=== PATIENT | male | born 1945 | race Caucasian/White ===

== ENCOUNTER 2016-07-06 10:28 | Inpatient (IN) | payer OTHER ==
[~2016-07-06 10:28] MED LIST: BISACODYL 10 MG SUPP PR PRN; DIPHENOXYLATE/ATROPINE LOMOTIL 1 TAB PO PRN; LACTULOSE 20 GM/30 ML UDCUP PO PRN; LR 1,000 ML IV SCH; MAGNESIUM HYDROXIDE 30 ML UDCUP PO PRN; METOCLOPRAMIDE 10 MG/2 ML VIAL IVP PRN; ONDANSETRON 4 MG/2 ML VIAL IVP PRN; ONDANSETRON DISINTEGRATING 4 MG TAB PO PRN; PHARMACY PAIN CONSULT 1 EA MISC PRN; PROMETHAZINE HCL 25 MG SUPPR PR PRN; PROMETHAZINE HCL 25 MG/ML VIAL IVP PRN; TEMAZEPAM 15 MG CAP PO PRN; diphenhydrAMINE 25 MG CAP PO PRN; oxyCODONE IR 5 MG TAB PO PRN
[2016-07-06] MEDS ORDERED: CEFAZOLIN 2 GM/DEXTROSE/100 ML BAG IV ONE (11:17)
[2016-07-06] MEDS ORDERED: LIDOCAINE 1% 5 ML SDV ONE (11:17)
[2016-07-06] MEDS ORDERED: ACETAMINOPHEN 325 MG TAB ONE (11:17)
[2016-07-06] MEDS ORDERED: FAMOTIDINE 20 MG TAB ONE (11:17)
[2016-07-06] MEDS ORDERED: LR 1,000 ML IV ONE (11:50)
[2016-07-06] MEDS ORDERED: LIDOCAINE 1% 5 ML SDV ID PRN (11:50)
[2016-07-06] MEDS ORDERED: BACITRACIN 50,000 UNITS/10 ML SYR IRR ONE (12:20)
[2016-07-06] MEDS ORDERED: POLYMYXIN B SULFATE 500,000 UNIT/10 ML SYR IRR ONE (12:20)
[2016-07-06] MEDS ORDERED: CITRATE DEXTROSE SOLN 500 ML BAG ONE (12:24)
[2016-07-06] MEDS ORDERED: MIDAZOLAM 2 MG/2 ML VIAL ONE ×2 (12:59→13:29)
[2016-07-06] MEDS ORDERED: PROPOFOL/EMULSION 500 MG/50 ML BOTTLE IV ONE ×3 (13:07→14:58)
[2016-07-06] MEDS ORDERED: CHLORHEXIDINE GLUC HIBICLENS 118 ML BTL TP ONE (15:00)
[2016-07-06] MEDS ORDERED: CEFAZOLIN 2 GM/DEXTR 100 ML IV ONE (15:00)
[2016-07-06] MEDS ORDERED: ACETAMINOPHEN 325 MG TAB PO ONE (15:00)
[2016-07-06] MEDS ORDERED: FAMOTIDINE 20 MG TAB PO ONE (15:00)
[2016-07-06] MEDS ORDERED: ROPI/epiNEPH/KETOROLAC/morphINE JOINT COCKTAIL IU ONE (15:00)
--- NOTE | 2016-07-06 15:36 | DX ---
Intraoperative Fluoroscopy of the Right Hip Clinical History: 70-year-old male undergoing a right hip arthroplasty. Findings: Dr. Yovani Willis used 1.4 seconds of fluoroscopy time (exposure dose of 0.29 mGy), and a single spot matrix intraoperative image was acquired at 2:53 p.m. identifying an acetabular prosthet ic cup and a temporary femoral intramedullary jig, which are anatomically-aligned. Impression: Intraoperative fluoroscopy during an ongoing right hip arthroplasty.
[2016-07-06] MEDS: SENNOSIDES/DOCUSATE SODIUM TAB PO SCH ×2 (16:27→20:30)
--- NOTE | 2016-07-06 16:34 | DX ---
Portable AP Supine Pelvis (2 Views, at 3:49 p.m.) Clinical History: 70-year-old male who underwent a right hip arthroplasty. Comparison Studies: Intraoperative fluoroscopic image earlier this afternoon and CT imaging of the r ight lower extremity dated May 29, 2016 and bilateral hips dated March 23, 2016. Findings: There is anatomic positioning of the complete right hip arthroplasty, and the femoral intr amedullary component is well-centered. A surgical drain is in place. Skin edvin are seen peripheral laterally. There is normally expected postoperative air within the soft tissues. There is also sever e degenerative osteoarthrosis of the left knee with some rounding of the lateral femoral head-neck ju nction, suggestive of femoral-acetabular impingement. There is a "[id number]" appearance of the lef t hip, with some mild subchondral sclerosis. Impression: 1. Status post right knee arthroplasty, with anatomic alignment. 2. Severe osteoarthritis of the left hip.
[2016-07-06] MEDS: ASPIRIN 325 MG TAB PO SCH (20:30)
[2016-07-06] MEDS: oxyCODONE IR 5 MG TAB PO PRN (20:30)
[2016-07-06] MEDS: CYCLOBENZAPRINE 10 MG TAB PO PRN (22:04)
[2016-07-06] MEDS: ceFAZolin 2 GM/DEXTROSE 100 ML IV SCH (22:33)
[2016-07-07] MEDS: oxyCODONE IR 5 MG TAB PO PRN ×6 (00:05→21:43)
[2016-07-07] MEDS: ceFAZolin 2 GM/DEXTROSE 100 ML IV SCH (05:31)
[2016-07-07 05:40] LABS: HEMATOCRIT 32.8 % (40.0-51.0); HEMOGLOBIN 10.9 g/dL (13.7-17.5)
[2016-07-07] MEDS: ASPIRIN 325 MG TAB PO SCH (08:20)
[2016-07-07] MEDS: SENNOSIDES/DOCUSATE SODIUM TAB PO SCH ×2 (08:20→20:19)
--- NOTE | 2016-07-07 12:01 | SOAPPROG ---
SOAP Progress Note Assessment/Plan: Assessment: s/p keiko Plan: seen at 0715 and 1130 will need additional 24 hours for pain and Pt management dvt precautions 07/07/16 12:00 Subjective: pain when moving across hip and lower ext denies numb or ting no cp or sob Objective: Vital Signs Temp Pulse Resp BP Pulse Ox 37.8 C 76 18 123/64 H 95 07/07/16 07:29 07/07/16 07:29 07/07/16 07:29 07/07/16 07:29 07/07/16 07:29 Laboratory Results 07/07/16 04:59 07/06/16 07/07/16 07/08/16 05:59 05:59 05:59 Intake Total 2770 Output Total 1059 Balance 1711 dressing intact intact pf,df,ehl toes warm and pink neg homans james xrays stable anatomic alignement no fx or lucency ICD10 Worksheet Patient Problems: Problems Problem Status Diagnosed Hip arthritis Acute - ICD10 Problem Qualifiers (1) Hip arthritis
--- NOTE | 2016-07-07 12:03 | PDIAF ---
- Diagnosis Diagnosis: hip arthritis Code Status: Full Code - Medication Management Discharge Medications: Medications to Continue on Transfer Acetaminophen [Tylenol ES 500 mg (*)] 1,000 mg PO DAILY PRN 07/06/16 [Last Taken 07/05/16] Atorvastatin Calcium [Lipitor 20 mg (*)] 20 mg PO DAILY 07/06/16 [Last Taken ] Cyclobenzaprine [Flexeril 10 MG (*)] 5 mg PO HS 07/06/16 [Last Taken 07/05/16] Herbals/Supplements -Info Only 1 ea PO DAILY 07/06/16 [Last Taken Unknown] Nasonex 2 sprays EACHNARE DAILY 07/06/16 [Last Taken 07/05/16] Sertraline HCl [Zoloft 100mg (*)] 100 mg PO DAILY 07/06/16 [Last Taken 07/05/16] Tadalafil [Cialis] 5 mg PO DAILY PRN 07/06/16 [Last Taken Unknown] Zaleplon [Sonata] 10 mg PO HS 07/06/16 [Last Taken 07/05/16] Discharge Medications: Refer to the Discharge Home Medication list for PRN reason. - Orders Services needed: Physical Therapy Diet Recommendation: no restrictions on diet Diet Texture: Regular Texture Diet Wound Care Instructions: wbat. anterior hip precautions. daily dressing changes. benson hose x 2 weeks. shower without bandage. no soaking. f/u at two weeks. seek attn for increasing pain, drainage, leg pain or other focal complaint - Follow Up Care Current Providers and Referrals: An Prado MD [Primary Care Provider] -
[2016-07-07] MEDS: CYCLOBENZAPRINE 10 MG TAB PO PRN (20:19)
[2016-07-08] MEDS: oxyCODONE IR 5 MG TAB PO PRN ×5 (03:19→23:23)
[2016-07-08 05:10] LABS: HEMATOCRIT 29.1 % (40.0-51.0); HEMOGLOBIN 9.6 g/dL (13.7-17.5)
[2016-07-08] MEDS ORDERED: DIAZEPAM 10 MG TAB PO ONE (07:25)
--- NOTE | 2016-07-08 07:29 | SOAPPROG ---
SOAP Progress Note Assessment/Plan: Assessment: s/p keiko Plan: seen at 0715 and 1130 will need additional 24 hours for pain and Pt management dvt precautions poor pain control will add valium unable to clear therapy currently will obtain repeat xray to eval hip replacement likely muscle spasm secondary to bleeding within the hip 07/07/16 12:00 07/08/16 07:27 Subjective: complains of pain no cp or sob spasms with movement Objective: Vital Signs Temp Pulse Resp BP Pulse Ox 36.8 C 89 17 150/65 H 93 07/08/16 04:03 07/08/16 04:03 07/08/16 04:03 07/08/16 04:03 07/08/16 04:03 Laboratory Results 07/08/16 04:23 07/07/16 07/08/16 07/09/16 05:59 05:59 05:59 Intake Total 2770 600 Output Total 1059 500 Balance 1711 100 dressing with serrous drainage mod swelling to thigh intact pf,df,ehl toes warm and pink neg homans bilaterally ICD10 Worksheet Patient Problems: Problems Problem Status Diagnosed Hip arthritis Acute - ICD10 Problem Qualifiers (1) Hip arthritis
[2016-07-08] MEDS: ASPIRIN 325 MG TAB PO SCH (08:09)
[2016-07-08] MEDS: DIAZEPAM 5 MG TAB PO PRN ×3 (08:09→20:38)
[2016-07-08] MEDS: SENNOSIDES/DOCUSATE SODIUM TAB PO SCH ×2 (08:09→20:35)
--- NOTE | 2016-07-08 09:35 | DX ---
AP pelvis, centered low. HISTORY: Status post right hip arthroplasty, with pain. FINDINGS: Surgical procedures of a right total hip arthroplasty are identified without complication. A soft tissue drain has been removed from July 06, 2016. Left hip osteoarthritis is advanced, with underlying cam RASHAAD. IMPRESSION: 1. Right hip arthroplasty without complication.
[2016-07-08 09:40] LABS: ANION GAP 6 mEq/L (8-16); CALCIUM 8.4 mg/dL (8.5-10.4); CARBON DIOXIDE 30 mEq/l (22-31); CHLORIDE 98 mEq/L (97-110); CREATININE 0.8 mg/dL (0.7-1.3); GLOMERULAR FILTRATION RATE > 60; GLUCOSE 133 mg/dL (70-100); POTASSIUM 4.5 mEq/L (3.5-5.2); SODIUM 134 mEq/L (134-144)
[2016-07-08] MEDS ORDERED: IOPAMIDOL (ISOVUE-300) 50 ML VIAL IV ONE (16:13)
--- NOTE | 2016-07-08 18:46 | SOAPPROG ---
SOAP Progress Note Assessment/Plan: Assessment: Postop gross hematuria and dysuria: improving, nearly resolved. CT urogram negative (although noncontrast portion not done). Plan: 1. Send UA and culture. Will treat if UA is suggestive for UTI. 2. FU in my office in 2-3 weeks for repeat UA, symptom recheck, and consideration of cystoscopy. Full consult note dictated. Objective: Vital Signs Temp Pulse Resp BP Pulse Ox 36.9 C 77 18 125/62 H 98 07/08/16 16:00 07/08/16 16:00 07/08/16 16:00 07/08/16 16:00 07/08/16 16:00 Laboratory Results 07/08/16 04:23 07/08/16 09:10 07/07/16 07/08/16 07/09/16 05:59 05:59 05:59 Intake Total 2770 600 500 Output Total 1059 500 650 Balance 1711 100 -150 ICD10 Worksheet Patient Problems: Problems Problem Status Diagnosed Hip arthritis Acute
--- NOTE | 2016-07-08 19:37 | CT ---
CT Abdomen and Pelvis, Without and With Contrast Indication: Gross hematuria. TECHNIQUE: 1.25-mm contiguous helical axial scanning through the abdomen and pelvis, without contras t. 1.25-mm contiguous helical axial scanning through the abdomen in the nephrographic phase postcont rast after the uneventful administration of 120 mL of Isovue-300. 1.25-mm contiguous helical axial s luisito through the abdomen and pelvis postcontrast in the excretory phase at 12 minutes. Dose reduc tion technique was performed. Comparison: Plain radiographs July 08, 2016. FINDINGS: There is some patchy atelectatic change at the left lung base. The liver and gallbladder are unremarkable. The spleen, adrenals, and pancreas are unremarkable. The kidneys are symmetric an d unremarkable. The excrete normally. A low-density cyst is present in the mid lower right kidney. A second area, qth-yqrbd-zt-characterize, is likely a cyst in the lower right kidney. The ureters a re unremarkable. The bladder is unremarkable. A total hip arthroplasty is present, with surgical st aples along the right skin. IMPRESSIONS 1. New right total hip arthroplasty in good position. 2. No evidence to explain the patient's gross hematuria 3. Benign incidental cysts need no further follow up.
[2016-07-08] MEDS: POLYETHYLENE GLYCOL 3350 17 GM PKT PO PRN (20:39)
[2016-07-08 23:48] LABS: COLOR YELLOW; LEUKOCYTE ESTERASE,URINE NEGATIVE (NEGATIVE); NITRITE,URINE NEGATIVE (NEGATIVE)
[2016-07-09] MEDS: oxyCODONE IR 5 MG TAB PO PRN ×6 (02:08→23:30)
[2016-07-09] MEDS: DIAZEPAM 5 MG TAB PO PRN ×6 (02:08→23:30)
--- NOTE | 2016-07-09 06:35 | SOAPPROG ---
SOAP Progress Note Assessment/Plan: Assessment: s/p keiko Plan: seen at 0715 and 1130 will need additional 24 hours for pain and Pt management dvt precautions poor pain control will add valium unable to clear therapy currently will obtain repeat xray to eval hip replacement likely muscle spasm secondary to bleeding within the hip ok to d/c home if cleared by pt if unable to go home then snf vs additional day 07/07/16 12:00 07/08/16 07:27 07/09/16 06:33 Subjective: still with pain with movement valium has helped no cp or sob Objective: Vital Signs Temp Pulse Resp BP Pulse Ox 36.9 C 90 16 151/69 H 94 07/08/16 23:28 07/08/16 23:28 07/08/16 23:28 07/08/16 23:28 07/08/16 23:28 Laboratory Results 07/08/16 04:23 07/08/16 09:10 07/08/16 07/09/16 07/10/16 05:59 05:59 05:59 Intake Total 600 500 Output Total 500 800 Balance 100 -300 ecchymosis to anterior hip mod swelling to thigh intact sensation to light touch across lower ext neg homans james lower ext ICD10 Worksheet Patient Problems: Problems Problem Status Diagnosed Hip arthritis Acute - ICD10 Problem Qualifiers (1) Hip arthritis
--- NOTE | 2016-07-09 06:39 | PDIAF ---
- Diagnosis Diagnosis: hip arthritis Code Status: Full Code - Medication Management Discharge Medications: Medications to Continue on Transfer Acetaminophen [Tylenol ES 500 mg (*)] 1,000 mg PO DAILY PRN 07/06/16 [Last Taken 07/05/16] Atorvastatin Calcium [Lipitor 20 mg (*)] 20 mg PO DAILY 07/06/16 [Last Taken ] Cyclobenzaprine [Flexeril 10 MG (*)] 5 mg PO HS 07/06/16 [Last Taken 07/05/16] Herbals/Supplements -Info Only 1 ea PO DAILY 07/06/16 [Last Taken Unknown] Nasonex 2 sprays EACHNARE DAILY 07/06/16 [Last Taken 07/05/16] Sertraline HCl [Zoloft 100mg (*)] 100 mg PO DAILY 07/06/16 [Last Taken 07/05/16] Tadalafil [Cialis] 5 mg PO DAILY PRN 07/06/16 [Last Taken Unknown] Zaleplon [Sonata] 10 mg PO HS 07/06/16 [Last Taken 07/05/16] Aspirin [Aspirin 325 mg (*)] 325 mg PO DAILY #0 tab 07/09/16 [Last Taken Unknown ] Diazepam [Valium 5 MG (*)] 5 - 10 mg PO Q6HRS PRN #40 tab 07/09/16 [Last Taken Unknown] oxyCODONE IR [Oxycodone Ir (*)] 5 - 15 mg PO Q3H PRN #90 tab 07/09/16 [Last Taken Unknown] Discharge Medications: Refer to the Discharge Home Medication list for PRN reason. - Orders Services needed: Physical Therapy Diet Recommendation: no restrictions on diet Diet Texture: Regular Texture Diet Wound Care Instructions: wbat. anterior hip precautions. daily dressing changes. benson hose x 2 weeks. shower without bandage. no soaking. f/u at two weeks. seek attn for increasing pain, drainage, leg pain or other focal complaint - Follow Up Care Current Providers and Referrals: An Prado MD [Primary Care Provider] -
[2016-07-09] MEDS: ASPIRIN 325 MG TAB PO SCH (08:29)
[2016-07-09] MEDS: SENNOSIDES/DOCUSATE SODIUM TAB PO SCH ×2 (08:29→20:34)
[2016-07-09] MEDS: POLYETHYLENE GLYCOL 3350 17 GM PKT PO PRN (08:29)
[2016-07-09 23:00] VITALS: TEMP 99.6
[2016-07-10] MEDS: DIAZEPAM 5 MG TAB PO PRN ×2 (02:39→09:16)
[2016-07-10] MEDS: oxyCODONE IR 5 MG TAB PO PRN ×2 (02:39→09:16)
[2016-07-10 08:57] VITALS: BP 119/61; PULSE 94; RESP 17; O2SAT 84
[2016-07-10] MEDS: SENNOSIDES/DOCUSATE SODIUM TAB PO SCH (09:17)
[2016-07-10] MEDS: ASPIRIN 325 MG TAB PO SCH (09:17)
== END 2016-07-10 12:12 | disposition home health service (06) | DRG 470 ==
LOC: F3N 10:28
PROVIDERS: ADMIT Orthopaedic Surgery; ATTEND Orthopaedic Surgery
PROC: 0SR904Z Replacement of Right Hip Joint with Ceramic on Polyethylene Synthetic Substitute, Open Approach (ICD-10-PCS; principal; 2016-07-06 12:15)
DX: M16.11 Unilateral primary osteoarthritis, right hip (principal); R30.0 Dysuria; R31.0 Gross hematuria; F90.9 Attention-deficit hyperactivity disorder, unspecified type
CPT/HCPCS: 97116-GP; 97161-GP; 97165-GO; 97530-GO; 97530-GP; 97535-GO; J0171; J0690; J1885; J2250; J2704; J2795; J7060; Q9967

== ENCOUNTER → 2016-11-11 | Outpatient (CLI) | payer OTHER | LOC: BMCIMAGING 09:20 | PROVIDERS: ATTEND Orthopaedic Surgery | DX: M16.12 Unilateral primary osteoarthritis, left hip (principal) ==

== ENCOUNTER → 2016-11-19 | Outpatient (CLI) | payer OTHER | LOC: FIMAGING 09:32 | PROVIDERS: ATTEND Orthopaedic Surgery | DX: Z01.818 Encounter for other preprocedural examination (principal); M16.12 Unilateral primary osteoarthritis, left hip; Z96.641 Presence of right artificial hip joint ==

== ENCOUNTER 2016-11-23 06:15 | Inpatient (IN) | payer OTHER ==
[2016-11-23] MEDS ORDERED: LIDOCAINE 1% 2 ML INJ ONE (07:07)
[2016-11-23] MEDS ORDERED: THROMBIN (BOVINE) 5,000 UNIT VIAL TP ONE (07:27)
[2016-11-23] MEDS ORDERED: CALCIUM CHLORIDE 1 GM/10 ML INJ ONE (07:27)
[2016-11-23] MEDS ORDERED: ceFAZolin 1 GM/5 ML SYR ONE (07:28)
[2016-11-23] MEDS ORDERED: CITRATE DEXTROSE SOLN 500 ML BAG ONE (07:28)
[2016-11-23] MEDS ORDERED: CEFAZOLIN 2 GM/DEXTROSE/100 ML BAG IV ONE (07:51)
[2016-11-23] MEDS ORDERED: ACETAMINOPHEN 325 MG TAB ONE (07:51)
[2016-11-23] MEDS ORDERED: FAMOTIDINE 20 MG TAB ONE (07:51)
[2016-11-23] MEDS ORDERED: MIDAZOLAM 2 MG/2 ML VIAL ONE (07:56)
[2016-11-23] MEDS ORDERED: PROPOFOL/EMULSION 500 MG/50 ML BOTTLE IV ONE (08:00)
[2016-11-23] MEDS ORDERED: DEXAMETHASONE 4 MG/ML VIAL ONE (08:00)
[2016-11-23] MEDS ORDERED: fentaNYL 100 MCG/2 ML INJ ONE ×3 (08:00→13:01)
[2016-11-23] MEDS ORDERED: ONDANSETRON 4 MG/2 ML VIAL ONE (08:00)
[2016-11-23] MEDS ORDERED: FAMOTIDINE 20 MG TAB PO ONE (08:30)
[2016-11-23] MEDS ORDERED: TRANEXAMIC ACID IV ONE (08:30)
[2016-11-23] MEDS ORDERED: CEFAZOLIN 2 GM/DEXTR 100 ML IV ONE (08:30)
[2016-11-23] MEDS ORDERED: CHLORHEXIDINE GLUC HIBICLENS 118 ML BTL TP ONE ×2 (08:30)
[2016-11-23] MEDS ORDERED: ACETAMINOPHEN 325 MG TAB PO ONE (08:30)
[2016-11-23] MEDS ORDERED: NS IV ONE (08:30)
[2016-11-23] MEDS ORDERED: ROPI/epiNEPH/KETOROLAC/morphINE JOINT COCKTAIL IU ONE (08:30)
[2016-11-23] MEDS ORDERED: PROPOFOL 200 MG/20 ML VIAL ONE ×3 (10:33→11:51)
[2016-11-23] MEDS ORDERED: LR 1,000 ML IV ONE (11:10)
[2016-11-23] MEDS ORDERED: LIDOCAINE 1% 5 ML SDV ID PRN (11:10)
[2016-11-23] MEDS ORDERED: HYDROmorphONE/DILAUDID 1 MG/ML SYR ONE (13:53)
[2016-11-23] MEDS ORDERED: ACETAMINOPHEN 325 MG TAB PO PRN (14:16)
[2016-11-23] MEDS: D5W 1/2 NS W/ 20 KCl/L 1,000 ML IV SCH (15:11)
[2016-11-23] MEDS: oxyCODONE IR 5 MG TAB PO PRN ×3 (15:11→21:12)
[2016-11-23] MEDS ORDERED: NON-FORMULARY NEW DRUG (Tadalafil [Cialis] 5 MG) PO PRN (16:00)
--- NOTE | 2016-11-23 16:39 | SOAPPROG ---
FABIENNE Progress Note Assessment/Plan: Assessment: s/p left keiko spent 20 min in review of surgical procedure with patient i have reviewed intraoperative fracture and instability of the femoral stem requiring revision to a larger stem and cerclage wiring he has voiced his understanding he will be 50% wb likely for 6 weeks Plan: 11/23/16 16:36 Subjective: weak lifting left leg still with bilateral lower leg numbness min pain Objective: Vital Signs Temp Pulse Resp BP Pulse Ox 36.0 C 71 14 112/69 97 11/23/16 15:45 11/23/16 15:45 11/23/16 15:45 11/23/16 15:45 11/23/16 15:45 11/22/16 11/23/16 11/24/16 05:59 05:59 05:59 Intake Total 1700 Balance 1700 dressing intact flicker of hip flexion to left leg intact pdf,ehl toes warm and pink neg homans xrays anatomic alignment, cerclage wire no fx or lucency ICD10 Worksheet Patient Problems: Problems Problem Status Onset Hip arthritis Acute
[2016-11-23] MEDS ORDERED: ceFAZolin 2 GM in D5W 100 ML IV SCH (17:00)
[2016-11-23] MEDS: ceFAZolin 2 GM/DEXTROSE 100 ML IV SCH (17:08)
[2016-11-23] MEDS: DIAZEPAM 5 MG TAB PO PRN ×2 (17:12→22:05)
[2016-11-23] MEDS ORDERED: ZALEPLON 10 MG PO SCH ×2 (21:00)
[2016-11-23] MEDS: ASPIRIN 325 MG TAB PO SCH (21:12)
[2016-11-24] MEDS: ceFAZolin 2 GM/DEXTROSE 100 ML IV SCH ×2 (00:47→08:12)
[2016-11-24] MEDS: D5W 1/2 NS W/ 20 KCl/L 1,000 ML IV SCH (00:49)
[2016-11-24 05:00] LABS: HEMATOCRIT 31.2 % (40.0-51.0); HEMOGLOBIN 10.5 g/dL (13.7-17.5)
[2016-11-24] MEDS: DIAZEPAM 5 MG TAB PO PRN ×4 (06:01→23:45)
[2016-11-24] MEDS: oxyCODONE IR 5 MG TAB PO PRN ×5 (06:02→23:44)
--- NOTE | 2016-11-24 07:10 | PDIAF ---
- Diagnosis Diagnosis: left hip djd Code Status: Full Code - Medication Management Discharge Medications: Medications to Continue on Transfer Atorvastatin Calcium [Lipitor 20 mg (*)] 20 mg PO DAILY 07/06/16 [Last Taken 10/05] Herbals/Supplements -Info Only 1 ea PO DAILY 07/06/16 [Last Taken 11/17/16] Mometasone Furoate Nasal [Nasonex] 2 sprays NASAL DAILY #0 07/06/16 [Last Taken 11/22/16] Tadalafil [Cialis] 5 mg PO DAILY PRN 07/06/16 [Last Taken 11/17/16] Zaleplon [Sonata] 10 mg PO HS 07/06/16 [Last Taken 11/22/16] Diazepam [Valium 5 MG (*)] 5 - 10 mg PO HS PRN 10/28/16 [Last Taken 2 Weeks Ago] Ibuprofen [Motrin (*)] 200 mg PO Q8 PRN 10/28/16 [Last Taken 11/22/16] Discharge Medications: Refer to the Discharge Home Medication list for PRN reason. - Orders Services needed: Physical Therapy Diet Recommendation: no restrictions on diet Diet Texture: Regular Texture Diet, None Activity/Weight Bearing Restrictions: wbat. rom as ziyad, anterior hip precautions. daily dressing changes. may shower without bandage. no soaking or immersion. seek attn for drainage, redness, swelling. f/u at two weeks. aspirin 325 mg po daily - Follow Up Care Current Providers and Referrals: An Prado MD [Primary Care Provider] -
--- NOTE | 2016-11-24 07:12 | SOAPPROG ---
SOAP Progress Note Assessment/Plan: Assessment: s/p left keiko continue pt/ot 50% wb dvt precautions will d/c home tomorrow Plan: 11/23/16 16:36 11/24/16 07:10 Subjective: mild pain no cp or sob able to sleep Objective: Vital Signs Temp Pulse Resp BP Pulse Ox 36.9 C 67 16 133/66 H 97 11/24/16 04:00 11/24/16 04:00 11/24/16 04:00 11/24/16 04:00 11/24/16 04:00 Laboratory Results 11/24/16 04:08 11/23/16 11/24/16 11/25/16 05:59 05:59 05:59 Intake Total 4600 Output Total 400 Balance 4200 dressing intact intact pfdf,ehl toes warm and pink sensation intact to light touch james lower ext neg homans xrays stable alignement ICD10 Worksheet Patient Problems: Problems Problem Status Onset Hip arthritis Acute
[2016-11-24] MEDS: ATORVASTATIN CALCIUM 20 MG TAB PO SCH (08:12)
[2016-11-24] MEDS: ASPIRIN 325 MG TAB PO SCH (08:12)
[2016-11-24] MEDS: Mometasone Furoate Nasal [Nasonex] 2 SPRAYS NASAL SCH (08:17)
[2016-11-24] MEDS ORDERED: ASPIRIN 325 MG TAB PO SCH (09:00)
[2016-11-24] MEDS ORDERED: Herbals/Supplements -Info Only PO SCH (09:00)
[2016-11-24] MEDS: ZALEPLON 10 MG PO SCH (20:39)
[2016-11-25] MEDS: DIAZEPAM 5 MG TAB PO PRN ×3 (05:50→23:41)
[2016-11-25] MEDS: oxyCODONE IR 5 MG TAB PO PRN ×4 (05:50→23:42)
--- NOTE | 2016-11-25 06:59 | SOAPPROG ---
SOAP Progress Note Assessment/Plan: Assessment: s/p left keiko continue pt/ot 50% wb dvt precautions wants to be d/c wednesday am will have senior program planner speak with him regarding discharge Plan: 11/23/16 16:36 11/24/16 07:10 11/25/16 06:55 Subjective: has leukemia wants to stay until wednesday has increasing pain no cp or sob Objective: Vital Signs Temp Pulse Resp BP Pulse Ox 36.6 C 84 16 147/67 H 92 11/24/16 23:32 11/24/16 23:32 11/24/16 23:32 11/24/16 23:32 11/24/16 23:32 Laboratory Results 11/24/16 04:08 11/24/16 11/25/16 11/26/16 05:59 05:59 05:59 Intake Total 4600 300 Output Total 400 550 Balance 4200 -250 dressing intact intact pfdf,ehl toes warm and pink intact pfdf,ehl toes warm and pink neg homans james pos swelling at left thigh xrays repeat pelvis xray stable no subsidence ICD10 Worksheet Patient Problems: Problems Problem Status Onset Hip arthritis Acute
[2016-11-25] MEDS: Mometasone Furoate Nasal [Nasonex] 2 SPRAYS NASAL SCH (09:51)
[2016-11-25] MEDS: ATORVASTATIN CALCIUM 20 MG TAB PO SCH (09:51)
[2016-11-25] MEDS: ASPIRIN 325 MG TAB PO SCH (09:51)
[2016-11-25] MEDS ORDERED: chlorproMAZINE HCL 25 MG in NS 25 ML IV PRN (14:45)
[2016-11-25] MEDS: ZALEPLON 10 MG PO SCH (21:03)
[2016-11-26 05:28] LABS: HEMATOCRIT 22.4 % (40.0-51.0); HEMOGLOBIN 7.6 g/dL (13.7-17.5)
[2016-11-26] MEDS: DIAZEPAM 5 MG TAB PO PRN ×3 (05:30→20:04)
[2016-11-26] MEDS: oxyCODONE IR 5 MG TAB PO PRN ×6 (05:30→22:44)
--- NOTE | 2016-11-26 06:29 | SOAPPROG ---
SOAP Progress Note Assessment/Plan: Assessment: s/p left keiko continue pt/ot 50% wb dvt precautions wants to be d/c wednesday am plan for d/c tomorrow am low hct will follow as asymptomatic repeat xrays this pm to eval femoral stem Plan: 11/23/16 16:36 11/24/16 07:10 11/25/16 06:55 11/26/16 06:27 Subjective: sore across leg felt confused with thorazine no hiccups no cp or sob Objective: Vital Signs Temp Pulse Resp BP Pulse Ox 37.7 C 93 16 133/66 H 91 L 11/25/16 23:26 11/25/16 23:26 11/25/16 23:26 11/25/16 23:26 11/25/16 23:26 Laboratory Results 11/26/16 04:13 11/25/16 11/26/16 11/27/16 05:59 05:59 05:59 Intake Total 300 1300 Output Total 550 675 Balance -250 625 leg swollen pos ecchymosis soft muscular compartments intact pf,df,ehl warm brisk cap refil ICD10 Worksheet Patient Problems: Problems Problem Status Onset Hip arthritis Acute
[2016-11-26] MEDS: ASPIRIN 325 MG TAB PO SCH (08:31)
[2016-11-26] MEDS: ATORVASTATIN CALCIUM 20 MG TAB PO SCH (08:31)
[2016-11-26] MEDS: Mometasone Furoate Nasal [Nasonex] 2 SPRAYS NASAL SCH (08:57)
[2016-11-26] MEDS ORDERED: MAGNESIUM HYDROXIDE 30 ML UDCUP PO PRN (19:08)
[2016-11-26] MEDS ORDERED: POLYETHYLENE GLYCOL 3350 17 GM PKT PO PRN (19:08)
[2016-11-26 19:36] LABS: HEMATOCRIT 22.2 % (40.0-51.0); HEMOGLOBIN 7.4 g/dL (13.7-17.5)
[2016-11-26] MEDS: SENNOSIDES 1 TAB PO SCH (20:03)
[2016-11-26] MEDS: ZALEPLON 10 MG PO SCH (20:05)
[2016-11-27 06:06] VITALS: O2SAT 92
[2016-11-27] MEDS: oxyCODONE IR 5 MG TAB PO PRN ×2 (06:08→09:19)
[2016-11-27] MEDS: DIAZEPAM 5 MG TAB PO PRN (06:08)
--- NOTE | 2016-11-27 06:56 | SOAPPROG ---
SOAP Progress Note Assessment/Plan: Assessment: 4 days s/p L CELESTINE. doing well and pain controlled. Plan: d/c home today remain 50% weightbearing wear benson hose for 2 weeks cont asa dressing change daily begin PT in 1 to 2 weeks follow up in ortho office in 10 to 14 days with Teresa Barrios PA-C 11/27/16 06:52 Subjective: 4 days s/p L CELESTINE. States the oxy and valium are controlling pain and spasm. concerned about o2 sats. denies fever, chills, nausea, SOB, CP or calf pain. Denies numbness or tingling. Objective: Vital Signs Temp Pulse Resp BP Pulse Ox 37.3 C 91 15 118/58 L 92 11/27/16 04:00 11/27/16 04:00 11/27/16 04:00 11/27/16 04:00 11/27/16 04:00 Laboratory Results 11/26/16 19:13 11/26/16 11/27/16 11/28/16 05:59 05:59 05:59 Intake Total 1300 2500 Output Total 675 700 Balance 625 1800 - Time Spent With Patient Time Spent With Patient: 20 min in exam and answering questions - Pending Discharge Pending Discharge Within 24 Hours: Yes Pending Discharge Date: 11/28/16 Pending Discharge Time: 11:00 Physical Exam - Physical Exam General Appearance: WD/WN, alert, no apparent distress Peripheral Pulses: 2+: dorsalis-pedis (R), dorsalis-pedis (L) Skin: normal color (eccymotic on buttock and in groin), warm/dry, No rash Extremities: normal inspection, normal capillary refill, swelling, No normal range of motion, No non-tender, No pedal edema, No calf tenderness, No Dwayne's sign Neuro/Psych: no motor/sensory deficits, normal mood/affect, oriented x 3 ICD10 Worksheet Patient Problems: Problems Problem Status Onset Hip arthritis Acute
[2016-11-27 08:01] VITALS: BP 125/61; PULSE 84; RESP 16; TEMP 99.5
[2016-11-27] MEDS: SENNOSIDES 1 TAB PO SCH (09:19)
[2016-11-27] MEDS: ASPIRIN 325 MG TAB PO SCH (09:19)
[2016-11-27] MEDS: ATORVASTATIN CALCIUM 20 MG TAB PO SCH (09:19)
[2016-11-27] MEDS: Mometasone Furoate Nasal [Nasonex] 2 SPRAYS NASAL SCH (09:32)
== END 2016-11-27 12:10 | disposition home or self-care (01) | DRG 470 ==
LOC: F3N 06:15
PROVIDERS: ADMIT Orthopaedic Surgery; ATTEND Orthopaedic Surgery
PROC: 0SRB04Z Replacement of Left Hip Joint with Ceramic on Polyethylene Synthetic Substitute, Open Approach (ICD-10-PCS; principal; 2016-11-23 08:30)
PROC: 8E0Y0CZ Robotic Assisted Procedure of Lower Extremity, Open Approach (ICD-10-PCS; principal; 2016-11-23 08:30)
PROC: 0QH704Z Insertion of Internal Fixation Device into Left Upper Femur, Open Approach (ICD-10-PCS; principal; 2016-11-23 08:30)
DX: M16.12 Unilateral primary osteoarthritis, left hip (principal); T84.89XA Other specified complication of internal orthopedic prosthetic devices, implants and grafts, initial encounter; S72.002A Fracture of unspecified part of neck of left femur, initial encounter for closed fracture; Y92.234 Operating room of hospital as the place of occurrence of the external cause
CPT/HCPCS: 97116-GP; 97161-GP; 97165-GO; 97530-GO; 97530-GP; 97535-GO; C1713; G8979-GP-CI; G8980-GP-CI; G8981-GP-CK; G8982-GP-CI; G8987-GO-CI; G8988-GO-CI; G8989-GO-CI; J0171; J0690; J1100; J1170; J1885; J2250; J2405; J2704; J2795; J3010; J3230; J7060

== ENCOUNTER 2016-11-27 23:38 | Inpatient (IN) | payer OTHER ==
[2016-11-28] MEDS ORDERED: HYDROmorphONE/DILAUDID 2 MG TAB PO ONE (00:01)
[2016-11-28] MEDS ORDERED: HYDROmorphONE/DILAUDID 1 MG/ML SYR ONE (00:05)
--- NOTE | 2016-11-28 00:05 | EDPHY ---
H & P Smoking Status: Never smoked Time Seen by Provider: 11/27/16 23:53 HPI/ROS: CHIEF COMPLAINT: Left hip pain HISTORY OF PRESENT ILLNESS: This is a 71-year-old male presenting to the emergency department via EMS complaining of left hip pain. Patient states on 10/2016 total hip replacement, just discharged today. Patient states he was sitting on his chair dozed off as soon as he woke up he felt a pop in his left hip, unable to bear weight 10/10 pain. Patient's stated she is spoke with Dr. Willis he is aware of the new injury to the hip, x-rays then evaluation. REVIEW OF SYSTEMS: Constitutional: No fever, no chills. Eyes: No discharge. No blurred vision ENT: No sore throat. Cardiovascular: No chest pain, no palpitations. Respiratory: No cough, no shortness of breath. Gastrointestinal: No abdominal pain, no nausea no vomiting. Genitourinary: No difficulty hearing Musculoskeletal: No back pain. Left hip pain Skin: No rashes. Neurological: No headache. (Tara Boone) Physical Exam: General Appearance: Alert, no distress. Eyes: Pupils equal and round no pallor or injection. ENT, Mouth: Mucous membranes moist. Respiratory: There are no retractions, lungs are clear to auscultation. Cardiovascular: Regular rate and rhythm. Gastrointestinal: Abdomen is soft and nontender, no masses, bowel sounds normal. Neurological: No focal deficits Skin: Warm and dry, no rashes. Musculoskeletal: Neck is supple nontender. Extremities: Left hip pain decreased range of motion rotation noted. positive CMS intact. Ecchymosis noted to left side of abdomen/hip Psychiatric: Patient is oriented X 3, acting appropriate (Tara Boone) Constitutional: Initial Vital Signs Temperature (C) 37.9 C 11/27/16 23:50 Heart Rate 102 H 11/27/16 23:50 Respiratory Rate 20 11/27/16 23:50 Blood Pressure 182/73 H 11/27/16 23:50 O2 Sat (%) 87 L 11/27/16 23:50 O2 Delivery Mode [Post Non-Rebreather Mask Procedure 2nd] O2 Delivery Mode [Post Non-Rebreather Mask Procedure 1st] O2 Delivery Mode [Procedural Non-Rebreather Mask 2nd] O2 Delivery Mode [Procedural Non-Rebreather Mask 1st] O2 Delivery Mode [.Immediate Non-Rebreather Mask Pre-Procedure] O2 Delivery Mode Nasal Cannula O2 (L/minute) [Post Procedure 15 2nd] O2 (L/minute) [Post Procedure 15 1st] O2 (L/minute) [Procedural 2nd] 15 O2 (L/minute) [Procedural 1st] 15 O2 (L/minute) [.Immediate Pre- 15 Procedure] O2 (L/minute) 2 Allergies/Adverse Reactions: No Known Allergies Allergy (Verified 06/10/16 15:39) Home Medications: Medication Instructions Recorded Atorvastatin Calcium [Lipitor 20 20 mg PO DAILY 07/06/16 mg (*)] Herbals/Supplements -Info Only 1 ea PO DAILY 07/06/16 Mometasone Furoate Nasal [Nasonex] 2 sprays NASAL DAILY #0 07/06/16 Tadalafil [Cialis] 5 mg PO DAILY PRN 07/06/16 Aspirin [Aspirin 325 mg (*)] 325 mg PO DAILY #0 tab 11/27/16 Diazepam [Valium 5 MG (*)] 5 - 10 mg PO HS PRN #60 tab 11/27/16 Diazepam [Valium 5 MG (*)] 5 mg PO Q6 PRN #60 tab 11/27/16 oxyCODONE IR [Oxycodone Ir (*)] 5 mg PO Q3 PRN #90 tab 11/27/16 Medical Decision Making Procedures: Procedure: Left hip reduction Patient consented for left hip reduction. 100 mcg fentanyl, 100 mg purple fall for sedation. Successful hip reduction patient tolerated procedure. Post reduction films ordered positive CMS intact (Tara Boone) REDUCTION Procedure: Dislocation reduction. Indication: Dislocation The hip was reduced in the usual fashion without complications. Post reduction the patient's neurovascular exam is normal. Post reduction x-ray demonstrates reduction of the joint to the anatomic position. The procedure was performed by by physician legal document assistant. PROCEDURAL SEDATION Procedure: Procedural sedation. Indication: Dislocation reduction I was asked by my physician legal document assistant performed procedural sedation. The patient is an appropriate candidate to tolerate procedural sedation. The patient's vital signs and mental status are appropriate. The risks, benefits and alternatives of the sedation were discussed with the patient. The patient is ASA classification 2. The patient's Mallampati airway score was 1 and the patient did meet the 3-3-2 airway measurements. A time out was completed. The patient was sedated with propofol 100 mg. The patient was monitored with continuous pulse oximetry, telemetry monitor and end tidal CO2. There were no complications and no significant hypoxemia. I performed the sedation. The total time I spent at the bedside during the procedural sedation was 10 minutes. The patient was examined after the procedural sedation and has returned to their pre-sedation baseline with normal vital signs and a normal examination. (Maria Ines Woody) ED Course/Re-evaluation: Discussed ED plan of care: X-ray of left hip, IV pain management with Dilaudid 0100: Spoke with Dr. Willis, reduce hip here in the ER, admitted to hospitalist and p.o. for possible OR tomorrow 0150: Successful hip reduction, patient tolerated procedure well IV 100mcg fentanyl, 100 mg propofol 0205: Discussed with Dr. Rodgers patient admitted to floor, CBC, BMP, coags. Dr. Willis will see patient in the morning. (Tara Boone) Differential Diagnosis: Other differential diagnosis considered but not limited to hip fracture, hip dislocation, femur fracture (Tara Boone) Other Provider: PHYSICIAN DOCUMENTATION: The patient was evaluated and managed by the Physician Site Safety Coordinator. My co- signature indicates that I have reviewed this chart and I agree with the findings and plan of care as documented. I am the secondary supervising physician. (Maria Ines Woody) - Data Points Laboratory Results: Laboratory Results 11/28/16 00:00 11/28/16 00:00 11/28/16 11/28/16 11/28/16 00:00 00:00 00:00 WBC 8.34 10^3/uL 10^3/uL (3.80-9.50) RBC 2.79 10^6/uL L 10^6/uL (4.40-6.38) Hgb 8.7 g/dL L g/dL (13.7-17.5) Hct 26.7 % L % (40.0-51.0) MCV 95.7 fL fL (81.5-99.8) MCH 31.2 pg pg (27.9-34.1) MCHC 32.6 g/dL g/dL (32.4-36.7) RDW 14.4 % % (11.5-15.2) Plt Count 240 10^3/uL 10^3/uL (150-400) MPV 9.5 fL fL (8.7-11.7) Neut % (Auto) 72.9 % % (39.3-74.2) Lymph % (Auto) 13.8 % L % (15.0-45.0) [place] % (Auto) 10.8 % % (4.5-13.0) Eos % (Auto) 1.2 % % (0.6-7.6) Baso % (Auto) 0.5 % % (0.3-1.7) Nucleat RBC Rel Count 0.0 % % (0.0-0.2) Absolute Neuts (auto) 6.08 10^3/uL 10^3/uL (1.70-6.50) Absolute Lymphs (auto) 1.15 10^3/uL 10^3/uL (1.00-3.00) Absolute Monos (auto) 0.90 10^3/uL H 10^3/uL (0.30-0.80) Absolute Eos (auto) 0.10 10^3/uL 10^3/uL (0.03-0.40) Absolute Basos (auto) 0.04 10^3/uL 10^3/uL (0.02-0.10) Absolute Nucleated RBC 0.00 10^3/uL 10^3/uL (0-0.01) Immature Gran % 0.8 % % (0.0-1.1) Immature Gran # 0.07 10^3/uL 10^3/uL (0.00-0.10) PT 13.1 SEC SEC (12.0-15.0) INR 1.00 (0.83-1.16) APTT 28.4 SEC SEC (23.0-38.0) Sodium 134 mEq/L mEq/L (134-144) Potassium 4.6 mEq/L mEq/L (3.5-5.2) Chloride 96 mEq/L L mEq/L (97-110) Carbon Dioxide 28 mEq/l mEq/l (22-31) Anion Gap 10 mEq/L mEq/L (8-16) BUN 18 mg/dL mg/dL (7-23) Creatinine 0.9 mg/dL mg/dL (0.7-1.3) Estimated GFR > 60 Glucose 109 mg/dL H mg/dL (70-100) Calcium 9.8 mg/dL mg/dL (8.5-10.4) Medications Given: Discontinued Medications Fentanyl (Sublimaze) 100 mcg IVP EDNOW ONE Stop: 11/28/16 02:05 Last Admin: 11/28/16 01:30 Dose: 100 mcg Hydromorphone HCl (Dilaudid) 1 mg PO EDNOW ONE Stop: 11/28/16 00:02 Last Admin: 11/28/16 00:08 Dose: Not Given Hydromorphone HCl (Dilaudid) 1 mg IVP EDNOW ONE Stop: 11/28/16 00:08 Last Admin: 11/28/16 00:08 Dose: 1 mg Hydromorphone HCl (Dilaudid) 1 mg IVP EDNOW ONE Stop: 11/28/16 00:41 Last Admin: 11/28/16 01:04 Dose: 0.5 mg Hydromorphone HCl (Dilaudid) 1 mg IVP EDNOW ONE Stop: 11/28/16 02:29 Last Admin: 11/28/16 02:40 Dose: 1 mg Propofol (Diprivan) 100 mg IVP EDNOW ONE Stop: 11/28/16 02:06 Last Admin: 11/28/16 01:50 Dose: 100 mg Departure - Departure Disposition: [facility] Inpatient Acute Clinical Impression: Hip dislocation, left Qualifiers: Encounter type: initial encounter Qualified Code(s): S73.005A - Unspecified dislocation of left hip, initial encounter Condition: Good
[2016-11-28] MEDS ORDERED: HYDROmorphONE/DILAUDID 1 MG/ML SYR IVP ONE ×2 (00:07→00:40)
[2016-11-28] MEDS ORDERED: fentaNYL 100 MCG/2 ML INJ IVP ONE (02:04)
[2016-11-28] MEDS ORDERED: PROPOFOL 200 MG/20 ML VIAL IVP ONE (02:05)
[2016-11-28 02:26] LABS: % IMMATURE GRANULYOCYTES 0.8 % (0.0-1.1); ABSOLUTE IMMATURE GRANULOCYTES 0.07 10^3/uL (0.00-0.10); ADD DIFF? NO; ADD MORPH? NO; ADD SCAN? NO; ATYPICAL LYMPHOCYTE FLAG 20 (0-99); FRAGMENT RBC FLAG 0 (0-99); HEMATOCRIT 26.7 % (40.0-51.0); HEMOGLOBIN 8.7 g/dL (13.7-17.5); LEFT SHIFT FLG 10 (0-99); LIPEMIA HEMOLYSIS FLAG 80 (0-99); MEAN CELL HEMOGLOBIN 31.2 pg (27.9-34.1); MEAN CELL HEMOGLOBIN CONCENTR. 32.6 g/dL (32.4-36.7); MEAN CELL VOLUME 95.7 fL (81.5-99.8); MEAN PLATELET VOLUME 9.5 fL (8.7-11.7); PLATELET CLUMPS FLAG 10 (0-99); PLATELET COUNT 240 10^3/uL (150-400); RED BLOOD CELL COUNT 2.79 10^6/uL (4.40-6.38); RED CELL DISTRIBUTION WIDTH 14.4 % (11.5-15.2)
[2016-11-28] MEDS ORDERED: HYDROmorphONE/DILAUDID 2 MG/ML INJ IVP ONE (02:28)
[2016-11-28 02:36] LABS: APTT 28.4 SEC (23.0-38.0); PROTIME(PATIENT) 13.1 SEC (12.0-15.0)
[2016-11-28 02:42] LABS: ANION GAP 10 mEq/L (8-16); CALCIUM 9.8 mg/dL (8.5-10.4); CARBON DIOXIDE 28 mEq/l (22-31); CHLORIDE 96 mEq/L (97-110); CREATININE 0.9 mg/dL (0.7-1.3); GLOMERULAR FILTRATION RATE > 60; GLUCOSE 109 mg/dL (70-100); POTASSIUM 4.6 mEq/L (3.5-5.2); SODIUM 134 mEq/L (134-144)
[2016-11-28] MEDS ORDERED: HYDROmorphONE/DILAUDID 1 MG/ML SYR IVP PRN (03:03)
[2016-11-28] MEDS ORDERED: ACETAMINOPHEN 325 MG TAB PO PRN (03:03)
[2016-11-28] MEDS ORDERED: ONDANSETRON DISINTEGRATING 4 MG TAB PO PRN (03:03)
[2016-11-28] MEDS ORDERED: ONDANSETRON 4 MG/2 ML VIAL IVP PRN (03:03)
[2016-11-28] MEDS ORDERED: NS 1,000 ML IV SCH (03:15)
--- NOTE | 2016-11-28 04:50 | PDGENHP ---
History and Physical - Chief Complaint L hip pain - History of Present Illness Patient is a 71-year-old male with a history of hyperlipidemia, recent left hip fracture on 11/23 performed at [facility], discharged on who presents to the ED several hours after discharge complaining of acute left hip pain. Patient states on arrival home yesterday afternoon he took a nap in his upright recliner chair. He then awoke suddenly with a start, had jerked upright in his chair and then immediately felt a popping sensation in his left hip. After this he noted his leg to be abnormally rotated and he could not bear weight without significant amount of pain. Given this he decided to come to the ED for further evaluation. He did not fall out of his chair, had no abnormal movements other than sitting upright. On arrival to the ED patient was afebrile hemodynamically stable. X-ray of his left hip revealed recent arthroplasty hardware in place, but femoral head dislocated out of the socket. Hip was successfully reduced in the ER by ER physicians. Patient's orthopedist was contacted and recommended admission with possible surgical evaluation in the a.m. History Information - Allergies/Home Medication List Allergies/Adverse Reactions: No Known Allergies Allergy (Verified 06/10/16 15:39) Home Medications: Atorvastatin Calcium [Lipitor 20 mg (*)] 20 mg PO DAILY 07/06/16 [Last Taken 10/05] Herbals/Supplements -Info Only 1 ea PO DAILY 07/06/16 [Last Taken 11/17/16] Mometasone Furoate Nasal [Nasonex] 2 sprays NASAL DAILY #0 07/06/16 [Last Taken 11/22/16] Tadalafil [Cialis] 5 mg PO DAILY PRN 07/06/16 [Last Taken 11/17/16] I have personally reviewed and updated: family history, medical history, social history, surgical history - Past Medical History Additional medical history: hyperlipidemia - Surgical History Additional surgical history: L hip replacement on 11/23/2016. cataract repair. 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 Review of Systems Review of Systems: Constipation x5 days, passing gas ROS: 10pt was reviewed & negative except for what was stated in HPI & below Physical Exam Temp Pulse Resp BP Pulse Ox 36.6 C 81 16 154/77 H 92 11/28/16 02:40 11/28/16 02:40 11/28/16 02:40 11/28/16 02:40 11/28/16 02:40 O2 (L/minute) 2 Constitutional: no apparent distress, appears nourished, not in pain Eyes: PERRL, anicteric sclera, EOMI Ears, Nose, Mouth, Throat: moist mucous membranes, hearing normal, ears appear normal, no oral mucosal ulcers Cardiovascular: regular rate and rhythym, no murmur, rub, or gallop, pulses symmetric bilaterally, No JVD, No edema Peripheral Pulses: 2+: dorsalis-pedis (R), dorsalis-pedis (L) Respiratory: no respiratory distress, no rales or rhonchi, clear to auscultation Gastrointestinal: normoactive bowel sounds, soft, non-tender abdomen, no palpable masses, distension ( mildly distended), No guarding, No rebound Genitourinary: no bladder fullness, no bladder tenderness Skin: warm, normal color, no fluctuance, other (L hip incision, dressing with minimal serousangeous fluid drainage. ), No mottled Musculoskeletal: other (distant L extremity neurovascularly intact) Neurologic: AAOx3, sensation intact bilaterally, CN II-XII Intact, No weakness, No numbness, No facial droop Psychiatric: interacting appropriately, not anxious, not encephalopathic, thought process linear Lab Data & Imaging Review 11/28/16 04:42 11/28/16 04:42 WBC 8.34 10^3/uL (3.80-9.50) 11/28/16 00:00 RBC 2.79 10^6/uL (4.40-6.38) L 11/28/16 00:00 Hgb 8.7 g/dL (13.7-17.5) L 11/28/16 00:00 Hct 26.7 % (40.0-51.0) L 11/28/16 00:00 MCV 95.7 fL (81.5-99.8) 11/28/16 00:00 MCH 31.2 pg (27.9-34.1) 11/28/16 00:00 MCHC 32.6 g/dL (32.4-36.7) 11/28/16 00:00 RDW 14.4 % (11.5-15.2) 11/28/16 00:00 Plt Count 240 10^3/uL (150-400) 11/28/16 00:00 MPV 9.5 fL (8.7-11.7) 11/28/16 00:00 Neut % (Auto) 72.9 % (39.3-74.2) 11/28/16 00:00 Lymph % (Auto) 13.8 % (15.0-45.0) L 11/28/16 00:00 [place] % (Auto) 10.8 % (4.5-13.0) 11/28/16 00:00 Eos % (Auto) 1.2 % (0.6-7.6) 11/28/16 00:00 Baso % (Auto) 0.5 % (0.3-1.7) 11/28/16 00:00 Nucleat RBC Rel Count 0.0 % (0.0-0.2) 11/28/16 00:00 Absolute Neuts (auto) 6.08 10^3/uL (1.70-6.50) 11/28/16 00:00 Absolute Lymphs (auto) 1.15 10^3/uL (1.00-3.00) 11/28/16 00:00 Absolute Monos (auto) 0.90 10^3/uL (0.30-0.80) H 11/28/16 00:00 Absolute Eos (auto) 0.10 10^3/uL (0.03-0.40) 11/28/16 00:00 Absolute Basos (auto) 0.04 10^3/uL (0.02-0.10) 11/28/16 00:00 Absolute Nucleated RBC 0.00 10^3/uL (0-0.01) 11/28/16 00:00 Immature Gran % 0.8 % (0.0-1.1) 11/28/16 00:00 Immature Gran # 0.07 10^3/uL (0.00-0.10) 11/28/16 00:00 PT 13.1 SEC (12.0-15.0) 11/28/16 00:00 INR 1.00 (0.83-1.16) 11/28/16 00:00 APTT 28.4 SEC (23.0-38.0) 11/28/16 00:00 Sodium 134 mEq/L (134-144) 11/28/16 00:00 Potassium 4.6 mEq/L (3.5-5.2) 11/28/16 00:00 Chloride 96 mEq/L (97-110) L 11/28/16 00:00 Carbon Dioxide 28 mEq/l (22-31) 11/28/16 00:00 Anion Gap 10 mEq/L (8-16) 11/28/16 00:00 BUN 18 mg/dL (7-23) 11/28/16 00:00 Creatinine 0.9 mg/dL (0.7-1.3) 11/28/16 00:00 Estimated GFR > 60 11/28/16 00:00 Glucose 109 mg/dL (70-100) H 11/28/16 00:00 Calcium 9.8 mg/dL (8.5-10.4) 11/28/16 00:00 Visualized and Interpreted imaging results: Yes Interpretation: x-ray: dislocated L femoral head Assessment & Plan Assessment: patient is a 71-year-old male with history of hyperlipidemia and recent left hip replacement on 11/23 who presents to the ED after having a popping sensation in his left hip. ED evaluation reveals acute left hip dislocation, now status post reduction by ED physician and admitted for further management. Plan: # acute hip dislocation Given recent hip replacement, patient will require Ortho evaluation to determine if surgical exploration of the dislocation is required. Ortho has been contacted, will evaluate the patient in the AM. Will need to f/u official hip x-ray radiology read to determine if dislocation has been associated with a new acute fracture. Will control pain as needed, maintain patient in hip precautions, provide gentle IV fluid hydration and f/u ortho recommendations. # dispo: admit to observation status # gen: NPO DVTppx: lovenox Full code
[2016-11-28 05:03] LABS: % IMMATURE GRANULYOCYTES 0.9 % (0.0-1.1); ABSOLUTE IMMATURE GRANULOCYTES 0.06 10^3/uL (0.00-0.10); ADD DIFF? NO; ADD MORPH? NO; ADD SCAN? NO; ATYPICAL LYMPHOCYTE FLAG 0 (0-99); FRAGMENT RBC FLAG 0 (0-99); HEMATOCRIT 22.3 % (40.0-51.0); HEMOGLOBIN 7.5 g/dL (13.7-17.5); LEFT SHIFT FLG 10 (0-99); LIPEMIA HEMOLYSIS FLAG 80 (0-99); MEAN CELL HEMOGLOBIN 31.8 pg (27.9-34.1); MEAN CELL HEMOGLOBIN CONCENTR. 33.6 g/dL (32.4-36.7); MEAN CELL VOLUME 94.5 fL (81.5-99.8); MEAN PLATELET VOLUME 9.1 fL (8.7-11.7); PLATELET CLUMPS FLAG 0 (0-99); PLATELET COUNT 168 10^3/uL (150-400); RED BLOOD CELL COUNT 2.36 10^6/uL (4.40-6.38); RED CELL DISTRIBUTION WIDTH 14.3 % (11.5-15.2)
[2016-11-28 05:18] LABS: ANION GAP 6 mEq/L (8-16); CALCIUM 8.5 mg/dL (8.5-10.4); CARBON DIOXIDE 28 mEq/l (22-31); CHLORIDE 99 mEq/L (97-110); CREATININE 0.9 mg/dL (0.7-1.3); GLOMERULAR FILTRATION RATE > 60; GLUCOSE 108 mg/dL (70-100); MAGNESIUM 2.1 mg/dL (1.6-2.3); POTASSIUM 4.6 mEq/L (3.5-5.2); SODIUM 133 mEq/L (134-144)
[2016-11-28] MEDS: ENOXAPARIN 40 MG/0.4 ML SYR SC SCH (09:24)
[2016-11-28] MEDS: oxyCODONE IR 5 MG TAB PO PRN ×4 (09:24→20:37)
[2016-11-28] MEDS: DIAZEPAM 5 MG TAB PO PRN ×2 (09:24→22:39)
--- NOTE | 2016-11-28 09:34 | SOAPPROG ---
SOAP Progress Note Assessment/Plan: Assessment: S/P left keiko dislocation Plan:50% wb xrays demonstrate no fx or lucency, no change in position i have recommended trial of PT,OT with strict anterior hip precautions if any instability will require revision of femoral component 11/28/16 09:32 Subjective: mild pain no cp or sob ziyad po Objective: Vital Signs Temp Pulse Resp BP Pulse Ox 36.7 C 71 14 133/69 H 99 11/28/16 08:00 11/28/16 08:00 11/28/16 08:00 11/28/16 08:00 11/28/16 08:00 Laboratory Results 11/28/16 04:42 11/28/16 04:42 11/27/16 11/28/16 11/29/16 05:59 05:59 05:59 Output Total 200 Balance -200 PT 13.1 SEC (12.0-15.0) 11/28/16 00:00 INR 1.00 (0.83-1.16) 11/28/16 00:00 dressing intact intact pfd,ehl toes warm and pink neg homans no calf ttp james lower ext ICD10 Worksheet Patient Problems: Problems Problem Status Onset Hip dislocation, left Acute Hip arthritis Acute
--- NOTE | 2016-11-28 11:43 | HOSPPROG ---
Hospitalist Progress Note Assessment/Plan: Patient is a 71 y/o male who had a recent hip replacement of 11/23. He presented to the ER after having a popping sensation to his left hip. He was admitted earlier by Dr Degroot. I cam by to f/u. # acute hip dislocation seen by ortho/ to be 50% wb anterior hip precautions if becomes unstable, will need revision of femoral component *persistent hiccups trial of baclofen hold Valium because of increase risk of sedation/ can be resumed as soon as hiccups resolve had been given a dose of Thorazine/ caused confusion and no resolution *constipation no bowel movement x 6 days bowel protocol abd is very distended/ will give a dose of mag citrate/ has good bowel sounds *urinary retention ceballos placed in earlier this should resolve once he has a bowel movement *hyperlipidemia resumed statin *anemia close to his baseline on recent dc *dvt prophylaxis: LMWH Subjective: Dc has no specific complaints x for hiccups and being constipated. Objective: Vital Signs Temp Pulse Resp BP Pulse Ox 36.7 C 71 14 133/69 H 99 11/28/16 08:00 11/28/16 08:00 11/28/16 08:00 11/28/16 08:00 11/28/16 08:00 Laboratory Results 11/28/16 04:42 11/28/16 04:42 11/27/16 11/28/16 11/29/16 05:59 05:59 05:59 Output Total 200 Balance -200 PT 13.1 SEC (12.0-15.0) 11/28/16 00:00 INR 1.00 (0.83-1.16) 11/28/16 00:00 - Physical Exam Constitutional: uncomfortable Eyes: PERRL Ears, Nose, Mouth, Throat: hearing normal Cardiovascular: regular rate and rhythym Respiratory: no respiratory distress Gastrointestinal: normoactive bowel sounds, distension Genitourinary: ceballos in urethra Skin: warm Neurologic: AAOx3 Psychiatric: interacting appropriately ICD10 Worksheet Patient Problems: Problems Problem Status Onset Hip dislocation, left Acute Hip arthritis Acute
[2016-11-28] MEDS ORDERED: BACLOFEN 10 MG TAB PO PRN (12:53)
[2016-11-28] MEDS ORDERED: BACLOFEN 10 MG TAB PO ONE (12:54)
[2016-11-28] MEDS ORDERED: MAGNESIUM HYDROXIDE 30 ML UDCUP PO PRN (12:55)
[2016-11-28] MEDS ORDERED: MAGNESIUM CITRATE 300 ML BOTTLE PO ONE (12:55)
[2016-11-28] MEDS ORDERED: POLYETHYLENE GLYCOL 3350 17 GM PKT PO PRN (12:55)
[2016-11-28] MEDS ORDERED: LACTULOSE 20 GM/30 ML UDCUP PO PRN (12:55)
[2016-11-28] MEDS: BISACODYL 10 MG SUPP PR PRN (14:04)
[2016-11-28] MEDS: SENNOSIDES/DOCUSATE SODIUM TAB PO SCH (23:07)
[2016-11-29] MEDS: DIAZEPAM 5 MG TAB PO PRN ×3 (05:36→21:32)
[2016-11-29] MEDS: oxyCODONE IR 5 MG TAB PO PRN ×6 (05:36→21:32)
[2016-11-29 08:31] LABS: % IMMATURE GRANULYOCYTES 0.9 % (0.0-1.1); ABSOLUTE IMMATURE GRANULOCYTES 0.06 10^3/uL (0.00-0.10); ABSOLUTE NRBC COUNT 0.02 10^3/uL (0-0.01); ADD DIFF? NO; ADD MORPH? NO; ADD SCAN? NO; ATYPICAL LYMPHOCYTE FLAG 20 (0-99); FRAGMENT RBC FLAG 0 (0-99); HEMATOCRIT 23.4 % (40.0-51.0); HEMOGLOBIN 7.6 g/dL (13.7-17.5); LEFT SHIFT FLG 10 (0-99); LIPEMIA HEMOLYSIS FLAG 80 (0-99); MEAN CELL HEMOGLOBIN 31.5 pg (27.9-34.1); MEAN CELL HEMOGLOBIN CONCENTR. 32.5 g/dL (32.4-36.7); MEAN CELL VOLUME 97.1 fL (81.5-99.8); NRBC-AUTO% 0.3 % (0.0-0.2); PLATELET CLUMPS FLAG 0 (0-99); PLATELET COUNT 202 10^3/uL (150-400); RED BLOOD CELL COUNT 2.41 10^6/uL (4.40-6.38); RED CELL DISTRIBUTION WIDTH 14.5 % (11.5-15.2)
[2016-11-29 08:41] LABS: CALCIUM 8.4 mg/dL (8.5-10.4); CARBON DIOXIDE 27 mEq/l (22-31); CHLORIDE 101 mEq/L (97-110); CREATININE 0.9 mg/dL (0.7-1.3); GLOMERULAR FILTRATION RATE > 60; GLUCOSE 98 mg/dL (70-100); SODIUM 133 mEq/L (134-144)
[2016-11-29] MEDS ORDERED: Herbals/Supplements -Info Only PO SCH (09:00)
[2016-11-29 09:03] LABS: ANION GAP 5 mEq/L (8-16); POTASSIUM 4.8 mEq/L (3.5-5.2)
--- NOTE | 2016-11-29 09:03 | SOAPPROG ---
SOAP Progress Note Assessment/Plan: Assessment: S/P left keiko dislocation Plan: snf vs home based upon mobility with pt 50% wb xrays demonstrate no fx or lucency, no change in position i have recommended trial of PT,OT with strict anterior hip precautions if any instability will require revision of femoral component 50% wb STRICT ANTERIOR HIP PRECAUTIONS NO EXTERNAL ROTATION daily dressing changess may shower without bandage no soaking or immersion fall precautions Aspirin 325 mg daily f/u at two weeks post op abduction pillow while in bed 11/28/16 09:32 11/29/16 09:02 Subjective: hiccups pain ziyad no cp or sob confusion last pm Objective: Vital Signs Temp Pulse Resp BP Pulse Ox 36.9 C 81 16 150/70 H 98 11/29/16 08:26 11/29/16 08:26 11/29/16 08:26 11/29/16 08:26 11/29/16 08:26 Laboratory Results 11/29/16 08:05 11/28/16 11/29/16 11/30/16 05:59 05:59 05:59 Intake Total 900 Output Total 200 1700 Balance -200 -800 PT 13.1 SEC (12.0-15.0) 11/28/16 00:00 INR 1.00 (0.83-1.16) 11/28/16 00:00 dressing changed incision clean, dry and intact intact pf,df,ehl toes warm and pink neg homans bilaterally ICD10 Worksheet Patient Problems: Problems Problem Status Onset Hip dislocation, left Acute Hip arthritis Acute
--- NOTE | 2016-11-29 09:04 | PDIAF ---
- Diagnosis Diagnosis: left keiko Code Status: Full Code - Medication Management Discharge Medications: Medications to Continue on Transfer Atorvastatin Calcium [Lipitor 20 mg (*)] 20 mg PO DAILY 07/06/16 [Last Taken 03/07] Herbals/Supplements -Info Only 1 ea PO DAILY 07/06/16 [Last Taken 11/17/16] Mometasone Furoate Nasal [Nasonex] 2 sprays NASAL DAILY #0 07/06/16 [Last Taken 11/22/16] Tadalafil [Cialis] 5 mg PO DAILY PRN 07/06/16 [Last Taken 11/17/16] Aspirin [Aspirin 325 mg (*)] 325 mg PO DAILY #0 tab 11/27/16 [Last Taken ] Diazepam [Valium 5 MG (*)] 5 - 10 mg PO HS PRN #60 tab 11/27/16 [Last Taken 03/07] Diazepam [Valium 5 MG (*)] 5 mg PO Q6 PRN #60 tab 11/27/16 [Last Taken 11/27/16] oxyCODONE IR [Oxycodone Ir (*)] 5 mg PO Q3 PRN #90 tab 11/27/16 [Last Taken 03/07] Discharge Medications: Refer to the Discharge Home Medication list for PRN reason. - Orders Services needed: Home Care, Physical Therapy Home Care Face to Face: I certify that this patient was under my care and that I had the required [id number] encounter meeting the encounter requirements on the discharge day. My findings support the fact that the patient is homebound as defined in CMS Chapter 7 Medicare Benefits Manual 30.1.1, The condition of the patient is such that there exists a normal inability to leave home and consequently, leaving home would require a considerable and taxing effort. Diet Recommendation: no restrictions on diet Diet Texture: Regular Texture Diet Activity/Weight Bearing Restrictions: 50% wb. STRICT ANTERIOR HIP PRECAUTIONS. NO EXTERNAL ROTATION. daily dressing changess. may shower without bandage. no soaking or immersion. fall precautions. Aspirin 325 mg daily. f/u at two weeks post op. abduction pillow while in bed - Follow Up Care Current Providers and Referrals: An Prado MD [Primary Care Provider] - As per Instructions
[2016-11-29] MEDS: SENNOSIDES/DOCUSATE SODIUM TAB PO SCH ×2 (09:38→22:47)
[2016-11-29] MEDS: ENOXAPARIN 40 MG/0.4 ML SYR SC SCH (09:38)
[2016-11-29] MEDS: ATORVASTATIN CALCIUM 20 MG TAB PO SCH (09:38)
[2016-11-29] MEDS: Mometasone Furoate Nasal [Nasonex] 2 SPRAYS NASAL SCH (09:41)
--- NOTE | 2016-11-29 10:09 | HOSPPROG ---
Hospitalist Progress Note Assessment/Plan: Patient is a 71 y/o male who had a recent hip replacement of 11/23. He presented to the ER after having a popping sensation to his left hip. # acute hip dislocation seen by ortho/ to be 50% wb anterior hip precautions if becomes unstable, will need revision of femoral component *persistent hiccups trial of baclofen/ongoing/ will increase this dose had been given a dose of Thorazine/ caused confusion and no resolution *constipation resolved *Hypoxemia get a chest xray he is requiring 4 liters of oxygen *urinary retention ceballos placed in earlier resolved/ceballos out *hyperlipidemia resumed statin *anemia close to his baseline on recent dc *dvt prophylaxis: LMWH *Plan: patient will require another midnight stay/ he is requiring 4 liters of oxygen, needs aggressive pulmonary toileting, needs further evaluation by PT/ has multiple steps in his home and needs more teaching about anterior hip precautions. Subjective: Dc is having frequent hiccups. Objective: Vital Signs Temp Pulse Resp BP Pulse Ox 36.9 C 81 16 150/70 H 98 11/29/16 08:26 11/29/16 08:26 11/29/16 08:26 11/29/16 08:26 11/29/16 08:26 Laboratory Results 11/29/16 08:05 11/29/16 08:05 11/28/16 11/29/16 11/30/16 05:59 05:59 05:59 Intake Total 900 Output Total 200 1700 Balance -200 -800 PT 13.1 SEC (12.0-15.0) 11/28/16 00:00 INR 1.00 (0.83-1.16) 11/28/16 00:00 - Physical Exam Constitutional: not in pain, uncomfortable Eyes: PERRL Ears, Nose, Mouth, Throat: hearing normal Cardiovascular: regular rate and rhythym Respiratory: no respiratory distress, no rales or rhonchi Gastrointestinal: normoactive bowel sounds Skin: warm Musculoskeletal: generalized weakness Neurologic: AAOx3 Psychiatric: interacting appropriately, not anxious ICD10 Worksheet Patient Problems: Problems Problem Status Onset Hip dislocation, left Acute Hip arthritis Acute
[2016-11-29] MEDS ORDERED: BACLOFEN 10 MG TAB PO PRN (10:47)
[2016-11-29] MEDS ORDERED: HYDROmorphONE/DILAUDID 1 MG/ML SYR IVP PRN (12:06)
[2016-11-29] MEDS ORDERED: HYDROmorphONE/DILAUDID 1 MG/ML SYR ONE (12:15)
[2016-11-29] MEDS ORDERED: HYDROmorphONE/DILAUDID 1 MG/ML SYR IVP ONE (12:28)
[2016-11-29] MEDS ORDERED: PROPOFOL 200 MG/20 ML VIAL ONE ×2 (13:36→14:41)
[2016-11-29] MEDS ORDERED: PROPOFOL 200 MG/20 ML VIAL IVP ONE ×3 (13:45→14:44)
[2016-11-29] MEDS ORDERED: KETAMINE 100 MG/10 ML SYR ONE (14:07)
[2016-11-29] MEDS ORDERED: KETAMINE 100 MG/10 ML SYR IVP ONE ×2 (14:22→15:30)
[2016-11-29] MEDS ORDERED: FUROSEMIDE 40 MG/4 ML VIAL IVP ONE ×2 (14:46→21:15)
[2016-11-29] MEDS ORDERED: ACETAMINOPHEN 325 MG TAB PO ONE (14:46)
--- NOTE | 2016-11-29 15:11 | EDPHY ---
H & P Stated Complaint: left hip pain post surgery on wednesday Time Seen by Provider: 11/27/16 23:53 - Personal History Current Tetanus/Diphtheria Vaccine: Yes Current Tetanus Diphtheria and Acellular Pertussis (TDAP): Yes - Medical/Surgical History Hx Asthma: No Hx Chronic Respiratory Disease: No Hx Diabetes: No Hx Cardiac Disease: No Hx Renal Disease: No Hx Cirrhosis: No Hx Alcoholism: No Hx HIV/AIDS: No Hx Splenectomy or Spleen Trauma: No Other PMH: high cholesterol, adhd, insomnia, R CELESTINE, L total hip replacement - Social History Smoking Status: Never smoked Constitutional: Initial Vital Signs Temperature (C) 37.9 C 11/27/16 23:50 Heart Rate 102 H 11/27/16 23:50 Respiratory Rate 20 11/27/16 23:50 Blood Pressure 182/73 H 11/27/16 23:50 O2 Sat (%) 87 L 11/27/16 23:50 O2 Delivery Mode [Post Non-Rebreather Mask Procedure 2nd] O2 Delivery Mode [Post Non-Rebreather Mask Procedure 1st] O2 Delivery Mode [Procedural Non-Rebreather Mask 2nd] O2 Delivery Mode [Procedural Non-Rebreather Mask 1st] O2 Delivery Mode [.Immediate Non-Rebreather Mask Pre-Procedure] O2 Delivery Mode Nasal Cannula O2 (L/minute) [Post Procedure 15 2nd] O2 (L/minute) [Post Procedure 15 1st] O2 (L/minute) [Procedural 2nd] 15 O2 (L/minute) [Procedural 1st] 15 O2 (L/minute) [.Immediate Pre- 15 Procedure] O2 (L/minute) 3 Allergies/Adverse Reactions: No Known Allergies Allergy (Verified 06/10/16 15:39) Home Medications: Medication Instructions Recorded Atorvastatin Calcium [Lipitor 20 20 mg PO DAILY 07/06/16 mg (*)] Herbals/Supplements -Info Only 1 ea PO DAILY 07/06/16 Mometasone Furoate Nasal [Nasonex] 2 sprays NASAL DAILY #0 07/06/16 Tadalafil [Cialis] 5 mg PO DAILY PRN 07/06/16 Aspirin [Aspirin 325 mg (*)] 325 mg PO DAILY #0 tab 11/27/16 Diazepam [Valium 5 MG (*)] 5 - 10 mg PO HS PRN #60 tab 11/27/16 Diazepam [Valium 5 MG (*)] 5 mg PO Q6 PRN #60 tab 11/27/16 oxyCODONE IR [Oxycodone Ir (*)] 5 mg PO Q3 PRN #90 tab 11/27/16 Medical Decision Making - Diagnostics Imaging Results: Imaging Impressions Chest X-Ray 11/29/16 10:47 Impression: 1. Alveolar opacity in the left midlung, pneumonia versus atelectasis. 2. Possible low-grade congestive failure versus fluid overload. ED Course/Re-evaluation: 13:40 Procedure: Conscious sedation. Indication: Hip reduction I was asked by Dr. Yovani Willis to perform procedural sedation prior to hip reduction. The patient is an appropriate candidate to tolerate procedural sedation. The patient's vitals signs and mental status are appropriate. The risks, benefits and alternatives of the sedation were discussed with the patient. The patient is ASA classification 1. The patient's Mallampati airway score was 1and the patient did meet the 3-3-2 airway measurements. A time out was completed. The patient was sedated with 100mg IV Propofol. The patient was monitored with continuous pulse oximetry, patient monitor and end tidal CO2. There were no complications and no significant hypoxemia. I performed both the sedation and the procedure. The total time I spent at the bedside during the procedural sedation was 20 minutes. The patient was examined after the procedural sedation and has returned to their pre-sedation baseline with normal vital signs and a normal examination. Procedure: Reduction of Dislocated Hip Time-out completed immediately before the procedure. IV established. O2 administered. Placed on pulse oximeter and ETCO2 monitor. Neurovascular exam intact pre-procedure. Given 100mg IV Propofol for pain and sedation. The left hip was reduced using traction-countertraction. Reassessed post-procedure. Neurovascular status intact with intact sciatic nerve function and lower extremity pulses. X-ray reveals hip was not successfully reduced. The procedure was performed by myself, Dr. Gaitan. 14:10 Procedure: Conscious sedation. Indication: Hip reduction second attempt I was asked by Dr. Yovani Willis to perform procedural sedation prior to hip reduction. The patient is an appropriate candidate to tolerate procedural sedation. The patient's vitals signs and mental status are appropriate. The risks, benefits and alternatives of the sedation were discussed with the patient. The patient is ASA classification 1. The patient's Mallampati airway score was 1 and the patient did meet the 3-3-2 airway measurements. A time out was completed. The patient was sedated with 55mg IV Propofol and 80mg IV Ketamine. The patient was monitored with continuous pulse oximetry, patient monitor and end tidal CO2. There were no complications and no significant hypoxemia. I performed both the sedation and the procedure. The total time I spent at the bedside during the procedural sedation was 40 minutes. The patient was examined after the procedural sedation and has returned to their pre-sedation baseline with normal vital signs and a normal examination. Procedure: Reduction of Dislocated Hip Second Attempt Time-out completed immediately before the procedure. IV established. O2 administered. Placed on pulse oximeter and ETCO2 monitor. Neurovascular exam intact pre-procedure. Given 55mg IV Propofol and 80mg IV Ketamine for pain and sedation. The left hip was reduced using traction-countertraction. Reassessed post-procedure. Neurovascular status intact with intact sciatic nerve function and lower extremity pulses. Exam indicated reduction. Confirmed reduction on X- ray. The procedure was performed by myself, Dr. Gaitan. Hip dislocated again. Plan to admit back to floor. Spoke with Dr. Willis. He recommends one more attempt at reduction under sedation. 14:40 Procedure: Conscious sedation. Indication: Hip reduction, third attempt. I was asked by Dr. Willis to perform procedural sedation for hip reduction. The patient is an appropriate candidate to tolerate procedural sedation. The patient's vitals signs and mental status are appropriate. The risks, benefits and alternatives of the sedation were discussed with the patient. The patient is ASA classification 1. The patient's Mallampati airway score was 1 and the patient did meet the 3-3-2 airway measurements. A time out was completed. The patient was sedated with 60mg IV Ketamine and 60mg IV Propofol. The patient was monitored with continuous pulse oximetry, patient monitor and end tidal CO2. There were no complications and no significant hypoxemia. I performed both the sedation and the procedure. The total time I spent at the bedside during the procedural sedation was 60 minutes. The patient was examined after the procedural sedation and has returned to their pre-sedation baseline with normal vital signs and a normal examination. Procedure: Reduction of Dislocated Hip Time-out completed immediately before the procedure. IV established. O2 administered. Placed on pulse oximeter and ETCO2 monitor. Neurovascular exam intact pre-procedure. Given 60mg IV Ketamine and 60mg IV Propofol for pain and sedation. The left hip was reduced using traction-countertraction. Reassessed post-procedure. Neurovascular status intact with intact sciatic nerve function and lower extremity pulses. Exam indicated reduction. Positioned the patient with abduction pillow as directed by Dr. Willis. Confirmed reduction on X-ray. The procedure was performed by myself, Dr. Gaitan. 14:57 Reduction confirmed with two views via x-ray. - Data Points Laboratory Results: Laboratory Results 11/29/16 08:05 11/29/16 08:05 11/29/16 11/29/16 08:05 08:05 WBC 6.49 10^3/uL 10^3/uL (3.80-9.50) RBC 2.41 10^6/uL L 10^6/uL (4.40-6.38) Hgb 7.6 g/dL L g/dL (13.7-17.5) Hct 23.4 % L % (40.0-51.0) MCV 97.1 fL fL (81.5-99.8) MCH 31.5 pg pg (27.9-34.1) MCHC 32.5 g/dL g/dL (32.4-36.7) RDW 14.5 % % (11.5-15.2) Plt Count 202 10^3/uL 10^3/uL (150-400) MPV 9.0 fL fL (8.7-11.7) Neut % (Auto) 74.4 % H % (39.3-74.2) Lymph % (Auto) 10.9 % L % (15.0-45.0) Kendall % (Auto) 10.6 % % (4.5-13.0) Eos % (Auto) 2.6 % % (0.6-7.6) Baso % (Auto) 0.6 % % (0.3-1.7) Nucleat RBC Rel Count 0.3 % H % (0.0-0.2) Absolute Neuts (auto) 4.82 10^3/uL 10^3/uL (1.70-6.50) Absolute Lymphs (auto) 0.71 10^3/uL L 10^3/uL (1.00-3.00) Absolute Monos (auto) 0.69 10^3/uL 10^3/uL (0.30-0.80) Absolute Eos (auto) 0.17 10^3/uL 10^3/uL (0.03-0.40) Absolute Basos (auto) 0.04 10^3/uL 10^3/uL (0.02-0.10) Absolute Nucleated RBC 0.02 10^3/uL H 10^3/uL (0-0.01) Immature Gran % 0.9 % % (0.0-1.1) Immature Gran # 0.06 10^3/uL 10^3/uL (0.00-0.10) Sodium 133 mEq/L L mEq/L (134-144) Potassium 4.8 mEq/L mEq/L (3.5-5.2) Chloride 101 mEq/L mEq/L (97-110) Carbon Dioxide 27 mEq/l mEq/l (22-31) Anion Gap 5 mEq/L L mEq/L (8-16) BUN 17 mg/dL mg/dL (7-23) Creatinine 0.9 mg/dL mg/dL (0.7-1.3) Estimated GFR > 60 Glucose 98 mg/dL mg/dL (70-100) Calcium 8.4 mg/dL L mg/dL (8.5-10.4) Medications Given: Discontinued Medications Acetaminophen (Tylenol) 650 mg PO Q4HRS PRN PRN Reason: Pain, Mild/Fever, Can Take PO Stop: 05/27/17 03:02 Last Admin: 11/28/16 15:51 Dose: 650 mg Baclofen (Baclofen) 10 mg PO TID PRN PRN Reason: hiccups Stop: 05/27/17 15:59 Last Admin: 11/28/16 15:52 Dose: 10 mg Baclofen (Baclofen) 10 mg PO ONCE ONE Stop: 11/28/16 12:55 Last Admin: 11/28/16 14:04 Dose: 10 mg Fentanyl (Sublimaze) 100 mcg IVP EDNOW ONE Stop: 11/28/16 02:05 Last Admin: 11/28/16 01:30 Dose: 100 mcg Hydromorphone HCl (Dilaudid) 1 mg PO EDNOW ONE Stop: 11/28/16 00:02 Last Admin: 11/28/16 00:08 Dose: Not Given Hydromorphone HCl (Dilaudid) 1 mg IVP EDNOW ONE Stop: 11/28/16 00:08 Last Admin: 11/28/16 00:08 Dose: 1 mg Hydromorphone HCl (Dilaudid) 1 mg IVP EDNOW ONE Stop: 11/28/16 00:41 Last Admin: 11/28/16 01:04 Dose: 0.5 mg Hydromorphone HCl (Dilaudid) 1 mg IVP EDNOW ONE Stop: 11/28/16 02:29 Last Admin: 11/28/16 02:40 Dose: 1 mg Hydromorphone HCl (Dilaudid) 1 mg IVP ONCE ONE Stop: 11/29/16 12:29 Last Admin: 11/29/16 13:44 Dose: 1 mg Sodium Chloride (Ns) 1,000 mls @ 75 mls/hr IV CONT MELISSA Stop: 05/27/17 03:14 Last Admin: 11/28/16 03:28 Dose: 1,000 mls Magnesium Citrate (Magnesium Citrate) 300 ml PO ONCE ONE Stop: 11/28/16 12:56 Last Admin: 11/28/16 14:03 Dose: 300 ml Propofol (Diprivan) 100 mg IVP EDNOW ONE Stop: 11/28/16 02:06 Last Admin: 11/28/16 01:50 Dose: 100 mg Departure - Dep[facility]ure [facility]: [facility] Acute Clinical Impression: Hip dislocation, left Qualifiers: Encounter type: initial encounter Qualified Code(s): S73.005A - Unspecified dislocation of left hip, initial encounter
[2016-11-29] MEDS ORDERED: KETAMINE 500 MG/10 ML VIAL IVP ONE (15:13)
[2016-11-29] MEDS: ACETAMINOPHEN 500 MG TAB PO SCH ×2 (16:44→23:33)
[2016-11-30] MEDS: oxyCODONE IR 5 MG TAB PO PRN ×3 (01:47→21:34)
[2016-11-30] MEDS: HALOPERIDOL LACT 5 MG/ML INJ IVP PRN ×4 (02:28→21:43)
[2016-11-30] MEDS ORDERED: FUROSEMIDE 20 MG/2 ML VIAL IVP ONE (03:00)
[2016-11-30 05:43] LABS: % IMMATURE GRANULYOCYTES 1.1 % (0.0-1.1); ABSOLUTE NRBC COUNT 0.03 10^3/uL (0-0.01); ADD DIFF? NO; ADD MORPH? NO; ADD SCAN? NO; ATYPICAL LYMPHOCYTE FLAG 0 (0-99); FRAGMENT RBC FLAG 0 (0-99); HEMATOCRIT 31.8 % (40.0-51.0); HEMOGLOBIN 10.4 g/dL (13.7-17.5); LEFT SHIFT FLG 10 (0-99); LIPEMIA HEMOLYSIS FLAG 80 (0-99); MEAN CELL HEMOGLOBIN 29.8 pg (27.9-34.1); MEAN CELL HEMOGLOBIN CONCENTR. 32.7 g/dL (32.4-36.7); MEAN CELL VOLUME 91.1 fL (81.5-99.8); MEAN PLATELET VOLUME 9.1 fL (8.7-11.7); NRBC-AUTO% 0.3 % (0.0-0.2); PLATELET CLUMPS FLAG 10 (0-99); PLATELET COUNT 242 10^3/uL (150-400); RED BLOOD CELL COUNT 3.49 10^6/uL (4.40-6.38); RED CELL DISTRIBUTION WIDTH 17.1 % (11.5-15.2)
[2016-11-30 06:00] LABS: ALANINE AMINOTRANSFERASE 33 IU/L (21-72); ALKALINE PHOSPHATASE 52 IU/L (38-126); ANION GAP 8 mEq/L (8-16); ASPARTATE AMINOTRANSFERASE 40 IU/L (17-59); BILIRUBIN,TOTAL 1.2 mg/dL (0.1-1.4); CALCIUM 8.7 mg/dL (8.5-10.4); CARBON DIOXIDE 30 mEq/l (22-31); CHLORIDE 96 mEq/L (97-110); GLOMERULAR FILTRATION RATE > 60; GLUCOSE 94 mg/dL (70-100); POTASSIUM 4.4 mEq/L (3.5-5.2); SODIUM 134 mEq/L (134-144); TOTAL PROTEIN 5.5 g/dL (6.3-8.2)
[2016-11-30] MEDS ORDERED: ceFAZolin 2 GM/DEXTROSE 100 ML IV ONE (06:00)
--- NOTE | 2016-11-30 06:23 | PDANEPAE ---
ANE History of Present Illness acute dislocation s/p CELESTINE 11/23/16 ANE Past Medical History - Cardiovascular History Hx Hypertension: No Hx Arrhythmias: No Hx Chest Pain: No Hx Coronary Artery / Peripheral Vascular Disease: No Hx CHF / Valvular Disease: No Hx Palpitations: No - Pulmonary History Hx COPD: No Hx Asthma/Reactive Airway Disease: No Hx Recent Upper Respiratory Infection: No Hx Oxygen in Use at Home: No - Neurologic History Hx Cerebrovascular Accident: No Hx Seizures: No Hx Dementia: No - Endocrine History Hx Diabetes: No - Renal History Hx Renal Disorders: No - Liver History Hx Hepatic Disorders: No - Neurological & Psychiatric Hx Hx Neurological and Psychiatric Disorders: No - Cancer History Hx Cancer: No - Congenital Disorder History Hx Congenital Disorders: No - GI History Hx Gastrointestinal Disorders: No - Chronic Pain History Chronic Pain: Yes (LT HIP) ANE Review of Systems - Exercise capacity Exercise capacity: <4 METS, >=4 METS - Systems Muscolosketal: Reports: joint pain ANE Patient History - Allergies Allergies/Adverse Reactions: No Known Allergies Allergy (Verified 06/10/16 15:39) - Home Medications Home Medications: Atorvastatin Calcium [Lipitor 20 mg (*)] 20 mg PO DAILY 07/06/16 [Last Taken 03/07] Herbals/Supplements -Info Only 1 ea PO DAILY 07/06/16 [Last Taken 11/17/16] Mometasone Furoate Nasal [Nasonex] 2 sprays NASAL DAILY #0 07/06/16 [Last Taken 11/22/16] Tadalafil [Cialis] 5 mg PO DAILY PRN 07/06/16 [Last Taken 11/17/16] - NPO status NPO Since - Solids (Date): 11/29/16 - Anes Hx Anes Hx: no prior problems - Smoking Hx Smoking Status: Unknown if ever smoked - Alcohol Use Alcohol Use: Occasionally (2 glasses wine nightly) - Family Anes Hx Family Hx Anesthesia Complications: NONE ANE Labs/Vital Signs - Labs Result Diagrams: 11/30/16 05:07 11/30/16 05:30 - Vital Signs Blood Pressure: 132/64 Heart Rate: 80 Respiratory Rate: 15 O2 Sat (%): 90 Height: 180.34 cm Weight: 97.069 kg ANE Anesthesia Plan Anesthesia Plan: general endotracheal anesthesia
[2016-11-30] MEDS ORDERED: THROMBIN (BOVINE) 5,000 UNIT VIAL TP ONE (06:46)
[2016-11-30] MEDS ORDERED: CALCIUM CHLORIDE 1 GM/10 ML INJ ONE (06:46)
[2016-11-30] MEDS ORDERED: BACITRACIN 50,000 UNITS/10 ML SYR IRR ONE ×2 (06:47→07:36)
[2016-11-30] MEDS ORDERED: POLYMYXIN B SULFATE 500,000 UNIT/10 ML SYR IRR ONE ×4 (06:47→09:59)
[2016-11-30] MEDS ORDERED: TRANEXAMIC ACID IV ONE (06:54)
[2016-11-30] MEDS ORDERED: NS IV ONE (06:54)
[2016-11-30] MEDS ORDERED: LR 1,000 ML IV ONE (06:59)
[2016-11-30] MEDS ORDERED: MIDAZOLAM 2 MG/2 ML VIAL ONE (06:59)
[2016-11-30] MEDS ORDERED: MIDAZOLAM 2 MG/2 ML VIAL IVP ONE (07:03)
[2016-11-30] MEDS ORDERED: PROPOFOL 200 MG/20 ML VIAL ONE (07:11)
[2016-11-30] MEDS ORDERED: fentaNYL 100 MCG/2 ML INJ ONE ×3 (07:11→11:15)
[2016-11-30] MEDS ORDERED: LIDOCAINE 2% 5 ML SDV ONE (07:11)
[2016-11-30] MEDS ORDERED: ROCURONIUM 100 MG/10 ML VIAL ONE (07:11)
[2016-11-30] MEDS ORDERED: ROPI/epiNEPH/KETOROLAC/morphINE JOINT COCKTAIL IU ONE (08:00)
[2016-11-30] MEDS ORDERED: HYDROmorphONE/DILAUDID 2 MG/ML INJ ONE ×3 (08:04→12:28)
[2016-11-30] MEDS ORDERED: NALOXONE HCL 0.4 MG/ML INJ IVP PRN ×2 (08:08→08:10)
[2016-11-30] MEDS ORDERED: PROMETHAZINE HCL 25 MG/ML INJ IVP PRN (08:10)
[2016-11-30] MEDS ORDERED: fentaNYL 100 MCG/2 ML INJ IVP PRN (08:10)
[2016-11-30] MEDS ORDERED: ALBUTEROL 3 ML DEYVIAL IH PRN (08:10)
[2016-11-30] MEDS ORDERED: LABETALOL HCL 5 MG/ML 20 ML MDV IVP PRN (08:10)
[2016-11-30] MEDS ORDERED: MEPERIDINE 25 MG/ML SYR IVP PRN (08:10)
[2016-11-30] MEDS ORDERED: ROCURONIUM 50 MG/5 ML VIAL ONE (09:43)
[2016-11-30] MEDS ORDERED: ceFAZolin 1 GM VIAL ONE ×2 (10:10)
[2016-11-30] MEDS ORDERED: SUGAMMADEX SODIUM 200 MG/2 ML VIAL IVP ONE (10:23)
[2016-11-30] MEDS ORDERED: ONDANSETRON 4 MG/2 ML VIAL ONE ×2 (10:23→11:22)
--- NOTE | 2016-11-30 11:19 | POSTANESTH ---
Post Anesthetic Evaluation Cardiovascular Status: Normal, Stable Respiratory Status: Normal, Stable Level of Consciousness/Mental Status: Can Participate in Eval Pain Control: Adequate, Prn Tx Ordered Nausea/Vomiting Control: Adequate, Prn Tx Ordered Complications Possibly Related to Anesthesia: None Noted
[2016-11-30] MEDS ORDERED: HYDROmorphONE/DILAUDID 1 MG/ML SYR ONE (11:26)
[2016-11-30] MEDS: HYDROmorphONE/DILAUDID 1 MG/ML SYR IVP PRN ×6 (11:30→12:32)
[2016-11-30] MEDS: ATORVASTATIN CALCIUM 20 MG TAB PO SCH (12:53)
[2016-11-30] MEDS: ACETAMINOPHEN 500 MG TAB PO SCH ×3 (12:53→21:35)
[2016-11-30] MEDS: Mometasone Furoate Nasal [Nasonex] 2 SPRAYS NASAL SCH (12:54)
[2016-11-30] MEDS: SENNOSIDES/DOCUSATE SODIUM TAB PO SCH ×2 (12:54→21:34)
[2016-11-30] MEDS ORDERED: ceFAZolin 2 GM/DEXTROSE 100 ML IV SCH (14:00)
[2016-11-30 14:11] LABS: HEMOGLOBIN 10.3 g/dL (13.7-17.5)
--- NOTE | 2016-11-30 15:12 | HOSPPROG ---
Hospitalist Progress Note Assessment/Plan: Patient is a 71 y/o male who had a recent hip replacement of 11/23. He presented to the ER after having a popping sensation to his left hip. # acute hip dislocation s/p revision this morning by Dr Willis had hip reduction yesterday in the ER *persistent hiccups resolved, given baclofen and Haldol *constipation resolved *Hypoxemia multifactorial/ atelectasis, bed rest yesterday due to the hip dislocating/ poss pna he is requiring 4 liters of oxygen encourage IS *Possible pna/chest xray shows a possible infiltrate in left lobe blood cx sent Levaquin *urinary retention Lowery placed back in due to surgery once a bit more mobile, can remove *hyperlipidemia resumed statin *anemia received 2 units PRBC's last evening in the setting of going to OR will do serial H/H today to be sure he is stable *dvt prophylaxis: LMWH *Plan: continue IP/ will check hgb/hct a few times today and in a.m./ reviewed care with the patient. Reviewed his care with Dr Willis. Subjective: Dc wants to move/ tired of being in bed. Objective: Vital Signs Temp Pulse Resp BP Pulse Ox 36.6 C 77 14 98/58 L 97 11/30/16 15:05 11/30/16 15:05 11/30/16 15:05 11/30/16 15:05 11/30/16 15:05 Laboratory Results 11/30/16 14:00 11/30/16 05:30 11/29/16 11/30/16 12/01/16 05:59 05:59 05:59 Intake Total 1005 Output Total 4650 900 Balance -4650 105 PT 13.1 SEC (12.0-15.0) 11/28/16 00:00 INR 1.00 (0.83-1.16) 11/28/16 00:00 - Physical Exam Constitutional: no apparent distress, uncomfortable Eyes: PERRL Ears, Nose, Mouth, Throat: hearing normal Cardiovascular: regular rate and rhythym Respiratory: no respiratory distress Gastrointestinal: normoactive bowel sounds Skin: warm Musculoskeletal: muscular tenderness Neurologic: AAOx3 Psychiatric: interacting appropriately ICD10 Worksheet Patient Problems: Problems Problem Status Onset Hip dislocation, left Acute Hip arthritis Acute
[2016-11-30 20:22] LABS: HEMATOCRIT 29.4 % (40.0-51.0); HEMOGLOBIN 9.8 g/dL (13.7-17.5)
[2016-12-01] MEDS: ceFAZolin 2 GM/DEXTROSE 100 ML IV SCH ×2 (00:06→08:25)
[2016-12-01] MEDS: DIAZEPAM 5 MG TAB PO PRN ×2 (00:06→21:32)
[2016-12-01] MEDS: oxyCODONE IR 5 MG TAB PO PRN ×4 (00:27→21:32)
[2016-12-01] MEDS: HALOPERIDOL LACT 5 MG/ML INJ IVP PRN (05:39)
[2016-12-01 06:17] LABS: % IMMATURE GRANULYOCYTES 0.9 % (0.0-1.1); ABSOLUTE IMMATURE GRANULOCYTES 0.08 10^3/uL (0.00-0.10); ADD DIFF? NO; ADD MORPH? NO; ADD SCAN? NO; ATYPICAL LYMPHOCYTE FLAG 0 (0-99); FRAGMENT RBC FLAG 0 (0-99); HEMATOCRIT 26.3 % (40.0-51.0); HEMOGLOBIN 8.8 g/dL (13.7-17.5); LEFT SHIFT FLG 30 (0-99); LIPEMIA HEMOLYSIS FLAG 80 (0-99); MEAN CELL HEMOGLOBIN 30.2 pg (27.9-34.1); MEAN CELL HEMOGLOBIN CONCENTR. 33.5 g/dL (32.4-36.7); MEAN CELL VOLUME 90.4 fL (81.5-99.8); MEAN PLATELET VOLUME 8.9 fL (8.7-11.7); PLATELET CLUMPS FLAG 0 (0-99); PLATELET COUNT 241 10^3/uL (150-400); RED BLOOD CELL COUNT 2.91 10^6/uL (4.40-6.38); RED CELL DISTRIBUTION WIDTH 16.5 % (11.5-15.2)
--- NOTE | 2016-12-01 06:40 | SOAPPROG ---
SOAP Progress Note Assessment/Plan: Assessment: S/P left keiko dislocation s/p revision 11/30/16 Plan: snf vs home based upon mobility with pt 50% wb xrays demonstrate no fx or lucency, s/p revision i have recommended trial of PT,OT with strict anterior hip precautions 50% wb STRICT ANTERIOR HIP PRECAUTIONS NO EXTERNAL ROTATION daily dressing changess may shower without bandage no soaking or immersion fall precautions Aspirin 325 mg daily f/u at two weeks post op abduction pillow while in bed mobilize with pt snf vs home when stable 11/28/16 09:32 11/29/16 09:02 12/01/16 06:38 Subjective: mod pain no cp or sob ziyad po no current complaints Objective: Vital Signs Temp Pulse Resp BP Pulse Ox 36.3 C 70 16 117/64 96 12/01/16 04:00 12/01/16 04:00 12/01/16 04:00 12/01/16 04:00 12/01/16 04:00 Laboratory Results 12/01/16 06:10 11/30/16 12/01/16 12/02/16 05:59 05:59 05:59 Intake Total 2100 Output Total 4650 1775 Balance -4650 325 PT 13.1 SEC (12.0-15.0) 11/28/16 00:00 INR 1.00 (0.83-1.16) 11/28/16 00:00 dressing intact intact pf,df,ehl toes warm and pink neg homans bilaterally xrays stable alignement of revision stem concentric reduction leg lengths grossly equal ICD10 Worksheet Patient Problems: Problems Problem Status Onset Hip dislocation, left Acute Hip arthritis Acute
[2016-12-01 06:59] LABS: ANION GAP 5 mEq/L (8-16); CALCIUM 8.7 mg/dL (8.5-10.4); CARBON DIOXIDE 31 mEq/l (22-31); CHLORIDE 95 mEq/L (97-110); CREATININE 0.9 mg/dL (0.7-1.3); GLOMERULAR FILTRATION RATE > 60; GLUCOSE 121 mg/dL (70-100); POTASSIUM 4.5 mEq/L (3.5-5.2); SODIUM 131 mEq/L (134-144)
[2016-12-01] MEDS: SENNOSIDES/DOCUSATE SODIUM TAB PO SCH ×2 (08:25→21:32)
[2016-12-01] MEDS: ATORVASTATIN CALCIUM 20 MG TAB PO SCH (08:25)
[2016-12-01] MEDS: ACETAMINOPHEN 500 MG TAB PO SCH ×3 (08:26→21:32)
[2016-12-01] MEDS: ENOXAPARIN 40 MG/0.4 ML SYR SC SCH (08:26)
--- NOTE | 2016-12-01 09:30 | HOSPPROG ---
Hospitalist Progress Note Assessment/Plan: Patient is a 71 y/o male who had a recent hip replacement of 11/23. He presented to the ER after having a popping sensation to his left hip. # acute hip dislocation s/p revision by Dr Willis had hip reduction in the ER strict anterior precautions *persistent hiccups has had intermittent resolution, given baclofen and Haldol *hyponatremia will follow *constipation resolved *Hypoxemia multifactorial/ atelectasis, bed rest yesterday due to the hip dislocating/ poss pna he is requiring 4 liters of oxygen encourage IS getting an echo for further evaluation *Possible pna/chest xray shows a possible infiltrate in left lobe blood cx show NGTD Levaquin *urinary retention Ceballos placed back in due to surgery dc *hyperlipidemia resumed statin *anemia received 2 units PRBC's prior to OR h/h overall stable will follow *dvt prophylaxis: LMWH *Plan: dc fluids, dc ceballos, needs to get oob, aggressive pulmonary toileting/ may need SNF because his home has many steps/repeat labs in a.m. Subjective: Dc is c/o hiccups/ says he is having some left hip pain Objective: Vital Signs Temp Pulse Resp BP Pulse Ox 36.6 C 67 14 125/80 H 94 12/01/16 07:24 12/01/16 07:17 12/01/16 07:24 12/01/16 07:24 12/01/16 07:24 Laboratory Results 12/01/16 06:10 12/01/16 06:10 11/30/16 12/01/16 12/02/16 05:59 05:59 05:59 Intake Total 2100 Output Total 4650 1775 200 Balance -4650 325 -200 PT 13.1 SEC (12.0-15.0) 11/28/16 00:00 INR 1.00 (0.83-1.16) 11/28/16 00:00 - Physical Exam Constitutional: uncomfortable, No not in pain Eyes: PERRL Ears, Nose, Mouth, Throat: hearing normal Cardiovascular: regular rate and rhythym Respiratory: no respiratory distress, reduced air movement (bibasilar) Gastrointestinal: normoactive bowel sounds Skin: warm Musculoskeletal: muscular tenderness, generalized weakness Neurologic: AAOx3 Psychiatric: interacting appropriately ICD10 Worksheet Patient Problems: Problems Problem Status Onset Hip dislocation, left Acute Hip arthritis Acute
[2016-12-01] MEDS: Mometasone Furoate Nasal [Nasonex] 2 SPRAYS NASAL SCH (10:53)
--- NOTE | 2016-12-01 14:51 | ECHO ---
[id number] + + [address] : : [place] [address] : : [phone] + + Adult Echocardiographic Report + -----+ :Name: ANGIE RENEE PStudy Date: 12/01/2016 09:26 AM : : Hospital Admission Number: [id number] Location : 362: :: 1945 Gender: Male Height: 71 in : :Age: 71 yrs Race: WH Weight: 214 lb : :Reason For Study: Increase oxygen needs : : BSA: 2.2 meters2 : + -----+ MMode/2D Measurements \T\ Calculations IVSd: 1.0 cm LVIDd: 5.2 cm FS: 43.4 % Ao root diam: LVPWd: 1.0 cm LVIDs: 3.0 cm EDV(Teich): 4.0 cm 130.3 ml LA dimension: ESV(Teich): 3.3 cm 33.6 ml EF(Teich): 74.2 % LVLd ap4: 8.7 cm SV(MOD-sp4): EDV(MOD-sp4): 87.0 ml 122.0 ml LVLs ap4: 6.9 cm ESV(MOD-sp4): 35.0 ml EF(MOD-sp4): 71.3 % Normal Measurement Values: + + :LVIDd (3.5-5.7cm) IVSd (0.6-1.1cm) LVPWd (0.6-1.1cm) Aortic Root (2.0-3.7cm)Left Atrium (1.5-4.0cm): :LV Vol(d) (76-115ml) LV Vol(s) (29-48ml) Ejec Fraction (50-65%)PV Link (0.6- 1.2m/s) TV Link (0.4-1.0m/s) : :MV E Link (0.8-1.0m/s)MV A Link (0.3-1.0m/s)LVOT Link (0.7-1.2m/s) Asc Ao Link ( 0.9-1.8m/s) : + + Doppler Measurements \T\ Calculations MV E max link: 62.2 cm/sec Ao mean P.9 mmHg MV A max link: 72.6 cm/sec Ao V2 mean: 102.7 cm/sec MV E/A: 0.86 Ao V2 VTI: 27.5 cm Left Ventricle The left ventricle is normal in size and function. There is normal left ventricular wall thickness. Left ventricular systolic function is normal. Ejection Fraction = 65-70%. Grade I diastolic dysfunction. No regional wall motion abnormalities noted. Right Ventricle The right ventricle is normal in size and function. Atria The left atrial size is normal. Right atrial size is normal. Mitral Valve The mitral valve is normal in structure and function. There is no evidence of mitral valve prolapse. There is no mitral valve stenosis. Tricuspid Valve Normal tricuspid valve. Aortic Valve The aortic valve is trileaflet. The aortic valve opens well. Mild aortic valve and aortic annular calcification. There is no aortic stenosis. There is no aortic insufficiency. Pulmonic Valve The pulmonic valve is not well visualized. There is no pulmonic valvular regurgitation. Great Vessels The aortic root is normal size. Pericardium/Pleural There is no pericardial effusion. Conclusion A complete two-dimensional transthoracic echocardiogram was performed (2D, M-mode, Doppler and color flow Doppler). The left ventricle is normal in size and function. Left ventricular systolic function is normal. Ejection Fraction = 65-70%. No significant valvular disease No prior echo Final Reading Physician: Dr Radha Vasques electronically signed on 12/01/2016 02:49 PM Ordering Physician: Earlene Osuna Performed By: Diamond Vidal, ASHELYCS
[2016-12-02] MEDS: oxyCODONE IR 5 MG TAB PO PRN ×5 (00:11→20:30)
[2016-12-02 05:37] LABS: % IMMATURE GRANULYOCYTES 1.3 % (0.0-1.1); ABSOLUTE IMMATURE GRANULOCYTES 0.11 10^3/uL (0.00-0.10); ADD DIFF? NO; ADD MORPH? NO; ADD SCAN? NO; ATYPICAL LYMPHOCYTE FLAG 10 (0-99); FRAGMENT RBC FLAG 0 (0-99); HEMOGLOBIN 9.1 g/dL (13.7-17.5); LEFT SHIFT FLG 10 (0-99); LIPEMIA HEMOLYSIS FLAG 80 (0-99); MEAN CELL HEMOGLOBIN 29.7 pg (27.9-34.1); MEAN CELL HEMOGLOBIN CONCENTR. 32.5 g/dL (32.4-36.7); MEAN CELL VOLUME 91.5 fL (81.5-99.8); PLATELET CLUMPS FLAG 10 (0-99); PLATELET COUNT 300 10^3/uL (150-400); RED BLOOD CELL COUNT 3.06 10^6/uL (4.40-6.38); RED CELL DISTRIBUTION WIDTH 16.3 % (11.5-15.2)
--- NOTE | 2016-12-02 06:31 | SOAPPROG ---
SOAP Progress Note Assessment/Plan: Assessment: S/P left keiko dislocation s/p revision 11/30/16 Plan: d/c home versus rehab once cleared by pt 50% wb daily dressing changes dvt precautions 11/28/16 09:32 11/29/16 09:02 12/01/16 06:38 12/02/16 06:30 Subjective: improving pain improved slightly no cp or sob ziyad po Objective: Vital Signs Temp Pulse Resp BP Pulse Ox 37.4 C 80 16 129/69 H 94 12/02/16 04:00 12/02/16 04:00 12/02/16 04:00 12/02/16 04:00 12/02/16 04:00 Laboratory Results 12/02/16 05:25 12/01/16 12/02/16 12/03/16 05:59 05:59 05:59 Intake Total 2100 1700 Output Total 1775 1350 Balance 325 350 PT 13.1 SEC (12.0-15.0) 11/28/16 00:00 INR 1.00 (0.83-1.16) 11/28/16 00:00 dressing intact intact pfdf,ehl toes warm and pink neg homans james ICD10 Worksheet Patient Problems: Problems Problem Status Onset Hip dislocation, left Acute Hip arthritis Acute
[2016-12-02 06:59] LABS: ANION GAP 6 mEq/L (8-16); CALCIUM 9.1 mg/dL (8.5-10.4); CARBON DIOXIDE 31 mEq/l (22-31); CHLORIDE 98 mEq/L (97-110); GLOMERULAR FILTRATION RATE > 60; GLUCOSE 105 mg/dL (70-100); POTASSIUM 4.3 mEq/L (3.5-5.2); SODIUM 135 mEq/L (134-144)
[2016-12-02] MEDS: ATORVASTATIN CALCIUM 20 MG TAB PO SCH (08:40)
[2016-12-02] MEDS: ACETAMINOPHEN 500 MG TAB PO SCH ×3 (08:40→20:29)
[2016-12-02] MEDS: SENNOSIDES/DOCUSATE SODIUM TAB PO SCH ×2 (08:40→22:02)
[2016-12-02] MEDS: ENOXAPARIN 40 MG/0.4 ML SYR SC SCH (08:41)
[2016-12-02] MEDS: BISACODYL 10 MG SUPP PR PRN ×2 (08:41→15:17)
[2016-12-02] MEDS: Mometasone Furoate Nasal [Nasonex] 2 SPRAYS NASAL SCH (08:42)
--- NOTE | 2016-12-02 13:08 | HOSPPROG ---
Hospitalist Progress Note Assessment/Plan: Patient is a 71 y/o male who had a recent hip replacement of 11/23. He presented to the ER after having a popping sensation to his left hip. This is my first encounter with this pt. Chart reviewed. D/W CM. # acute hip dislocation s/p revision by Dr Willis had hip reduction in the ER strict anterior precautions *persistent hiccups has had intermittent resolution, given baclofen and Haldol *hyponatremia resolved *constipation cont therapy *Hypoxemia multifactorial/ atelectasis, bed rest yesterday due to the hip dislocating he is requiring 1 liters of oxygen encourage IS *Possible pna/chest xray shows a possible infiltrate in left lobe blood cx show NGTD Levaquin *urinary retention Lowery placed back in due to surgery resolved *hyperlipidemia resumed statin *Pain will add oxy CR d/w pt *anemia received 2 units PRBC's prior to OR h/h overall stable *dvt prophylaxis: LMWH *Plan: order OT eval cont supportive care bowel therapy await inpt rehab eval or DC home with [facility] Subjective: Still having some pain. Feeling better. Objective: Vital Signs Temp Pulse Resp BP Pulse Ox 37.2 C 75 16 126/66 H 90 L 12/02/16 12:00 12/02/16 12:00 12/02/16 12:00 12/02/16 12:00 12/02/16 12:00 Laboratory Results 12/02/16 05:25 12/02/16 05:25 12/01/16 12/02/16 12/03/16 05:59 05:59 05:59 Intake Total 2100 2400 Output Total 1775 1350 Balance 325 1050 PT 13.1 SEC (12.0-15.0) 11/28/16 00:00 INR 1.00 (0.83-1.16) 11/28/16 00:00 - Physical Exam Constitutional: no apparent distress, appears nourished, uncomfortable Eyes: PERRL, anicteric sclera, EOMI Ears, Nose, Mouth, Throat: moist mucous membranes, hearing normal, ears appear normal Cardiovascular: No JVD, No tachycardia, No edema Respiratory: no respiratory distress, no rales or rhonchi, reduced air movement Gastrointestinal: No tenderness, No ascites, No guarding Skin: warm, normal color, No erythema Musculoskeletal: pain with ROM, muscular tenderness, generalized weakness Neurologic: AAOx3 Psychiatric: not anxious, not encephalopathic, thought process linear ICD10 Worksheet Patient Problems: Problems Problem Status Onset Hip arthritis Acute Hip dislocation, left Acute
[2016-12-02] MEDS: DIAZEPAM 5 MG TAB PO PRN (22:00)
[2016-12-03] MEDS: oxyCODONE IR 5 MG TAB PO PRN ×2 (06:04→14:58)
--- NOTE | 2016-12-03 06:59 | SOAPPROG ---
SOAP Progress Note Assessment/Plan: Assessment: S/P left keiko dislocation s/p revision 11/30/16 Plan: d/c home versus rehab once cleared by pt 50% wb daily dressing changes dvt precautions 11/28/16 09:32 11/29/16 09:02 12/01/16 06:38 12/02/16 06:30 Subjective: improving less pain no cp or sob want to go to rehab Objective: Vital Signs Temp Pulse Resp BP Pulse Ox 36.6 C 66 16 141/63 H 94 12/02/16 22:54 12/02/16 22:54 12/02/16 22:54 12/02/16 22:54 12/02/16 22:54 Laboratory Results 12/02/16 05:25 12/02/16 05:25 12/02/16 12/03/16 12/04/16 05:59 05:59 05:59 Intake Total 2400 200 Output Total 1350 400 200 Balance 1050 -200 -200 PT 13.1 SEC (12.0-15.0) 11/28/16 00:00 INR 1.00 (0.83-1.16) 11/28/16 00:00 dressing with minimal serosanguinous drainage no calf swelling or ttp neg homans bilaterally po swelling at left thigh 4/5 hip flexion strength ICD10 Worksheet Patient Problems: Problems Problem Status Onset Hip dislocation, left Acute Hip arthritis Acute
[2016-12-03] MEDS: ATORVASTATIN CALCIUM 20 MG TAB PO SCH (08:57)
[2016-12-03] MEDS: ACETAMINOPHEN 500 MG TAB PO SCH ×2 (08:57→16:16)
[2016-12-03] MEDS: SENNOSIDES/DOCUSATE SODIUM TAB PO SCH (08:58)
[2016-12-03] MEDS: ENOXAPARIN 40 MG/0.4 ML SYR SC SCH (09:03)
[2016-12-03] MEDS: Mometasone Furoate Nasal [Nasonex] 2 SPRAYS NASAL SCH (10:51)
--- NOTE | 2016-12-03 11:22 | PDIAF ---
- Diagnosis Diagnosis: left keiko Code Status: Full Code - Medication Management Discharge Medications: Medications to Continue on Transfer Atorvastatin Calcium [Lipitor 20 mg (*)] 20 mg PO DAILY 07/06/16 [Last Taken 03/07] Herbals/Supplements -Info Only 1 ea PO DAILY 07/06/16 [Last Taken 11/17/16] Mometasone Furoate Nasal [Nasonex] 2 sprays NASAL DAILY #0 07/06/16 [Last Taken 11/22/16] Acetaminophen [Tylenol ES 500 mg (*)] 1,000 mg PO TID tab 12/03/16 [Last Taken Unknown] Baclofen [Baclofen 10 mg (*)] 20 mg PO TID PRN #0 tab 12/03/16 [Last Taken Unknown] Diazepam [Valium 5 MG (*)] 5 mg PO Q6 PRN #0 tab 12/03/16 [Last Taken Unknown] Enoxaparin [Lovenox 40 MG (*)] 40 mg SC DAILY syr 12/03/16 [Last Taken Unknown] Ondansetron Odt [Zofran Odt 4 mg (*)] 4 mg PO Q4HRS PRN #0 tab 12/03/16 [Last Taken Unknown] Polyethylene Glycol 3350 [Miralax 17 gm (*)] 17 gm PO DAILY PRN #0 pkt 12/03/16 [Last Taken Unknown] Sennosides/Docusate Sodium [Senokot-S] 1 - 2 tab PO BID tab 12/03/16 [Last Taken Unknown] oxyCODONE CR [Oxycontin] 10 mg PO BID tab 12/03/16 [Last Taken Unknown] oxyCODONE IR [Oxycodone Ir (*)] 5 - 10 mg PO Q3HRS PRN #0 tab 12/03/16 [Last Taken Unknown] Discharge Medications: Refer to the Discharge Home Medication list for PRN reason. - Orders Services needed: Registered Nurse, Physical Therapy, Occupational Therapy Diet Recommendation: no restrictions on diet Diet Texture: Regular Texture Diet Activity/Weight Bearing Restrictions: 50% wb. STRICT ANTERIOR HIP PRECAUTIONS. NO EXTERNAL ROTATION. daily dressing changess. may shower without bandage. no soaking or immersion. fall precautions. Aspirin 325 mg daily. f/u at two weeks post op. abduction pillow while in bed - Follow Up Care Current Providers and Referrals: An Prado MD [Primary Care Provider] - As per Instructions
--- NOTE | 2016-12-03 14:07 | HOSPPROG ---
Hospitalist Progress Note Assessment/Plan: Patient is a 71 y/o male who had a recent hip replacement of 11/23. He presented to the ER after having a popping sensation to his left hip. # acute hip dislocation s/p revision by Dr Willis had hip reduction in the ER strict anterior precautions *persistent hiccups has had intermittent resolution, given baclofen and Haldol *hyponatremia resolved *constipation resolved *Hypoxemia resolved *Possible pna/chest xray shows a possible infiltrate in left lobe blood cx show NGTD Levaquin treated no further abx needed *urinary retention Lowery placed back in due to surgery resolved *hyperlipidemia resumed statin *Pain will add oxy CR d/w pt *anemia received 2 units PRBC's prior to OR h/h overall stable *dvt prophylaxis: LMWH *Plan: DC to inpt rehab when auth approved cont supportive care Subjective: Feels much better. Pain controlled better. Objective: Vital Signs Temp Pulse Resp BP Pulse Ox 36.3 C 87 16 127/67 H 94 12/03/16 08:00 12/03/16 08:00 12/03/16 08:00 12/03/16 08:00 12/03/16 08:00 Laboratory Results 12/02/16 05:25 12/02/16 05:25 12/02/16 12/03/16 12/04/16 05:59 05:59 05:59 Intake Total 2400 200 250 Output Total 1350 400 200 Balance 1050 -200 50 PT 13.1 SEC (12.0-15.0) 11/28/16 00:00 INR 1.00 (0.83-1.16) 11/28/16 00:00 - Physical Exam Constitutional: no apparent distress, appears nourished Eyes: PERRL, anicteric sclera Ears, Nose, Mouth, Throat: moist mucous membranes, hearing normal Cardiovascular: No JVD, No edema Respiratory: no respiratory distress, reduced air movement Gastrointestinal: No tenderness, No ascites Skin: warm, normal color Musculoskeletal: no joint effusions, pain with ROM, generalized weakness Neurologic: AAOx3 Psychiatric: interacting appropriately, not anxious ICD10 Worksheet Patient Problems: Problems Problem Status Onset Hip arthritis Acute Hip dislocation, left Acute
[2016-12-03 16:20] VITALS: BP 132/75; PULSE 77; RESP 17; TEMP 98.7; O2SAT 99
--- NOTE | 2016-12-04 08:35 | GDS ---
[f rep st] DISCHARGE SUMMARY DISCHARGE DIAGNOSES: 1. Acute hip dislocation. 2. Hyponatremia. 3. Hypoxemia. 4. Urinary retention. 5. Pain. 6. Anemia. CONSULTATIONS: Dr. Willis of orthopedics. HOSPITAL COURSE: The patient is a 71-year-old male who presented to the emergency room complaining of left-sided hip pain. He was evaluated and diagnosed with: 1. Acute hip dislocation. During this hospitalization, Dr. Willis of orthopedics evaluated and abner ated the patient. Surgical intervention was required. Please refer to the surgery note for details . His condition is improved. He has strict precautions with 50% weightbearing. 2. Hyponatremia. This is in the setting of volume depletion and has resolved. 3. Constipation. Again, treated and resolved. 4. Urinary retention. The patient is urinating appropriately at the time of disposition. 5. Pain. This is well managed with his prescribed pain medications. 6. Anemia. This is in the setting of postop and anticipated. We will watch this closely in the fu ture. DISPOSITION: The patient will be discharged to inpatient rehabilitation for further strengthening a nd conditioning. There are no pending studies. DISCHARGE MEDICATIONS: Please refer to EMR form. FOLLOWUP: Will be with his primary care physician, Dr. An Prado, as well as Dr. Yovani cruz of orthopedics. I spent greater than 35 minutes in the care, coordination and management of the patient's dispositio n. /[id number]/MODL
== END 2016-12-03 16:49 | DRG 467 ==
LOC: EDUNIT# → INTOOBSV 11-28 02:09 → F3N 11-28 02:51 → OBSVTOIN 11-29 10:56
PROVIDERS: ADMIT Internal Medicine; ATTEND Internal Medicine
PROC: 0SRB04Z Replacement of Left Hip Joint with Ceramic on Polyethylene Synthetic Substitute, Open Approach (ICD-10-PCS; principal; 2016-11-29)
PROC: 0SPB0JZ Removal of Synthetic Substitute from Left Hip Joint, Open Approach (ICD-10-PCS; principal; 2016-11-29)
PROC: 0SSBXZZ Reposition Left Hip Joint, External Approach (ICD-10-PCS; 2016-11-29)
DX: T84.021A Dislocation of internal left hip prosthesis, initial encounter (principal); R06.6 Hiccough; E87.1 Hypo-osmolality and hyponatremia; K59.00 Constipation, unspecified; R09.02 Hypoxemia; R33.9 Retention of urine, unspecified; E78.5 Hyperlipidemia, unspecified; D64.9 Anemia, unspecified
CPT/HCPCS: 96374; 97116-GP; 97161-GP; 97164-GP; 97166-GO; 97530-GP; 97535-GO; G0378; G8978-GP-CJ; G8978-GP-CK; G8979-GP-CI; G8987-GO-CI; G8988-GO-CI; J0171; J0690; J1170; J1650; J1885; J1940; J2250; J2405; J2704; J2795; J3010; P9016

== ENCOUNTER 2016-12-03 13:38 | Inpatient (IN) | payer OTHER ==
[2016-12-03] MEDS ORDERED: BISACODYL 10 MG SUPP PR PRN (17:16)
[2016-12-03] MEDS ORDERED: POLYETHYLENE GLYCOL 3350 17 GM PKT PO PRN (17:51)
[2016-12-03] MEDS ORDERED: DIAZEPAM 5 MG TAB PO PRN (17:51)
[2016-12-03] MEDS ORDERED: ONDANSETRON DISINTEGRATING 4 MG TAB PO PRN (17:51)
--- NOTE | 2016-12-03 17:59 | PDOREHIP ---
Admission [facility] - Admission - 3 Day Assessment Period Admission Date/Day 1: 12/03/16 Day 2: 12/04/16 Day 3: 12/05/16 - Active Diagnoses Comorbidities and Co-existing Conditions at Admission: 51982. None of the Above - Skin Conditions Unhealed Pressure Ulcer (1 or more/Stage 1 or >)-Admission: 0. No
--- NOTE | 2016-12-03 18:09 | PDGENHP ---
History and Physical History and Physical: Post admission physician evaluation and rehabilitation treatment plan Date Admit: 12/03/2016 Date and Time Eval: 12/03/2016, 5 PM Referring Facility: [facility] Referring MD: Dr. Osuna Consulting MDs: Dr. Willis Rehab Dx: 08.51 unilateral hip replacement Impairment Group/ Etiologic Dx: failed prosthesis and dislocation Date Onset: hip fracture 11/23/2016, dislocation 11/29/2016 Date Surgery: 11/30/2016 HPI: this is a 71-year-old male status post a L total hip arthroplasty on 2016 due to OA who was admitted to [facility] on 11/29/2016 with left-sided hip pain after he felt a pop while sitting in a chair. Left hip x- ray revealed femoral head dislocation, reduced in the emergency department. Patient was admitted and had a revision on 11/30/2016, now with strict anterior hip precautions and 50% weight-bearing precautions. He was diagnosed with a possible left lower lobe pneumonia and had a new oxygen requirement, also diagnosed with urinary retention and anemia requiring transfusion. As additional detail, on the acute care service, he had new hypoxemia that was thought to be multifactorial, possibly due to atelectasis, or possibly related to pneumonia. He had a chest x-ray that showed a possible infiltrate in the left lower lobe. Blood cultures have been negative, he was on Levaquin for a period of time. He was not transferred over on it. He also had hyponatremia that resolved, constipation that was treated with bowel program, urinary retention that is resolved, pain treated with opioids, anemia status post two units of packed red blood cells prior to operating room and has been stable. He is been on low molecular weight heparin for DVT prophylaxis. He was participating well in physical therapy and occupational therapy with appropriate functional goals. He is extremely motivated for inpatient rehabilitation. 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 Enjoys cycling. ROS: All other systems are negative except for as described above. No shortness of breath Precautions: 50% weight bearing on left lower limb for 6 weeks post op, strict anterior hip precautions. Active Comorbidities: hiccups, hypoxia PMH/PSH: Hyperlipidemia CELESTINE R hip CELESTINE L hip, now revised Family Hx: Mother of hydrocephalus Social Hx: lives with family (, Kimberli, also undergoing treatment for lymphoma) and a multilevel house with 23 steps to enter with railings, two steps to the second floor from the landing and 5 to 6 steps to the living room or kitchen from the landing. Bedrooms on the second floor. Two steps from the landing without a railing. He can live in a guest house with 2 ANNIA in the meantime. He was previously using a four wheeled walker. Drinks two alcoholic beverages per day, never smoked, no drug use. Allergies: no known drug allergies Pre-Hosp Meds: atorvastatin 20 mg PO daily herbals and supplements daily Nasonex two sprays daily Cialis 5 mg daily PRN Admit Meds: atorvastatin 20 mg daily herbals and supplements daily Nasonex two sprays nasal daily acetaminophen 1000 milligrams PO TID baclofen 20 mg PO TID PRN diazepam 5 mg PO Q6 hours PRN enoxaparin 40 mg subcutaneous daily ondansetron 4 mg PO Q4 hours PRN polyethylene glycol 17 g PO daily Senna/docusate 1 to 2 tabs PO BID oxycodone CR 10 mg PO BID oxycodone IR 5 to 10 mg PO Q3 hours PRN Physical Exam: VS: 126/67, P 87, R 16, T 36.8 GEN: Normally developed, resting in chair, NAD EYES: Anicteric, PERRL EARS, NOSE, MOUTH, THROAT: MMM, normal dentition CV: Heart RRR, no LE edema, extremities warm. RESP: Breathing comfortably, lungs CTAB no wrr, on O2 NC GI: Abd with +BS, non distended : No ceballos in place MSK: no contracture noted SKIN: no rashes or skin breakdown noted PSYCH: appropriate, pleasant, cooperative; normal mood, affect and thought content HEME/LYMPH: No supraclavicular lymphadenopathy EXTREM: pulses 2+ pedal on the left foot and right. NEURO: The patient is alert, Cranial Nerves II-XII were intact and symmetric bilaterally, including no diplopia. Strength was 5/5 and symmetric in bilateral biceps, triceps, wrist extensors, finger flexors, finger abductors, as well as R hip abductors, hip flexors, knee extensors, ankle dorsiflexors, plantarflexors , and EHL, pain inhibited on the left in HF and KE, but otherwise 5/5. Reflexes were trace and symmetric in bi, tri, BR, patella, and achilles with downgoing toes bilaterally and absent hoffmans. No spasticity. Sensation was intact to light touch in the hands and feet. Results Review: Labs are significant for hemoglobin of 9.1 on 12/02/2016, stable from 8.8 the prior day. Sodium is 135 and potassium 4.3 review the imaging showed an x-ray of the pelvis 11/30/2016 that showed status post left hip arthroplasty revision with anatomic alignment. Chest x-ray, PA and lateral from 11/29/2016 showed alveolar opacity in the left mid lung, pneumonia versus atelectasis and possible low-grade congestive failure versus fluid overload. Assessment and Plan: 71-year-old male status post total hip arthroplasty revision on 11/30/2016 with impaired mobility, self-care, and anterior hip precautions with 50% weight- bearing precautions for 6 weeks post op. His goal is to transfer home with family assistance and home therapies versus outpatient therapies. He has a good rehab prognosis and few medical comorbidities with the exception of the recent left lower lobe pneumonia and new oxygen requirements. He has a high premorbid functional status. Status post left total hip arthroplasty revision 11/30/2016: anterior hip precautions, DVT prophylaxis, daily dressing changes, 50% weight-bearing precaution x 6 weeks. PT and OT for functional impairments. Muscle spasms: Currently on valium, counseled him about risks associated with benzo + opioid, and he will avoid if possible. Has not had significant problems so far. Hiccups: currently on baclofen, but hiccups have resolved. Stop Baclofen, monitor and consider alternative. Opioid side effects: bowel meds for constipation. May be contributed to hypoxemia Hypoxemia: thought to be due to atelectasis, continue oxygen as needed and incentive spirometry. It was thought that he might've had pneumonia, was on Levaquin, but that was discontinued. Continue to monitor clinically for resolution. Premorbid hyperlipidemia: continue statin Diet: regular, thin liquids. No diet restrictions. Code Status: Full Proph: enoxaparin 40 mg daily, may continue after discharge, may switch to aspirin 325 mg daily per acute care DC orders. Skin: daily dressing changes, may shower without bandage. No soaking or immersion. Follow-up: will need follow-up proximally two weeks postoperative depending on whether or not he is in the hospital, we will follow up on this issue. ELOS/ Dispo: 5 to 7 days, home with family, likely outpatient versus home health PT and OT. I have independently evaluated and examined the patient. The patient is medically stable for participation in inpatient rehabilitation. I have reviewed the Preadmission Screen, and do not identify any relevant changes in the patients status since this was completed. The patient is at high risk for developing DVT, we will continue with DVT prophylaxis. He is also at high risk for falls and we will implement fall prevention strategies. He is medically stable and ready for inpatient rehabilitation. I anticipate that he will need physical therapy for 90 minutes a day, 5 to 7 days a week for 5 to 7 days. He will also need occupational therapy for 90 minutes a day 5 to 7 days a week for 5 to 7 days. The patient will benefit from comprehensive inpatient rehab therapies to address the functional goals above. I anticipate that this patient will make meaningful progress toward their rehab goals in a reasonable amount of time. Continued progress towards rehabilitation goals cannot be achieved at a lower level of care. A total of 70 minutes was spent on the floor in the care of the patient, the majority was spent in the counseling and coordination of care regarding anticipated rehab course and prognosis.
[2016-12-03] MEDS: SENNOSIDES/DOCUSATE SODIUM TAB PO SCH (20:45)
[2016-12-03] MEDS: ACETAMINOPHEN 500 MG TAB PO SCH (20:45)
[2016-12-04] MEDS: oxyCODONE IR 5 MG TAB PO PRN ×4 (01:47→17:02)
[2016-12-04] MEDS ORDERED: Herbals/Supplements -Info Only PO SCH (09:00)
[2016-12-04] MEDS: ACETAMINOPHEN 500 MG TAB PO SCH ×3 (09:24→21:00)
[2016-12-04] MEDS: ENOXAPARIN 40 MG/0.4 ML SYR SC SCH ×2 (09:25→09:28)
[2016-12-04] MEDS: ATORVASTATIN CALCIUM 20 MG TAB PO SCH (09:25)
[2016-12-04] MEDS: FLUTICASONE NASAL 120 SPRAYS/16 GM MDI EACHNARE SCH (09:26)
[2016-12-04] MEDS: SENNOSIDES/DOCUSATE SODIUM TAB PO SCH ×2 (09:27→22:37)
[2016-12-04] MEDS ORDERED: NYSTATIN POWDER 15 GM BTL TP ONE (10:16)
--- NOTE | 2016-12-04 12:46 | SOAPPROG ---
SOAP Progress Note Assessment/Plan: 71-year-old male status post total hip arthroplasty revision on 11/30/2016 with impaired mobility, self-care, and anterior hip precautions with 50% weight- bearing precautions for 6 weeks post op. 12/04/2016 patient doing well, making good progress in his initial evaluations today. Slept poorly, attributed to a new location. Adding trazodone for poor sleep, not helped with valium (which is prescribed for spasms, but also sedating). * Status post left total hip arthroplasty revision 11/30/2016: anterior hip precautions, DVT prophylaxis, daily dressing changes, 50% weight-bearing precaution x 6 weeks. PT and OT for functional impairments. Adduction pillow while in bed * Muscle spasms: Currently on valium, counseled him about risks associated with benzo + opioid, and he will avoid if possible. Has not had significant problems so far. Continue. * Insomnia: Adding low dose trazodone, 50 po qhs * Hiccups: currently on baclofen, but hiccups have resolved. Stop Baclofen, monitor and consider alternative. * Opioid side effects: bowel meds for constipation. May be contributed to hypoxemia * Hypoxemia: thought to be due to atelectasis, continue oxygen as needed and incentive spirometry. It was thought that he might've had pneumonia, was on Levaquin, but that was discontinued. Continue to monitor clinically for resolution. * Premorbid hyperlipidemia: continue statin * Diet: regular, thin liquids. No diet restrictions. * Code Status: Full * Proph: enoxaparin 40 mg daily, may continue after discharge, may switch to aspirin 325 mg daily per acute care DC orders. * Skin: daily dressing changes, may shower without bandage. No soaking or immersion. * Follow-up: will need follow-up proximally two weeks postoperative depending on whether or not he is in the hospital, we will follow up on this issue. * ELOS/ Dispo: 5 to 7 days, home with family, likely outpatient versus home health PT and OT. His goal is to transfer home with family assistance and home therapies versus outpatient therapies. 12/04/16 12:40 Subjective: CC: Insomnia No acute events overnight. Patient endorses poor sleep, he feels that is because it's a new location. He has had Flexeril in the past as well as Sonata which have been helpful. He is not taking them for a while. He is open to trying trazodone. Valium was not helpful, though he took it for spasm relief. His goal is to discharge home as soon as possible. He is sad that he is going to be in the hospital for Father's Day. Hoping for a home visit this weekend. Also, his is undergoing therapy for lymphoma today, he is hoping to take part in a phone conversation with the physician team. He wishes he could be by her side, but recognizes the need to be an inpatient. Denies any shortness of breath, chest pain, new numbness, tingling, weakness or new pain. Objective: Vital Signs Temp Pulse Resp BP Pulse Ox 37.0 C 77 18 134/67 H 96 12/04/16 06:29 12/04/16 06:29 12/04/16 06:29 12/04/16 06:29 12/04/16 06:29 12/03/16 12/04/16 12/05/16 05:59 05:59 05:59 Intake Total 640 Output Total 200 Balance 440 Physical Exam - Physical Exam General Appearance: WD/WN, alert, no apparent distress Respiratory: No respiratory distress, No accessory muscle use Cardiac/Chest: regular rate, rhythm, No edema Skin: normal color, warm/dry, No cyanosis Extremities: No pedal edema, No swelling Neuro/Psych: alert, normal mood/affect ICD10 Worksheet Patient Problems: Problems Problem Status Onset Hip arthritis Acute Hip dislocation, left Acute
[2016-12-04] MEDS: NYSTATIN POWDER 15 GM BTL TP SCH ×2 (17:01→22:37)
[2016-12-04] MEDS: traZODone 50 MG TAB PO SCH (21:01)
[2016-12-05] MEDS: ACETAMINOPHEN 500 MG TAB PO SCH ×3 (09:35→21:19)
[2016-12-05] MEDS: ATORVASTATIN CALCIUM 20 MG TAB PO SCH (09:36)
[2016-12-05] MEDS: SENNOSIDES/DOCUSATE SODIUM TAB PO SCH ×2 (09:37→21:20)
[2016-12-05] MEDS: NYSTATIN POWDER 15 GM BTL TP SCH ×3 (09:38→21:21)
[2016-12-05] MEDS: FLUTICASONE NASAL 120 SPRAYS/16 GM MDI EACHNARE SCH (09:38)
--- NOTE | 2016-12-05 11:52 | SOAPPROG ---
SOAP Progress Note Assessment/Plan: 71-year-old male status post total hip arthroplasty revision on 11/30/2016 with impaired mobility, self-care, and anterior hip precautions with 50% weight- bearing precautions for 6 weeks post op. 12/05/2016 participating well in therapies, no current barriers. continue rehab plan below. Patient will be going on a pass with family for short period of time this evening after being cleared by therapy and nursing for safety and mobility with his family members. Has not been using oxygen * Status post left total hip arthroplasty revision 11/30/2016: anterior hip precautions, DVT prophylaxis, daily dressing changes, 50% weight-bearing precaution x 6 weeks. PT and OT for functional impairments. Adduction pillow while in bed * Muscle spasms: Currently on valium, counseled him about risks associated with benzo + opioid, and he will avoid if possible. Has not had significant problems so far. Continue. * Insomnia: Added low dose trazodone, 50 po qhs * Hiccups: hiccups have resolved. Stopped Baclofen, monitor and consider alternative. * Opioid side effects: bowel meds for constipation. * Hypoxemia: thought to be due to atelectasis, continue oxygen as needed and incentive spirometry. It was thought that he might've had pneumonia, was on Levaquin, but that was discontinued. Improved since admission * Premorbid hyperlipidemia: continue statin * Diet: regular, thin liquids. No diet restrictions. * Code Status: Full * Proph: enoxaparin 40 mg daily, may continue after discharge, may switch to aspirin 325 mg daily per acute care DC orders. * Skin: daily dressing changes, may shower without bandage. No soaking or immersion. * Follow-up: will need follow-up proximally two weeks postoperative depending on whether or not he is in the hospital, we will follow up on this issue. * ELOS/ Dispo: 5 to 7 days, home with family, likely outpatient versus home health PT and OT. His goal is to transfer home with family assistance and home therapies versus outpatient therapies. 12/04/16 12:40 12/05/16 11:48 Subjective: CC: therapy progress patient participating well and therapies, denies any new fevers, chills, night sweats, new leg pain, chest pain, shortness of breath, numbness, tingling, or weakness. He plans to do a pass off of the unit with family this evening after training with physical therapy and being cleared for safety with his family members. Patient has no other new concerns today. Objective: Vital Signs Temp Pulse Resp BP Pulse Ox 37.3 C 73 16 109/58 L 90 L 12/05/16 06:06 12/05/16 06:06 12/05/16 06:06 12/05/16 06:06 12/05/16 06:06 12/04/16 12/05/16 12/06/16 05:59 05:59 05:59 Intake Total 640 650 720 Output Total 200 500 Balance 440 150 720 Physical Exam - Physical Exam General Appearance: WD/WN, alert, no apparent distress Respiratory: No respiratory distress, No accessory muscle use Cardiac/Chest: regular rate, rhythm, No edema Skin: normal color, warm/dry, No cyanosis Extremities: other (mild left foot dependent edema, left leg bruising and mild swelling. Pedal pulse 2+) Neuro/Psych: alert, normal mood/affect ICD10 Worksheet Patient Problems: Problems Problem Status Onset Hip arthritis Acute Hip dislocation, left Acute
[2016-12-05] MEDS: oxyCODONE IR 5 MG TAB PO PRN ×3 (13:25→23:29)
[2016-12-05] MEDS: traZODone 50 MG TAB PO SCH (21:20)
[2016-12-06] MEDS: oxyCODONE IR 5 MG TAB PO PRN ×4 (04:52→19:30)
[2016-12-06] MEDS: ACETAMINOPHEN 500 MG TAB PO SCH ×3 (08:20→21:31)
[2016-12-06] MEDS: ATORVASTATIN CALCIUM 20 MG TAB PO SCH (08:20)
[2016-12-06] MEDS: SENNOSIDES/DOCUSATE SODIUM TAB PO SCH ×2 (08:21→21:31)
[2016-12-06] MEDS: FLUTICASONE NASAL 120 SPRAYS/16 GM MDI EACHNARE SCH (10:10)
[2016-12-06] MEDS: NYSTATIN POWDER 15 GM BTL TP SCH ×3 (10:10→21:31)
[2016-12-06] MEDS: ENOXAPARIN 40 MG/0.4 ML SYR SC SCH (10:11)
--- NOTE | 2016-12-06 11:36 | SOAPPROG ---
SOAP Progress Note Assessment/Plan: 71-year-old male status post total hip arthroplasty revision on 11/30/2016 with impaired mobility, self-care, and anterior hip precautions with 50% weight- bearing precautions for 6 weeks post op. 12/06 ongoing swelling of the left limb, getting D dimer, may also get doppler or LLE. otherwise are dissipating well, working well with therapists. Interested in discharging as soon as possible. Worked with nursing to try to get him access to his medical record. Low-dose trazodone working extremely well , he would like to continue it as an outpatient * Status post left total hip arthroplasty revision 11/30/2016: anterior hip precautions, DVT prophylaxis, daily dressing changes, 50% weight-bearing precaution x 6 weeks. PT and OT for functional impairments. Adduction pillow while in bed * Muscle spasms: Currently on valium, counseled him about risks associated with benzo + opioid, and he will avoid if possible. Has not had significant problems so far. Continue PRN. * Insomnia: Added low dose trazodone, 50 po qhs. Continue as outpatient at his request. * Hiccups: hiccups have resolved. Stopped Baclofen, monitor and consider alternative. * Opioid side effects: bowel meds for constipation. * Hypoxemia: thought to be due to atelectasis, continue oxygen as needed and incentive spirometry. It was thought that he might've had pneumonia, was on Levaquin, but that was discontinued. Improved since admission * Premorbid hyperlipidemia: continue statin * Diet: regular, thin liquids. No diet restrictions. * Code Status: Full * Proph: enoxaparin 40 mg daily, may continue after discharge, may switch to aspirin 325 mg daily per acute care DC orders. * Skin: daily dressing changes, may shower without bandage. No soaking or immersion. * Follow-up: will need follow-up proximally two weeks postoperative depending on whether or not he is in the hospital, we will follow up on this issue. * ELOS/ Dispo: 5 to 7 days, home with family, likely outpatient versus home health PT and OT. His goal is to transfer home with family assistance and home therapies versus outpatient therapies. 12/04/16 12:40 12/05/16 11:48 12/06/16 11:32 Subjective: CC: sleep and leg swelling no acute events overnight. He notes that he is sleeping very well on the low- dose trazodone, would like to continue it on discharge. Additionally he notes that he has swelling in his left lower leg, continues, improved with elevation. Specifically, he notes that the swelling did start after his surgery, but not immediately afterwards. he's interested in discharging home as soon as possible. He also notes that he recognized his functional impairments yesterday when working with physical therapy, and they canceled plans to go to movie and instead had an evening at the hospital. Otherwise, denies any shortness of breath or chest pain, no fevers, chill, numbness, tingling, or weakness. Objective: Vital Signs Temp Pulse Resp BP Pulse Ox 37.2 C 76 18 142/78 H 93 12/06/16 07:43 12/06/16 07:43 12/06/16 07:43 12/06/16 07:43 12/06/16 07:43 12/05/16 12/06/16 12/07/16 05:59 05:59 05:59 Intake Total 650 1610 840 Output Total 500 775 Balance 150 835 840 Physical Exam - Physical Exam General Appearance: WD/WN, alert, no apparent distress Respiratory: accessory muscle use, No respiratory distress Skin: normal color, warm/dry, No cyanosis Extremities: swelling (LLE at the foot primarily, minimal pitting), No calf tenderness Neuro/Psych: alert, normal mood/affect ICD10 Worksheet Patient Problems: Problems Problem Status Onset Hip arthritis Acute Hip dislocation, left Acute
[2016-12-06] MEDS: traZODone 50 MG TAB PO SCH (21:30)
[2016-12-07] MEDS: oxyCODONE IR 5 MG TAB PO PRN ×3 (05:18→16:40)
[2016-12-07] MEDS: ACETAMINOPHEN 500 MG TAB PO SCH ×3 (08:40→21:14)
[2016-12-07] MEDS: FLUTICASONE NASAL 120 SPRAYS/16 GM MDI EACHNARE SCH (08:40)
[2016-12-07] MEDS: ENOXAPARIN 40 MG/0.4 ML SYR SC SCH (08:41)
[2016-12-07] MEDS: ATORVASTATIN CALCIUM 20 MG TAB PO SCH (08:41)
[2016-12-07] MEDS: NYSTATIN POWDER 15 GM BTL TP SCH ×3 (08:42→21:23)
[2016-12-07] MEDS: SENNOSIDES/DOCUSATE SODIUM TAB PO SCH ×2 (08:43→21:15)
--- NOTE | 2016-12-07 09:30 | SOAPPROG ---
SOAP Progress Note Assessment/Plan: Assessment: 71-year-old male status post total hip arthroplasty revision on 11/30/2016 with impaired mobility, self-care, and anterior hip precautions with 50% weight- bearing precautions for 6 weeks post op. * Status post left total hip arthroplasty revision 11/30/2016: Initial FIM 102. Walked 150' FWW SBA/CGA. Did 6 stairs; has to descend 23 to acces his home. Not completely compliant, needs more education re anterior hip precautions, 50% weight-bearing precaution x 6 weeks. DVT prophylaxis, daily dressing changes. PT and OT for functional impairments. Adduction pillow while in bed * Muscle spasms: Currently on diazepam, concerned about risks associated with benzo + opioid,; no diazepam use since 12/03/16. Has not had significant problems so far. Continue PRN. * Hypoxemia: thought to be due to atelectasis, continue oxygen as needed and incentive spirometry. It was thought that he might've had pneumonia, was on Levaquin, but that was discontinued. Also with grade 1 diastolic dysfunction on echo in the hospital. Improved since admission. * Anemia: post-surgical with 2 left hip surgeries this month. * Insomnia: Improved with low dose trazodone, 50 po qhs. Continue as outpatient at his request. * Hiccups: hiccups have resolved. Stopped Baclofen, monitor and consider alternative. * Opioid side effects: bowel meds for constipation. * Premorbid hyperlipidemia: continue statin * Proph: enoxaparin 40 mg daily, may continue after discharge, may switch to aspirin 325 mg daily per acute care DC orders. * Skin: daily dressing changes, may shower without bandage. No soaking or immersion. Follow-up: will need follow-up proximally two weeks postoperative depending on whether or not he is in the hospital, we will follow up on this issue. Attended staffing, 15 min. D/W case mgmt, nursing, PT, OT. Discharge date set for 12/09/16. His goal is to transfer home with family assistance and home therapies versus outpatient therapies. 12/07/16 12:48 Subjective: No complaints. Pain adequately controlled. Sleeping well with trazodone. No f /c, cough/dyspnea. Objective: Vital Signs Temp Pulse Resp BP Pulse Ox 36.9 C 68 16 130/87 H 96 12/06/16 18:46 12/06/16 18:46 12/06/16 18:46 12/06/16 18:46 12/06/16 18:46 12/06/16 12/07/16 12/08/16 05:59 05:59 05:59 Intake Total 1610 2560 230 Output Total 775 200 Balance 835 2360 230 - Time Spent With Patient Time Spent With Patient: Greater than 35 minutes floor time today, including more than 50% of time in coordination of care during staffing, and counseling patient. Physical Exam - Physical Exam General Appearance: WD/WN, alert, no apparent distress Respiratory: normal breath sounds, No crackles, No rhonchi, No wheezing Cardiac/Chest: regular rate, rhythm, No edema Skin: normal color, warm/dry Neuro/Psych: no motor/sensory deficits, alert, normal mood/affect, oriented x 3 ICD10 Worksheet Patient Problems: Problems Problem Status Onset Hip arthritis Acute Hip dislocation, left Acute
[2016-12-07 19:51] LABS: COLOR YELLOW; LEUKOCYTE ESTERASE,URINE NEGATIVE (NEGATIVE); NITRITE,URINE NEGATIVE (NEGATIVE)
[2016-12-07] MEDS: traZODone 50 MG TAB PO SCH (21:15)
[2016-12-08] MEDS: oxyCODONE IR 5 MG TAB PO PRN ×3 (05:31→18:22)
--- NOTE | 2016-12-08 08:10 | SOAPPROG ---
SOAP Progress Note Assessment/Plan: 71-year-old male status post total hip arthroplasty revision on 11/30/2016 with impaired mobility, self-care, and anterior hip precautions with 50% weight- bearing precautions for 6 weeks post op. 12/08/2016 patient doing very well, using crutches and therapy and adhering to weight-bearing precautions. He seems to have internalized the weight-bearing precautions and is problem-solving bike riding while keeping within precautions. Improved swelling the left leg, negative Doppler over the weekend. Some increased pain, due to increased activity level. A total of 25 minutes was spent on the floor in the care of the patient, the majority of which was spent in the counseling and coronation of care regarding discharge planning and bicycle riding/ precautions. * Status post left total hip arthroplasty revision 11/30/2016: Initial FIM 102. Walked 150' FWW SBA/CGA. Did 6 stairs; has to descend 23 to acces his home. Not completely compliant, needs more education re anterior hip precautions, 50% weight-bearing precaution x 6 weeks. DVT prophylaxis, daily dressing changes. PT and OT for functional impairments. Adduction pillow while in bed * Muscle spasms: Currently on diazepam, concerned about risks associated with benzo + opioid; no diazepam use since 12/03/16. Has not had significant problems so far. Continue PRN. * Hypoxemia: thought to be due to atelectasis, continue oxygen as needed and incentive spirometry. It was thought that he might've had pneumonia, was on Levaquin, but that was discontinued. Also with grade 1 diastolic dysfunction on echo in the hospital. Improved since admission. * Anemia: post-surgical with 2 left hip surgeries this month. * Insomnia: Improved with low dose trazodone, 50 po qhs. Continue as outpatient at his request. * Hiccups: hiccups have resolved. Stopped Baclofen, monitor and consider alternative. * Opioid side effects: bowel meds for constipation. * Premorbid hyperlipidemia: continue statin * Proph: enoxaparin 40 mg daily, may continue after discharge, may switch to aspirin 325 mg daily per acute care DC orders. * Skin: daily dressing changes, may shower without bandage. No soaking or immersion. Follow-up: will need follow-up proximally two weeks postoperative depending on whether or not he is in the hospital, we will follow up on this issue. Discharge date set for 12/09/16. His goal is to transfer home with family assistance and home therapies versus outpatient therapies. 12/04/16 12:40 12/05/16 11:48 12/06/16 11:32 12/08/16 08:06 12/08/16 08:09 Subjective: CC: hip pain No acute events overnight. Patient endorsed that he worked harder in therapies yesterday and had concurrent massage with therapies, and he has some soreness that he thinks is related to that. Continues to have some bruising. He is looking forward to going home tomorrow. He notices ongoing swelling in his left foot, but improved. Use oxycodone times one this morning. Otherwise, denies any new symptoms, no other pain. Objective: Vital Signs Temp Pulse Resp BP Pulse Ox 37.0 C 66 16 134/79 H 94 12/07/16 18:41 12/07/16 18:41 12/07/16 18:41 12/07/16 18:41 12/07/16 18:41 12/07/16 12/08/16 12/09/16 05:59 05:59 05:59 Intake Total 2560 1280 Output Total 200 Balance 2360 1280 Physical Exam - Physical Exam General Appearance: WD/WN, alert, no apparent distress Respiratory: No respiratory distress, No accessory muscle use Cardiac/Chest: regular rate, rhythm, edema ( left lower leg only) Skin: normal color, warm/dry, other ( ecchymosis on the left leg postsurgical), No cyanosis Extremities: swelling ( left leg only), No non-tender Neuro/Psych: alert, normal mood/affect, other ( he did repeat a story or two that he told me earlier in the week, and did not seem to remember that we discussed it) ICD10 Worksheet Patient Problems: Problems Problem Status Onset Hip arthritis Acute Hip dislocation, left Acute
[2016-12-08] MEDS: ACETAMINOPHEN 500 MG TAB PO SCH ×3 (08:30→21:35)
[2016-12-08] MEDS: ATORVASTATIN CALCIUM 20 MG TAB PO SCH (08:30)
[2016-12-08] MEDS: SENNOSIDES/DOCUSATE SODIUM TAB PO SCH ×2 (08:31→21:35)
[2016-12-08] MEDS: FLUTICASONE NASAL 120 SPRAYS/16 GM MDI EACHNARE SCH (08:37)
[2016-12-08] MEDS: ENOXAPARIN 40 MG/0.4 ML SYR SC SCH (08:37)
[2016-12-08] MEDS: NYSTATIN POWDER 15 GM BTL TP SCH ×3 (09:09→23:06)
[2016-12-08 18:45] VITALS: RESP 16
[2016-12-08] MEDS: traZODone 50 MG TAB PO SCH (21:34)
[2016-12-09] MEDS: oxyCODONE IR 5 MG TAB PO PRN ×3 (02:14→10:39)
[2016-12-09 07:02] VITALS: BP 137/81; PULSE 67; TEMP 98.4; O2SAT 94
[2016-12-09] MEDS: ACETAMINOPHEN 500 MG TAB PO SCH (08:16)
[2016-12-09] MEDS: ATORVASTATIN CALCIUM 20 MG TAB PO SCH (08:17)
[2016-12-09] MEDS: SENNOSIDES/DOCUSATE SODIUM TAB PO SCH (08:17)
[2016-12-09] MEDS: ENOXAPARIN 40 MG/0.4 ML SYR SC SCH (09:12)
[2016-12-09] MEDS: NYSTATIN POWDER 15 GM BTL TP SCH (09:13)
[2016-12-09] MEDS: FLUTICASONE NASAL 120 SPRAYS/16 GM MDI EACHNARE SCH (09:13)
--- NOTE | 2016-12-09 10:46 | PDOREHIP ---
Admission [facility] - Admission - 3 Day Assessment Period Admission Date/Day 1: 12/03/16 Day 2: 12/04/16 Day 3: 12/05/16 Discharge [facility] - Discharge - 3 Day Assessment Period 2 Days Prior to Anticipated Discharge Date: 12/07/16 1 Day Prior to Anticipated Discharge Date: 12/08/16 Anticipated Discharge Date: 12/09/16 - Discharge Skin Conditions Unhealed Pressure Ulcer (1 or more/Stage 1 or >)-Discharge: 0. No
--- NOTE | 2016-12-09 19:50 | GDS ---
[f rep st] DISCHARGE SUMMARY ADMITTING DIAGNOSIS: Debility, status post left total hip arthroplasty revision. DISCHARGE DIAGNOSIS: Debility, status post left total hip arthroplasty revision. CONSULTATIONS: None. PROCEDURE: None. COMPLICATIONS: None. HISTORY/HOSPITAL COURSE: Mr. Cox was admitted to [facility] inpatient rehabilitation from [facility]. He had undergone the revision of a left hip replacement. He had a previous hip replacement on 2016. He subsequently had dislocation of the total hip arthroplasty on 2016 and revision surgery on 11/30/2016. Hospital complications included anemia for which he received a transfusion, possible left lower lobe pneumonia for which he received several days of levofloxacin, hyponatremia which resolved ; constipation, urinary retention, and pain control. He had rapid improvement during his rehabilitation stay. His initial functional independence measure was 102 on 12/07/2016. He was able to walk 150 feet with a front-wheeled walker with standby assist to contact guard assist. He climbed 6 stairs. He subsequently reports that he climbed and descended 60 steps during a physical therapy session and became compliant with his anterior hip precautions and his 50-pound weight restriction on the left lower extremity. He had had muscle spasms during his acute hospitalization which were treated with diazepam. He did not continue to need diazepam during his rehabilitation stay. His hypoxemia resolved. He had insomnia during his stay. He was treated with trazodone 50 mg p.o. q.h.s., which was effective to improve his sleep. PHYSICAL EXAMINATION: (On the day of discharge) VITAL SIGNS: Blood pressure is 137/81, heart rate is 67, respiratory rate is 16 , oxygen saturation is 94% on room air, temperature is 36.9. GENERAL: This is a well-nourished, well-developed man, who appears his chronologic age, sitting in a chair, cooperative, and in no acute distress. HEART: There is regular rate and rhythm with no murmurs, rubs, or gallops. LUNGS: Clear to auscultation bilaterally. ABDOMEN: Soft, nontender, nondistended with normoactive bowel sounds. EXTREMITIES: No cyanosis, clubbing, or edema. LABORATORY AND STUDIES: (During his stay) Urinalysis was done on 12/07/2016 which was completely within normal limits. A D-dimer was drawn on 12/06/2016, which was elevated at 4.82. Subsequently, ultrasound study of the lower extremities was negative for DVT. CONDITION UPON DISCHARGE: Good. ACTIVITY: Ad sheeba but to continue 50-pound weightbearing on the left lower extremity. DIET: Regular. DATE OF NEXT APPOINTMENT: He has followup planned with orthopedic surgeon, Dr. Willis, on 12/14/2016, and with primary care provider, Dr. An Prado, on . MEDICATIONS AT DISCHARGE: 1. Aspirin 325 mg p.o. daily. 2. Trazodone 50 mg p.o. at bedtime. 3. Mometasone furoate nasal spray 2 sprays each day. 4. Acetaminophen 1000 mg p.o. t.i.d. 5. Atorvastatin 20 mg p.o. daily. 6. Oxycodone continuous release 10 mg b.i.d. 7. Oxycodone immediate release 5-10 mg p.o. q.3 hours p.r.n. ISSUES TO BE ADDRESSED AT FOLLOWUP: Functional status and weightbearing restrictions on the hip. He will follow up with Dr. Willis, and he will have outpatient physical and occupational therapy. He can also follow up with Dr. Prado, his primary care provider, regarding this. /[id number]/MODL MTDD
== END 2016-12-09 13:17 | disposition home health service (06) | DRG 561 ==
LOC: BREH 17:05
PROVIDERS: ADMIT Internal Medicine; ATTEND Internal Medicine
DX: Z47.1 Aftercare following joint replacement surgery (principal); T84.021D Dislocation of internal left hip prosthesis, subsequent encounter; Z96.643 Presence of artificial hip joint, bilateral; M62.838 Other muscle spasm; G47.00 Insomnia, unspecified; E78.5 Hyperlipidemia, unspecified; R09.02 Hypoxemia; D64.9 Anemia, unspecified; K59.03 Drug induced constipation
CPT/HCPCS: 97110-GO; 97110-GP; 97116-GP; 97140-GP; 97161-GP; 97165-GO; 97530-GO; 97530-GP; 97535-GO; J1650

== ENCOUNTER → 2016-12-14 | Outpatient (CLI) | payer OTHER | LOC: BMCIMAGING 10:03 | PROVIDERS: ATTEND Orthopaedic Surgery | DX: Z98.890 Other specified postprocedural states (principal); Z96.641 Presence of right artificial hip joint; Z96.642 Presence of left artificial hip joint ==

== ENCOUNTER → 2017-01-11 | Outpatient (CLI) | payer OTHER | LOC: BMCIMAGING 08:38 | PROVIDERS: ATTEND Orthopaedic Surgery | DX: Z47.1 Aftercare following joint replacement surgery (principal); Z96.642 Presence of left artificial hip joint ==

== ENCOUNTER → 2017-02-24 | Outpatient (CLI) | payer OTHER | LOC: BMCIMAGING 08:45 | PROVIDERS: ATTEND Orthopaedic Surgery | DX: Z47.1 Aftercare following joint replacement surgery (principal); Z96.642 Presence of left artificial hip joint ==

== ENCOUNTER → 2017-04-22 | Outpatient (CLI) | payer OTHER | LOC: BMCIMAGING 13:58 | PROVIDERS: ATTEND Internal Medicine | DX: R05 Cough (principal); R50.9 Fever, unspecified ==

== ENCOUNTER → 2017-06-29 | Outpatient (CLI) | payer OTHER | LOC: BMCIMAGING 09:44 | PROVIDERS: ATTEND Internal Medicine | DX: R07.89 Other chest pain (principal); W19.XXXA Unspecified fall, initial encounter ==

== ENCOUNTER → 2017-07-07 | Outpatient (CLI) | payer OTHER | LOC: BMCIMAGING 12:53 | PROVIDERS: ATTEND Internal Medicine | DX: K76.89 Other specified diseases of liver (principal) ==

== ENCOUNTER → 2017-07-08 | Outpatient (CLI) | payer OTHER ==
[~2017-07-08] MED LIST changes: -BISACODYL 10 MG SUPP PR PRN; -DIPHENOXYLATE/ATROPINE LOMOTIL 1 TAB PO PRN; +IOPAMIDOL (ISOVUE-300) 100 ML BTL ONE; -LACTULOSE 20 GM/30 ML UDCUP PO PRN; -LR 1,000 ML IV SCH; -MAGNESIUM HYDROXIDE 30 ML UDCUP PO PRN; -METOCLOPRAMIDE 10 MG/2 ML VIAL IVP PRN; -ONDANSETRON 4 MG/2 ML VIAL IVP PRN; -ONDANSETRON DISINTEGRATING 4 MG TAB PO PRN; -PHARMACY PAIN CONSULT 1 EA MISC PRN; -PROMETHAZINE HCL 25 MG SUPPR PR PRN; -PROMETHAZINE HCL 25 MG/ML VIAL IVP PRN; -TEMAZEPAM 15 MG CAP PO PRN; -diphenhydrAMINE 25 MG CAP PO PRN; -oxyCODONE IR 5 MG TAB PO PRN
== END ==
LOC: FIMAGING 10:26
PROVIDERS: ATTEND Internal Medicine
DX: C78.7 Secondary malignant neoplasm of liver and intrahepatic bile duct (principal); R93.3 Abnormal findings on diagnostic imaging of other parts of digestive tract; R10.9 Unspecified abdominal pain
CPT/HCPCS: Q9967

== ENCOUNTER 2017-07-09 08:38 | Outpatient (CLI) | payer OTHER ==
[2017-07-09] MEDS ORDERED: MIDAZOLAM 2 MG/2 ML VIAL IVP PRN (08:45)
[2017-07-09] MEDS ORDERED: NS 1,000 ML IV SCH (08:45)
[2017-07-09] MEDS ORDERED: GLUCAGON HCL 1 MG VIAL IVP PRN (08:45)
[2017-07-09] MEDS ORDERED: MEPERIDINE 25 MG/ML SYR IVP PRN (08:45)
[2017-07-09] MEDS ORDERED: FLUMAZENIL 0.5 MG/5 ML MDV IVP PRN (08:45)
[2017-07-09] MEDS ORDERED: fentaNYL 100 MCG/2 ML INJ IVP PRN (08:45)
[2017-07-09] MEDS ORDERED: PROTAMINE SULFATE 50 MG/5 ML VIAL IVP PRN (08:45)
[2017-07-09] MEDS ORDERED: NALOXONE HCL 0.4 MG/ML INJ IVP PRN (08:45)
[2017-07-09] MEDS ORDERED: HEPARIN 10,000 UNIT/10 ML MDV (1,000 UNIT/ML) IVP PRN (08:45)
[2017-07-09] MEDS ORDERED: ALTEPLASE 2 MG VIAL IVP PRN (08:45)
[2017-07-09] MEDS ORDERED: NALOXONE HCL 0.4 MG/ML INJ ONE (09:02)
[2017-07-09] MEDS ORDERED: FLUMAZENIL 0.5 MG/5 ML MDV IVP ONE (09:02)
[2017-07-09] MEDS ORDERED: MIDAZOLAM 2 MG/2 ML VIAL ONE (09:02)
[2017-07-09] MEDS ORDERED: fentaNYL 100 MCG/2 ML INJ ONE (09:03)
[2017-07-09 09:48] VITALS: RESP 16
[2017-07-09 09:48] LABS: INR 1.01 (0.83-1.16); PROTIME(PATIENT) 13.5 SEC (12.0-15.0)
--- NOTE | 2017-07-09 10:26 | PDGENHP ---
History & Physical Chief Complaint: LIVER METS AND RUQ PAIN History of Present Illness: LIVER METS UNKNOWN PRIMARY Pertinent Past, Social, Family History: BILATERAL HIP REPLACEMENT Relevant Physical Exam: SOFT ABDOMEN Cardiorespiratory Assessment: RRR, LUNGS CLEAR
--- NOTE | 2017-07-09 10:27 | PDPROPOC ---
Sedation Plan of Care Sedation Plan of Care: vital signs stable, mental status noted, patient educated of risks, benefits, alternatives, patient can tolerate sedation ASA Classification: ASA 1 Planned drugs: fentanyl, midazolam Mallampati Score: Class 2 Mallampati Reference Image: Patient passed 3-3-2 rule?: Yes
[2017-07-09] MEDS ORDERED: ACETAMINOPHEN 325 MG TAB PO PRN (11:42)
[2017-07-09] MEDS ORDERED: ONDANSETRON 4 MG/2 ML VIAL IVP PRN (11:42)
[2017-07-09] MEDS ORDERED: oxyCODONE IR 5 MG TAB PO PRN (11:43)
--- NOTE | 2017-07-09 11:46 | PDRADPN ---
Radiology Procedure Note Date of Procedure: 07/09/17 Radiologist: Christian Decker Anesthesia: IV Sedation, Local (Specify) Inf/Abcess present in the surg proc area at time of surgery?: No Depth: Superfical (Skin SQ) EBL: Minimal Complications: NONE Specimen(s): 5 SENT TO [facility]
[2017-07-09 11:54] VITALS: PULSE 66
[2017-07-09 15:27] VITALS: BP 134/76; TEMP 97.2; O2SAT 97
== END 2017-07-09 14:45 | disposition home or self-care (01) ==
LOC: FIMAGING 08:38
PROVIDERS: ATTEND Internal Medicine
PROC: 0FB03ZX Excision of Liver, Percutaneous Approach, Diagnostic (ICD-10-PCS; principal; 2017-07-09 11:39)
DX: C78.7 Secondary malignant neoplasm of liver and intrahepatic bile duct (principal)
CPT/HCPCS: J2250; J2310; J3010

== ENCOUNTER 2017-07-19 15:52 | Inpatient (IN) | payer OTHER ==
--- NOTE | 2017-07-19 16:08 | EDPHY ---
H & P Stated Complaint: Sent by onc for eval poss PE;L sided chest achiness x a several days Time Seen by Provider: 07/19/17 16:04 HPI/ROS: CHIEF COMPLAINT: Chest pain HISTORY OF PRESENT ILLNESS: The patient has a history of metastatic colon cancer and is sent to the emergency department for evaluation of 2-3 days of left-sided pleuritic chest pain. The patient recently was diagnosed with metastatic colon cancer. He is not received any treatment. The patient has no history of cardiac disease. He reports he has had some very vague intermittent left-sided chest pain. He is currently asymptomatic. He denies any calf pain or swelling. The patient denies fever, cough or congestion. The patient is currently going through the intake process with [facility]. REVIEW OF SYSTEMS: A comprehensive 10 point review of systems is otherwise negative aside from elements mentioned in the history of present illness. Source: Patient Exam Limitations: No limitations - Personal History Current Tetanus Diphtheria and Acellular Pertussis (TDAP): Yes - Medical/Surgical History Hx Asthma: No Hx Chronic Respiratory Disease: No Hx Diabetes: No Hx Cardiac Disease: No Hx Renal Disease: No Hx Cirrhosis: No Hx Alcoholism: No Hx HIV/AIDS: No Hx Splenectomy or Spleen Trauma: No Other PMH: high cholesterol, adhd, insomnia, R CELESTINE, L total hip replacement . colon ca w/mets to liver - Social History Smoking Status: Former smoker - Physical Exam Exam: General Appearance: Alert, no distress Eyes: Pupils equal and round no pallor or injection ENT, Mouth: Mucous membranes moist Respiratory: There are no retractions, lungs are clear to auscultation Cardiovascular: Regular rate and rhythm Gastrointestinal: Abdomen is soft and nontender, no masses, bowel sounds normal Neurological: A&O, normal motor function, normal sensory exam, normal cranial nerves Skin: Warm and dry, no rashes Musculoskeletal: Neck is supple nontender Extremities: symmetrical, full range of motion Constitutional: Initial Vital Signs Temperature (C) 37 C 07/19/17 15:55 Heart Rate 86 07/19/17 15:55 Respiratory Rate 18 07/19/17 15:55 Blood Pressure 142/76 H 07/19/17 15:55 O2 Sat (%) 95 07/19/17 15:55 O2 Delivery Mode Room Air Allergies/Adverse Reactions: No Known Allergies Allergy (Verified 07/19/17 16:01) Home Medications: Medication Instructions Recorded Budesonide/Formoterol 160/4.5 6 gm IH 07/19/17 [Symbicort 160-4.5 Mcg Inh (*)] Cyclobenzaprine [Flexeril 10 MG 10 mg PO 07/19/17 (*)] Tadalafil [Cialis] 10 mg PO 07/19/17 Medical Decision Making - Diagnostics EKG Interpretation: EKG: Complete interpretation has been separately recorded in the [employer] archive. Summary impression: Sinus rhythm, rate 93 Imaging Results: Imaging Impressions Chest/Thorax CTA 07/19/17 16:10 Impression: 1. Bilateral segmental and subsegmental pulmonary emboli. 2. 3-mm right lower lobe nodule, difficult to visualize on the previous study due to motion, which could be related to noncalcified granuloma or less likely metastasis. Attention is recommended on follow up. 3. Grossly stable extensive hepatic metastases. Findings discussed with Dr. Carlos Beltran on July 19, 2017 at 1659 hours. ED Course/Re-evaluation: The patient presents to the ED for evaluation of mild intermittent nonexertional left-sided chest pain for the past several days. He was recently diagnosed with metastatic colon cancer. He has no prior history of PE or DVT. The patient was noted to be hemodynamically stable. He has nonspecific changes on his EKG. The patient had an IV established. I verified a normal creatinine. A CT pulmonary angiogram has been ordered. The patient is noted to have bilateral subsegmental and segmental pulmonary emboli on his CT scan. The patient's oxygen saturation was 93% on room air. The patient tells me he is scheduled to undergo colonoscopy on for further evaluation of his underlying disease and has some trepidation about being anticoagulated. The patient will be started on heparin this evening. The patient will be admitted to the hospitalist service. I will let hospitalist sort out with the patient's primary oncologist Dr. Sravani Gutierrez the issues surrounding outpatient anticoagulation and the plan for further workup of his metastatic disease. Differential Diagnosis: Differential diagnosis considered includes pulmonary embolism, thoracic metastatic disease, acute coronary syndrome, pericarditis, myocardial infarction - Data Points Laboratory Results: Laboratory Results 07/19/17 16:13 07/19/17 16:13 07/19/17 07/19/17 07/19/17 16:13 16:13 16:13 WBC RBC Hgb POC Hgb Hct POC Hct MCV MCH MCHC RDW Plt Count MPV Neut % (Auto) Lymph % (Auto) [place] % (Auto) Eos % (Auto) Baso % (Auto) Nucleat RBC Rel Count Absolute Neuts (auto) Absolute Lymphs (auto) Absolute Monos (auto) Absolute Eos (auto) Absolute Basos (auto) Absolute Nucleated RBC Immature Gran % Seg Neutrophils % Band Neutrophils % Lymphocytes % Monocytes % Eosinophils % Metamyelocytes % Immature Gran # Absolute Seg Neuts Absolute Band Neuts Absolute Lymphocytes Absolute Monocytes Absolute Eosinophils Absolute Metamyelocyte Platelet Estimate Polychromasia Tear Drop Cells Keratocytes PT Pending INR Pending POC Sodium Sodium 134 mEq/L L mEq/L (135-145) POC Potassium Potassium 4.4 mEq/L mEq/L (3.5-5.2) POC Chloride Chloride 95 mEq/L L mEq/L (97-110) Carbon Dioxide 21 mEq/l L mEq/l (22-31) Anion Gap 18 mEq/L H mEq/L (8-16) POC BUN BUN 19 mg/dL mg/dL (7-23) Creatinine 1.0 mg/dL mg/dL (0.7-1.3) POC Creatinine Estimated GFR > 60 Glucose 83 mg/dL mg/dL (70-100) POC Glucose Calcium 9.7 mg/dL mg/dL (8.5-10.4) Troponin I < 0.012 ng/mL ng/mL (0.000-0.034) 07/19/17 07/19/17 16:13 16:11 WBC 3.68 10^3/uL L 10^3/uL (3.80-9.50) RBC 4.40 10^6/uL 10^6/uL (4.40-6.38) Hgb 14.2 g/dL g/dL (13.7-17.5) POC Hgb 15.6 gm/dL gm/dL (13.7-17.5) Hct 43.1 % % (40.0-51.0) POC Hct 46 % % (40-51) MCV 98.0 fL fL (81.5-99.8) MCH 32.3 pg pg (27.9-34.1) MCHC 32.9 g/dL g/dL (32.4-36.7) RDW 14.3 % % (11.5-15.2) Plt Count 163 10^3/uL 10^3/uL (150-400) MPV 10.2 fL fL (8.7-11.7) Neut % (Auto) Not Reported Lymph % (Auto) Not Reported [place] % (Auto) Not Reported Eos % (Auto) Not Reported Baso % (Auto) Not Reported Nucleat RBC Rel Count 0.0 % % (0.0-0.2) Absolute Neuts (auto) Not Reported Absolute Lymphs (auto) Not Reported Absolute Monos (auto) Not Reported Absolute Eos (auto) Not Reported Absolute Basos (auto) Not Reported Absolute Nucleated RBC 0.00 10^3/uL 10^3/uL (0-0.01) Immature Gran % Not Reported Seg Neutrophils % 49 % % Band Neutrophils % 11 % % Lymphocytes % 25 % % Monocytes % 12 % % Eosinophils % 2 % % Metamyelocytes % 1 % % Immature Gran # Not Reported Absolute Seg Neuts 1.80 10^/uL 10^/uL (1.70-6.50) Absolute Band Neuts 0.40 10^3/uL 10^3/uL (0.00-0.70) Absolute Lymphocytes 0.92 10^3/uL L 10^3/uL (1.00-3.00) Absolute Monocytes 0.44 10^3/uL 10^3/uL (0.30-0.80) Absolute Eosinophils 0.07 10^3/uL 10^3/uL (0.03-0.40) Absolute Metamyelocyte 0.04 10^3/mL H 10^3/mL (0.00-0.00) Platelet Estimate ADEQUATE (ADEQ) Polychromasia 1+ H Tear Drop Cells 1+ H Keratocytes 1+ H PT INR POC Sodium 134 mEq/L L mEq/L (135-145) Sodium POC Potassium 4.1 mEq/L mEq/L (3.3-5.0) Potassium POC Chloride 96 mEq/L L mEq/L (97-110) Chloride Carbon Dioxide Anion Gap POC BUN 20 mg/dL mg/dL (7-23) BUN Creatinine POC Creatinine 1.0 mg/dL mg/dL (0.7-1.3) Estimated GFR Glucose POC Glucose 86 mg/dL mg/dL (70-100) Calcium Troponin I Point of Care Test Results: 07/19/17 16:11 POC Sodium 134 L POC Potassium 4.1 POC Chloride 96 L POC BUN 20 POC Creatinine 1.0 POC Glucose 86 Departure - Departure Disposition: [facility] Inpatient Acute Clinical Impression: Metastatic colon cancer to liver Pulmonary embolism Qualifiers: Pulmonary embolism type: other Chronicity: acute Acute cor pulmonale presence: without acute cor pulmonale Qualified Code(s): I26.99 - Other pulmonary embolism without acute cor pulmonale Condition: Fair Referrals: An Prado MD [Primary Care Provider] - As per Instructions
--- NOTE | 2017-07-19 16:13 | CPEKG ---
Heart Rate: 93 RR Interval: 645 P-R Interval: 160 QRSD Interval: 92 QT Interval: 348 QTC Interval: 433 P Cutler: 25 QRS Cutler: 0 T Wave Cutler: -21 EKG Severity - BORDERLINE ECG - EKG Impression: SINUS RHYTHM EKG Impression: BORDERLINE T ABNORMALITIES, INFERIOR LEADS Electronically Signed By: Carlos Beltran 19-Jul-2017 20:03:53
[2017-07-19] MEDS ORDERED: IOPAMIDOL (ISOVUE 370) 100 ML BTL IV ONE (16:26)
[2017-07-19 16:49] LABS: PLATELET COUNT 163 10^3/uL (150-400)
[2017-07-19] MEDS ORDERED: HEPARIN/DEXTROSE 500 ML IV ONE (17:41)
[2017-07-19] MEDS ORDERED: HEPARIN 10,000 UNIT/10 ML MDV (1,000 UNIT/ML) IVP ONE ×2 (17:41→17:53)
[2017-07-19] MEDS ORDERED: ONDANSETRON DISINTEGRATING 4 MG TAB PO PRN (17:52)
[2017-07-19] MEDS ORDERED: ONDANSETRON 4 MG/2 ML VIAL IVP PRN (17:52)
[2017-07-19] MEDS ORDERED: HEPARIN 10,000 UNIT/10 ML MDV (1,000 UNIT/ML) IVP PRN (17:53)
[2017-07-19] MEDS ORDERED: HEPARIN/DEXTROSE 500 ML IV SCH (18:00)
[2017-07-19] MEDS ORDERED: NS 1,000 ML IV ONE (20:06)
--- NOTE | 2017-07-19 20:35 | GHP ---
[f rep st] HISTORY AND PHYSICAL DATE OF ADMISSION: 07/19/2017 CHIEF COMPLAINT: Right-sided chest pain. HISTORY OF PRESENT ILLNESS: A 71-year-old male, previously healthy, who was recently diagnosed in last several weeks with metastatic colon cancer. Patient has been evaluated by outpatient oncology , Dr. Gutierrez, and is in the process of initiating a chemotherapy regimen. Patient notes 3-4 days of l eft-sided pleuritic chest pain for which he ultimately came for evaluation. Patient originally thoug ht this may have been from falling while he was recently traveling and hitting his chest on the side. However, it did not improve over the course of time. With his new diagnosis of malignancy, it was recommended that he present for evaluation. In the emergency department, he denies any dyspnea on exertion, orthopnea, or shortness of breath at rest. He is describing pleuritic chest pain. Denies any subjective fevers or chills. Denies cough. Denies abdominal discomfort, changes in his bowel habits, dysuria, hematuria, rashes, arthralgias, or lower extremity edema. Patient has lost approximately 30 pounds in the last year. He thought it was secondary to a high-protein, low-carbohydrate diet that he was using. Patient also had multiple hip surgeries in the last year for which he had prolonged perioperative time periods of immobility. Patient does report that he did not have any asymmetric lower extremity after his recovery from these surgeries and had no pleuritic symptoms after these surgeries. Patient denies any active abdominal pain, nausea, or vomiting. PAST MEDICAL HISTORY: 1. Recent diagnosis metastatic colon cancer. 2. Bilateral hip arthroplasty. SOCIAL HISTORY: Patient drinks wine in the evening. Denies tobacco, illicit drugs, or marijuana. 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 FAMILY HISTORY: Negative for colon cancer. REVIEW OF SYSTEMS: A 10-point review of systems is negative with the exception of that reported in t he HPI. ADVANCE DIRECTIVES: Patient is full cor, full tube. His would be his medical decision maker. PHYSICAL EXAMINATION: VITAL SIGNS: Blood pressure 122/63, heart rate 78, respiratory rate 18, satti ng 95% on room air. GENERAL: This is a healthy-appearing, middle-aged male in no acute distress. H EENT: Notable for moist mucous membranes. Eye exam is negative for any icterus. CARDIAC: Patient is regular rate and rhythm. No murmurs, gallops, or rubs. PULMONARY: Patient is clear to auscultat ion bilaterally. GASTROINTESTINAL: Positive bowel sounds. Abdomen is soft and nontender. MUSCULOS KELETAL: Negative for any lower extremity edema. SKIN: Negative for any rashes. NEUROLOGIC: Emma ent is alert and oriented x4. PSYCHIATRIC: He is pleasant and cooperative on interview and examinat ion. DATA: White count is 3.68, hematocrit 46, platelet count of 163. Creatinine 1.0, sodium 134, anion gap of 18. Troponin less than 0.012. CTA of the chest, which I personally reviewed and interpreted, shows bilateral segmental, subsegmental pulmonary emboli. ASSESSMENT AND PLAN: This is a 71-year-old male with a new diagnosis of metastatic colon cancer, pre senting with pleuritic chest pain. 1. Acute bilateral pulmonary emboli. Patient is clinically stable at presentation without tachycard ia or hypoxia. We will initiate a heparin drip. Because discussions with outpatient oncology are ar ound the need for a potential colonoscopy, initiating a novel anticoagulant could delay this process if it needs to be expedited. The patient will be admitted, placed on a clear liquid diet and a hepar in drip to allow for coordination and planning with Oncology and Gastroenterology related to potentia l colonoscopy. Have ordered a transthoracic echocardiogram to evaluate the right ventricle. Patient would be a safe candidate for transition to novel anticoagulant once cancer planning is complete. 2. Hyponatremia, suspect likely related to hypovolemia. Will give a small fluid bolus and recheck i n the morning. 3. Anion gap metabolic acidosis, suspect likely starvation ketosis. Again, will give 1 fluid bolus and recheck in the morning. 4. Prophylaxis: Patient is on full-dose anticoagulation with a heparin drip. 5. Diet: Clear liquids until colonoscopy plan is clear. DISPOSITION: I expect less than 2 midnights if the patient is able to undergo colonoscopy without co mplication. I have discussed the case with the emergency room physician. Patient will be triaged to the med/surg floor for care. /[id number]/MODL
[2017-07-19 20:45] LABS: PROTIME(PATIENT) 13.2 SEC (12.0-15.0)
[2017-07-19 20:46] LABS: INR 1.01 (0.83-1.16)
[2017-07-19] MEDS: BUDESONIDE/FORMOTEROL 160/4.5 60 PUFFS/MDI IH SCH (21:24)
[2017-07-19] MEDS: CYCLOBENZAPRINE 10 MG TAB PO SCH (21:46)
[2017-07-19] MEDS: traMADol 50 MG TAB PO PRN (21:47)
[2017-07-20] MEDS: traMADol 50 MG TAB PO PRN ×3 (06:10→19:55)
[2017-07-20 06:25] LABS: PLATELET COUNT 137 10^3/uL (150-400)
--- NOTE | 2017-07-20 08:33 | PDMN ---
Medical Necessity Medical necessity: M290 Pulm. embolism A-4 days INPT for hx of CA. PT recently DG with met colon Ca., further eval, monitoring and tx needed.
[2017-07-20] MEDS: BUDESONIDE/FORMOTEROL 160/4.5 60 PUFFS/MDI IH SCH ×2 (09:06→21:09)
[2017-07-20] MEDS ORDERED: PEG 3350/NA SULF,BICARB,CL/KCL (GAVILYTE-G) 4000 ML BTL PO ONE (09:34)
--- NOTE | 2017-07-20 09:38 | HOSPPROG ---
Hospitalist Progress Note Assessment/Plan: 71 yo M w recently diagnosed adenoCA presumed colon a/w CP and found to have b/ l PE w mod clot burden PE: heparin gtt until colonoscopy NOAc thereafter adenoCA: colonoscopy in AM to see if cecal lesion seen on T is actually CA CP: attributable to PE neg trop and nonischemic EKG (interp by me) hyponatremia: mild and resolved dispo: inpt Subjective: case d/w Drs. Carrasco and Yanira. CT images reviewed/interpreted by me Objective: Vital Signs Temp Pulse Resp BP Pulse Ox 36.7 C 66 16 134/80 H 100 07/20/17 05:34 07/20/17 05:34 07/20/17 05:34 07/20/17 05:34 07/20/17 05:34 Laboratory Results 07/20/17 06:00 07/20/17 06:00 07/19/17 07/20/17 07/21/17 05:59 05:59 05:59 Intake Total 1100 329 Output Total 625 Balance 475 329 PT 13.2 SEC (12.0-15.0) 07/19/17 16:13 INR 1.01 (0.83-1.16) 07/19/17 16:13 - Physical Exam Constitutional: no apparent distress, appears nourished Eyes: PERRL, anicteric sclera Ears, Nose, Mouth, Throat: moist mucous membranes, hearing normal Cardiovascular: regular rate and rhythym, no murmur, rub, or gallop, No tachycardia Respiratory: no respiratory distress, no rales or rhonchi Gastrointestinal: normoactive bowel sounds, soft, non-tender abdomen Genitourinary: no bladder fullness, No ceballos in urethra Skin: warm, normal color Musculoskeletal: full muscle strength Neurologic: AAOx3, sensation intact bilaterally Psychiatric: interacting appropriately, not anxious ICD10 Worksheet Patient Problems: Problems Problem Status Onset Metastatic colon cancer to liver Acute Pulmonary embolism Acute Hip arthritis Acute Hip dislocation, left Acute
[2017-07-20] MEDS: CHOLECALCIFEROL VIT D3 1,000 UNITS TAB PO SCH (10:01)
[2017-07-20] MEDS: MOMETASONE FUROATE EACHNARE SCH (10:01)
[2017-07-20] MEDS: CYANO/VITAMIN B12 1000 MCG TAB PO SCH (10:02)
--- NOTE | 2017-07-20 10:25 | ASMTCMCOM ---
CM Note CM Note Notes: Patient admitted with chest pain, found to have bilateral PEs. Also has recent colon CA diagnosis. He is to have a colonoscopy today. 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 I do not anticipate any discharge needs, but Case Management available should any arise. Date Signed: 07/20/2017 10:25 AM Electronically Signed By:Prema Valdivia RN
--- NOTE | 2017-07-20 10:32 | GCON ---
[f rep st] CONSULTATION INPATIENT ONCOLOGY CONSULTATION DATE OF CONSULTATION: 07/20/2017 REFERRING PHYSICIAN: Trenton Rosenbaum MD OUTPATIENT ONCOLOGIST: Jere Gutierrez MD. REASON FOR CONSULTATION: Newly diagnosed metastatic colorectal cancer and pulmonary embolism. HISTORY OF PRESENT ILLNESS: The patient is a 71-year-old male with recent diagnosed colon cancer. He presented with some right upper quadrant pain, was found to have liver metastases. A biopsy showed an adenocarcinoma consistent with colon cancer though other GI malignancies were also in the differential. He was scheduled for a colonoscopy today to verify that there was a colonic primary tumor. He developed some chest pain and was sent to the emergency department. A CT angiogram revealed bilateral pulmonary emboli, and he was admitted overnight. Currently, his pain is better. PAST MEDICAL HISTORY: Unremarkable. CURRENT MEDICATIONS: Unfractionated heparin drip, atorvastatin, Flexeril, tramadol. ALLERGIES: There are no known drug allergies. FAMILY HISTORY: Noncontributory. SOCIAL HISTORY: Does not smoke cigarettes. 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 He is . REVIEW OF SYSTEMS: Apart from pertinent positives noted in the HPI, 14-point review of systems negative. PHYSICAL EXAMINATION: VITAL SIGNS: Temperature was 36.7, blood pressure 134/80 , heart rate 66, oxygen saturation 100% on 3 L. GENERAL: He was in no acute distress breathing comfortably. HEENT: Sclerae anicteric. Oropharynx is clear. NECK: Supple without lymphadenopathy. LUNGS: Clear to auscultation bilaterally. CARDIAC: Regular rate and rhythm. No murmurs, gallops, rubs. ABDOMEN: Normoactive bowel sounds. Nontender. Nondistended. EXTREMITIES: Without edema, 2+ pulses. SKIN: No petechiae or purpura. NEUROLOGIC: Alert and oriented x3. LABORATORY DATA: White count 2.51, hemoglobin 12.7, platelets 137. Sodium 140 , potassium 4.3, chloride of 102, bicarb 25, BUN of 12, creatinine 0.8. IMPRESSION: This is a 71-year-old man with metastatic adenocarcinoma likely of colonic origin, who presents with a pulmonary embolism. This is a fairly common complication of advanced malignancy. He will need indefinite therapeutic anticoagulation. For now, we will keep him on unfractionated heparin and stop it briefly for him to undergo colonoscopy. Upper endoscopy will be performed if no colonic lesions are identified. Once that procedure is complete, he can be transitioned to a more long-term regimen. I would favor a direct oral anticoagulant such as Xarelto or Eliquis as these do not require therapeutic monitoring and are effective and safe in cancer patients. The alternative would be Lovenox followed by warfarin though that can be more difficult to manage when patients are receiving chemotherapy. Once the procedures are complete and he is on therapeutic anticoagulation, he can be discharged with close outpatient followup with Dr. Gutierrez to finalize the diagnosis and treatment plan. We will continue to follow patient with you while he is in the hospital. /[id number]/MODL MTDD
[2017-07-20] MEDS: ATORVASTATIN CALCIUM 20 MG TAB PO SCH (10:37)
--- NOTE | 2017-07-20 17:11 | ECHO ---
[email or web address] [address] [address] Main: [phone] Fax: Transthoracic Echocardiogram Name: ANGIE RENEE MR#: [id number] Study Date: 07/20/2017 Study Time: 12:38 PM Date of : 1945 Age: 71 year(s) Height: 180.3 cm (71 in.) Weight: 88 kg (194 lb.) BSA: 2.08 m2 Gender: Male Examination: Echo Indication: New PE, Colon CA Image Quality: Contrast: Requested by: Neli Moore BP: 149 mmHg/77 mmHg Heart Rate: Rhythm: Indication: New PE, Colon CA Procedure Staff Auto Servicer: Horacio Garcia RDCS Reading Physician: Adebayo Perales Requesting Provider: Conclusions: Normal size left ventricle. No LV hypertrophy. Normal global systolic LV function. EF is 71 %. Diastolic dysfunction is present. . Normal size right ventricle. Normal RV function. The left atrium is normal in size. The right atrium is normal in size. The pulmonary artery pressure is normal. Measurements: Chambers Valvular Assessment AV/MV Valvular Assessment TV/PV Normal Normal Normal Name Value Range Name Value Range Name Value Range Ao Saundra (MM): 3.3 cm (2.2 cm-3.7 AV Vmax: 1.26 m/s (1 m/s-1.7 TR Vmax: 2.50 mm/s ( - ) cm) m/s) TR PGmax: 25 mmHg ( - ) IVSd (2D): 1.0 cm (0.6 cm-1.1 AV maxP mmHg ( - ) syst. PAP: 30 mmHg ( - ) cm) LVOT Vmax: 0.84 m/s (0.7 m/s-1.1 PV Vmax: 0.88 m/s (0.6 m/s-0.9 LVDd (2D): 4.7 cm (4.2 cm-5.9 m/s) m/s) cm) MV E Vmax: 0.45 m/s ( - ) PV PGmax: 3 mmHg ( - ) LVDs (2D): 2.8 cm (2.1 cm-4 MV A Vmax: 0.61 m/s ( - ) cm) MV E/A: 0.74 ( - ) LVPWd (2D): 1.0 cm (0.6 cm-1 cm) LVEF (2D): 71 (>=54 %) Continued Measurements: Chambers Valvular Assessment AV/MV Valvular Assessment TV/PV Patient: ANGIE RENEE Study Date: 07/20/2017 Page 1 of 2 12:38 PM Name Value Name Value Name Value LADs Lon.4 cm MV E/E' Septal: 8.60 CVP (est.): 5 mmHg LA Area: 18.2 cm2 MV E/E' Lateral: 8.30 Findings: Left Ventricle: Normal size left ventricle. No LV hypertrophy. Normal global systolic LV function. EF is 71 %. No regional wall motion abnormality. Diastolic dysfunction is present. . Right Ventricle: Normal size right ventricle. Normal RV function. Left Atrium: The left atrium is normal in size. Right Atrium: The right atrium is normal in size. Eustachian valve discernible in right atrium. Mitral Valve: The mitral valve is normal in appearance and function. Trivial mitral valve regurgitation. Aortic Valve: The aortic valve is tri-leaflet and functions normally. There is no aortic valve regurgitation. Tricuspid Valve: The tricuspid valve is normal in appearance and function. Trivial tricuspid valve regurgitation. The pulmonary artery pressure is normal. Pulmonic Valve: The pulmonic valve is normal in appearance and function. Aorta: The aorta is normal. Pericardium: No pericardial effusion. (No Signature Object) Patient: ANGIE RENEE Study Date: 07/20/2017 Page 2 of 2 12:38 PM [id number]
[2017-07-20] MEDS: CYCLOBENZAPRINE 10 MG TAB PO SCH (19:55)
[2017-07-20] MEDS ORDERED: traMADol 50 MG TAB PO ONE (23:09)
[2017-07-21] MEDS: ACETAMINOPHEN 325 MG TAB PO PRN ×3 (03:59→18:41)
[2017-07-21] MEDS ORDERED: NS 500 ML IV ONE (04:05)
--- NOTE | 2017-07-21 04:11 | HOSPPROG ---
Hospitalist Progress Note Assessment/Plan: XC: Notified by RN of patient's fever. Patient only with mild non-productive cough. Will check UA and CXR in addition to blood cultures noting this could be due to tumor or blood clot. Will hold off on starting antibiotics unless source is suspected. Objective: Vital Signs Temp Pulse Resp BP Pulse Ox 37.2 C 73 16 135/77 H 99 07/21/17 00:33 07/21/17 00:33 07/21/17 00:33 07/21/17 00:33 07/21/17 00:33 Laboratory Results 07/20/17 06:00 07/20/17 06:00 07/19/17 07/20/17 07/21/17 05:59 05:59 05:59 Intake Total 1100 829 Output Total 625 Balance 475 829 PT 13.2 SEC (12.0-15.0) 07/19/17 16:13 INR 1.01 (0.83-1.16) 07/19/17 16:13 ICD10 Worksheet Patient Problems: Problems Problem Status Onset Metastatic colon cancer to liver Acute Pulmonary embolism Acute Hip arthritis Acute Hip dislocation, left Acute
[2017-07-21] MEDS: CEPACOL LOZENGE PO PRN (05:19)
[2017-07-21] MEDS: traMADol 50 MG TAB PO PRN ×3 (06:29→20:17)
[2017-07-21] MEDS ORDERED: D5W 1/2 NS W/ 20 KCl/L 1,000 ML IV SCH (07:00)
[2017-07-21] MEDS: ATORVASTATIN CALCIUM 20 MG TAB PO SCH (08:52)
[2017-07-21] MEDS: CHOLECALCIFEROL VIT D3 1,000 UNITS TAB PO SCH (08:55)
[2017-07-21] MEDS: CYANO/VITAMIN B12 1000 MCG TAB PO SCH (08:55)
[2017-07-21] MEDS: BUDESONIDE/FORMOTEROL 160/4.5 60 PUFFS/MDI IH SCH ×2 (09:35→20:52)
--- NOTE | 2017-07-21 10:07 | SOAPPROG ---
SOAP Progress Note Assessment/Plan: Assessment: 1. Metastatic adenocarcinoma, likely colon 2. Liver mets 3. Pulmonary embolism 4. Fever. DDx: UTI, tumor fever, PE Plan: - proceed w/ colonoscopy today. We need confirmation of primary tumor in order to plan chemo - after procedure, would transition patient to NOAC (xarelto or eliquis) for anticoagulation - f/u with dr. Gutierrez after discharge - folllow UCx and BCx results 35 min spent w/ pt and in coordination of care. d/w dr ugalde and dr sullivan. 07/21/17 10:05 Subjective: fever last night. otherwise feels ok Objective: exam: tired appearing Lungs CTaB CV RRR no MGR abd: +BS NT ND Ext: no edema Vital Signs Temp Pulse Resp BP Pulse Ox 39.0 C H 100 18 135/65 H 93 07/21/17 08:20 07/21/17 08:20 07/21/17 08:20 07/21/17 08:20 07/21/17 08:20 Laboratory Results 07/21/17 06:15 07/20/17 06:00 07/20/17 07/21/17 07/22/17 05:59 05:59 05:59 Intake Total 1100 829 Output Total 625 175 Balance 475 654 PT 13.2 SEC (12.0-15.0) 07/19/17 16:13 INR 1.01 (0.83-1.16) 07/19/17 16:13 CXR normal UA: 2+ blood 2+ WBC ICD10 Worksheet Patient Problems: Problems Problem Status Onset Metastatic colon cancer to liver Acute Pulmonary embolism Acute Hip arthritis Acute Hip dislocation, left Acute
[2017-07-21] MEDS: MOMETASONE FUROATE EACHNARE SCH (10:40)
[2017-07-21] MEDS ORDERED: fentaNYL 100 MCG/2 ML INJ ONE ×3 (11:08→11:51)
[2017-07-21] MEDS ORDERED: MIDAZOLAM 2 MG/2 ML VIAL ONE ×2 (11:08→11:51)
[2017-07-21] MEDS ORDERED: fentaNYL 100 MCG/2 ML INJ IVP ONE (11:47)
[2017-07-21] MEDS ORDERED: MIDAZOLAM 2 MG/2 ML VIAL IVP ONE ×2 (11:48)
--- NOTE | 2017-07-21 11:52 | GCON ---
[f rep st] CONSULTATION GASTROINTESTINAL INPATIENT CONSULTATION DATE OF CONSULTATION: 07/21/2017 REFERRING PHYSICIAN: Trenton Rosenbaum MD REASON FOR CONSULTATION: I was kindly requested to see this patient by Dr. Trenton Rosenbaum in consultation for a chief complaint of metastatic adenocarcinoma. HISTORY OF PRESENT ILLNESS: He is a 71-year-old, white male who was recently diagnosed with the above. He was admitted to the hospital with left-sided pleuritic chest pain, and found to have a pulmonary embolism. He is presently on anticoagulation for this. He has lost approximately 30 pounds over the last year. CT scan of the abdomen on July 08, as an outpatient, showed a possible cecal lesion. Today, he does have fever. Urinalysis shows 25-50 white blood cells per high- power field. PAST MEDICAL HISTORY: 1. As above. 2. Hip surgeries. 3. Otherwise, noncontributory. 4. Elevated lipids. 5. Otherwise, noncontributory. INPATIENT MEDICATIONS: Include: Lipitor, metered-dose inhalers, and Flexeril. ALLERGIES: No known drug allergies. SOCIAL HISTORY: He drinks wine in the evening. FAMILY HISTORY: Negative for colon cancer. REVIEW OF SYSTEMS: Positive pertinent review of systems as per my HPI. Otherwise, complete review of systems is negative to make a total of 10 systems. PHYSICAL EXAM: CONSTITUTIONAL: A nontoxic, pleasant gentleman. VITAL SIGNS: Fever up to 102. SKIN: Warm, dry. EYES: Pupils equal, round, reactive to light and accommodation. EAR, NOSE, MOUTH, AND THROAT: Oropharynx without masses, moist mucosa. CARDIOVASCULAR: Normal S2. Normal PMI. RESPIRATORY: Lungs clear to auscultation and percussion anteriorly. GASTROINTESTINAL: Abdomen soft, nontender. NEUROLOGIC: Grossly nonfocal, cranial nerves grossly intact. PSYCHIATRIC: Orientation, insight appropriate. MUSCULOSKELETAL: Strength grossly normal throughout, normal station. LABORATORIES: Laboratories as above. Otherwise, normal basic metabolic panel. CT angiogram on admission did show hepatic METS. Today, white count 2.5 thousand, hematocrit 37.1%, platelet count 117,000. ASSESSMENT: 1. Metastatic adenocarcinoma, including to the liver. With his outpatient CT scan, certainly a cecal lesion is quite possible. 2. Fever. Most likely due to a urinary tract infection, but certainly a fever from his pulmonary embolus or tumor fever is possible. PLAN: 1. Colonoscopy. He does have a fever, but is stable, so suspect proceeding with the procedure will be quite safe. However, with this fever, presently on anticoagulation, etc., he is at increased risk. Overall, I suspect he would do well. 2. If colonoscopy is negative (doubt), we will proceed with an upper endoscopy at the same sitting, to make sure no gastric cancer as the primary. 3. Further management, such as antibiotics for his positive urinalysis, as per the hospitalist service. Thank you for allowing me to help in the management of this patient. /[id number]/MODL MTDD
--- NOTE | 2017-07-21 12:43 | GIREPORT ---
[facility] Surgical Services - Endoscopy Department Patient Name: Jake Cox Procedure Date: 07/21/2017 11:12 AM Patient Type: Inpatient Attending MD/ ER Physician: Pete Doyle MD Procedure: Colonoscopy Indications: Note dictated, consult appreciated. Abnormal CT of the GI tract, with possible cecal lesion, in a pt. with metastatic adenocarcinoma. Providers: Pete Doyle MD Referring MD: An Prado MD; Jere Gutierrez MD; [facility] Hospitalist service Medicines: Fentanyl 200 micrograms IV, Midazolam 10 mg IV Complications: No immediate complications. Description of Procedure: After obtaining informed consent, the scope was passed under direct vis ion. Throughout the procedure, the patient's blood pressure, pulse, and oxyg en saturations were monitored continuously. The Colonoscope with irrigatio n channel was introduced through the anus and advanced to the cecum, identified by appendiceal orifice and ileocecal valve. The appendiceal orifice was photographed. Findings: A non-obstructing large mass was found in the cecum. The mass was parti ally circumferential. The mass measured eight cm in length. Biopsies were ta geetha with a cold forceps for histology x 6. 5 cc of Yaneth Ink injected aroun d the mass. Multiple diverticula were found from 15 to 50 cm proximal to the anus. Internal hemorrhoids were found. The hemorrhoids were large. Estimated Blood Loss: Estimated blood loss: none. Post Op Diagnosis: - Cecal mass, as above; almost certainly represents an adenocarcinoma, and the primary for his metastatic disease. Recommendation: - feed - buffcap I.V. - await pathology results, but almost certainly represents the above. - else, further management as per the hospitalist service, oncology. I will sign off; I will f/u on biopsy results. Otherwise, please call i f we can be of further help [phone] Thank you for allowing me to help in the management of this patient. Yanira Freeman MD Pete Doyle MD 07/21/2017 12:42:42 PM This report has been signed electronicallyPeter MD Yanira Number of Addenda: 0 Note Initiated On: 07/21/2017 11:12 AM Total Procedure Duration Time 0 hours 44 minutes 11 seconds [email or web address]
--- NOTE | 2017-07-21 15:28 | HOSPPROG ---
Hospitalist Progress Note Assessment/Plan: 71 yo M w recently diagnosed adenoCA presumed colon a/w CP and found to have b/ l PE w mod clot burden PE: heparin gtt until colonoscopy NOAc starting in AM fever w + UA and dysuria start ceftriaxone adenoCA: colonoscopy in AM to see if cecal lesion seen on T is actually CA CP: attributable to PE neg trop and nonischemic EKG (interp by me) hyponatremia: mild and resolved dispo: inpt Subjective: case d/w dr cannon. colonoscopy w cecal mass Objective: Vital Signs Temp Pulse Resp BP Pulse Ox 37 C 100 16 109/56 L 96 07/21/17 12:26 07/21/17 08:20 07/21/17 12:10 07/21/17 12:46 07/21/17 12:46 Laboratory Results 07/21/17 06:15 07/20/17 06:00 07/20/17 07/21/17 07/22/17 05:59 05:59 05:59 Intake Total 1100 829 550 Output Total 625 175 Balance 475 654 550 PT 13.2 SEC (12.0-15.0) 07/19/17 16:13 INR 1.01 (0.83-1.16) 07/19/17 16:13 - Physical Exam Constitutional: no apparent distress, appears nourished Eyes: PERRL, anicteric sclera Ears, Nose, Mouth, Throat: moist mucous membranes, hearing normal Cardiovascular: regular rate and rhythym, no murmur, rub, or gallop Respiratory: no respiratory distress, no rales or rhonchi Gastrointestinal: normoactive bowel sounds, soft, non-tender abdomen Genitourinary: no bladder fullness, No ceballos in urethra Skin: warm, normal color Musculoskeletal: full muscle strength, no muscle tenderness Neurologic: AAOx3, sensation intact bilaterally ICD10 Worksheet Patient Problems: Problems Problem Status Onset Metastatic colon cancer to liver Acute Pulmonary embolism Acute Hip arthritis Acute Hip dislocation, left Acute
[2017-07-21] MEDS ORDERED: cefTRIAXone 1 GM in STERILE WATER INJ 10 ML IV SCH (15:30)
[2017-07-21 18:47] LABS: PLATELET COUNT 109 10^3/uL (150-400)
--- NOTE | 2017-07-21 19:01 | HOSPPROG ---
Hospitalist Progress Note Assessment/Plan: Called to pts bedside due to rigors, tachycardia, increased resp rate, and fever of 103. He is somewhat confused History is obtained bP is stable at 128/102 no labs from today available He was started on Rocephin due to presumed UTI and is on day 1. He had both endoscopy and colonoscopy He does not c/o of pain He reports several month hx of cough and Asthma like sx's, takes a steroid inhaler, which he says has been helping O: 128/102, 130, 32, 94% 4L GEN: nad, confused HEENT: MMM CV: RRR Lung: decreased bilaterally, mildly increased rate, some wheezing Abd: slight distension, s/nt/nd Ext: no LE edema Labs: most recent labs reviewed A/P #Sepsis? Rigors, tachycardia, Fever #Acute Resp Failure, etiology unclear, ?multifactoria #Fever #s/p endoscopy and colonoscopy #Pulmonary Embolus, On Heparin #UTI, on Rocephin #Adenocarcinoma Plan: NPO IVF CXR Consider broadening abx based on w/u PC Serum Lactate BP is currently unremarkable Total CCT is 35 minutes. Additional reccs pending w/u Objective: Vital Signs Temp Pulse Resp BP Pulse Ox 39.5 C H 103 H 20 139/73 H 94 07/21/17 18:36 07/21/17 18:36 07/21/17 18:36 07/21/17 18:36 07/21/17 18:36 07/20/17 07/21/17 07/22/17 05:59 05:59 05:59 Intake Total 1100 829 550 Output Total 625 175 Balance 475 654 550 PT 13.2 SEC (12.0-15.0) 07/19/17 16:13 INR 1.01 (0.83-1.16) 07/19/17 16:13 ICD10 Worksheet Patient Problems: Problems Problem Status Onset Metastatic colon cancer to liver Acute Pulmonary embolism Acute Hip arthritis Acute Hip dislocation, left Acute
[2017-07-21] MEDS ORDERED: IOPAMIDOL (ISOVUE-300) 100 ML BTL ONE (19:05)
[2017-07-21] MEDS: CYCLOBENZAPRINE 10 MG TAB PO SCH (19:59)
[2017-07-21] MEDS: PIPERACILLIN/TAZO 3.375 GM/DEX 50 ML IV SCH (20:58)
[2017-07-21] MEDS ORDERED: NOREPINEPHRINE/NS 500 ML IV SCH (21:00)
[2017-07-21] MEDS ORDERED: VANCOMYCIN 1.5 GM in D5W 250 ML IV ONE (21:30)
[2017-07-22] MEDS: PIPERACILLIN/TAZO 3.375 GM/DEX 50 ML IV SCH ×4 (03:13→20:15)
[2017-07-22] MEDS: traMADol 50 MG TAB PO PRN ×3 (06:50→18:01)
[2017-07-22] MEDS: BUDESONIDE/FORMOTEROL 160/4.5 60 PUFFS/MDI IH SCH ×2 (08:06→20:17)
[2017-07-22] MEDS: ATORVASTATIN CALCIUM 20 MG TAB PO SCH (09:05)
[2017-07-22] MEDS: CYANO/VITAMIN B12 1000 MCG TAB PO SCH (09:05)
[2017-07-22] MEDS: CHOLECALCIFEROL VIT D3 1,000 UNITS TAB PO SCH (09:05)
--- NOTE | 2017-07-22 09:32 | HOSPPROG ---
Hospitalist Progress Note Assessment/Plan: 71 yo M w recently diagnosed adenoCA presumed colon a/w CP and found to have b/ l PE w mod clot burden sepsis: no source identified other than UTI agree w continuing vanc zosyn await culture data check influenza abd exam benign and not c/w perf PE: start LMWH pulm infarct not seen fever w + UA and dysuria see above adenoCA: colonoscopy demonstrates cecal mass CP: attributable to PE neg trop and nonischemic EKG (interp by me) hyponatremia: mild and resolved dispo: inpt Subjective: patient transferred to ICU overnight w rigors, sepsis. cxr concerning for FA under diaphragm (interp by me). FA not seen on my interp of CT abd and pelvis. case discussed w dr cannon Objective: Vital Signs Temp Pulse Resp BP Pulse Ox 36.8 C 70 18 125/63 H 100 07/22/17 07:46 07/22/17 07:46 07/22/17 07:46 07/22/17 07:46 07/22/17 07:46 Laboratory Results 07/21/17 18:25 07/21/17 18:25 07/21/17 07/22/17 07/23/17 05:59 05:59 05:59 Intake Total 829 898 Output Total 175 400 Balance 654 498 PT 13.2 SEC (12.0-15.0) 07/19/17 16:13 INR 1.01 (0.83-1.16) 07/19/17 16:13 - Physical Exam Constitutional: no apparent distress, appears nourished Eyes: PERRL, anicteric sclera Ears, Nose, Mouth, Throat: moist mucous membranes, hearing normal Cardiovascular: regular rate and rhythym, no murmur, rub, or gallop Respiratory: no respiratory distress, no rales or rhonchi Gastrointestinal: normoactive bowel sounds, soft, non-tender abdomen, No tenderness, No guarding, No rebound Genitourinary: no bladder fullness, No ceballos in urethra Skin: warm, normal color Musculoskeletal: full muscle strength, no muscle tenderness Neurologic: AAOx3 Psychiatric: interacting appropriately, not anxious Lymph, Heme, Immunologic: no cervical LAD ICD10 Worksheet Patient Problems: Problems Problem Status Onset Metastatic colon cancer to liver Acute Pulmonary embolism Acute Hip arthritis Acute Hip dislocation, left Acute
[2017-07-22] MEDS ORDERED: VANCOMYCIN 1.25 GM in D5W 250 ML IV SCH (10:00)
[2017-07-22] MEDS ORDERED: VANCOMYCIN 1.5 GM in D5W 250 ML IV ONE (10:00)
[2017-07-22] MEDS ORDERED: VANCOMYCIN 1.5 GM in D5W 250 ML IV SCH (10:00)
[2017-07-22] MEDS: ENOXAPARIN 100 MG/ML SYR SC SCH ×2 (11:05→20:15)
[2017-07-22] MEDS: MOMETASONE FUROATE EACHNARE SCH (11:27)
--- NOTE | 2017-07-22 12:14 | SOAPPROG ---
FABIENNE Progress Note Assessment/Plan: Assessment: 1. Metastatic adenocarcinoma, colon 2. Liver mets 3. Pulmonary embolism 4. Fever. UTI? Colonoscopy identified cecal mass, which is the primary tumor. We discussed treatment options (he will likely pursue XELOX + avastin) We discussed anticoagulation, which he will need to remain on indefinitely. My preference is for a NOAC (xarelto, eliquis) as these don't require monitoring and have low bleeding risk in cancer patients. Lovenox 1.5 mg/kg/d is also an option, though can be expensive and inconvenient. It does have a shorter half life. Coumadin could also be used - more readily reversible than a NOAC, but overall there are more bleeding events and thrombotic events with coumadin because of labile drug levels. 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 Subjective: fever and rigors last night- admitted to ICU. better now on abx. Objective: exam unchanged Vital Signs Temp Pulse Resp BP Pulse Ox 36.8 C 81 15 137/73 H 96 07/22/17 12:00 07/22/17 12:00 07/22/17 12:00 07/22/17 12:00 07/22/17 12:00 Laboratory Results 07/21/17 18:25 07/21/17 18:25 07/21/17 07/22/17 07/23/17 05:59 05:59 05:59 Intake Total 829 898 Output Total 175 400 Balance 654 498 PT 13.2 SEC (12.0-15.0) 07/19/17 16:13 INR 1.01 (0.83-1.16) 07/19/17 16:13 ICD10 Worksheet Patient Problems: Problems Problem Status Onset Metastatic colon cancer to liver Acute Pulmonary embolism Acute Hip arthritis Acute Hip dislocation, left Acute
--- NOTE | 2017-07-22 13:57 | GCON ---
[f rep st] CONSULTATION INFECTIOUS DISEASES CONSULTATION DATE OF CONSULTATION: 07/22/2017 REQUESTING PROVIDER: Roosevelt Dumont MD. REASON FOR CONSULTATION: Fever and bandemia. HISTORY OF PRESENT ILLNESS: Patient is a 71-year-old male with a recent diagnosis of metastatic avery ocarcinoma of the colon, whom I am asked to see in consultation for fever and bandemia. Patient desc ribes having intermittent fever over the course of the last 2 months. These were episodic and not as sociated with rigors. Ultimately, patient was diagnosed with metastatic adenocarcinoma by biopsy of a hepatic lesion. He underwent colonoscopy yesterday which confirmed diagnosis of colon cancer. Ove r the last 2 days, the patient noted concomitant dysuria. He has had some right-sided flank pain, bu t attributes this to a fall he experienced in [facility] over the holidays, resulting in rib pain. Yesterday, the patient did have colonoscopy with biopsies performed. Patient has experienced fever d uring his hospitalization beginning on 07/20/2017, at which point in time, his temperature was 38.4. The morning of 07/21/2017, he had temperatures as high as 39.2, and yesterday afternoon, had a tempe rature of 39.5. Patient was initially started on ceftriaxone, and these were changed to vancomycin a nd Zosyn yesterday afternoon. Patient notes that his dysuria has resolved with antibiotic therapy. Currently, the patient does not note sore throat, nausea, vomiting, diarrhea or abdominal pain. No f urther urinary symptoms. No myalgias or arthralgias. Does have occasional dry cough. He also was d iagnosed with pulmonary emboli at the time of this admission, which was the etiology of his presentin g symptoms of chest pain. He has been on heparin drip for his pulmonary emboli. Given the persistin g fevers, he underwent CT scan of the chest, abdomen and pelvis, which did not show any evidence of i ntraabdominal abscess or pneumonia. No evidence of perforation was present. While in [facility] in May, patient did not have any contact directly with animals such as sheep. His has been i ll with a respiratory illness recently. Laboratory evaluation yesterday showed 52% bands with some m ild associated thrombocytopenia. Procalcitonin was significantly elevated at 18. Venous lactate on 07/21/2017 was initially 6.6 and decreased to 2.0. Urinalysis did confirm presence of white blood ce lls and red blood cells. Blood cultures are currently negative from 07/20/2017 and pending from 06/23. No urine culture is present in the my laboratory. Given the above findings, I am now asked to assist in his ongoing management. PAST MEDICAL HISTORY: Metastatic colon cancer as outlined above, otherwise unremarkable. PAST SURGICAL HISTORY: Bilateral hip arthroplasty. CURRENT MEDICATIONS: Vancomycin 1.25 g IV q.12 hours, Zosyn 3.375 g IV q.6 hours, Lipitor 20 mg p.o. daily, Symbicort 2 puffs twice daily, vitamin D 1000 units p.o. daily, Flexeril 10 mg p.o. q.h.s., L ovenox 90 mg subcu b.i.d., Ultram as needed, vitamin B12, 1000 mcg p.o. daily. ALLERGIES: No known drug allergies. SOCIAL HISTORY: Patient does not smoke. He drinks 1/2 bottle of wine per night. 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 He traveled to [facility] as above. FAMILY HISTORY: No family history of colon cancer. REVIEW OF SYSTEMS: Outside that noted in the HPI, remainder of 10-system review is unremarkable. No recent dental work. PHYSICAL EXAMINATION: VITAL SIGNS: Temperature maximum 39.5, temperature current 36.8, heart rate 7 0, respiratory rate 18, blood pressure 125/63, oxygen saturation 100% on 3 L. GENERAL: Patient is w ell-nourished, well-developed, in no acute distress. He appears nontoxic. HEENT: There is no scler al icterus, conjunctival injection, or conjunctival petechiae. Oropharynx is clear without lesions, with slightly dry mucous membranes. Dentition is in fair repair. There is no nasal discharge. Ther e is no tenderness over the frontal, maxillary, or mastoid area. NECK: Supple, without palpable lym phadenopathy or thyromegaly. CHEST: Clear to auscultation bilaterally except for occasional crackle s at the bases. Respiratory effort is normal. CARDIOVASCULAR: Regular rate and rhythm without murm urs, gallops, or rubs. ABDOMEN: Soft, nontender, nondistended. There is no palpable organomegaly. Bowel sounds are present. MUSCULOSKELETAL: No cyanosis, clubbing, or edema. SKIN: No rashes pres ent. No stigmata of endocarditis. Skin is warm and dry to touch. LYMPHATICS: No cervical, supracl avicular, or inguinal nodes palpable. NEUROLOGIC: Patient is alert and interacts appropriately with examiner. Cranial nerves 2-12 are grossly intact. Muscle tone and bulk are normal. LABORATORY DATA: White blood cell count 4.2, hematocrit 43.2, platelets 109, neutrophils 34%, bands 52%. Serum creatinine is 1.0, procalcitonin is 18.1. Venous lactate is 2.0. Urinalysis shows 15-25 red blood cells, 25-50 white blood cells and 1+ bacteria. Blood cultures x2 sets from 07/20/2017 ar e no growth and 07/21/[address] chest, abdomen and pelvis as outlined above. These were reviewed by me with Radiology today. IMPRESSION: Fever and bandemia in the setting of metastatic colon cancer: Patient recently had dysu lexy and some right flank pain, raising possibility that this is associated with urinary etiology. I will try to add a urine culture onto the urinalysis that was submitted on 07/21/2017. We will obtain an influenza swab to ensure no evidence of influenza, although clinical presentation not suggestive. Given presence of hepatic metastases and colon cancer, gastrointestinal translocation also consider ation for patient's fever with organisms such as Clostridium or streptococcal species or other enteri c organisms all possible. Given the numerous hepatic metastases, tumor fever is also a consideration as hepatic lesions are not uncommonly associated with production of fever. It is also of note that he had fever preceding his hospitalization over the last 2 months, which may be associated with his u nderlying malignancy. RECOMMENDATIONS: 1. Agree with empiric vancomycin and Zosyn pending further culture data. Would favor a short course of vancomycin if cultures remain negative, given no significant risk for MRSA, other than some recen t healthcare contact. 2. We will attempt to add urine culture to urinalysis specimen in laboratory. 3. Follow up blood cultures as available. 4. Further decision making based on culture data and clinical course. Thank you for this consultation. We will continue to follow the patient with you. /[id number]/MODL
[2017-07-22] MEDS: ACETAMINOPHEN 325 MG TAB PO PRN ×2 (14:14→19:28)
[2017-07-22] MEDS: NS 1,000 ML IV SCH (14:15)
--- NOTE | 2017-07-22 16:22 | GCON ---
[f rep st] CONSULTATION PULMONARY/CRITICAL CARE CONSULTATION DATE OF CONSULTATION: 07/22/2017 REFERRING PHYSICIAN: Trenton Rosenbaum MD REASON FOR REFERRAL: Evaluation and management of pulmonary emboli and influenza. HISTORY: The patient is a 71-year-old male who was in his usual state of good health when, about a m onth ago, he was diagnosed with metastatic colon cancer, with extensive metastases to the liver. He is about to start a chemotherapy regimen. He was admitted to the hospital 3 days ago with left-sided pleuritic chest pain, and a CT scan found bilateral pulmonary emboli. He was started on anticoagula tion. He was also found to be a bit hyponatremic, with a sodium of 134. Yesterday, he started to de velop fevers/rigors, and these worsened overnight, prompting transfer to the SDU. The patient heri bowden reports the rigors are a bit better. He denies any shortness of breath or cough. His appetite i s fairly good. The pleuritic chest pain is fairly mild. PAST MEDICAL HISTORY: 1. Recent diagnosis of metastatic colon cancer. 2. Bilateral hip replacements. MEDICATIONS ON ADMISSION: Included Flexeril, Symbicort, mometasone nasal spray, Lipitor, Ultram, and Cialis. ALLERGIES: None. 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 He denies tobacco use and drinks wine in the [facility]. FAMILY HISTORY: Unremarkable. REVIEW OF SYSTEMS: A 10-point review of systems adds nothing to the History of Present Illness. PHYSICAL EXAMINATION: GENERAL: The patient is awake, alert, in no acute distress. VITAL SIGNS: Bl ood pressure is 137/73, with a heart rate of 81. His oxygen saturations are 96% on 1.5 L of oxygen, 83% on room air. HEENT: Normocephalic and atraumatic. No icterus. NECK: No JVD. Trachea is midl ine. CHEST: He has a few rales in bases. CARDIAC: Regular rate and rhythm without murmur. ABDOME N: Soft. Bowel sounds are present. EXTREMITIES: No clubbing, cyanosis, or edema. LABORATORY: A white blood count is 4.2, a hemoglobin is 14.2, a platelet count is 109. Chemistry gr oup is remarkable for sodium of 138, up from 134. A procalcitonin is 18.1. Glucose level is 97. La ctate was 6.6 last night, down to 2.0 today. A urinalysis shows 25-50 white blood cells and 15-25 re d blood cells. A nasal swab is positive for influenza B. IMAGING: A CT scan of the chest shows small bilateral pulmonary emboli with some minimal atelectasis . There is no emphysema or pneumonia. Images reviewed by me. An echocardiogram shows a normal LV w ith an ejection fraction of 71%. There is some diastolic dysfunction. RV function is normal, with n ormal pulmonary artery pressure. ASSESSMENT: 1. Influenza. The patient does not have signs of pneumonia, but I think the influenza likely explai ns the patient's rigors and fever. 2. Pulmonary emboli. These are small in size and could be causing the pleuritic chest pain but are not likely to be causing significant respiratory compromise, besides possibly some mild hypoxemia rel ated to atelectasis, perhaps from splinting. The patient is currently being appropriately treated wi enoxaparin. 3. ?Emphysema. The patient was apparently told he had some lung disease related to a chronic obstru ction, presumably based on some spirometry. His CT scan does not show any emphysema. He possibly bach s some mild chronic bronchitis/reactive airways. RECOMMENDATIONS: 1. Anticoagulation. 2. Consider narrowing/stopping empiric antibiotics, now that we have a diagnosis of influenza. 3. I think the patient is safe to transfer from the SDU to medical floor. 4. Continue to use Symbicort p.r.n. /[id number]/MODL
[2017-07-22] MEDS: OSELTAMIVIR PHOSPHATE 75 MG CAP PO SCH (18:01)
[2017-07-22] MEDS: CYCLOBENZAPRINE 10 MG TAB PO SCH (18:01)
[2017-07-22] MEDS: CEPACOL LOZENGE PO PRN (19:29)
[2017-07-22] MEDS: guaiFENesin/CODEINE PHOS 10 ML UDCUP PO PRN (20:17)
[2017-07-23] MEDS: traMADol 50 MG TAB PO PRN ×4 (00:15→18:25)
[2017-07-23] MEDS: PIPERACILLIN/TAZO 3.375 GM/DEX 50 ML IV SCH ×4 (03:41→20:08)
[2017-07-23] MEDS: NS 1,000 ML IV SCH ×2 (03:44→07:42)
[2017-07-23] MEDS: OXYCODONE/APAP 5/325 TAB PO PRN ×5 (05:58→21:28)
[2017-07-23] MEDS: ATORVASTATIN CALCIUM 20 MG TAB PO SCH (05:58)
[2017-07-23] MEDS: guaiFENesin/CODEINE PHOS 10 ML UDCUP PO PRN ×2 (05:58→20:08)
[2017-07-23] MEDS: BUDESONIDE/FORMOTEROL 160/4.5 60 PUFFS/MDI IH SCH ×2 (08:08→21:33)
[2017-07-23] MEDS: OSELTAMIVIR PHOSPHATE 75 MG CAP PO SCH ×2 (08:13→18:25)
[2017-07-23] MEDS: CYANO/VITAMIN B12 1000 MCG TAB PO SCH (08:13)
[2017-07-23] MEDS: CHOLECALCIFEROL VIT D3 1,000 UNITS TAB PO SCH (08:13)
[2017-07-23] MEDS: ENOXAPARIN 100 MG/ML SYR SC SCH ×2 (08:14→20:09)
[2017-07-23] MEDS: MOMETASONE FUROATE EACHNARE SCH (08:29)
--- NOTE | 2017-07-23 08:38 | ASMTCMCOM ---
CM Note CM Note Notes: Patient was transferred to the SDU after developing fever and rigors. These have resolved, and he is believed to have Influenza. He had a colonoscopy yesterday, and the results will help guide his chemotherapy treatment. PT evaluated patient yesterday and has discharged him. I still anticipate an independent discharge home with and family when medically stable. CM available for any needs/changes. Date Signed: 07/23/2017 08:37 AM Electronically Signed By:Prema Valdivia RN
--- NOTE | 2017-07-23 09:12 | PCMIDPN ---
Assessment/Plan: # fever, bandemia: Likely multifactorial with +Flu B, UTI evidenced by dysuria and positive culture for E coli. Bandemia significantly improved and Dysuria has resolved today. Await susceptibilities of E coli and likely transition to p.o. antibiotics to complete therapy. --continue IV Zosyn until more microbiologic data # underlying Metastatic adeno CA, colon primary meds Tamiflu 75mg PO BID Zosyn 3.375gm IV q6h Microbiology 07/22 urine culture 100,000 E coli 07/21, 07/20 blood cultures 2 set each day no growth to date Subjective: Patient reports resolution of dysuria. Patient is feeling fairly overwhelmed by his multiple new diagnoses including cancer, pulmonary emboli, UTI and influenza Objective: Vital Signs Temp Pulse Resp BP Pulse Ox 37.1 C 75 20 119/68 97 07/23/17 08:00 07/23/17 08:00 07/23/17 08:00 07/23/17 08:00 07/23/17 08:00 Laboratory Results 07/21/17 18:25 07/21/17 18:25 07/22/17 07/23/17 07/24/17 05:59 05:59 05:59 Intake Total 898 3004 Output Total 400 1000 Balance 498 2003 - Physical Exam General Appearance: alert, no apparent distress, non-toxic EENT: pale conjunctiva, dry mucous membranes Respiratory: lungs clear, No respiratory distress, No accessory muscle use Cardiac/Chest: regular rate, rhythm Extremities: No pedal edema Abdomen: non-tender, soft, distended (Mildly) Skin: No rash Neuro/Psych: alert, normal mood/affect, oriented x 3 - Time Spent With Patient Time Spent with Patient: greater than 25 minutes Time Spent with Patient: Greater than 25 minutes spent on this patients care, greater than 50% of time spent counseling, educating, and coordinating care regarding the above mentioned plan. ICD10 Worksheet Patient Problems: Problems Problem Status Onset Metastatic colon cancer to liver Acute Pulmonary embolism Acute Hip arthritis Acute Hip dislocation, left Acute
--- NOTE | 2017-07-23 09:13 | HOSPPROG ---
Hospitalist Progress Note Assessment/Plan: 71 yo M w recently diagnosed adenoCA presumed colon a/w CP and found to have b/ l PE w mod clot burden sepsis: influenza +/- uti septic physiology has resolved suspect we can trim abx back to ceftriaxone but will defer to ID HD stable PE: start LMWH pulm infarct not seen NOAc on dc fever w + UA and dysuria see above adenoCA: colonoscopy demonstrates cecal mass CP: attributable to PE neg trop and nonischemic EKG (interp by me) hyponatremia: mild and resolved dispo: inpt Subjective: case d/w leonor duncan and dany. influenza + Objective: Vital Signs Temp Pulse Resp BP Pulse Ox 37.1 C 75 20 119/68 97 07/23/17 08:00 07/23/17 08:00 07/23/17 08:00 07/23/17 08:00 07/23/17 08:00 Laboratory Results 07/21/17 18:25 07/21/17 18:25 07/22/17 07/23/17 07/24/17 05:59 05:59 05:59 Intake Total 898 3004 Output Total 400 1000 Balance 498 2003 PT 13.2 SEC (12.0-15.0) 07/19/17 16:13 INR 1.01 (0.83-1.16) 07/19/17 16:13 - Physical Exam Constitutional: no apparent distress, appears nourished Eyes: PERRL, anicteric sclera Ears, Nose, Mouth, Throat: moist mucous membranes, hearing normal Cardiovascular: regular rate and rhythym, no murmur, rub, or gallop Respiratory: no respiratory distress, no rales or rhonchi Gastrointestinal: normoactive bowel sounds, soft, non-tender abdomen Genitourinary: no bladder fullness, No ceballos in urethra Skin: warm, normal color Musculoskeletal: full muscle strength Neurologic: AAOx3 ICD10 Worksheet Patient Problems: Problems Problem Status Onset Metastatic colon cancer to liver Acute Pulmonary embolism Acute Hip arthritis Acute Hip dislocation, left Acute
--- NOTE | 2017-07-23 10:49 | SOAPPROG ---
FABIENNE Progress Note Assessment/Plan: Assessment: 1. Metastatic adenocarcinoma, colon 2. Liver mets 3. Pulmonary embolism 4. Fever. Infuenza B Plan: - transition to Xarelto or Eliquis for intermediate anticoagulation - will likely start chemo (XELOX+Avastin) in outpatient setting the week of . F/u with Dr. Gutierrez next week Subjective: feeling better today. Objective: exam unchanged Vital Signs Temp Pulse Resp BP Pulse Ox 37.1 C 75 20 119/68 97 07/23/17 08:00 07/23/17 08:00 07/23/17 08:00 07/23/17 08:00 07/23/17 08:00 Laboratory Results 07/21/17 18:25 07/21/17 18:25 07/22/17 07/23/17 07/24/17 05:59 05:59 05:59 Intake Total 898 3004 Output Total 400 1000 175 Balance 498 2004 - PT 13.2 SEC (12.0-15.0) 07/19/17 16:13 INR 1.01 (0.83-1.16) 07/19/17 16:13 ICD10 Worksheet Patient Problems: Problems Problem Status Onset Metastatic colon cancer to liver Acute Pulmonary embolism Acute Hip arthritis Acute Hip dislocation, left Acute
[2017-07-23 11:05] LABS: PLATELET COUNT 90 10^3/uL (150-400)
[2017-07-23] MEDS: CYCLOBENZAPRINE 10 MG TAB PO SCH (20:08)
[2017-07-24] MEDS: OXYCODONE/APAP 5/325 TAB PO PRN (01:05)
[2017-07-24] MEDS: NS 1,000 ML IV SCH ×2 (01:06→08:14)
[2017-07-24] MEDS: PIPERACILLIN/TAZO 3.375 GM/DEX 50 ML IV SCH ×2 (03:57→08:15)
[2017-07-24 04:37] LABS: PLATELET COUNT 92 10^3/uL (150-400)
[2017-07-24] MEDS: BUDESONIDE/FORMOTEROL 160/4.5 60 PUFFS/MDI IH SCH ×2 (07:54→21:04)
[2017-07-24] MEDS: traMADol 50 MG TAB PO PRN (08:15)
[2017-07-24] MEDS: ATORVASTATIN CALCIUM 20 MG TAB PO SCH (08:15)
[2017-07-24] MEDS: CHOLECALCIFEROL VIT D3 1,000 UNITS TAB PO SCH (08:15)
[2017-07-24] MEDS: OSELTAMIVIR PHOSPHATE 75 MG CAP PO SCH ×2 (08:16→18:18)
[2017-07-24] MEDS: CYANO/VITAMIN B12 1000 MCG TAB PO SCH (08:16)
[2017-07-24] MEDS: ENOXAPARIN 100 MG/ML SYR SC SCH ×2 (08:16→21:08)
[2017-07-24] MEDS: oxyCODONE IR 5 MG TAB PO PRN ×4 (08:16→21:13)
[2017-07-24] MEDS: MOMETASONE FUROATE EACHNARE SCH (10:15)
--- NOTE | 2017-07-24 11:02 | SOAPPROG ---
SOAP Progress Note Assessment/Plan: 71 yo with newly diagnosed metastatic colon cancer. Admitted with PE. * Pulmonary embolism: d/c on Xarelto or Eliquis if insurance will cover. * Influenza B: Tamiflu. * UTI: pansensitive E coli. * Metastatic colon cancer (liver): has appt with Dr. Gutierrez Wednesday. Eventual XELOX+Avastin. 07/24/17 10:58 Subjective: Tamiflu makes him "slow". O: VS reviewed. Gen: NAD, A&O. Lungs: breathing comfortably. Microbiology 07/22/17 10:45 Urine,Clean Catch Urine Culture - Final Escherichia Coli Laboratory Tests 07/24/17 07/24/17 04:07 04:07 WBC 5.81 Hgb 12.0 L Plt Count 92 L Sodium 141 Potassium 4.5 Chloride 105 Carbon Dioxide 27 Anion Gap 9 BUN 11 Creatinine 0.8 Estimated GFR > 60 Glucose 94 Objective: Vital Signs Temp Pulse Resp BP Pulse Ox 37.1 C 78 20 139/84 H 94 07/24/17 07:57 07/24/17 08:04 07/24/17 08:04 07/24/17 07:57 07/24/17 08:04 Microbiology 07/22/17 10:45 Urine Culture - Final Urine,Clean Catch Escherichia Coli Laboratory Results 07/24/17 04:07 07/24/17 04:07 07/23/17 07/24/17 07/25/17 05:59 05:59 05:59 Intake Total 3004 3667 Output Total 1000 525 Balance 2003 3142 PT 13.2 SEC (12.0-15.0) 07/19/17 16:13 INR 1.01 (0.83-1.16) 07/19/17 16:13 ICD10 Worksheet Patient Problems: Problems Problem Status Onset Metastatic colon cancer to liver Acute Pulmonary embolism Acute Hip arthritis Acute Hip dislocation, left Acute
[2017-07-24] MEDS: guaiFENesin/CODEINE PHOS 10 ML UDCUP PO PRN (12:30)
--- NOTE | 2017-07-24 13:00 | HOSPPROG ---
Hospitalist Progress Note Assessment/Plan: 71 yo M w recently diagnosed Adeno CA presumed colon admitted with CP and found to have b/l PE w mod clot burden # sepsis- developed leukopenia and fever during hospital stay - presumed source influenza B and UTI now resolved - WBC 5.8 and afebrile - will discuss changing Zosyn to ceftriaxone with ID - cont tamiflu # Acute Influenza B - continue tamiflu # Acute PE- CT chest (personally reviewed and interpreted) bilateral PE - cont heparin - ONC recommending NOAc on dc # acute hypoxic respiratory failure- secondary to PE Oxygen saturations 94% on 2 L # UTI- secondary to pansensitive E coli - currently on Zosyn - discuss changing to p. o. levofloxacin with ID today # adenoCA: colonoscopy demonstrates cecal mass- pathology pending # CP: attributable to PE neg trop and nonischemic EKG (interp by me) # hyponatremia: mild and resolved # prophylaxis - cont lovenox # dispo- > 2MN - have consulted Physical therapy for recommendations on DC potentially tomorrow Discussed the case with the RN- work on weaning oxygen to better understand home O2 requirements Subjective: pain controlled with meds Objective: Vital Signs Temp Pulse Resp BP Pulse Ox 37.1 C 78 20 139/84 H 86 L 07/24/17 07:57 07/24/17 08:04 07/24/17 08:04 07/24/17 07:57 07/24/17 11:18 Microbiology 07/22/17 10:45 Urine Culture - Final Urine,Clean Catch Escherichia Coli Laboratory Results 07/24/17 04:07 07/24/17 04:07 07/23/17 07/24/17 07/25/17 05:59 05:59 05:59 Intake Total 3004 3667 Output Total 1000 525 Balance 2003 3142 PT 13.2 SEC (12.0-15.0) 07/19/17 16:13 INR 1.01 (0.83-1.16) 07/19/17 16:13 - Physical Exam Constitutional: no apparent distress Eyes: anicteric sclera Ears, Nose, Mouth, Throat: moist mucous membranes Cardiovascular: regular rate and rhythym Respiratory: no respiratory distress Gastrointestinal: normoactive bowel sounds Genitourinary: no bladder fullness Skin: warm Musculoskeletal: full muscle strength Neurologic: AAOx3 Psychiatric: interacting appropriately Lymph, Heme, Immunologic: no cervical LAD ICD10 Worksheet Patient Problems: Problems Problem Status Onset Metastatic colon cancer to liver Acute Pulmonary embolism Acute Hip arthritis Acute Hip dislocation, left Acute
[2017-07-24] MEDS ORDERED: POLYETHYLENE GLYCOL 3350 17 GM PKT PO PRN ×2 (13:26→13:27)
[2017-07-24] MEDS ORDERED: BISACODYL 10 MG SUPP PR PRN (13:27)
[2017-07-24] MEDS ORDERED: LACTULOSE 20 GM/30 ML UDCUP PO PRN (13:27)
[2017-07-24] MEDS ORDERED: MAGNESIUM HYDROXIDE 30 ML UDCUP PO PRN (13:27)
--- NOTE | 2017-07-24 13:28 | PCMIDPN ---
Assessment/Plan: # Ecoli UTI, #3/ of therapy. Blood cx negative, symptoms resolved. --dc zosyn --change to PO antibiotics --cipro 500mg PO BID x 7 days okay. If start coumadin, watch INR # Leukopenia due to UTI/influenza resolved # thrombocytopenia: multifactorial, stable # Influenza B #2/ of tamiflu. # underlying Metastatic adeno CA, colon primary # PE meds Tamiflu 75mg PO BID Zosyn 3.375gm IV q6h Microbiology 07/22 urine culture 100,000 E coli 07/21, 07/20 blood cultures 2 set each day no growth to date 07/24/17 13:35 Subjective: constipated, no BM for 4 days abdominal distension, unable to button pants early satiety Objective: Vital Signs Temp Pulse Resp BP Pulse Ox 37.1 C 78 20 139/84 H 86 L 07/24/17 07:57 07/24/17 08:04 07/24/17 08:04 07/24/17 07:57 07/24/17 11:18 Microbiology 07/22/17 10:45 Urine Culture - Final Urine,Clean Catch Escherichia Coli Laboratory Results 07/24/17 04:07 07/24/17 04:07 07/23/17 07/24/17 07/25/17 05:59 05:59 05:59 Intake Total 3004 3667 Output Total 1000 525 Balance 2004 3142 - Physical Exam General Appearance: alert, no apparent distress Respiratory: crackles (L base), No accessory muscle use Extremities: pedal edema Abdomen: non-tender, soft, distended, other (BS present but slightly decreased) Male Genitalia: No ceballos Skin: pallor, No rash Neuro/Psych: alert, normal mood/affect, oriented x 3 - Time Spent With Patient Time Spent with Patient: greater than 35 minutes Time Spent with Patient: Greater than 35 minutes spent on this patients care, greater than 50% of time spent counseling, educating, and coordinating care regarding the above mentioned plan. ICD10 Worksheet Patient Problems: Problems Problem Status Onset Metastatic colon cancer to liver Acute Pulmonary embolism Acute Hip arthritis Acute Hip dislocation, left Acute
[2017-07-24] MEDS: ACETAMINOPHEN 325 MG TAB PO PRN (21:03)
[2017-07-24] MEDS: CIPROFLOXACIN 500 MG TAB PO SCH (21:03)
[2017-07-24] MEDS: SENNOSIDES/DOCUSATE SODIUM TAB PO SCH (21:04)
[2017-07-24] MEDS: CYCLOBENZAPRINE 10 MG TAB PO SCH (21:04)
[2017-07-25] MEDS: traMADol 50 MG TAB PO PRN (08:23)
[2017-07-25] MEDS: CEPACOL LOZENGE PO PRN (09:04)
[2017-07-25] MEDS: guaiFENesin/CODEINE PHOS 10 ML UDCUP PO PRN ×3 (09:04→18:59)
[2017-07-25] MEDS: SENNOSIDES/DOCUSATE SODIUM TAB PO SCH ×2 (09:05→20:29)
[2017-07-25] MEDS: OSELTAMIVIR PHOSPHATE 75 MG CAP PO SCH ×2 (09:06→18:59)
[2017-07-25] MEDS: CIPROFLOXACIN 500 MG TAB PO SCH ×2 (09:06→20:28)
[2017-07-25] MEDS: CYANO/VITAMIN B12 1000 MCG TAB PO SCH (09:07)
[2017-07-25] MEDS: ATORVASTATIN CALCIUM 20 MG TAB PO SCH (09:07)
[2017-07-25] MEDS: CHOLECALCIFEROL VIT D3 1,000 UNITS TAB PO SCH (09:07)
[2017-07-25] MEDS ORDERED: BISACODYL 10 MG SUPP PR ONE (09:08)
[2017-07-25] MEDS: BUDESONIDE/FORMOTEROL 160/4.5 60 PUFFS/MDI IH SCH ×2 (09:21→20:51)
[2017-07-25 09:45] LABS: PLATELET COUNT 125 10^3/uL (150-400)
[2017-07-25 09:56] LABS: INR 1.01 (0.83-1.16); PROTIME(PATIENT) 13.5 SEC (12.0-15.0)
[2017-07-25 10:05] LABS: PLATELET COUNT 125 10^3/uL (150-400)
--- NOTE | 2017-07-25 10:19 | PCMIDPN ---
Assessment/Plan: # Foggy thinking with reports of transient confusion: no neurologic deficits on exam today. Certainly on some meds than can cause BARNWORKER GROOM toxicity: oxycodone, tamiflu, cipro. This was discussed w patient. MRI brain planned by DR. Hoff # Fever overnight: WBC normal today, awaiting LFTs, no new focal symptoms. Continue current antibiotic /antivirals without adjustment. If recurrent fever repeat blood cultures and could consider additional imaging # Ecoli UTI, #09/28 of therapy. Blood cx negative, symptoms resolved. --continue cipro 500mg PO BID. If start coumadin, watch INR, could have BARNWORKER GROOM toxicity as well # Leukopenia due to UTI/influenza resolved # thrombocytopenia: multifactorial, improved # Influenza B #08/23 of tamiflu. Certainly tamiflu could cause some BARNWORKER GROOM toxicity, but with ongoing mild hypoxia would tolerate side effect for now. # underlying Metastatic adeno CA, colon primary # PE meds Tamiflu 75mg PO BID cipro 500mg PO BID #06/27 Microbiology 07/22 urine culture 100,000 E coli 07/21, 07/20 blood cultures 2 set each day no growth to date Subjective: patient does not feel he is that confused and is upset that staff is characterizing him as confused. He wants to take his multiple important conference call tomorrow no BM Objective: Vital Signs Temp Pulse Resp BP Pulse Ox 37.1 C 77 16 174/101 H 98 07/25/17 08:29 07/25/17 09:25 07/25/17 09:25 07/25/17 08:29 07/25/17 09:25 Microbiology 07/22/17 10:45 Urine Culture - Final Urine,Clean Catch Escherichia Coli Laboratory Results 07/25/17 09:35 07/24/17 07/25/17 07/26/17 05:59 05:59 05:59 Intake Total 3667 875 Output Total 525 300 Balance 3142 575 - Physical Exam General Appearance: alert, no apparent distress EENT: dry mucous membranes, No thrush Respiratory: crackles (L base but less so today), No respiratory distress, No accessory muscle use Neck: supple Cardiac/Chest: regular rate, rhythm, systolic murmur Extremities: No pedal edema Abdomen: normal bowel sounds, non-tender, soft, distended, No peritoneal signs Male Genitalia: No ceballos Skin: pallor, No jaundice, No rash Neuro/Psych: no motor/sensory deficits, alert, normal mood/affect, oriented x 3 , No facial droop, No motor weakness, No sensory deficit - Time Spent With Patient Time Spent with Patient: greater than 35 minutes (Care coordinated with Dr Moore and Dr Hoff) Time Spent with Patient: Greater than 35 minutes spent on this patients care, greater than 50% of time spent counseling, educating, and coordinating care regarding the above mentioned plan. ICD10 Worksheet Patient Problems: Problems Problem Status Onset Metastatic colon cancer to liver Acute Pulmonary embolism Acute Hip arthritis Acute Hip dislocation, left Acute
[2017-07-25] MEDS: ENOXAPARIN 100 MG/ML SYR SC SCH ×2 (10:26→20:28)
--- NOTE | 2017-07-25 11:49 | SOAPPROG ---
SOAP Progress Note Assessment/Plan: 71 yo with newly diagnosed metastatic colon cancer. Admitted with PE. * Delirium: likely multifactorial (influenza, UTI, cipro, Tamiflu, pain meds). Doubt RADIOGRAPHIC TECHNOLOGIST mets, but recommend MRI. * Pulmonary embolism: Lovenox, d/c on Xarelto or Eliquis if insurance will cover. * Influenza B: Tamiflu. * UTI: pansensitive E coli. * Metastatic colon cancer (liver): Eventual XELOX+Avastin. I called his with detailed message about plans for today. d/w Dr. Moore and Dr. Pfeiffer. 07/25/17 11:46 Subjective: He thinks others are overestimating his confusion, but he acknowledges there has been some. No BM. Very concerned about being out of the hospital tomorrow for several conference calls. O: VS reviewed, fever overnight. Gen: alert, appropriate. Lungs: breathing comfortably. Abd: distended, soft. Neuro: nonfocal. Laboratory Tests 07/25/17 07/25/17 07/25/17 09:35 09:35 09:35 WBC 6.69 Hgb 12.8 L Plt Count 125 L PT 13.5 INR 1.01 APTT 33.7 Fibrinogen 587 H D-Dimer 6.11 H Sodium 145 Potassium 4.6 Chloride 105 Carbon Dioxide 28 Anion Gap 12 BUN 8 Creatinine 0.7 Glucose 116 H AST 93 H ALT 104 H Alkaline Phosphatase 327 H Objective: Vital Signs Temp Pulse Resp BP Pulse Ox 37.1 C 77 16 174/101 H 98 07/25/17 08:29 07/25/17 09:25 07/25/17 09:25 07/25/17 08:29 07/25/17 09:25 Microbiology 07/22/17 10:45 Urine Culture - Final Urine,Clean Catch Escherichia Coli Laboratory Results 07/25/17 09:35 07/25/17 09:35 07/24/17 07/25/17 07/26/17 05:59 05:59 05:59 Intake Total 3667 875 Output Total 525 300 Balance 3142 575 PT 13.5 SEC (12.0-15.0) 07/25/17 09:35 INR 1.01 (0.83-1.16) 07/25/17 09:35 ICD10 Worksheet Patient Problems: Problems Problem Status Onset Metastatic colon cancer to liver Acute Pulmonary embolism Acute Hip arthritis Acute Hip dislocation, left Acute
[2017-07-25] MEDS: MOMETASONE FUROATE EACHNARE SCH (12:28)
[2017-07-25] MEDS ORDERED: GADOBUTROL 10 ML VIAL IVP ONE (12:31)
[2017-07-25] MEDS: OXYCODONE/APAP 5/325 TAB PO PRN ×2 (12:32→20:29)
--- NOTE | 2017-07-25 15:06 | HOSPPROG ---
Hospitalist Progress Note Assessment/Plan: 71 yo M w recently diagnosed Adeno CA presumed colon admitted with CP and found to have b/l PE w mod clot burden # Fever - 38.6 overnight- - continue current clindamycin - continue tamiflu - no additional antibiotics- continue to monitor # sepsis- developed leukopenia and fever during hospital stay - presumed source influenza B and UTI now resolved - WBC 6.6 and afebrile - cont clindamycin - cont tamiflu # Acute confusion/encephalopathy - marked overnight - suspect multifactorial tamiflu/narcotics and acute hospitalization - MRI ordered to rule out metastatic disease # Acute Influenza B - continue tamiflu # Acute PE- CT chest (personally reviewed and interpreted) bilateral PE - cont heparin - ONC recommending NOAc on dc # acute hypoxic respiratory failure- secondary to PE Oxygen saturations 94% on 2 L # UTI- secondary to pansensitive E coli - continue clindamycin # adenoCA: colonoscopy demonstrates cecal mass- pathology pending # CP: attributable to PE neg trop and nonischemic EKG (interp by me) # hyponatremia: mild and resolved # prophylaxis - cont lovenox # dispo- > 2MN - have consulted Physical therapy for recommendations on DC potentially tomorrow Discussed the case with the RN- planning on potential dc tomorrow- MRI today Subjective: persist pain Objective: Vital Signs Temp Pulse Resp BP Pulse Ox 37.1 C 77 16 174/101 H 98 07/25/17 08:29 07/25/17 09:25 07/25/17 09:25 07/25/17 08:29 07/25/17 09:25 Microbiology 07/22/17 10:45 Urine Culture - Final Urine,Clean Catch Escherichia Coli Laboratory Results 07/25/17 09:35 07/25/17 09:35 07/24/17 07/25/17 07/26/17 05:59 05:59 05:59 Intake Total 3667 875 Output Total 525 300 Balance 3142 575 PT 13.5 SEC (12.0-15.0) 07/25/17 09:35 INR 1.01 (0.83-1.16) 07/25/17 09:35 - Physical Exam Constitutional: no apparent distress Eyes: anicteric sclera Ears, Nose, Mouth, Throat: moist mucous membranes Cardiovascular: regular rate and rhythym Respiratory: no respiratory distress Gastrointestinal: normoactive bowel sounds Genitourinary: no bladder fullness Skin: warm Musculoskeletal: No asymmetric calves Neurologic: AAOx3 Psychiatric: No encephalopathic Lymph, Heme, Immunologic: no cervical LAD ICD10 Worksheet Patient Problems: Problems Problem Status Onset Metastatic colon cancer to liver Acute Pulmonary embolism Acute Hip arthritis Acute Hip dislocation, left Acute
[2017-07-25] MEDS: CYCLOBENZAPRINE 10 MG TAB PO SCH (20:29)
[2017-07-26] MEDS: CEPACOL LOZENGE PO PRN (04:23)
[2017-07-26] MEDS: OXYCODONE/APAP 5/325 TAB PO PRN ×2 (04:23→08:49)
[2017-07-26] MEDS: guaiFENesin/CODEINE PHOS 10 ML UDCUP PO PRN ×2 (04:23→11:44)
--- NOTE | 2017-07-26 08:38 | SOAPPROG ---
SOAP Progress Note Assessment/Plan: Assessment: 1) Metastatic colon cancer 2) PE 3) Influenza 4) Mild multifactorial confusion (MRI brain negative for metastases) Plan: Patient wants to go home today. He has a f/u appt with Dr. Gutierrez at 2:45, which he wants to keep. His confusion seems better. He has very mild difficulty recalling his hospital admission timeline, but otherwise seems to be doing well. Recommend switching to Xarelto for his PE upon d/c. He will see Dr. Gutierrez today to discuss timing of chemotherapy. Plan d/w patient and Dr. Moore. Patient's questions answered. 07/26/17 08:34 Subjective: Wants to go home today. Pain controlled Objective: Vital Signs Temp Pulse Resp BP Pulse Ox 37.6 C 83 18 169/97 H 93 07/26/17 04:14 07/26/17 04:14 07/26/17 04:14 07/26/17 04:14 07/26/17 04:14 Laboratory Results 07/26/17 04:12 07/25/17 09:35 07/25/17 07/26/17 07/27/17 05:59 05:59 05:59 Intake Total 875 Output Total 300 Balance 575 PT 13.5 SEC (12.0-15.0) 07/25/17 09:35 INR 1.01 (0.83-1.16) 07/25/17 09:35 - Time Spent With Patient Time Spent With Patient: 30 minutes Physical Exam - Physical Exam General Appearance: alert, no apparent distress EENT: PERRL/EOMI Respiratory: lungs clear, other (mild bibasilar crackles) Cardiac/Chest: regular rate, rhythm Abdomen: non-tender, soft Skin: normal color Neuro/Psych: other (As per above) ICD10 Worksheet Patient Problems: Problems Problem Status Onset Metastatic colon cancer to liver Acute Pulmonary embolism Acute Hip arthritis Acute Hip dislocation, left Acute
--- NOTE | 2017-07-26 08:41 | PDHOMEO2F ---
Home Oxygen Face to Face Home Orders: I certify that a physician or a nurse practitioner or physician's phlebotomist medical lab assistant has had a [id number] encounter with this patient on the date of this order due to the diagnosis listed, which relates to the primary reason the patient requires home oxygen. Alternative treatments have been tried, or considered, and deemed ineffective. It is anticipated that supplemental oxygen will result in improvement with treatment. Home oxygen qualifying diagnosis: acute hypoxic resp failure 2/2 pulmonary embolism SpO2 on room air (%): 86 Frequency of home oxygen needed: continuous Home oxygen liters per minute: 2 Home oxygen delivery device: nasal cannula Concentrator: Yes E-tanks for mobility and back up: Yes If ordering portable O2, is the patient mobile in the home?: Yes I certify that, based on these findings, the home oxygen is medically necessary for this patient for the following length of time. Length of time home oxygen needed: 3 months
[2017-07-26] MEDS: ATORVASTATIN CALCIUM 20 MG TAB PO SCH (08:42)
[2017-07-26] MEDS: CHOLECALCIFEROL VIT D3 1,000 UNITS TAB PO SCH (08:42)
[2017-07-26] MEDS: ENOXAPARIN 100 MG/ML SYR SC SCH (08:43)
[2017-07-26] MEDS: CYANO/VITAMIN B12 1000 MCG TAB PO SCH (08:43)
[2017-07-26 09:04] VITALS: BP 162/97; PULSE 71; RESP 17; TEMP 98.2
[2017-07-26] MEDS: OSELTAMIVIR PHOSPHATE 75 MG CAP PO SCH (09:21)
[2017-07-26] MEDS: BUDESONIDE/FORMOTEROL 160/4.5 60 PUFFS/MDI IH SCH (09:36)
[2017-07-26] MEDS: CIPROFLOXACIN 500 MG TAB PO SCH (09:57)
[2017-07-26] MEDS: MOMETASONE FUROATE EACHNARE SCH (09:58)
[2017-07-26 10:05] VITALS: O2SAT 88
--- NOTE | 2017-07-26 10:11 | ASMTLACE ---
LACE Length of stay for Answers: 7-13 days current admission Acuity / Level of Answers: Yes Care: Did the patient have an inpatient admission? Comorbidities - select Answers: Any tumor (including all that apply lymphoma or leukemia) # of Emergency department Answers: 0 visits in the last 6 months Score: 10 Date Signed: 07/26/2017 10:10 AM Electronically Signed By:Nasreen Fairbanks RN
[2017-07-26] MEDS: SENNOSIDES/DOCUSATE SODIUM TAB PO SCH (10:22)
--- NOTE | 2017-07-26 15:03 | GDS ---
[f rep st] DISCHARGE SUMMARY DISCHARGE DIAGNOSES: 1. Newly diagnosed metastatic colon cancer. 2. New diagnosis pulmonary emboli. 3. Sepsis secondary to influenza B and Escherichia coli urinary tract infection. 4. Acute influenza B. 5. Escherichia coli urinary tract infection. 6. Acute hypoxic respiratory failure secondary to pulmonary embolism. 7. Hypovolemic hyponatremia. HISTORY OF PRESENT ILLNESS: A 71-year-old male with a recent diagnosis of adenocarcinoma of the colo n with metastases, who presents with complaints of chest pain. For details of patient's initial presentation please see the history and physical dated 07/19/2017. CONSULTATIVE SERVICES: 1. Infectious Disease. 2. Oncology. HOSPITAL COURSE BY ISSUE: 1. Acute pulmonary emboli. The patient presented with chest pain complaints. CT [facility] confirmed bilateral pulmonary emboli. Patient was initiated on Lovenox therapy and transitioned to Xarelto on the day of disposition. He will continue to follow in the outpatient set ting with Dr. Kuhn, his oncologist. 2. Acute hypoxic respiratory failure secondary to pulmonary emboli. Patient was weaned off oxygen b y the day of disposition. Even with ambulation, he was holding his saturations at 89% or above. 3. Sepsis the patient developed sepsis after arrival to the hospital. The patient had fever and ena kopenia. Presumed source was new diagnosis influenza B and new diagnosis E coli UTI. The patient re ceived fluid resuscitation and had resolution of both his fever and leukopenia during his hospital st [facility]. 4. Acute influenza B. Patient was initiated on Tamiflu as soon as the diagnosis was made and had ra pid improvement in his symptoms. He will complete his last 3 doses of Tamiflu in the outpatient sett ing. 5. E coli UTI. Presumably at risk secondary to his leukopenia with his malignancy. Patient was ini tially initiated on IV antibiotics which were transitioned to ciprofloxacin. Infectious Disease amy mmended the stop date of 07/31/2017. He was provided the last 5 days of treatment to complete at [facility]. 6. Acute confusion/encephalopathy. The patient did have some difficulty with clarity of thought dur ing his hospital stay, thought likely secondary to polypharmacy. Did titrate the patient's pain medi cations to optimize the clarity of his thought. On the day disposition, he is discharging with both Ultram and Percocet to use in the outpatient setting on the days with which he needs to function at w ork. He has been instructed to use Ultram if pain becomes worse. Percocet can be used safely withou t complication. MEDICATIONS AT TIME OF DISPOSITION: Please reference the medication reconciliation printed on 2017. FOLLOWUP APPOINTMENTS: Include with Dr. Kuhn on the day of disposition at 2 p.m. PENDING STUDIES AT TIME OF DICTATION: Include blood cultures drawn 07/21/2017 which are preliminaril y no growth to date. BILLING: I spent greater than 30 minutes in the planning and coordination of this discharge. /[id number]/MODL
--- NOTE | 2017-07-26 17:28 | ASDISCHSUM ---
Discharge Information Plan Status:Home with No Needs Medically Cleared to Leave: Discharge Date:07/26/2017 12:13 PM CM D/C Disposition:Home, Routine, Self-Care ADT D/C Disposition:Home, Routine, Self-Care Projected Discharge Date:07/26/2017 12:13 PM Transportation at D/C: Discharge Delay Reason: Follow-Up Date:07/26/2017 12:13 PM Discharge Slot: Final Diagnosis: Placement Information Patient Contact Information Contact Name:ANT Relationship: Address:[address] Work Phone: City:[facility] Phone: State/Zip Code:[place] [address] Email: Financial Information Financial Class:HMO and PPO Plans Primary Plan Desc:[facility] Primary Plan Number:[id number] Secondary Plan Desc:MEDICARE INPATIENT Secondary Plan Number:[id number] Assessment Information [facility] Progress Note CM Note CM Note Notes: Patient admitted with chest pain, found to have bilateral PEs. Also has recent colon CA diagnosis. He is to have a colonoscopy today. 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 I do not anticipate any discharge needs, but Case Management available should any arise. Date Signed: 07/20/2017 10:25 AM Electronically Signed By:Prema Valdivia RN [facility] CM Progress Note CM Note CM Note Notes: Patient was transferred to the SDU after developing fever and rigors. These have resolved, and he is believed to have Influenza. He had a colonoscopy yesterday, and the results will help guide his chemotherapy treatment. PT evaluated patient yesterday and has discharged him. I still anticipate an independent discharge home with and family when medically stable. CM available for any needs/changes. Date Signed: 07/23/2017 08:37 AM Electronically Signed By:Prema Valdivia RN LACE LACE Length of stay for Answers: 7-13 days current admission Acuity / Level of Answers: Yes Care: Did the patient have an inpatient admission? Comorbidities - select Answers: Any tumor (including all that apply lymphoma or leukemia) # of Emergency department Answers: 0 visits in the last 6 months Score: 10 Date Signed: 07/26/2017 10:10 AM Electronically Signed By:Nasreen Fairbanks RN Case Management Discharge Plan Note Case Management Discharge Discharge Order Complete? Answers: Yes Patient to Obtain Answers: via Family Medications Transportation Arranged Answers: Family/Friends Discharge Comments Notes: Reviewed chart and spoke w/RN. Pt will dc home w/ today, no CM needs. Date Signed: 07/26/2017 10:12 AM Electronically Signed By:Nasreen Fairbanks RN Intervention Information Intervention Type:*IM-Signed Date of Service:07/26/2017 09:49 AM Patient Type:Inpatient Staff Member:Ximena Guzman Hours: Discipline: Severity: Comment:
== END 2017-07-26 12:13 | disposition home or self-care (01) | DRG 175 ==
LOC: F1N 20:12 → F2N 07-21 21:44 → F1N 07-23 11:34
PROVIDERS: ADMIT Hospitalist; ATTEND Hospitalist
PROC: 0DBH8ZX Excision of Cecum, Via Natural or Artificial Opening Endoscopic, Diagnostic (ICD-10-PCS; principal; 2017-07-21 10:45)
DX: I26.99 Other pulmonary embolism without acute cor pulmonale (principal); A41.9 Sepsis, unspecified organism; J96.01 Acute respiratory failure with hypoxia; J10.1 Influenza due to other identified influenza virus with other respiratory manifestations; G92 Toxic encephalopathy; C18.0 Malignant neoplasm of cecum; C78.7 Secondary malignant neoplasm of liver and intrahepatic bile duct; N39.0 Urinary tract infection, site not specified; E87.1 Hypo-osmolality and hyponatremia; E87.2 Acidosis; T40.2X5A Adverse effect of other opioids, initial encounter; T37.5X5A Adverse effect of antiviral drugs, initial encounter; T36.8X5A Adverse effect of other systemic antibiotics, initial encounter; E86.1 Hypovolemia; R91.1 Solitary pulmonary nodule; R50.9 Fever, unspecified; R30.0 Dysuria; K59.00 Constipation, unspecified; D69.6 Thrombocytopenia, unspecified; B96.20 Unspecified Escherichia coli [E. coli] as the cause of diseases classified elsewhere; Z96.643 Presence of artificial hip joint, bilateral; Z87.891 Personal history of nicotine dependence
CPT/HCPCS: 82947-QW; 85520-90; 97116-GP; 97161-GP; 97164-GP; 97165-GO; A9585; G8978-GP-CH; G8979-GP-CH; G8980-GP-CH; G8987-GO-CI; G8988-GO-CI; G8989-GO-CI; J0696; J1644; J1650; J2250; J2543; J3010; J3370; Q9967

== ENCOUNTER 2017-09-05 18:20 | Inpatient (IN) | payer OTHER ==
[2017-09-05] MEDS ORDERED: ACETAMINOPHEN 325 MG TAB PO ONE (18:30)
--- NOTE | 2017-09-05 18:44 | CPEKG ---
Heart Rate: 105 RR Interval: 571 P-R Interval: 156 QRSD Interval: 90 QT Interval: 336 QTC Interval: 445 P [place]: 47 QRS [place]: 29 T Wave [place]: 43 EKG Severity - ABNORMAL ECG - EKG Impression: SINUS TACHYCARDIA Electronically Signed By: Kelin Caldwell 05-Sep-2017 19:25:02
[2017-09-05 18:51] LABS: PLATELET COUNT 219 10^3/uL (150-400)
--- NOTE | 2017-09-05 18:52 | EDPHY ---
H & P Time Seen by Provider: 09/05/17 18:29 HPI/ROS: CHIEF COMPLAINT: Fever HISTORY OF PRESENT ILLNESS: 71-year-old male with metastatic colon cancer presents with fever. Onset of runny nose and cough yesterday. Associated with a fever of 102 this evening. He also has left-sided abdominal pain. The abdominal pain is moderate in cramping and is associated with nausea, vomiting and diarrhea. Last chemotherapy was 16 days ago. No prior history of similar abdominal pain. REVIEW OF SYSTEMS: Eyes: No visual changes ENT: No sore throat Respiratory: no shortness of breath Cardiac: No chest pain Genitourinary: no dysuria Musculoskeletal: No myalgias Skin: No rash Neurological: No headache, no weakness Psychiatric: No depression Past Medical/Surgical History: Stage IV colon cancer Social History: No recent alcohol Smoking Status: Never smoked Physical Exam: General Appearance: Alert, nontoxic-appearing Eyes: Pupils equal and round, no conjunctival pallor or injection ENT, Mouth: Oral thrush, mucous membranes moist Neck: Normal inspection Respiratory: Lungs are clear to auscultation Cardiovascular: Regular rate and rhythm Gastrointestinal: Abdomen is soft, left lower quadrant tenderness Neurological: A&O, nonfocal exam Skin: Warm and dry, no rash Extremities: Normal inspection Psychiatric: Flat affect Constitutional: Initial Vital Signs Temperature (C) 36.7 C 09/05/17 18:24 Heart Rate 118 H 09/05/17 18:24 Respiratory Rate 20 09/05/17 18:24 Blood Pressure 120/80 09/05/17 18:24 O2 Sat (%) 98 09/05/17 18:24 O2 Delivery Mode Nasal Cannula Allergies/Adverse Reactions: No Known Allergies Allergy (Verified 07/31/17 19:56) Home Medications: Medication Instructions Recorded Atorvastatin Calcium [Lipitor 20 20 mg PO DAILY 07/19/17 mg (*)] Budesonide/Formoterol 160/4.5 2 puffs IH BID 07/19/17 [Symbicort 160-4.5 Mcg Inh (*)] Cholecalciferol Vit D3 [Vitamin D3 1,000 units PO DAILY 07/19/17 (*)] Cyanocobalamin [Vitamin B12 (*)] 1,000 mcg PO DAILY 07/19/17 Cyclobenzaprine [Flexeril 10 MG 10 mg PO HS 07/19/17 (*)] Mometasone Furoate 1 spray EACHNARE DAILY 07/19/17 Tadalafil [Cialis] 5 mg PO DAILY 07/19/17 Rivaroxaban [Xarelto 15mg (*)] 15 mg PO BID #42 tab 07/26/17 oxyCODONE/APAP 5/325 [Percocet 1 tab PO Q4HRS PRN #30 tab 07/26/17 5/325 (*)] traMADol [Ultram 50 mg (*)] 50 mg PO TID PRN #90 tab 07/26/17 Capecitabine [Xeloda] 2,000 mg PO BID 07/31/17 Diphenoxylate HCl/Atropine 1 tab PO DAILY PRN 07/31/17 [Diphenoxylate-Atrop 2.5-0.025] Prochlorperazine Maleate 5 mg PO TID PRN 07/31/17 [Compazine 5mg (*)] Sennosides/Docusate Sodium 1 - 2 tab PO BID PRN 07/31/17 [Senokot-S] traZODone [traZODONE 50MG (*)] 50 mg PO HS PRN 07/31/17 Albuterol [Proventil Inhaler HFA 2 puffs IH Q4HRS PRN #1 mdi 08/08/17 (*)] Benzonatate [Tessalon Pearles] 200 mg PO TID #60 cap 08/08/17 Gabapentin 600 mg PO BID #60 tablet 08/08/17 guaiFENesin [Mucinex 600 MG (*)] 600 mg PO BID #60 tab.er 08/08/17 Medical Decision Making - Diagnostics EKG Interpretation: EKG interpreted by me reveals sinus tachycardia, rate 105, slight ST segment depression in lead V3 and V4. Similar to prior EKG in Jun 2017. Imaging Results: Imaging Impressions Chest X-Ray 09/05/17 18:30 Impression: No active cardiopulmonary disease seen. Abdomen CT 09/05/17 19:08 Impression: 1. Scattered loops of small bowel demonstrating moderate thickening without evidence for obstruction. Consider enteritis. 2. Extensive hepatic metastatic disease once again noted similar to the prior study. 3. No evidence of intra-abdominal abscess, bowel obstruction, or significant ascites. Findings discussed with Kelin Caldwell M.D. at 19:57 hour, 09/05/2017. Chest x-ray independently reviewed by me reveals no infiltrate. ED Course/Re-evaluation: This patient presents with fever. Other symptoms include vomiting, diarrhea, left lower quadrant pain and URI symptoms. He is not neutropenic. Chest x-ray is unremarkable and there is no evidence of pneumonia. Respiratory pathogen panel ordered. IV fluids given for tachycardia and clinical signs of dehydration. CT scan of the abdomen pelvis reveals small bowel enteritis, without evidence of diverticulitis or abscess. He meets SIRS criteria with tachycardia and fever. Initial lactate is 1.5. No antibiotics given in the emergency department, as there is no clear indication. The hospitalist service was consulted for admission. Differential Diagnosis: Differential diagnosis includes pyelonephritis, cholecystitis, influenza, cellulitis, pneumonia, abscess, meningitis. - Data Points Laboratory Results: Laboratory Results 09/05/17 18:39 09/05/17 18:39 09/05/17 09/05/17 09/05/17 19:32 18:39 18:39 WBC 3.19 10^3/uL L 10^3/uL (3.80-9.50) RBC 4.49 10^6/uL 10^6/uL (4.40-6.38) Hgb 14.3 g/dL g/dL (13.7-17.5) Hct 41.8 % % (40.0-51.0) MCV 93.1 fL fL (81.5-99.8) MCH 31.8 pg pg (27.9-34.1) MCHC 34.2 g/dL g/dL (32.4-36.7) RDW 15.9 % H % (11.5-15.2) Plt Count 219 10^3/uL 10^3/uL (150-400) MPV 10.0 fL fL (8.7-11.7) Neut % (Auto) Not Reported Lymph % (Auto) Not Reported [place] % (Auto) Not Reported Eos % (Auto) Not Reported Baso % (Auto) Not Reported Nucleat RBC Rel Count 0.0 % % (0.0-0.2) Absolute Neuts (auto) Not Reported Absolute Lymphs (auto) Not Reported Absolute Monos (auto) Not Reported Absolute Eos (auto) Not Reported Absolute Basos (auto) Not Reported Absolute Nucleated RBC 0.00 10^3/uL 10^3/uL (0-0.01) Immature Gran % Not Reported Seg Neutrophils % 36 % % Band Neutrophils % 15 % % Lymphocytes % 31 % % Monocytes % 16 % % Basophils % 2 % % Immature Gran # Not Reported Absolute Seg Neuts 1.15 10^/uL L 10^/uL (1.70-6.50) Absolute Band Neuts 0.48 10^3/uL 10^3/uL (0.00-0.70) Absolute Lymphocytes 0.99 10^3/uL L 10^3/uL (1.00-3.00) Absolute Monocytes 0.51 10^3/uL 10^3/uL (0.30-0.80) Absolute Basophils 0.06 10^3/uL 10^3/uL (0.02-0.10) RBC/WBC/PLT Morphology NORMAL (NORMAL) Platelet Estimate ADEQUATE (ADEQ) VBG Lactic Acid Sodium 132 mEq/L L mEq/L (135-145) Potassium 4.5 mEq/L mEq/L (3.5-5.2) Chloride 97 mEq/L mEq/L (97-110) Carbon Dioxide 24 mEq/l mEq/l (22-31) Anion Gap 11 mEq/L mEq/L (8-16) BUN 27 mg/dL H mg/dL (7-23) Creatinine 0.8 mg/dL mg/dL (0.7-1.3) Estimated GFR > 60 Glucose 122 mg/dL H mg/dL (70-100) Calcium 8.2 mg/dL L mg/dL (8.5-10.4) Specimen Hemolysis 102 Urine Color YELLOW Urine Appearance HAZY Urine pH 5.0 (5.0-7.5) Ur Specific [place] > 1.035 H (1.002-1.030) Urine Protein NEGATIVE (NEGATIVE) Urine Ketones NEGATIVE (NEGATIVE) Urine Blood NEGATIVE (NEGATIVE) Urine Nitrate NEGATIVE (NEGATIVE) Urine Bilirubin NEGATIVE (NEGATIVE) Urine Urobilinogen NEGATIVE EU EU (0.2-1.0) Ur Leukocyte Esterase NEGATIVE (NEGATIVE) Urine Glucose NEGATIVE (NEGATIVE) 09/05/17 18:39 WBC RBC Hgb Hct MCV MCH MCHC RDW Plt Count MPV Neut % (Auto) Lymph % (Auto) [place] % (Auto) Eos % (Auto) Baso % (Auto) Nucleat RBC Rel Count Absolute Neuts (auto) Absolute Lymphs (auto) Absolute Monos (auto) Absolute Eos (auto) Absolute Basos (auto) Absolute Nucleated RBC Immature Gran % Seg Neutrophils % Band Neutrophils % Lymphocytes % Monocytes % Basophils % Immature Gran # Absolute Seg Neuts Absolute Band Neuts Absolute Lymphocytes Absolute Monocytes Absolute Basophils RBC/WBC/PLT Morphology Platelet Estimate VBG Lactic Acid 1.5 mmol/L mmol/L (0.7-2.1) Sodium Potassium Chloride Carbon Dioxide Anion Gap BUN Creatinine Estimated GFR Glucose Calcium Specimen Hemolysis Urine Color Urine Appearance Urine pH Ur Specific [place] Urine Protein Urine Ketones Urine Blood Urine Nitrate Urine Bilirubin Urine Urobilinogen Ur Leukocyte Esterase Urine Glucose Medications Given: Discontinued Medications Acetaminophen (Tylenol) 650 mg PO EDNOW ONE Stop: 09/05/17 18:31 Last Admin: 09/05/17 18:51 Dose: 650 mg Departure - Departure Disposition: Home, Routine, Self-Care Clinical Impression: Metastatic colon cancer to liver Fever Qualifiers: Fever type: due to other condition Qualified Code(s): R50.81 - Fever presenting with conditions classified elsewhere Condition: Fair Referrals: An Prado MD [Primary Care Provider] - As per Instructions
[2017-09-05] MEDS ORDERED: IOPAMIDOL (ISOVUE-300) 100 ML BTL ONE (19:12)
[2017-09-05] MEDS ORDERED: NS 1,000 ML IV ONE ×2 (20:01→20:09)
[2017-09-05] MEDS ORDERED: ONDANSETRON DISINTEGRATING 4 MG TAB PO PRN (20:09)
--- NOTE | 2017-09-05 21:28 | GHP ---
[f rep st] HISTORY AND PHYSICAL DATE OF ADMISSION: 09/05/2017 CHIEF COMPLAINT: Abdominal pain, vomiting, diarrhea. HISTORY OF PRESENT ILLNESS: A 71-year-old male with a recent diagnosis of metastatic colon cancer wh o presents with sudden onset of fever, nausea and diarrhea the day of presentation. The patient is i n a cycle of chemotherapy currently, reports that he completed his Xeloda approximately 3 days ago, w hen he woke up this morning and noted fever using his home thermometer was measuring 103 degrees. Th e patient then developed diarrhea x2 and vomiting that he describes as nonbloody. The patient theref ore presented to the emergency department for evaluation. In the ED, he is feeling tired. Denies he adaches, vision changes. Continues to feel feverish. Reports nausea. Has not vomited in the emerge ncy department. Last diarrhea occurred at home. He is having lower abdominal cramping pain. Denies any rashes, lower extremity edema, myalgias. Reports no shortness of breath. A previous cough that he had been suffering from has resolved. Denies any dysuria or hematuria. PAST MEDICAL HISTORY: 1. Metastatic colon cancer, receiving chemotherapy. 2. Bilateral pulmonary emboli, on Xarelto. 3. History of recent E coli sepsis. 4. History of recent influenza B. 5. Chronic pain with continuous opiate dependency. 6. Hyperlipidemia. FAMILY HISTORY: Negative for colon cancer. REVIEW OF SYSTEMS: A 10-point review of systems is negative with the exception of that reported in t he HPI. PHYSICAL EXAMINATION: VITAL SIGNS: Blood pressure is 158/81, heart rate 118, respiratory rate 20, s aturating 95% on room air, febrile at 38.8. GENERAL: This is a thin-appearing middle-aged male. HE ENT: Notable for dry mucous membranes. Eye exam is negative for any icterus. CARDIAC: Patient is tachycardic but regular. PULMONARY: Good respiratory effort. Clear to auscultation bilaterally. G ASTROINTESTINAL: Positive bowel sounds. Patient is markedly tender in the left lower quadrant great er than the right lower quadrant. There is no rebound or guarding. MUSCULOSKELETAL: Negative for a ny lower extremity edema. SKIN: Negative for any rashes. NEUROLOGIC: He is alert and oriented x3. PSYCHIATRIC: He is pleasant and cooperative on interview and examination. DATA: White count 3.19, hematocrit 41.8, platelets 219. Creatinine 0.8, sodium 132, baseline is in the high 130s to 140s. Chest x-ray, which I personally reviewed and interpreted, shows no acute infiltrates or edema. CT of the abdomen, which I personally reviewed and interpreted, does show findings per Radiology cons istent with enteritis. ASSESSMENT AND PLAN: This is a 71-year-old male receiving active chemotherapy presenting with high f ever, nausea, vomiting and diarrhea. 1. Sepsis. Patient is leukopenic with fever and tachycardia. Suspected source is gastrointestinal. Most likely it is a viral pathogen; however, the patient is immunosuppressed with active chemothera py. We will send a gastrointestinal pathogen panel. Until we have the results available, will empir ically treat with antibiotics. We will start levofloxacin 750 daily. It appears that there is an in teraction between the patient's Xeloda and metronidazole, so I will hold on using this empirically un til we establish the need for its use to avoid any potential dangerous interactions. 2. Hypovolemic hyponatremia. We will fluid resuscitate with normal saline. Recheck a BMP in the mo rning. 3. Sinus tachycardia secondary to volume depletion. Again, we will fluid resuscitate and follow the patient's vital signs. 4. Fever. Although patient's symptoms are gastrointestinal in nature, blood cultures have been draw n from the emergency department. Urinalysis is negative and a respiratory pathogen PCR is negative. Again, will empirically start antibiotics with levofloxacin for suspected gastrointestinal source tr eating most common Gram-negative pathogens until we have a viral panel result. 5. History of bilateral pulmonary emboli. Will continue patient's anticoagulation. 6. Metastatic colon cancer. Patient is 4 days away from his most recent Xeloda dose. He reports th yosef symptoms are different from his experience in the last round. Will make Oncology aware of his ho spitalization and follow his clinical progression closely. 7. Prophylaxis. On full-dose anticoagulation. 8. Diet. Regular as he can tolerate. DISPOSITION: I expect greater than 2 midnights as the patient is presenting with sepsis requiring IV fluid resuscitation, antibiotics and supportive care. I have discussed the case with the emergency room physician. Patient will be triaged to [address] [place] [address] for medical care. /[id number]/MODL
[2017-09-05] MEDS ORDERED: traZODone 50 MG TAB PO PRN (22:12)
[2017-09-05] MEDS: NS 1,000 ML IV SCH (22:21)
[2017-09-05] MEDS: CYCLOBENZAPRINE 10 MG TAB PO PRN (22:23)
[2017-09-05] MEDS: traMADol 50 MG TAB PO PRN (22:23)
[2017-09-06] MEDS: ACETAMINOPHEN 325 MG TAB PO PRN ×2 (02:34→22:44)
[2017-09-06] MEDS: traMADol 50 MG TAB PO PRN ×2 (04:37→10:59)
[2017-09-06 04:40] LABS: PLATELET COUNT 146 10^3/uL (150-400)
--- NOTE | 2017-09-06 08:32 | PDMN ---
Medical Necessity Medical necessity: M160 sepsis and other febrile illness- - leukopenia with fever and tachycardia, new onset diarrhea,nausea. pt currently on chemo with recent colon Ca Dg., anticipate > 2 midnights ongoing med nec care, monitoring and tx.
[2017-09-06] MEDS: NS 1,000 ML IV SCH (10:07)
--- NOTE | 2017-09-06 10:15 | ASMTCMCOM ---
CM Note CM Note Notes: Chart reviewed. 71 tear old male admitted via ED for fever, nausea and vomiting Complex medical history including colon cancer. Last discharged from hospital without needs. Needs at this time still to be determined. CM to follow. Date Signed: 09/06/2017 10:14 AM Electronically Signed By:Madelin Rivera RN
--- NOTE | 2017-09-06 15:02 | GCON ---
[f rep st] CONSULTATION ONCOLOGY INITIAL VISIT PRIMARY ONCOLOGIST: Jere Gutierrez MD REASON FOR CONSULTATION: Evaluation and management for metastatic colon cancer. HISTORY OF PRESENT ILLNESS: The patient is a 71-year-old gentleman who was diagnosed in June 2017 with metastatic colon cancer from the cecum with multiple liver metastases. Apparently, he presented with right upper quadrant pain after a fall and a CT scan showed metastatic lesions in the liver too numerous to count. There was also compression of intrahepatic IVC and circumferential thickening of the cecum below the ileocecal valve. Biopsy revealed metastatic mucinous adenocarcinoma. He did have a colonoscopy on July 21. He had a cecal mass that was nonobstructing, partially circumferential, measuring 8 cm in length. Biopsy of the colon I believe showed the same. He was admitted to the hospital last night after having a 2-day history of abdominal cramping and diarrhea. He also had a fever and associated nausea. He finished his 2nd cycle of Xeloda about 3-4 days ago and had a hospitalization after the 1st cycle, very similarly. He did not have diarrhea during chemotherapy. He did have pain in his feet and hands, but no skin changes on his palm or soles. Now, he has some numbness in his feet. He has been feeling very weak over the weekend. He was brought in to the emergency room and his white count was a little borderline, ANC 1100 with 500 bands. He was started on antibiotics and hydration. He is feeling a little bit better, but still having a lot of cramping. He has been trying to eat a smoothie and had some peaches. The cramping is across his abdomen and not any specific focal areas. ALLERGIES: He has no known drug allergies. MEDICATIONS: Home medications include Symbicort, albuterol, gabapentin, Lomotil , Flexeril, B12, vitamin D, Compazine, guaifenesin, Senokot, tramadol, oxycodone , trazodone, Xarelto, and capecitabine. PAST MEDICAL HISTORY: Chronic illnesses include: 1. Colon cancer as described above. 2. Bilateral pulmonary emboli. 3. Recent E coli UTI and sepsis with recent influenza, I believe in July. 4. Chronic pain. 5. Dyslipidemia. PAST SURGICAL HISTORY: Includes bilateral hip replacements, left in November 2016, right in June 2016. FAMILY HISTORY: Noncontributory. SOCIAL HISTORY: He is , lives with his . He worked in [employer] for years. Nonsmoker. Only occasional alcohol use. REVIEW OF SYSTEMS: A 10-point review of systems was performed. Pertinent positives are as per HPI, otherwise negative. PHYSICAL EXAM: VITAL SIGNS: Last night, his temperature was 38.6 2, currently it is 36.8, pulse 91, blood pressure 126/76. GENERAL: He is in no distress, but occasionally he is uncomfortable from the abdominal cramping. HEENT: Unremarkable. LUNGS: Clear. CARDIAC: Regular. ABDOMEN: Soft, mildly distended and diffusely tender, but no rebound. Bowel sounds are diminished. SKIN: No erythema on the hands or feet. NEUROLOGIC: Grossly intact. LABORATORY DATA: Labs when he came in: White count was 3200, hemoglobin was 14.3, platelet count 219. ANC at that time was about 1700. Today, white count is 2400, hemoglobin is 11.2, platelet count 146,000, ANC is just over 1000. Chemistries: Sodium is little low at 132, but otherwise unremarkable. UA was unremarkable, except for elevated specific gravity. Micro respiratory panel is negative. Blood cultures are pending. Scan, which I reviewed, showed: 1. Scattered loops of small bowel demonstrating moderate thickening without evidence of obstruction, concerning for enteritis. 2. Extensive hepatic metastatic disease. Per the radiologist, appeared stable , but thought the tumors looked smaller. For example: A large area of the mass in the mid to left went from about 14.5 cm down to about 9.5 cm. Another tumor in the right lobe of his liver went from 5.5 cm to 4.5 cm. Another one in the left posterior lobe went from 8 cm to 6 cm. IMPRESSION: 1. Enterocolitis. 2. Mild neutropenia number. 3. Metastatic colon cancer. I wonder if the enterocolitis is just related to some neutropenia from chemotherapy. There is no sign of perforation or obstruction. He is having some pain in the hands and feet after the chemotherapy, but seems more consistent with neuropathy rather than hand-foot syndrome. Currently, he is doing okay, but is still having a lot of cramping. I recommend he stay mostly on bowel rest for another day or so to allow the antibiotics to work. Hopefully, his blood counts will continue to improve. Often, have to use an antibiotic with aerobic and anaerobic coverage such as meropenem, or add Flagyl, to get full coverage. I might go ahead and switch him , since he last received the Levaquin last night. Otherwise, we will follow along with you while in the hospital. /[id number]/MODL MTDD
--- NOTE | 2017-09-06 15:40 | HOSPPROG ---
Hospitalist Progress Note Assessment/Plan: DIAGNOSES: -acute enterocolitis, suspect neutropenic enteritis versus other -neutropenic fever -pancytopenia due to Xeloda -metastatic colon cancer At this point he remains in exquisite pain, still having intermittent high fevers Still having some stools and some emesis Of discuss patient with Dr. Ring today PLANS: Continue antibiotics Continue IV hydration Will need to increase his pain medicine at this point Follow cell counts closely, no indication for transfusion at this time but that may arise while he is here It will be very important to get his stool pathogen panel done as we still need to rule out C difficile colitis, will review with the nurses to and patient to make sure that we get a stool sample collected into the lab as soon as possible Agree with Dr. Ring that bowel rest will be most useful Given the patient's marked good and decreasing neutropenia he is at high risk of intestinal complication will need to be watched very closely SUBJECTIVE: Patient still having diffuse severe intestinal colic Did pass some liquid stool and had some emesis today, no bleeding Occasional chills No shortness of breath OBJECTIVE Vitals reviewed: T-max so far today 38.6, vitals otherwise stable at the moment Brim Plater, my review: Exam: alert oriented looks quite uncomfortable skin warm dry color ok resps not labored lungs clear BSs heart regular abd soft nondistended diffusely quite tender worse in the lower abdomen, no rebound and no palpable abnormality, bowel sounds present limbs warm, no edema iv site ok Microbiology data: We have not been able to get a stool pathogen panel yet Laboratory data: All cell counts are down somewhat today and is now pancytopenic, ANC 410 Metabolic panel stable Objective: Vital Signs Temp Pulse Resp BP Pulse Ox 36.8 C 91 18 126/76 H 96 09/06/17 12:49 09/06/17 12:49 09/06/17 12:49 09/06/17 12:49 09/06/17 12:49 Laboratory Results 09/06/17 04:22 09/06/17 04:22 09/05/17 09/06/17 09/07/17 06:59 06:59 06:59 Output Total 300 400 Balance -300 -400 ICD10 Worksheet Patient Problems: Problems Problem Status Onset Fever Acute Metastatic colon cancer to liver Acute Hip arthritis Acute Hip dislocation, left Acute Hypoxia Acute Pneumonia Acute Pulmonary embolism Acute
[2017-09-06] MEDS ORDERED: NALOXONE HCL 0.4 MG/ML INJ IVP PRN (16:39)
[2017-09-06] MEDS: morphINE PCA 30 MG/30 ML PCA IV PRN (17:01)
[2017-09-06] MEDS ORDERED: NON-FORMULARY NEW DRUG (Gabapentin [Gabapentin] 600 MG) PO SCH (21:00)
[2017-09-06] MEDS: GABAPENTIN 300 MG CAP PO SCH (21:04)
[2017-09-06] MEDS: MEROPENEM 1 GM in STERILE WATER INJ 20 ML IV SCH (21:05)
[2017-09-06] MEDS: BUDESONIDE/FORMOTEROL 160/4.5 60 PUFFS/MDI IH SCH (21:16)
[2017-09-07 05:04] LABS: PLATELET COUNT 159 10^3/uL (150-400)
[2017-09-07] MEDS: ONDANSETRON 4 MG/2 ML VIAL IVP PRN (05:24)
[2017-09-07] MEDS: NS 1,000 ML IV SCH ×2 (05:25→15:32)
[2017-09-07] MEDS: MEROPENEM 1 GM in STERILE WATER INJ 20 ML IV SCH ×3 (05:27→21:21)
[2017-09-07] MEDS: ACETAMINOPHEN 325 MG TAB PO PRN (05:35)
[2017-09-07] MEDS: GABAPENTIN 300 MG CAP PO SCH ×2 (09:40→21:21)
[2017-09-07] MEDS: BUDESONIDE/FORMOTEROL 160/4.5 60 PUFFS/MDI IH SCH ×2 (09:46→20:33)
[2017-09-07] MEDS: MOMETASONE FUROATE EACHNARE SCH (10:06)
[2017-09-07] MEDS: morphINE PCA 30 MG/30 ML PCA IV PRN (12:30)
--- NOTE | 2017-09-07 14:29 | SOAPPROG ---
SOAP Progress Note Assessment/Plan: E&M Colon Cancer * Metastatic Colon Cancer: day 20 Cycle 2 of Xelox + [place]. CT and tumor markers show evidence of response. 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 Had long talk with him and his , who is my patient. They are considering transferring care to me. He is due for chemo this week but he needs to recover first. Subjective: Had larger, firm stool yesterday then multiple loose stools. Pain and cramping better but not gone. Doing ok with clear liquids. Objective: Vital Signs Temp Pulse Resp BP Pulse Ox 37.2 C 90 17 126/67 H 97 09/07/17 14:20 09/07/17 14:20 09/07/17 14:20 09/07/17 14:20 09/07/17 14:20 Microbiology 09/07/17 02:00 Gastrointestinal Tract Panel (PCR) - Final Stool No Organism Detected Laboratory Results 09/07/17 04:36 09/07/17 04:36 09/06/17 09/07/17 09/08/17 05:59 05:59 05:59 Intake Total 1902 Output Total 300 925 200 Balance -300 977 -200 - Time Spent With Patient Time Spent With Patient: >35 min Physical Exam - Physical Exam General Appearance: no apparent distress Respiratory: lungs clear Cardiac/Chest: regular rate, rhythm Abdomen: normal bowel sounds, soft, No non-tender (more in RUQ and RLQ; no guarding or rebound) ICD10 Worksheet Patient Problems: Problems Problem Status Onset Fever Acute Metastatic colon cancer to liver Acute Hip arthritis Acute Hip dislocation, left Acute Hypoxia Acute Pneumonia Acute Pulmonary embolism Acute
--- NOTE | 2017-09-07 15:15 | HOSPPROG ---
Hospitalist Progress Note Assessment/Plan: DIAGNOSES: -acute enterocolitis, suspect neutropenic enteritis versus other -neutropenic fever -pancytopenia due to Xeloda -metastatic colon cancer At this point he remains in significant pain, still having fevers I reviewed patient with Dr. Ring today PLANS: Continue antibiotics Continue IV hydration Continue pain management Follow cell counts closely, no indication for transfusion at this time but that may arise while he is here Agree with Dr. Ring that bowel rest will be most useful Given the patient's marked good and decreasing neutropenia he is at high risk of intestinal complication will need to be watched very closely SUBJECTIVE: Patient still having diffuse severe intestinal colic Did pass some liquid stool and had some emesis today, no bleeding Occasional chills No shortness of breath OBJECTIVE Vitals reviewed: T-max so far today 37.8, vitals otherwise stable at the moment Ciso, my review: Exam: alert oriented looks somewhat more comfortable but still notably appears in some pain skin warm dry color ok resps not labored lungs clear BSs heart regular abd soft nondistended, still somewhat tender worse in the lower abdomen, no rebound and no palpable abnormality, bowel sounds present limbs warm, no edema iv site ok Microbiology data: GI pathogen panel negative Blood cultures negative to date Laboratory data: ANC now 140, other cell counts overall increasing Metabolic panel stable Objective: Vital Signs Temp Pulse Resp BP Pulse Ox 37.2 C 90 17 126/67 H 97 09/07/17 14:20 09/07/17 14:20 09/07/17 14:20 09/07/17 14:20 09/07/17 14:20 Microbiology 09/07/17 02:00 Gastrointestinal Tract Panel (PCR) - Final Stool No Organism Detected Laboratory Results 09/07/17 04:36 09/07/17 04:36 09/06/17 09/07/17 09/08/17 06:59 06:59 06:59 Intake Total 1902 Output Total 300 925 200 Balance -300 977 -200 - Time Spent With Patient Time Spent with Patient: greater than 35 minutes Time Spent with Patient: Greater than 35 minutes spent on this patients care, greater than 50% of time spent counseling, educating, and coordinating care regarding the above mentioned plan. ICD10 Worksheet Patient Problems: Problems Problem Status Onset Fever Acute Metastatic colon cancer to liver Acute Hip arthritis Acute Hip dislocation, left Acute Hypoxia Acute Pneumonia Acute Pulmonary embolism Acute
[2017-09-07] MEDS: RIVAROXABAN 20 MG TAB PO SCH (17:10)
[2017-09-07] MEDS: guaiFENesin 600 MG TAB.ER PO SCH (21:21)
[2017-09-07] MEDS: CYCLOBENZAPRINE 10 MG TAB PO PRN (22:30)
[2017-09-08 04:59] LABS: PLATELET COUNT 189 10^3/uL (150-400)
[2017-09-08] MEDS: MEROPENEM 1 GM in STERILE WATER INJ 20 ML IV SCH ×3 (06:12→21:29)
[2017-09-08] MEDS: ALBUTEROL 60 PUFFS/8 GM MDI IH PRN ×2 (10:31→21:24)
[2017-09-08] MEDS: BUDESONIDE/FORMOTEROL 160/4.5 60 PUFFS/MDI IH SCH ×2 (10:35→21:25)
[2017-09-08] MEDS: GABAPENTIN 300 MG CAP PO SCH ×2 (10:37→21:29)
[2017-09-08] MEDS: guaiFENesin 600 MG TAB.ER PO SCH ×2 (10:37→21:29)
[2017-09-08] MEDS: MOMETASONE FUROATE EACHNARE SCH (10:42)
[2017-09-08] MEDS: NS 1,000 ML IV SCH ×2 (11:08→21:11)
[2017-09-08] MEDS: morphINE PCA 30 MG/30 ML PCA IV PRN (11:08)
--- NOTE | 2017-09-08 11:25 | HOSPPROG ---
Hospitalist Progress Note Assessment/Plan: DIAGNOSES: -acute enterocolitis, suspect neutropenic enteritis versus other -neutropenic fever -pancytopenia due to Xeloda -metastatic colon cancer At this point he remains in significant pain, still having low-grade fevers I reviewed patient with Dr. Ring today PLANS: Continue antibiotics Continue IV hydration Continue pain management Follow cell counts closely, no indication for transfusion at this time Agree with Dr. Ring that bowel rest will be most useful Given his continued neutropenia he remains at significant risk for complications , however with his neutrophil count rising hopefully he will become at lower risk over the next couple of days SUBJECTIVE: Patient still having diffuse severe intestinal colic Did pass some liquid stool and had some emesis today, no bleeding Occasional chills No shortness of breath OBJECTIVE Vitals reviewed: T-max so far today 37.7, vitals otherwise stable at the moment [facility], my review: Exam: alert oriented looks somewhat more comfortable but still notably appears in some pain skin warm dry color ok resps not labored lungs clear BSs heart regular abd soft nondistended, still somewhat tender worse in the lower abdomen, no rebound and no palpable abnormality, bowel sounds present limbs warm, no edema iv site ok Microbiology data: GI pathogen panel negative Blood cultures negative to date Laboratory data: ANC now 490, other cell counts overall stable Metabolic panel with mildly low potassium but otherwise stable Radiology: I reviewed images from today's abdominal x-rays, there are a couple of small bowel loops with air-fluid level but not terribly distended otherwise nonspecific bowel gas pattern, nothing that looks like pneumatosis coli (not read yet by radiologist) Objective: Vital Signs Temp Pulse Resp BP Pulse Ox 37.7 C 98 17 108/76 97 09/08/17 10:20 09/08/17 10:20 09/08/17 10:20 09/08/17 10:20 09/08/17 10:20 Microbiology 09/07/17 02:00 Gastrointestinal Tract Panel (PCR) - Final Stool No Organism Detected Laboratory Results 09/08/17 04:46 09/08/17 04:46 09/07/17 09/08/17 09/09/17 06:59 06:59 06:59 Intake Total 1902 4267.8 Output Total 925 900 Balance 977 3367.8 ICD10 Worksheet Patient Problems: Problems Problem Status Onset Fever Acute Metastatic colon cancer to liver Acute Hip arthritis Acute Hip dislocation, left Acute Hypoxia Acute Pneumonia Acute Pulmonary embolism Acute
[2017-09-08] MEDS: FLUTICASONE NASAL 120 SPRAYS/16 GM MDI EACHNARE SCH (12:46)
[2017-09-08] MEDS ORDERED: D10W 1,000 ML IV PRN (12:49)
--- NOTE | 2017-09-08 12:53 | SOAPPROG ---
SOAP Progress Note Assessment/Plan: E&M Colon Cancer * Metastatic Colon Cancer: day 21 Cycle 2 of Xelox + Porsche. CT and tumor markers show evidence of response. * Enteritis: probably related to chemo + neutropenia; continue merrem; recommend backing off to NPO except meds, sips, and chips. Will see if he can start TPN tonight as well. I suspect he will have trouble until the wbc improves. If wbc returns to normal and still not better, then will need to do further investigating. * Febrile Neutropenia: No fever since admission and wbc slowly rising * Chemo toxicity: with 2 admissions for infections, low blood counts, neuropathy and possible H-F syndrome, recommend further therapy dose to be reduced. Had long talk with him and his , who is my patient. They are considering transferring care to me. He is due for chemo this week but he needs to recover first. * Hiccups: will try baclofen Subjective: Still with bloating and now having hiccups. Had multiple stools overnight and this morning. Very watery and mucus. Objective: Vital Signs Temp Pulse Resp BP Pulse Ox 37.7 C 98 17 108/76 97 09/08/17 10:20 09/08/17 10:20 09/08/17 10:20 09/08/17 10:20 09/08/17 10:20 Microbiology 09/07/17 02:00 Gastrointestinal Tract Panel (PCR) - Final Stool No Organism Detected Laboratory Results 09/08/17 04:46 09/08/17 04:46 09/07/17 09/08/17 09/09/17 05:59 05:59 05:59 Intake Total 1902 4267.8 Output Total 925 900 Balance 977 3367.8 Laboratory Tests 09/05/17 09/06/17 09/07/17 18:39 04:22 04:36 WBC 3.19 L 2.44 L 2.80 L Hgb 11.2 L 12.3 L Plt Count 146 L D 159 Absolute Seg Neuts 1.15 L 0.41 L 0.14 L Absolute Band Neuts 0.48 0.63 1.32 H 09/08/17 04:46 WBC 2.73 L Hgb 12.9 L Plt Count 189 Absolute Seg Neuts 0.49 L Absolute Band Neuts 0.46 Physical Exam - Physical Exam General Appearance: no apparent distress EENT: pharynx normal Respiratory: lungs clear Cardiac/Chest: regular rate, rhythm Abdomen: soft, distended, No normal bowel sounds (hyperactive), No non-tender ICD10 Worksheet Patient Problems: Problems Problem Status Onset Fever Acute Metastatic colon cancer to liver Acute Hip arthritis Acute Hip dislocation, left Acute Hypoxia Acute Pneumonia Acute Pulmonary embolism Acute
[2017-09-08 15:18] LABS: PLATELET COUNT 197 10^3/uL (150-400)
[2017-09-08 15:26] LABS: INR 2.17 (0.83-1.16); PROTIME(PATIENT) 24.2 SEC (12.0-15.0)
[2017-09-08] MEDS: BACLOFEN 10 MG TAB PO PRN ×2 (16:54→20:07)
[2017-09-08] MEDS: RIVAROXABAN 20 MG TAB PO SCH (18:54)
[2017-09-08] MEDS: CYCLOBENZAPRINE 10 MG TAB PO PRN (21:29)
[2017-09-09] MEDS: MEROPENEM 1 GM in STERILE WATER INJ 20 ML IV SCH ×3 (05:40→21:07)
[2017-09-09 05:53] LABS: PLATELET COUNT 185 10^3/uL (150-400)
[2017-09-09 05:58] LABS: INR 2.6 (0.83-1.16); PROTIME(PATIENT) 27.8 SEC (12.0-15.0)
[2017-09-09] MEDS: ALBUTEROL 60 PUFFS/8 GM MDI IH PRN ×2 (08:59→20:45)
[2017-09-09] MEDS: GABAPENTIN 300 MG CAP PO SCH ×2 (09:01→19:58)
[2017-09-09] MEDS: FLUTICASONE NASAL 120 SPRAYS/16 GM MDI EACHNARE SCH (09:04)
[2017-09-09] MEDS: BUDESONIDE/FORMOTEROL 160/4.5 60 PUFFS/MDI IH SCH ×2 (09:05→20:46)
[2017-09-09] MEDS: guaiFENesin 600 MG TAB.ER PO SCH ×2 (09:09→19:58)
--- NOTE | 2017-09-09 09:42 | HOSPPROG ---
Hospitalist Progress Note Assessment/Plan: #Neutropenic enterocolitis: Day 3 abx #Metastatic colon cancer: on Day 22 of cycle 2 of Xelox and Porsche #Hiccups: baclofen #Neutropenic fever: none since admission. #Bilateral PE: Xarelto #Diet: BRAT diet #DVT ppx: Xarelto Subjective: no N/V today Objective: Vital Signs Temp Pulse Resp BP Pulse Ox 36.8 C 84 18 138/67 H 99 09/09/17 07:29 09/09/17 08:50 09/09/17 08:50 09/09/17 07:29 09/09/17 08:50 Laboratory Results 09/09/17 04:51 09/09/17 04:51 09/08/17 09/09/17 09/10/17 05:59 05:59 05:59 Intake Total 4267.8 4725 Output Total 900 100 Balance 3367.8 4625 PT 27.8 SEC (12.0-15.0) H 09/09/17 04:51 INR 2.60 (0.83-1.16) H 09/09/17 04:51 - Physical Exam Constitutional: no apparent distress, chronically ill appearing Eyes: PERRL Ears, Nose, Mouth, Throat: moist mucous membranes Cardiovascular: regular rate and rhythym, no murmur, rub, or gallop Respiratory: no respiratory distress, no rales or rhonchi Gastrointestinal: normoactive bowel sounds, distension (mildly distension) Skin: warm Musculoskeletal: full muscle strength Neurologic: AAOx3, CN II-XII Intact ICD10 Worksheet Patient Problems: Problems Problem Status Onset Fever Acute Metastatic colon cancer to liver Acute Hip arthritis Acute Hip dislocation, left Acute Hypoxia Acute Pneumonia Acute Pulmonary embolism Acute
[2017-09-09] MEDS: POTASSIUM Cl (KCl) 10 MEQ in NS 100 ML IV SCH ×4 (10:44→15:27)
--- NOTE | 2017-09-09 12:08 | SOAPPROG ---
SOAP Progress Note Assessment/Plan: E&M Colon Cancer * Metastatic Colon Cancer: day 22 Cycle 2 of Xelox + Porsche. CT and tumor markers show evidence of response. * Enteritis: probably related to chemo + neutropenia; continue merrem; Doing much better and wbc better. Will try a BRAT diet. 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 Had long talk with him and his , who is my patient. They are considering transferring care to me. He is due for chemo this week but he needs to recover first. * Hiccups: better with baclofen Subjective: Feeling much better. Diarrhea is less as well as pain. Hungry. Objective: Vital Signs Temp Pulse Resp BP Pulse Ox 36.5 C 95 16 120/74 97 09/09/17 10:00 09/09/17 10:00 09/09/17 10:00 09/09/17 10:00 09/09/17 10:00 Laboratory Results 09/09/17 04:51 09/09/17 04:51 09/08/17 09/09/17 09/10/17 05:59 05:59 05:59 Intake Total 4267.8 4725 Output Total 900 100 Balance 3367.8 4625 PT 27.8 SEC (12.0-15.0) H 09/09/17 04:51 INR 2.60 (0.83-1.16) H 09/09/17 04:51 Laboratory Tests 09/08/17 09/08/17 09/09/17 04:46 15:00 04:51 WBC 2.73 L 3.16 L 4.53 Absolute Seg Neuts 0.49 L 0.22 L 0.23 L Absolute Band Neuts 0.46 0.98 H 1.99 H Physical Exam - Physical Exam General Appearance: no apparent distress Cardiac/Chest: regular rate, rhythm Abdomen: normal bowel sounds, non-tender, soft ICD10 Worksheet Patient Problems: Problems Problem Status Onset Fever Acute Metastatic colon cancer to liver Acute Hip arthritis Acute Hip dislocation, left Acute Hypoxia Acute Pneumonia Acute Pulmonary embolism Acute
--- NOTE | 2017-09-09 16:16 | ASMTCMCOM ---
CM Note CM Note Notes: Met with pt to discuss DC needs. Pt does not think he will have any needs at DC. CM avalable if needs change. Date Signed: 09/09/2017 04:15 PM Electronically Signed By:Rika Barbour LCSW
[2017-09-09] MEDS: RIVAROXABAN 20 MG TAB PO SCH (17:44)
[2017-09-09] MEDS: BACLOFEN 10 MG TAB PO PRN (20:01)
[2017-09-09] MEDS: CYCLOBENZAPRINE 10 MG TAB PO PRN (20:01)
[2017-09-10] MEDS: BACLOFEN 10 MG TAB PO PRN ×2 (03:02→13:35)
[2017-09-10] MEDS: MEROPENEM 1 GM in STERILE WATER INJ 20 ML IV SCH ×3 (05:14→21:51)
[2017-09-10] MEDS: NS 1,000 ML IV SCH ×2 (05:21→17:43)
[2017-09-10] MEDS: morphINE PCA 30 MG/30 ML PCA IV PRN (06:22)
[2017-09-10] MEDS: guaiFENesin 600 MG TAB.ER PO SCH ×2 (09:30→22:04)
[2017-09-10] MEDS: FLUTICASONE NASAL 120 SPRAYS/16 GM MDI EACHNARE SCH (09:30)
[2017-09-10] MEDS: GABAPENTIN 300 MG CAP PO SCH ×2 (09:30→22:04)
[2017-09-10] MEDS: ONDANSETRON 4 MG/2 ML VIAL IVP PRN (10:18)
[2017-09-10] MEDS: ALBUTEROL 60 PUFFS/8 GM MDI IH PRN (10:41)
[2017-09-10] MEDS: BUDESONIDE/FORMOTEROL 160/4.5 60 PUFFS/MDI IH SCH ×2 (10:41→20:12)
[2017-09-10] MEDS ORDERED: ALTEPLASE 2 MG VIAL IVP PRN (11:26)
[2017-09-10] MEDS ORDERED: D10W 1,000 ML IV PRN (11:26)
--- NOTE | 2017-09-10 11:41 | SOAPPROG ---
SOG[facility] Progress Note Assessment/Plan: E&M Colon Cancer * Metastatic Colon Cancer: day 23 Cycle 2 of Xelox + Porsche. CT and tumor markers show evidence of response. 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 Had long talk with him and his , who is treated by Dr. Ring. They are transferring care to Dr. Ring. He is due for chemo this week but he needs to recover first. * Enteritis: probably related to chemo + neutropenia; continue merrem. Set back from yesterday. Will go back to NPO and start TPN; needs PICC. Check KUB to r/o SBO. Called Dr. Miller to consult. * Febrile Neutropenia: No fever since admission and wbc recovered * Hiccups: probably related to distension; NPO; baclofen prn spent >35 min with patient Subjective: Eating didn't go well with bloating, cramping, and nausea. No vomiting. No diarrhea. Hiccups are back. Objective: Vital Signs Temp Pulse Resp BP Pulse Ox 36.6 C 96 18 149/89 H 93 09/10/17 10:10 09/10/17 10:40 09/10/17 10:40 09/10/17 10:10 09/10/17 10:40 Laboratory Results 09/09/17 04:51 09/09/17 04:51 09/09/17 09/10/17 09/11/17 05:59 05:59 05:59 Intake Total 4725 2637 Output Total 100 450 100 Balance 4625 2187 -100 PT 27.8 SEC (12.0-15.0) H 09/09/17 04:51 INR 2.60 (0.83-1.16) H 09/09/17 04:51 Physical Exam - Physical Exam General Appearance: mild distress (ucomfortable) Respiratory: lungs clear Cardiac/Chest: regular rate, rhythm Abdomen: normal bowel sounds, soft, distended, No rebound ICD10 Worksheet Patient Problems: Problems Problem Status Onset Fever Acute Metastatic colon cancer to liver Acute Hip arthritis Acute Hip dislocation, left Acute Hypoxia Acute Pneumonia Acute Pulmonary embolism Acute
--- NOTE | 2017-09-10 15:27 | PDRADPN ---
Radiology Procedure Note Date of Procedure: 09/10/17 Radiologist: Derek Painting Anesthesia: Local (Specify) Pre-op Diagnosis: infection Post-op Diagnosis: infection Indication: venous access Procedure: DL RUE PICC Finding(s): tip at cavoatrial junction Inf/Abcess present in the surg proc area at time of surgery?: No EBL: Minimal Complications: none
--- NOTE | 2017-09-10 16:28 | ASMTCMCOM ---
CM Note CM Note Notes: Pt placed on TPN. PICC line inserted. It is unclear if pt will remain on TPN at DC. CM will continue to follow for DC needs. Date Signed: 09/10/2017 04:27 PM Electronically Signed By:Rika Barbour LCSW
[2017-09-10 16:42] LABS: PLATELET COUNT 200 10^3/uL (150-400)
[2017-09-10 17:27] LABS: INR 2.24 (0.83-1.16); PROTIME(PATIENT) 24.8 SEC (12.0-15.0)
--- NOTE | 2017-09-10 17:36 | SOAPPROG ---
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 Been having significant watery diarrhea for several days His total WBC has responded and recovered up to 4000 but is ANC is still very low. No blood in his diarrhea. No free air on any of his abdominal x-rays or CT HEENT nonicteric without adenopathy Chest clear Cor regular tachycardia Abdomen soft, mildly distended, diffusely tender along the course of the colon but no real peritoneal signs except possibly in the right lower quadrant/no hernias Extremities full pulses Impression neutropenic colitis without surgical indications at this time Plan: Continue observation/consider microbiology studies if they have not been done and I have not seen them in the chart so for 09/10/17 17:18 Objective: Vital Signs Temp Pulse Resp BP Pulse Ox 36.3 C 94 19 153/85 H 98 09/10/17 15:31 09/10/17 15:31 09/10/17 15:31 09/10/17 15:31 09/10/17 15:31 Laboratory Results 09/10/17 16:20 09/09/17 09/10/17 09/11/17 05:59 05:59 05:59 Intake Total 4725 2637 Output Total 100 450 100 Balance 4625 2187 -100 PT 27.8 SEC (12.0-15.0) H 09/09/17 04:51 INR 2.60 (0.83-1.16) H 09/09/17 04:51 ICD10 Worksheet Patient Problems: Problems Problem Status Onset Fever Acute Metastatic colon cancer to liver Acute Hip arthritis Acute Hip dislocation, left Acute Hypoxia Acute Pneumonia Acute Pulmonary embolism Acute
[2017-09-10] MEDS: RIVAROXABAN 20 MG TAB PO SCH (19:00)
[2017-09-10] MEDS: TPN 1 EA BAG IV SCH (21:51)
--- NOTE | 2017-09-10 21:55 | HOSPPROG ---
Hospitalist Progress Note Assessment/Plan: #Neutropenic enterocolitis: Day 4 meropenem. Negative GI PCR #Abd distension: Nausea, bloating. Back to NPO. Dr Miller evaluated, no surgery now. TPN, PICC line #Metastatic colon cancer: on Day 22 of cycle 2 of Xelox and Porsche #Hiccups: baclofen #Diarrhea: due to #1. Negative PCR #Neutropenic fever: none since admission. #Bilateral PE: Xarelto #Diet: npo, TPN #DVT ppx: Xarelto Subjective: diarrhea Objective: Vital Signs Temp Pulse Resp BP Pulse Ox 37.1 C 92 17 149/83 H 100 09/10/17 20:00 09/10/17 20:00 09/10/17 20:00 09/10/17 20:00 09/10/17 20:00 Laboratory Results 09/10/17 16:20 09/10/17 16:20 09/09/17 09/10/17 09/11/17 05:59 05:59 05:59 Intake Total 4725 2637 1474 Output Total 100 450 100 Balance 4625 2187 1374 PT 24.8 SEC (12.0-15.0) H 09/10/17 16:20 INR 2.24 (0.83-1.16) H 09/10/17 16:20 - Physical Exam Constitutional: no apparent distress Eyes: PERRL Ears, Nose, Mouth, Throat: moist mucous membranes Cardiovascular: regular rate and rhythym Respiratory: no respiratory distress Gastrointestinal: normoactive bowel sounds, distension Genitourinary: no bladder fullness Musculoskeletal: full muscle strength Psychiatric: interacting appropriately ICD10 Worksheet Patient Problems: Problems Problem Status Onset Fever Acute Metastatic colon cancer to liver Acute Hip arthritis Acute Hip dislocation, left Acute Hypoxia Acute Pneumonia Acute Pulmonary embolism Acute
[2017-09-11] MEDS: NS 1,000 ML IV SCH ×2 (04:27→14:29)
[2017-09-11] MEDS: MEROPENEM 1 GM in STERILE WATER INJ 20 ML IV SCH ×3 (05:44→21:33)
[2017-09-11] MEDS: BACLOFEN 10 MG TAB PO PRN ×2 (05:45→18:44)
[2017-09-11 06:22] LABS: INR 3.08 (0.83-1.16); PROTIME(PATIENT) 31.6 SEC (12.0-15.0)
[2017-09-11 06:35] LABS: PLATELET COUNT 200 10^3/uL (150-400)
[2017-09-11] MEDS: ALBUTEROL 60 PUFFS/8 GM MDI IH PRN (08:08)
[2017-09-11] MEDS: guaiFENesin 600 MG TAB.ER PO SCH ×2 (09:57→21:34)
[2017-09-11] MEDS: GABAPENTIN 300 MG CAP PO SCH ×2 (09:57→21:34)
[2017-09-11] MEDS: FLUTICASONE NASAL 120 SPRAYS/16 GM MDI EACHNARE SCH (09:58)
[2017-09-11] MEDS: BUDESONIDE/FORMOTEROL 160/4.5 60 PUFFS/MDI IH SCH ×2 (09:59→21:11)
[2017-09-11] MEDS ORDERED: K PHOS 10 MMOL in NS 250 ML IV ONE (11:30)
--- NOTE | 2017-09-11 12:22 | SOAPPROG ---
SOAP Progress Note Assessment/Plan: Assessment/Plan: 71 yo M metastatic colon Ca on chemoTx - VSS, HDS - WBC WNL - abdomen is minimally tender, not acute - OK for clears, needs to limit intake. If tolerates water and ice chips he can have ramiro colby. - discussed with Luna and his RN 09/11/17 12:21 Subjective: pain improved, wants ramiro colby Objective: Vital Signs Temp Pulse Resp BP Pulse Ox 37.3 C 95 16 140/75 H 92 09/11/17 10:20 09/11/17 10:20 09/11/17 10:20 09/11/17 10:20 09/11/17 10:20 Laboratory Results 09/11/17 05:45 09/11/17 05:45 09/10/17 09/11/17 09/12/17 05:59 05:59 05:59 Intake Total 2637 2921 Output Total 450 450 Balance 2187 2471 PT 31.6 SEC (12.0-15.0) H 09/11/17 05:45 INR 3.08 (0.83-1.16) H 09/11/17 05:45 ICD10 Worksheet Patient Problems: Problems Problem Status Onset Fever Acute Metastatic colon cancer to liver Acute Hip arthritis Acute Hip dislocation, left Acute Hypoxia Acute Pneumonia Acute Pulmonary embolism Acute
--- NOTE | 2017-09-11 12:31 | SOAPPROG ---
SOAP Progress Note Assessment/Plan: Assessment: 1. Metastatic rectal cancer (mets to liver). Getting XELOX. C3 was due 09/09. CEA falling; scans indicate response in liver 2. Enterocolitis, likely chemo related 3. Hiccups, likely chemo related 4. Penile lesion, unclear etiology 5. Malnutrition 6. Hypokalemia Plan: - will try Ativan and Zofran for hiccups - continue TPN for now. OK to have small amts liquids - appreciate surgery input - culture swab of penile lesion - i advised pt to accept KCL infusion. should not cause any burning through a central line. failure to correct hypokalemia could result in fatal cardiac arrhythmia. Hypokalemia likely due to diarrhea which is resolving. - will resume chemo when out of hospital and feeling better. may require dose modification. 40 min spent w/ pt and in coordination of care. d/w dr palacio (surgery). 09/11/17 12:28 Subjective: pt has hiccups today. Very angry about various things (hiccups; loss of hearing aid; PICC line site oozing). Refusing KCl infusion because he is concerned it will "burn the plastic" on the picc line. Had some burning after previous KCl infusion through a peripheral IV. Objective: exam: uncomfortable lungs CTAB CV RRR no MGR ABd: +BS. distended. moderately diffusely tender Ext: 1+ edema : erythematous lesion on meatus of penis Neuro: a+ox3. Vital Signs Temp Pulse Resp BP Pulse Ox 37.3 C 95 16 140/75 H 92 09/11/17 10:20 09/11/17 10:20 09/11/17 10:20 09/11/17 10:20 09/11/17 10:20 Laboratory Results 09/11/17 05:45 09/11/17 05:45 09/10/17 09/11/17 09/12/17 05:59 05:59 05:59 Intake Total 2637 2921 Output Total 450 450 Balance 2187 9111 PT 31.6 SEC (12.0-15.0) H 09/11/17 05:45 INR 3.08 (0.83-1.16) H 09/11/17 05:45 ICD10 Worksheet Patient Problems: Problems Problem Status Onset Fever Acute Metastatic colon cancer to liver Acute Hip arthritis Acute Hip dislocation, left Acute Hypoxia Acute Pneumonia Acute Pulmonary embolism Acute
[2017-09-11] MEDS: POTASSIUM Cl (KCl) 10 MEQ in NS 100 ML IV SCH ×2 (12:38→13:49)
--- NOTE | 2017-09-11 14:00 | HOSPPROG ---
Hospitalist Progress Note Assessment/Plan: #Neutropenic enterocolitis: Day 6 meropenem. Negative GI PCR #Abd distension: Nausea, bloating. TPN, trial clears today #Metastatic colon cancer: cycle 2 of Xelox and Porsche #Hiccups: improved with Ativan #Diarrhea: due to #1. Negative PCR #Hypokalemia/hypophosphatemia: IV repletion #Neutropenic fever: none since admission. #Bilateral PE: Xarelto #Penile lesion: HSV pending #Diet: npo, TPN #DVT ppx: Xarelto Subjective: intractable hiccups, abd distension Objective: Vital Signs Temp Pulse Resp BP Pulse Ox 37.7 C 88 17 127/73 H 90 L 09/11/17 12:25 09/11/17 12:25 09/11/17 12:25 09/11/17 12:25 09/11/17 12:25 Laboratory Results 09/11/17 05:45 09/11/17 05:45 09/10/17 09/11/17 09/12/17 05:59 05:59 05:59 Intake Total 2637 2921 Output Total 450 450 Balance 2187 2471 PT 31.6 SEC (12.0-15.0) H 09/11/17 05:45 INR 3.08 (0.83-1.16) H 09/11/17 05:45 - Time Spent With Patient Time Spent with Patient: greater than 35 minutes Time Spent with Patient: Greater than 35 minutes spent on this patients care, greater than 50% of time spent counseling, educating, and coordinating care regarding the above mentioned plan. - Physical Exam Constitutional: no apparent distress, uncomfortable (due to hiccups) Eyes: PERRL Ears, Nose, Mouth, Throat: moist mucous membranes Cardiovascular: regular rate and rhythym Respiratory: no respiratory distress, no rales or rhonchi Gastrointestinal: normoactive bowel sounds, tenderness, distension Genitourinary: no bladder fullness Skin: warm Musculoskeletal: other (RUE PICC with blood-soaked dressing) Neurologic: AAOx3 Psychiatric: interacting appropriately ICD10 Worksheet Patient Problems: Problems Problem Status Onset Fever Acute Metastatic colon cancer to liver Acute Hip arthritis Acute Hip dislocation, left Acute Hypoxia Acute Pneumonia Acute Pulmonary embolism Acute
[2017-09-11] MEDS ORDERED: LIDOCAINE 2% VISCOUS 15 ML UDCUP PO PRN (14:09)
[2017-09-11] MEDS: LIDOCAINE 2% JELLY 5 ML TUBE TP SCH ×2 (14:20→18:42)
[2017-09-11] MEDS: LORazepam 2 MG/ML INJ IVP PRN ×2 (14:41→21:48)
[2017-09-11] MEDS: RIVAROXABAN 20 MG TAB PO SCH (18:42)
[2017-09-11] MEDS: TPN 1 EA BAG IV SCH (19:56)
[2017-09-11] MEDS: morphINE PCA 30 MG/30 ML PCA IV PRN (21:19)
--- NOTE | 2017-09-11 21:46 | GCON ---
[f rep st] CONSULTATION DATE OF CONSULTATION: 09/10/2017 HISTORY OF PRESENT ILLNESS: The patient is a 71-year-old male who was hospitalized for diarrhea and neutropenic fever. He is under treatment by Dr. Gutierrez for metastatic colon carcinoma with a nonobstr uctive mass in the cecum, but multiple bulky liver metastasis. I was asked to consult because of yousuf oing diarrhea and tenderness in his abdomen. He has had multiple abdominal films and CT scans, which do not show abscess or free air, although he does have some thickened bowel wall. He was neutropeni c on admission, but that has risen up to 4,000. However, he still has a low absolute neutrophil coun t. He persists with frequent watery diarrhea, but no blood. He has been unable to eat a significant amount. He apparently has had multiple episodes of difficulties with his ongoing chemotherapy and [facility] hospitalizations. PAST MEDICAL HISTORY: Multiple pulmonary emboli, urinary tract infection, chronic pain problems, james ateral total hip replacements. ALLERGIES: None. MEDICATIONS: Albuterol, Neurontin, Lomotil, Symbicort, Flexeril, Compazine, tramadol, oxycodone, tra zodone, Xarelto, vitamins, capecitabine. FAMILY HISTORY: Noncontributory. REVIEW OF SYSTEMS: No other major problems on a full 10-point review of systems. Specifically, does not smoke. PHYSICAL EXAMINATION: GENERAL: Reveals an uncomfortable, sleepy 71-year-old male in no acute distre ss. VITAL SIGNS: He is afebrile. HEAD AND NECK: Reveals no icterus or significant adenopathy or o ral lesions. CHEST: Clear. CARDIAC: Regular rhythm. ABDOMEN: Soft, slightly distended. Diffuse ly mildly tender over the course of the colon. No real peritoneal signs, except possibly some mild a mount rebound in the right lower quadrant. EXTREMITIES: Benign with full range of motion, full puls es. SKIN: No rashes or other lesions. NEUROLOGIC: Physiologic and symmetric. IMPRESSION: Significant neutropenic colitis with ongoing diarrhea. PLAN: I do not at this time see any indications yet for surgical intervention, although I also do no t see any microbiology results for investigation of his diarrhea. I am sure they have probably been done, and I just cannot find them. I would recommend continuing to follow him in this course with an tibiotic coverage. He does still have a low absolute neutrophil count. Of course, he might need petey kaylin if he fails to resolve or remains septic. He has no blood in his diarrhea to suggest ischemic c hange. /[id number]/MODL
[2017-09-12] MEDS: LIDOCAINE 2% JELLY 5 ML TUBE TP SCH ×5 (00:58→18:16)
[2017-09-12] MEDS: NS 1,000 ML IV SCH ×3 (01:07→21:15)
[2017-09-12] MEDS: MEROPENEM 1 GM in STERILE WATER INJ 20 ML IV SCH ×3 (06:16→21:22)
[2017-09-12 07:49] LABS: PLATELET COUNT 175 10^3/uL (150-400)
[2017-09-12 07:59] LABS: INR 1.86 (0.83-1.16); PROTIME(PATIENT) 21.5 SEC (12.0-15.0)
[2017-09-12] MEDS ORDERED: K PHOS 10 MMOL in NS 250 ML IV ONE (09:15)
[2017-09-12] MEDS ORDERED: NS IV ONE (09:15)
[2017-09-12] MEDS ORDERED: POTASSIUM CL IV ONE (09:15)
--- NOTE | 2017-09-12 09:19 | HOSPPROG ---
Hospitalist Progress Note Assessment/Plan: #Neutropenic enterocolitis: Day 8 abx (was dosed LQ x1) #Abd distension: Nausea, bloating. TPN, trial clears today #Metastatic colon cancer: cycle 2 of Xelox and Porsche #Hiccups: improved with Ativan; decrease to 0.5mg. Add Zyprexa #Diarrhea: due to #1. Negative PCR #Hypokalemia/hypophosphatemia: IV repletion #Neutropenic fever: none since admission. #Bilateral PE: Xarelto #Penile lesion: HSV pending #Diet: TPN. Can have clears #DVT ppx: Xarelto Subjective: hiccups persist. Diarrhea Objective: Vital Signs Temp Pulse Resp BP Pulse Ox 36.8 C 93 17 123/65 H 97 09/12/17 08:00 09/12/17 08:00 09/12/17 08:00 09/12/17 08:00 09/12/17 08:00 Laboratory Results 09/12/17 07:35 09/12/17 07:35 09/11/17 09/12/17 09/13/17 05:59 05:59 05:59 Intake Total 2921 200 1540 Output Total 450 Balance 2471 200 1540 PT 21.5 SEC (12.0-15.0) H D 09/12/17 07:35 INR 1.86 (0.83-1.16) H 09/12/17 07:35 - Physical Exam Constitutional: uncomfortable (due hiccups) Eyes: PERRL Ears, Nose, Mouth, Throat: moist mucous membranes Cardiovascular: regular rate and rhythym, no murmur, rub, or gallop Respiratory: no respiratory distress, no rales or rhonchi Gastrointestinal: tenderness (lower quandrant BL, no rebound), distension Genitourinary: no bladder fullness Skin: warm Neurologic: AAOx3, CN II-XII Intact ICD10 Worksheet Patient Problems: Problems Problem Status Onset Fever Acute Metastatic colon cancer to liver Acute Hip arthritis Acute Hip dislocation, left Acute Hypoxia Acute Pneumonia Acute Pulmonary embolism Acute
[2017-09-12] MEDS ORDERED: LORazepam 2 MG/ML INJ IVP PRN (09:21)
[2017-09-12] MEDS: guaiFENesin 600 MG TAB.ER PO SCH ×2 (09:50→21:10)
[2017-09-12] MEDS: FLUTICASONE NASAL 120 SPRAYS/16 GM MDI EACHNARE SCH (09:50)
[2017-09-12] MEDS: GABAPENTIN 300 MG CAP PO SCH ×2 (09:50→21:10)
[2017-09-12] MEDS: BUDESONIDE/FORMOTEROL 160/4.5 60 PUFFS/MDI IH SCH ×2 (10:19→22:43)
[2017-09-12] MEDS: BACLOFEN 10 MG TAB PO PRN (10:48)
[2017-09-12] MEDS ORDERED: OLANZapine 2.5 MG TAB PO ONE (11:09)
--- NOTE | 2017-09-12 12:00 | SOAPPROG ---
SOAP Progress Note Assessment/Plan: Assessment: 1. Metastatic rectal cancer (mets to liver). Getting XELOX. C3 was due 09/09. CEA falling; scans indicate response in liver 2. Enterocolitis, likely chemo related 3. Hiccups, likely chemo related 4. Penile lesion, unclear etiology 5. Malnutrition 6. Hypokalemia Plan: - ativan and zyprexa for hiccups. ativan helped yesterday but was oversedating, will lower dose - continue TPN for now but likely can advance diet. 25 min spent w/ pt and in coordination of care. Subjective: still having hiccups but getting better. Objective: exam: Gen tird appearing Lungs CTAB CV RRR no MGR Abd: +BS NT ND Ext: no edema Vital Signs Temp Pulse Resp BP Pulse Ox 36.9 C 94 18 135/76 H 98 09/12/17 10:30 09/12/17 10:30 09/12/17 10:30 09/12/17 10:30 09/12/17 10:30 Laboratory Results 09/12/17 07:35 09/12/17 07:35 09/11/17 09/12/17 09/13/17 05:59 05:59 05:59 Intake Total 2921 200 1540 Output Total 450 Balance 2471 200 1540 PT 21.5 SEC (12.0-15.0) H D 09/12/17 07:35 INR 1.86 (0.83-1.16) H 09/12/17 07:35 ICD10 Worksheet Patient Problems: Problems Problem Status Onset Fever Acute Metastatic colon cancer to liver Acute Hip arthritis Acute Hip dislocation, left Acute Hypoxia Acute Pneumonia Acute Pulmonary embolism Acute
[2017-09-12] MEDS: ACETAMINOPHEN 325 MG TAB PO PRN (16:34)
[2017-09-12] MEDS: RIVAROXABAN 20 MG TAB PO SCH (18:10)
[2017-09-12] MEDS: TPN 1 EA BAG IV SCH (21:03)
[2017-09-13] MEDS: LIDOCAINE 2% JELLY 5 ML TUBE TP SCH ×4 (02:26→17:37)
[2017-09-13 05:06] LABS: PLATELET COUNT 177 10^3/uL (150-400)
[2017-09-13 05:18] LABS: INR 1.73 (0.83-1.16); PROTIME(PATIENT) 20.4 SEC (12.0-15.0)
[2017-09-13] MEDS: MEROPENEM 1 GM in STERILE WATER INJ 20 ML IV SCH ×3 (06:32→21:27)
[2017-09-13] MEDS: BUDESONIDE/FORMOTEROL 160/4.5 60 PUFFS/MDI IH SCH (08:00)
[2017-09-13] MEDS ORDERED: chlorproMAZINE HCL 25 MG TAB PO PRN (09:38)
--- NOTE | 2017-09-13 09:48 | SOAPPROG ---
SOAP Progress Note Assessment/Plan: Assessment: 71 yo M metastatic colon CA. Being treated with chemo. Admitted for neutropenic fever and diarrhea S: Frustrated with ongoing hiccups and weight gain during hospitalization. sleeve machine tender in abdomen. Denies nausea/vomiting. Would like to be able to drink gingerale and eat crackers. O: Alert Afebrile, VSS Cardiac: RRR Chest: CTA bilaterally Abdomen: distended, but soft, +BS, mildly tender to palpation Plan: Will try thorazine for hiccups, although it will be sedating. Ok to advance to gingerale and crackers. Weight gain likely related to fluids. Discussed with Dr. Miller- will continue to monitor. Still no need for surgery at this point. 09/13/17 09:41 Objective: Vital Signs Temp Pulse Resp BP Pulse Ox 36.8 C 89 16 129/80 H 97 09/13/17 08:00 09/13/17 08:00 09/13/17 08:00 09/13/17 08:00 09/13/17 08:00 Laboratory Results 09/13/17 04:50 09/13/17 04:50 09/12/17 09/13/17 09/14/17 05:59 05:59 05:59 Intake Total 200 7451 Output Total 200 Balance 200 7251 PT 20.4 SEC (12.0-15.0) H 09/13/17 04:50 INR 1.73 (0.83-1.16) H 09/13/17 04:50 ICD10 Worksheet Patient Problems: Problems Problem Status Onset Fever Acute Metastatic colon cancer to liver Acute Hip arthritis Acute Hip dislocation, left Acute Hypoxia Acute Pneumonia Acute Pulmonary embolism Acute
[2017-09-13] MEDS: FLUTICASONE NASAL 120 SPRAYS/16 GM MDI EACHNARE SCH (09:55)
[2017-09-13] MEDS: guaiFENesin 600 MG TAB.ER PO SCH ×2 (10:40→20:40)
[2017-09-13] MEDS: GABAPENTIN 300 MG CAP PO SCH ×2 (10:40→20:40)
--- NOTE | 2017-09-13 12:16 | HOSPPROG ---
Hospitalist Progress Note Assessment/Plan: #Neutropenic enterocolitis: Meropenem. Day 9 abx (including LQ x1) #Abd distension/pain: now on WOLF HUNTER. No surgical intervention at this time #Metastatic colon cancer: cycle 2 of Xelox and Porsche #Hiccups: resolved with thorazine #Mild decompensated diastolic HF: echo 07/08: NL EF, mild diastolic HF. Lasix 20mg IV #Diarrhea: due to #1. Negative PCR #Hypokalemia/hypophosphatemia: IV repletion #Neutropenic fever: none since admission. #Bilateral PE: Xarelto #Penile lesion: HSV pending #Diet: TPN. Can gingerale and crackers #DVT ppx: Xarelto Subjective: "gain too much weight" Sharp, crampy pain in lower abd Objective: Vital Signs Temp Pulse Resp BP Pulse Ox 36.8 C 94 20 123/75 H 93 09/13/17 08:00 09/13/17 11:45 09/13/17 11:45 09/13/17 11:45 09/13/17 11:45 Laboratory Results 09/13/17 04:50 09/13/17 04:50 09/12/17 09/13/17 09/14/17 05:59 05:59 05:59 Intake Total 200 7451 Output Total 200 Balance 200 7251 PT 20.4 SEC (12.0-15.0) H 09/13/17 04:50 INR 1.73 (0.83-1.16) H 09/13/17 04:50 - Physical Exam Constitutional: uncomfortable Eyes: PERRL Ears, Nose, Mouth, Throat: moist mucous membranes Cardiovascular: regular rate and rhythym, edema (+ 1 LE edema) Respiratory: no respiratory distress Gastrointestinal: tenderness (BL lower quadrants), distension Skin: warm Musculoskeletal: full muscle strength Neurologic: AAOx3, CN II-XII Intact Psychiatric: interacting appropriately ICD10 Worksheet Patient Problems: Problems Problem Status Onset Fever Acute Metastatic colon cancer to liver Acute Hip arthritis Acute Hip dislocation, left Acute Hypoxia Acute Pneumonia Acute Pulmonary embolism Acute
--- NOTE | 2017-09-13 13:49 | ASMTCMCOM ---
CM Note CM Note Notes: Chart reviewed. Patient still on TPN. Trialing clears today. Normally lives Independently, Per therapies no needs. Questioning possible needs for infusion therapies. CM to follow. Date Signed: 09/13/2017 01:48 PM Electronically Signed By:Madelin Rivera RN
[2017-09-13] MEDS ORDERED: METOCLOPRAMIDE 10 MG/2 ML VIAL IVP PRN (14:01)
[2017-09-13] MEDS ORDERED: FUROSEMIDE 20 MG/2 ML VIAL IVP ONE (14:03)
--- NOTE | 2017-09-13 14:08 | SOAPPROG ---
SOAP Progress Note Assessment/Plan: Assessment: Assessment: 1. Metastatic rectal cancer (mets to liver). Getting XELOX. C3 was due 09/09. CEA falling; scans indicate response in liver 2. Enterocolitis, likely chemo related 3. Hiccups, likely chemo related, quite severe 4. Penile lesion, unclear etiology 5. Malnutrition 6. Hypokalemia 7. weight gain Plan: - will try iv metaclopromide for hiccups, hold thorazine for now. Lasix for fluid retention Subjective: still having hiccups fairly miserable 09/13/17 14:05 Subjective: Hiccups, almost continuous Objective: Vital Signs Temp Pulse Resp BP Pulse Ox 98.2 F 94 20 123/75 H 93 09/13/17 08:00 09/13/17 11:45 09/13/17 11:45 09/13/17 11:45 09/13/17 11:45 Laboratory Results 09/13/17 04:50 09/13/17 04:50 09/12/17 09/13/17 09/14/17 05:59 05:59 05:59 Intake Total 200 7451 250 Output Total 200 Balance 200 7251 250 PT 20.4 SEC (12.0-15.0) H 09/13/17 04:50 INR 1.73 (0.83-1.16) H 09/13/17 04:50 Physical Exam - Physical Exam General Appearance: moderate distress Respiratory: lungs clear, normal breath sounds Cardiac/Chest: regular rate, rhythm Abdomen: normal bowel sounds, distended, No non-tender Extremities: swelling ICD10 Worksheet Patient Problems: Problems Problem Status Onset Fever Acute Metastatic colon cancer to liver Acute Hip arthritis Acute Hip dislocation, left Acute Hypoxia Acute Pneumonia Acute Pulmonary embolism Acute
[2017-09-13] MEDS: PANTOPRAZOLE SODIUM 40 MG TAB PO SCH ×2 (14:22→20:39)
[2017-09-13] MEDS: chlorproMAZINE HCL 25 MG TAB PO PRN ×2 (16:22→21:27)
[2017-09-13] MEDS: RIVAROXABAN 20 MG TAB PO SCH (17:37)
[2017-09-13] MEDS: TPN 1 EA BAG IV SCH (20:39)
[2017-09-13] MEDS: CYCLOBENZAPRINE 10 MG TAB PO PRN (20:42)
[2017-09-14] MEDS: LIDOCAINE 2% JELLY 5 ML TUBE TP SCH ×4 (04:02→18:16)
[2017-09-14] MEDS: MEROPENEM 1 GM in STERILE WATER INJ 20 ML IV SCH ×3 (05:55→23:48)
[2017-09-14] MEDS: GABAPENTIN 300 MG CAP PO SCH ×2 (10:20→20:24)
[2017-09-14] MEDS: FUROSEMIDE 20 MG/2 ML VIAL IVP SCH ×2 (10:20→14:19)
[2017-09-14] MEDS: guaiFENesin 600 MG TAB.ER PO SCH ×2 (10:20→20:25)
[2017-09-14] MEDS: PANTOPRAZOLE SODIUM 40 MG TAB PO SCH ×2 (10:21→20:24)
[2017-09-14] MEDS: FLUTICASONE NASAL 120 SPRAYS/16 GM MDI EACHNARE SCH (10:21)
--- NOTE | 2017-09-14 11:09 | SOAPPROG ---
SOAP Progress Note Assessment/Plan: Assessment: Assessment: 1. Metastatic rectal cancer (mets to liver). Getting XELOX. C3 was due 09/09. CEA falling; scans indicate response in liver 2. Enterocolitis, likely chemo related, still symptomatic 3. Hiccups, a bit better today, has been an issue in the past 4. Penile lesion, unclear etiology 5. Malnutrition 6. Hypokalemia 7. weight gain Plan: - continue thorazine for now, could try metoclopramide if not effective. Lasix for fluid retention, on scheduled dose. try to minimize fluids. Advance diet. continue tpn and Merrem for now Subjective: still having hiccups, may be a bit better than yesterday. Having loose bms, some abdominal discomfort 09/13/17 14:05 09/14/17 11:05 Objective: Vital Signs Temp Pulse Resp BP Pulse Ox 98.8 F 74 18 105/57 L 97 09/14/17 06:00 09/14/17 06:00 09/14/17 06:00 09/14/17 06:00 09/14/17 06:00 Laboratory Results 09/13/17 04:50 09/13/17 04:50 09/13/17 09/14/17 09/15/17 05:59 05:59 05:59 Intake Total 7451 3262 Output Total 200 1850 Balance 7251 1412 PT 20.4 SEC (12.0-15.0) H 09/13/17 04:50 INR 1.73 (0.83-1.16) H 09/13/17 04:50 Physical Exam - Physical Exam General Appearance: alert, mild distress Respiratory: lungs clear, normal breath sounds Cardiac/Chest: regular rate, rhythm Abdomen: normal bowel sounds, distended Extremities: swelling (left sl more than right) ICD10 Worksheet Patient Problems: Problems Problem Status Onset Fever Acute Metastatic colon cancer to liver Acute Hip arthritis Acute Hip dislocation, left Acute Hypoxia Acute Pneumonia Acute Pulmonary embolism Acute
[2017-09-14] MEDS: morphINE PCA 30 MG/30 ML PCA IV PRN (14:14)
--- NOTE | 2017-09-14 15:47 | SOAPPROG ---
SOAP Progress Note Assessment/Plan: Assessment/Plan: 71 Y M metastatic carcinoma. Neutropenic. Colitis. Seen by Dr. Miller earlier today. Per Dr. Miller, more comfortable today. Still having some diarrhea. Abdomen is soft with some tenderness but no rebound. 09/14/17 15:46 Objective: Vital Signs Temp Pulse Resp BP Pulse Ox 36.4 C 101 H 20 123/70 H 98 09/14/17 12:40 09/14/17 12:40 09/14/17 12:40 09/14/17 12:40 09/14/17 12:40 Laboratory Results 09/13/17 04:50 09/13/17 04:50 09/13/17 09/14/17 09/15/17 05:59 05:59 05:59 Intake Total 7451 3262 Output Total 200 1850 Balance 7251 1412 PT 20.4 SEC (12.0-15.0) H 09/13/17 04:50 INR 1.73 (0.83-1.16) H 09/13/17 04:50 ICD10 Worksheet Patient Problems: Problems Problem Status Onset Fever Acute Metastatic colon cancer to liver Acute Hip arthritis Acute Hip dislocation, left Acute Hypoxia Acute Pneumonia Acute Pulmonary embolism Acute
--- NOTE | 2017-09-14 16:36 | ASMTCMCOM ---
CM Note CM Note Notes: Patient case reviewed with MD. Diet advanced today. Holding referral to home infusion till tomorrow per Dr. Cross. CM to follow. Date Signed: 09/14/2017 04:36 PM Electronically Signed By:Madelin Rivera RN
--- NOTE | 2017-09-14 17:39 | HOSPPROG ---
Hospitalist Progress Note Assessment/Plan: Assessment: 71-year-old male presents with acute neutropenic enterocolitis in the setting of metastatic colon cancer, complicated by acute diastolic congestive heart failure exacerbation Plan: #Neutropenic enterocolitis: Meropenem. Day 10 abx (including LQ x1), consider stopping tomorrow depending on abd sx - suspect this is the primary cause of abd pain, cont [employer], counseled patient extensively that introducing PO pain Rx (morphine IR) will provide w/ longer relief, less night interruptions, and reduce the amt of IVF -supp nutrition continues w/ TPN, lowering deesan content, introducing bland PO diet #Metastatic colon cancer: cycle 2 of Xelox and Porsche, C3 scheduled from 09/09, on hold #Hiccups: chronic, patient has trialed many different Rx w/ limited success - currently moderate response to thorazine, PRN reglan, d/w Dr. Gutierrez and patient, continue #Acute diastolic CHF: echo 07/08 NL EF, net positive 14kg LOS, physically debilitating - place on scheduled lasix 20mg IV bid - monitor strict I/O, weights - reduce IVF #Diarrhea: due to #1. Negative PCR #Hypokalemia/hypophosphatemia: replete PRN #Neutropenic fever: none since admission. #Hx Bilateral PE: Xarelto #Penile lesion: HSV neg #Diet: TPN. Adv to light #DVT ppx: Xarelto Code. Full Dispo. ADD uncertain, clinically unresolved Subjective: patient uncomfortable from hypervolemia, has hiccups Objective: Vital Signs Temp Pulse Resp BP Pulse Ox 36.8 C 101 H 17 108/61 96 09/14/17 16:00 09/14/17 16:00 09/14/17 16:00 09/14/17 16:00 09/14/17 16:00 Laboratory Results 09/13/17 04:50 09/13/17 04:50 09/13/17 09/14/17 09/15/17 05:59 05:59 05:59 Intake Total 7451 3262 Output Total 200 1850 Balance 7251 1412 PT 20.4 SEC (12.0-15.0) H 09/13/17 04:50 INR 1.73 (0.83-1.16) H 09/13/17 04:50 - Time Spent With Patient Time Spent with Patient: greater than 35 minutes Time Spent with Patient: Greater than 35 minutes spent on this patients care, greater than 50% of time spent counseling, educating, and coordinating care regarding the above mentioned plan. - Physical Exam Constitutional: no apparent distress, not in pain, chronically ill appearing, uncomfortable Cardiovascular: regular rate and rhythym, no murmur, rub, or gallop, edema (1+ bilat LE), No irregularly irregular Respiratory: inspiratory crackles, No reduced air movement, No expiratory wheeze , No bronchial breath sounds, No respiratory distress Gastrointestinal: normoactive bowel sounds, tenderness (diffuse throughout), distension (mild), No guarding Neurologic: AAOx3, No weakness, No facial droop Psychiatric: interacting appropriately, not encephalopathic, thought process linear, anxious, No agitated ICD10 Worksheet Patient Problems: Problems Problem Status Onset Fever Acute Metastatic colon cancer to liver Acute Hip arthritis Acute Hip dislocation, left Acute Hypoxia Acute Pneumonia Acute Pulmonary embolism Acute
[2017-09-14] MEDS: chlorproMAZINE HCL 25 MG TAB PO PRN (18:16)
[2017-09-14] MEDS: RIVAROXABAN 20 MG TAB PO SCH (18:16)
[2017-09-14] MEDS: CYCLOBENZAPRINE 10 MG TAB PO PRN (20:29)
[2017-09-14] MEDS: TPN 1 EA BAG IV SCH (20:30)
[2017-09-14] MEDS: ACETAMINOPHEN 325 MG TAB PO PRN (23:51)
[2017-09-15 04:15] LABS: PLATELET COUNT 158 10^3/uL (150-400)
[2017-09-15] MEDS: LIDOCAINE 2% JELLY 5 ML TUBE TP SCH ×5 (04:29→23:16)
[2017-09-15] MEDS: MEROPENEM 1 GM in STERILE WATER INJ 20 ML IV SCH (05:44)
[2017-09-15] MEDS: chlorproMAZINE HCL 25 MG TAB PO PRN ×4 (06:35→20:25)
[2017-09-15] MEDS ORDERED: morphINE PCA 30 MG/30 ML PCA IV PRN (07:53)
--- NOTE | 2017-09-15 10:12 | SOAPPROG ---
SOAP Progress Note Assessment/Plan: Assessment: Assessment: 1. Metastatic rectal cancer (mets to liver). Getting XELOX. C3 was due 09/09. CEA falling; scans indicate response in liver 2. Enterocolitis, likely chemo related, a bit better, tolerating diet well 3. Hiccups, a bit better , has been an issue in the past, 4. Penile lesion, unclear etiology 5. Malnutrition 6. Hypokalemia 7. weight gain, wt decreasing on scheduled lasix Plan: - continue thorazine , could try metoclopramide if not effective. Lasix for fluid retention, on scheduled dose. try to minimize fluids. Advance diet. continue tpn, may stop tomorrow. Will stop Merrem and [employer] E[employer]ELER today. Subjective: He feels better, happy about wt loss, still hiccups but better 09/13/17 14:05 09/14/17 11:05 09/15/17 10:09 Objective: Vital Signs Temp Pulse Resp BP Pulse Ox 98.5 F 95 16 101/64 97 09/15/17 08:00 09/15/17 08:00 09/15/17 08:00 09/15/17 08:00 09/15/17 08:00 Laboratory Results 09/15/17 03:50 09/15/17 03:50 09/14/17 09/15/17 09/16/17 05:59 05:59 05:59 Intake Total 3262 2384 Output Total 1850 1300 Balance 1412 1084 PT 20.4 SEC (12.0-15.0) H 09/13/17 04:50 INR 1.73 (0.83-1.16) H 09/13/17 04:50 Physical Exam - Physical Exam General Appearance: alert, mild distress Respiratory: lungs clear, normal breath sounds Cardiac/Chest: regular rate, rhythm Abdomen: normal bowel sounds, distended ICD10 Worksheet Patient Problems: Problems Problem Status Onset Fever Acute Metastatic colon cancer to liver Acute Hip arthritis Acute Hip dislocation, left Acute Hypoxia Acute Pneumonia Acute Pulmonary embolism Acute
[2017-09-15] MEDS: FUROSEMIDE 20 MG/2 ML VIAL IVP SCH ×2 (11:18→16:31)
[2017-09-15] MEDS: FLUTICASONE NASAL 120 SPRAYS/16 GM MDI EACHNARE SCH (11:18)
[2017-09-15] MEDS: GABAPENTIN 300 MG CAP PO SCH ×2 (11:19→20:25)
[2017-09-15] MEDS: PANTOPRAZOLE SODIUM 40 MG TAB PO SCH ×2 (11:20→20:25)
[2017-09-15] MEDS: guaiFENesin 600 MG TAB.ER PO SCH ×2 (11:20→20:25)
[2017-09-15] MEDS ORDERED: ONDANSETRON DISINTEGRATING 4 MG TAB PO PRN (13:35)
[2017-09-15] MEDS ORDERED: ONDANSETRON 4 MG/2 ML VIAL IVP PRN (13:35)
--- NOTE | 2017-09-15 16:27 | HOSPPROG ---
Hospitalist Progress Note Assessment/Plan: Assessment: 71-year-old male presents with acute neutropenic enterocolitis in the setting of metastatic colon cancer, complicated by acute diastolic congestive heart failure exacerbation Plan: #Neutropenic enterocolitis: Meropenem. Day 10 abx (including LQ x1), stop today - counseled patient and family that at this juncture, best to stop Abx and gauge whether sx remain stable and do not escalate, which could indicate smoldering disease process and recurrence, will cont pain mgmt w/ PO Rx and attempt to remain off BODY PRESSER to minimize volume #Metastatic colon cancer: cycle 2 of Xelox and Porsche, C3 scheduled from 09/09, on hold #Hiccups: chronic, patient has trialed many different Rx w/ limited success - currently moderate response to thorazine, adjusted to qid PRN #Acute diastolic CHF: echo 07/08 NL EF, net positive 11kg LOS, physically debilitating - placed on scheduled lasix 20mg IV bid - monitor strict I/O - net neg 3kg o/n #Diarrhea: due to #1. Negative PCR #Hypokalemia/hypophosphatemia: replete PRN #Neutropenic fever: none since admission. #Hx Bilateral PE: Xarelto #Penile lesion: HSV neg #Diet: Regular as ziyad #DVT ppx: Xarelto Code. Full Dispo. ADD uncertain, clinically unresolved Subjective: tolerating PO, amenable to PO Rx pain Rx Objective: Vital Signs Temp Pulse Resp BP Pulse Ox 36.8 C 98 18 110/66 97 09/15/17 12:00 09/15/17 13:59 09/15/17 13:59 09/15/17 13:59 09/15/17 13:59 Laboratory Results 09/15/17 03:50 09/15/17 03:50 09/14/17 09/15/17 09/16/17 05:59 05:59 05:59 Intake Total 3262 2384 Output Total 1850 1300 Balance 1412 1084 PT 20.4 SEC (12.0-15.0) H 09/13/17 04:50 INR 1.73 (0.83-1.16) H 09/13/17 04:50 - Time Spent With Patient Time Spent with Patient: greater than 35 minutes Time Spent with Patient: Greater than 35 minutes spent on this patients care, greater than 50% of time spent counseling, educating, and coordinating care regarding the above mentioned plan. - Physical Exam Constitutional: no apparent distress, chronically ill appearing, uncomfortable Cardiovascular: regular rate and rhythym, no murmur, rub, or gallop, edema (1+ bilat LE) Respiratory: inspiratory crackles (bilat bases), No expiratory wheeze, No bronchial breath sounds Gastrointestinal: normoactive bowel sounds, tenderness (mild in RLQ), distension (mild), No guarding Neurologic: AAOx3, No weakness (motor 5/5 bilat LE) Psychiatric: interacting appropriately, not anxious, not encephalopathic, thought process linear ICD10 Worksheet Patient Problems: Problems Problem Status Onset Hip arthritis Acute Hip dislocation, left Acute Pulmonary embolism Acute Metastatic colon cancer to liver Acute Pneumonia Acute Hypoxia Acute Fever Acute
[2017-09-15] MEDS: RIVAROXABAN 20 MG TAB PO SCH (18:08)
--- NOTE | 2017-09-15 20:17 | SOAPPROG ---
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 Been having significant watery diarrhea for several days His total WBC has responded and recovered up to 4000 but is ANC is still very low. No blood in his diarrhea. No free air on any of his abdominal x-rays or CT HEENT nonicteric without adenopathy Chest clear Cor regular tachycardia Abdomen soft, mildly distended, diffusely tender along the course of the colon but no real peritoneal signs except possibly in the right lower quadrant/no hernias Extremities full pulses Impression neutropenic colitis without surgical indications at this time Plan: Continue observation/consider microbiology studies if they have not been done and I have not seen them in the chart so for 09/10/17 17:18 09/15/17 20:14 MARKEDLY IMPROVED, ABD SOFT, MILDLY TENDER RLQ, MILDLY BLOATED/ AFEBRILE/ EATING EVENTUALLY WILL NEED COLECTOMY MAJOR PROBLEM IS SUDDEN DIAPHRAGM SPASMS PREVENTING A FULL BREATH, VERY SCARY TO PT--? DIAPHRAGM IRRITAION FROM LIVER METS Objective: Vital Signs Temp Pulse Resp BP Pulse Ox 36.8 C 91 18 124/72 H 95 09/15/17 12:00 09/15/17 16:00 09/15/17 16:00 09/15/17 16:00 09/15/17 16:00 Laboratory Results 09/15/17 03:50 09/15/17 03:50 09/14/17 09/15/17 09/16/17 05:59 05:59 05:59 Intake Total 3262 2384 231 Output Total 1850 1300 Balance 1412 1084 231 PT 20.4 SEC (12.0-15.0) H 09/13/17 04:50 INR 1.73 (0.83-1.16) H 09/13/17 04:50 ICD10 Worksheet Patient Problems: Problems Problem Status Onset Fever Acute Metastatic colon cancer to liver Acute Hip arthritis Acute Hip dislocation, left Acute Hypoxia Acute Pneumonia Acute Pulmonary embolism Acute
[2017-09-15] MEDS: TPN 1 EA BAG IV SCH (20:24)
[2017-09-15] MEDS: CYCLOBENZAPRINE 10 MG TAB PO PRN (20:25)
[2017-09-16] MEDS: LIDOCAINE 2% JELLY 5 ML TUBE TP SCH ×3 (06:07→16:13)
[2017-09-16] MEDS: guaiFENesin 600 MG TAB.ER PO SCH ×2 (07:41→20:17)
[2017-09-16] MEDS: FLUTICASONE NASAL 120 SPRAYS/16 GM MDI EACHNARE SCH (07:41)
[2017-09-16] MEDS: GABAPENTIN 300 MG CAP PO SCH ×2 (07:41→20:17)
[2017-09-16] MEDS: PANTOPRAZOLE SODIUM 40 MG TAB PO SCH ×2 (07:41→20:18)
[2017-09-16] MEDS: FUROSEMIDE 20 MG/2 ML VIAL IVP SCH ×2 (09:48→16:48)
[2017-09-16] MEDS ORDERED: NALOXONE HCL 0.4 MG/ML INJ IVP PRN (12:04)
[2017-09-16] MEDS ORDERED: morphINE PCA 30 MG/30 ML PCA IV PRN (12:04)
[2017-09-16] MEDS ORDERED: DICYCLOMINE 20 MG TAB PO PRN (12:30)
--- NOTE | 2017-09-16 12:39 | SOAPPROG ---
SOAP Progress Note Assessment/Plan: Assessment: Assessment: 1. Metastatic rectal cancer (mets to liver). Getting XELOX. C3 was due 09/09. CEA falling; scans indicate response in liver 2. Enterocolitis, likely chemo related, a bit better, tolerating diet well 3. Hiccups, a bit better , has been an issue in the past, 4. Penile lesion, unclear etiology 5. Malnutrition 6. Hypokalemia 7. weight gain, wt decreasing on scheduled lasix Plan: - continue thorazine , could try metoclopramide if not effective. Lasix for fluid retention, on scheduled dose. try to minimize fluids. Advance diet. d/c tpn. Off Merrem, will restart broomcorn press feeder for pain control .Possible D/C next day or so will look at home care options Subjective: He feels better, happy about wt loss, still hiccups but better 09/13/17 14:05 09/14/17 11:05 09/15/17 10:09 09/16/17 12:36 Objective: Vital Signs Temp Pulse Resp BP Pulse Ox 99.2 F 96 16 118/65 92 09/16/17 07:35 09/16/17 07:35 09/16/17 07:35 09/16/17 07:35 09/16/17 07:35 Laboratory Results 09/15/17 03:50 09/16/17 04:55 09/15/17 09/16/17 09/17/17 05:59 05:59 05:59 Intake Total 2384 1031 120 Output Total 1300 750 650 Balance 1084 281 -530 PT 20.4 SEC (12.0-15.0) H 09/13/17 04:50 INR 1.73 (0.83-1.16) H 09/13/17 04:50 Physical Exam - Physical Exam General Appearance: mild distress ICD10 Worksheet Patient Problems: Problems Problem Status Onset Fever Acute Metastatic colon cancer to liver Acute Hip arthritis Acute Hip dislocation, left Acute Hypoxia Acute Pneumonia Acute Pulmonary embolism Acute
--- NOTE | 2017-09-16 12:52 | ASMTCMCOM ---
CM Note CM Note Notes: Latest PT notes recommend SNF vs HC. Today discussed d/c plan with . thinks Christine will be interested in a homecare conversation. states that Pt. will likely not need home IV antibiotics or TPN at this time. Riky went to speak w/ Pt. in room and he waived SWer off - it appeared that he was on the phone and working. SWer called Christine who said Pt. would be fine with SWer speaking with her. Christine is interested in both skilled and unskilled homecare. Did not have a preference for skilled homecare agency. SWer made referral to [facility] and also did [employer] referral. Plan for RN and PT. Riky provided unskilled homecare provider list to Christine today. Note: Christine dealing with her own cancer treatment as well at this time. Plan: [facility] homecare RN and PT with possible unskilled private duty caregivers. Date Signed: 09/16/2017 12:52 PM Electronically Signed By:Joan Cedillo LCSW
[2017-09-16] MEDS: chlorproMAZINE HCL 25 MG TAB PO PRN ×2 (13:41→18:06)
--- NOTE | 2017-09-16 17:39 | HOSPPROG ---
Hospitalist Progress Note Assessment/Plan: Assessment: 71-year-old male presents with acute neutropenic enterocolitis in the setting of metastatic colon cancer, complicated by acute diastolic congestive heart failure exacerbation Plan: #Neutropenic enterocolitis: Meropenem. 10 days abx (including LQ x1), stopped, monitoring for improvement of abd symptoms - CT from presentation demonstrated some distension of small bowel but no overt inflammation upon which to base a comparison of a repeat scan, so will hold on repeating CT at this juncture - pervasive pain o/n and patient did not feel like he was able to get adequate relief due to complications w/ the pain medication scale requirements required by Joint Commission, as the medication he wanted for relief was not within the subjective scale of his reported pain, counseled patient/family that we want to work together with him to provide adequate pain relief, and that 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 possible recurrent colitis pain, as one will be treated supportively w/ pain Rx and the other would warrant further evaluation by Dr. Ring #Metastatic colon cancer: cycle 2 of Xelox and Porsche, C3 scheduled from 09/09, on hold - rounded on patient w/ Dr. Gutierrez, patient and family counseled regarding the sequence of cancer tx for his particular stage, w/ systemic chemo being sequenced first, and the consideration of FOLFOX to be at the discretion of patient's primary oncologist vs. resuming C3 of Xelox #Hiccups: chronic, patient has trialed many different Rx w/ limited success - currently moderate response to thorazine, adjusted to qid PRN #Acute diastolic CHF: echo 07/08 NL EF, net positive 11kg LOS, physically debilitating - cont on scheduled lasix 20mg IV bid - monitor strict I/O - minimal IVF #Diarrhea: due to #1. Negative PCR #Hypokalemia/hypophosphatemia: replete PRN #Neutropenic fever: none since admission. #Hx Bilateral PE: Xarelto #Penile lesion: HSV neg #Diet: Regular as ziyad #DVT ppx: Xarelto Code. Full Dispo. ADD 09/17 vs. 4/, clinically unresolved, therapies recommending HC vs. SNF, case mgmt to d/w patient/ options Subjective: pain o/n inadequately treated per patient, intermittent hiccups and phrenic nerve spasm Objective: Vital Signs Temp Pulse Resp BP Pulse Ox 37.2 C 103 H 16 105/61 96 09/16/17 15:06 09/16/17 15:06 09/16/17 15:06 09/16/17 16:33 09/16/17 15:06 Laboratory Results 09/15/17 03:50 09/16/17 04:55 09/15/17 09/16/17 09/17/17 05:59 05:59 05:59 Intake Total 2384 1031 470 Output Total 1300 750 650 Balance 1084 281 -180 PT 20.4 SEC (12.0-15.0) H 09/13/17 04:50 INR 1.73 (0.83-1.16) H 09/13/17 04:50 - Time Spent With Patient Time Spent with Patient: greater than 35 minutes Time Spent with Patient: Greater than 35 minutes spent on this patients care, greater than 50% of time spent counseling, educating, and coordinating care regarding the above mentioned plan. - Physical Exam Constitutional: no apparent distress, chronically ill appearing, uncomfortable Respiratory: other (occasional shortness of breath, resolves w/ reassurance) Neurologic: AAOx3 Psychiatric: interacting appropriately, not encephalopathic, thought process linear, anxious, No agitated ICD10 Worksheet Patient Problems: Problems Problem Status Onset Hip arthritis Acute Hip dislocation, left Acute Pulmonary embolism Acute Metastatic colon cancer to liver Acute Pneumonia Acute Hypoxia Acute Fever Acute
[2017-09-16] MEDS: RIVAROXABAN 20 MG TAB PO SCH (18:00)
--- NOTE | 2017-09-16 18:22 | SOAPPROG ---
SOAP Progress Note Assessment/Plan: Assessment: 71 yo M metastatic colon CA. Being treated with chemo. Admitted for neutropenic fever and diarrhea S: Continues to improve, although still having worrisome bouts of diaphragmatic spasms. O: Alert, sitting up in chair Afebrile, VSS Cardiac: RRR Chest: CTA bilaterally Abdomen: distended, but soft, +BS, mildly tender to palpation Plan: Discussed with Dr. Miller. He will need colectomy at some point. 09/16/17 18:21 Objective: Vital Signs Temp Pulse Resp BP Pulse Ox 37.2 C 103 H 16 122/74 H 96 09/16/17 15:06 09/16/17 15:06 09/16/17 15:06 09/16/17 18:03 09/16/17 15:06 Laboratory Results 09/15/17 03:50 09/16/17 04:55 09/15/17 09/16/17 09/17/17 05:59 05:59 05:59 Intake Total 2384 1031 1909 Output Total 1300 750 850 Balance 8445 258 5431 PT 20.4 SEC (12.0-15.0) H 09/13/17 04:50 INR 1.73 (0.83-1.16) H 09/13/17 04:50 ICD10 Worksheet Patient Problems: Problems Problem Status Onset Fever Acute Metastatic colon cancer to liver Acute Hip arthritis Acute Hip dislocation, left Acute Hypoxia Acute Pneumonia Acute Pulmonary embolism Acute
[2017-09-16] MEDS: CYCLOBENZAPRINE 10 MG TAB PO PRN (20:26)
[2017-09-17] MEDS: LIDOCAINE 2% JELLY 5 ML TUBE TP SCH ×4 (01:41→19:36)
[2017-09-17] MEDS: FLUTICASONE NASAL 120 SPRAYS/16 GM MDI EACHNARE SCH (10:24)
[2017-09-17] MEDS: GABAPENTIN 300 MG CAP PO SCH ×2 (10:24→21:01)
[2017-09-17] MEDS: PANTOPRAZOLE SODIUM 40 MG TAB PO SCH ×2 (10:25→21:02)
[2017-09-17] MEDS: FUROSEMIDE 20 MG/2 ML VIAL IVP SCH ×2 (10:25→16:55)
[2017-09-17] MEDS: guaiFENesin 600 MG TAB.ER PO SCH ×2 (10:25→21:02)
[2017-09-17] MEDS ORDERED: fentaNYL 12 MCG PATCH TD SCH (11:45)
--- NOTE | 2017-09-17 11:56 | SOAPPROG ---
SOAP Progress Note Assessment/Plan: Assessment: Assessment: 1. Metastatic rectal cancer (mets to liver). Getting XELOX. C3 was due 09/09. CEA falling; scans indicate response in liver, i have reviewed them personally 2. Enterocolitis, likely chemo related, better, tolerating diet well 3. Hiccups, a bit better , has been an issue in the past, 4. Penile lesion, unclear etiology 5. Malnutrition 6. Hypokalemia 7. weight gain, wt decreasing on scheduled lasix Plan: - continue thorazine , try Fentanyl patch for pain, low dose, repeat ct scan today Subjective: He feels better, happy about wt loss, hiccups resolved for now 09/13/17 14:05 09/14/17 11:05 09/15/17 10:09 09/16/17 12:36 09/17/17 11:53 Objective: Vital Signs Temp Pulse Resp BP Pulse Ox 98.1 F 96 16 98/65 L 97 09/17/17 10:31 09/17/17 10:31 09/17/17 10:31 09/17/17 10:31 09/17/17 10:31 Laboratory Results 09/15/17 03:50 09/17/17 05:00 09/16/17 09/17/17 09/18/17 05:59 05:59 05:59 Intake Total 1031 2286 Output Total 750 1170 Balance 281 1116 PT 20.4 SEC (12.0-15.0) H 09/13/17 04:50 INR 1.73 (0.83-1.16) H 09/13/17 04:50 Physical Exam - Physical Exam General Appearance: alert, no apparent distress Respiratory: chest non-tender, lungs clear, normal breath sounds Cardiac/Chest: regular rate, rhythm Abdomen: normal bowel sounds, non-tender, other (Slightly tender r lower rib cage) ICD10 Worksheet Patient Problems: Problems Problem Status Onset Fever Acute Metastatic colon cancer to liver Acute Hip arthritis Acute Hip dislocation, left Acute Hypoxia Acute Pneumonia Acute Pulmonary embolism Acute
[2017-09-17] MEDS ORDERED: IOPAMIDOL (ISOVUE-300) 100 ML BTL ONE (12:53)
--- NOTE | 2017-09-17 16:22 | HOSPPROG ---
Hospitalist Progress Note Assessment/Plan: Assessment: 71-year-old male presents with acute neutropenic enterocolitis in the setting of metastatic colon cancer, complicated by acute diastolic congestive heart failure exacerbation Plan: #Neutropenic enterocolitis: s/p Meropenem 10 days abx (including LQ x1), stopped , monitoring for improvement of abd symptoms - repeat CT today to gauge whether distension/inflammation improving, ongoing inflammation (personally interpreted) - patient responded unfavorably to morphine 15mg IR, so after d/w patient/, plan to start fent patch 12.5mcg + oxy IR dose range, gauge effect, 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 Gutierrez, discussed plan together #Hiccups: chronic, patient has trialed many different Rx w/ limited success - currently moderate response to thorazine, adjusted to qid PRN #Acute diastolic CHF: echo 07/08 NL EF, net positive 11kg LOS, physically debilitating - cont on scheduled lasix 20mg IV bid, monitor lytes - monitor strict I/O - minimal IVF #Diarrhea: due to #1. Negative PCR #Hypokalemia/hypophosphatemia: replete PRN #Neutropenic fever: none since admission. #Hx Bilateral PE: Xarelto #Penile lesion: HSV neg, evaluated and d/w Dr. Gutierrez, we agree that this is likely irritation from moisture, will attempt to dry w/ nystatin powder, gauge effect #Diet: Regular as ziyad #DVT ppx: Xarelto Code. Full Dispo. ADD 09/19, clinically unresolved, home care w/ private duty Subjective: felt poorly w/ morphine 15mg IR, penile irritation Objective: Vital Signs Temp Pulse Resp BP Pulse Ox 36.8 C 91 18 110/68 98 09/17/17 12:30 09/17/17 12:30 09/17/17 12:30 09/17/17 12:30 09/17/17 12:30 Laboratory Results 09/15/17 03:50 09/17/17 05:00 09/16/17 09/17/17 09/18/17 05:59 05:59 05:59 Intake Total 1031 2286 Output Total 750 1170 Balance 281 1116 PT 20.4 SEC (12.0-15.0) H 09/13/17 04:50 INR 1.73 (0.83-1.16) H 09/13/17 04:50 - Pending Discharge Pending Discharge Within 24 Hours: Yes Pending Discharge Date: 09/18/17 Pending Discharge Time: 11:00 - Physical Exam Constitutional: no apparent distress, chronically ill appearing, uncomfortable, No not in pain (mild) Cardiovascular: edema (1+ bilat LE) Genitourinary: other (irritation at meatus, normal scrotum, no HSV lesions, circumcised) Skin: other (dry, raised, erythematous macules on head of penis w/o ulceration) Neurologic: AAOx3, No facial droop Psychiatric: interacting appropriately, not encephalopathic, thought process linear, anxious, No agitated ICD10 Worksheet Patient Problems: Problems Problem Status Onset Hip arthritis Acute Hip dislocation, left Acute Pulmonary embolism Acute Metastatic colon cancer to liver Acute Pneumonia Acute Hypoxia Acute Fever Acute
--- NOTE | 2017-09-17 16:48 | SOAPPROG ---
SOAP Progress Note Assessment/Plan: Assessment: 71 yo M metastatic colon CA. Being treated with chemo. Admitted for neutropenic fever and diarrhea S: Continues to improve, although still having worrisome bouts of diaphragmatic spasms. O: Alert, sitting up in chair Afebrile, VSS Cardiac: RRR Chest: CTA bilaterally Abdomen: distended, but soft, +BS, mildly tender to palpation Plan: Discussed with Dr. Miller. He will need colectomy at some point. 09/16/17 18:21 09/17/17 16:46 Doing well today. Abdomen less distended +BS. No fevers/chills/nausea/ vomiting. C/o pain in the RUQ, likely related to liver mets. Discussed case with Dr. Miller. Pt will need colectomy at some point. Objective: Vital Signs Temp Pulse Resp BP Pulse Ox 36.8 C 91 18 110/68 98 09/17/17 12:30 09/17/17 12:30 09/17/17 12:30 09/17/17 12:30 09/17/17 12:30 Laboratory Results 09/15/17 03:50 09/17/17 05:00 09/16/17 09/17/17 09/18/17 05:59 05:59 05:59 Intake Total 1031 2286 Output Total 750 1170 Balance 281 1116 PT 20.4 SEC (12.0-15.0) H 09/13/17 04:50 INR 1.73 (0.83-1.16) H 09/13/17 04:50 ICD10 Worksheet Patient Problems: Problems Problem Status Onset Fever Acute Metastatic colon cancer to liver Acute Hip arthritis Acute Hip dislocation, left Acute Hypoxia Acute Pneumonia Acute Pulmonary embolism Acute
[2017-09-17] MEDS: NYSTATIN POWDER 15 GM BTL TP SCH ×2 (17:37→21:09)
[2017-09-17] MEDS: RIVAROXABAN 20 MG TAB PO SCH (17:38)
[2017-09-17] MEDS: oxyCODONE IR 5 MG TAB PO PRN (21:02)
[2017-09-17] MEDS: CYCLOBENZAPRINE 10 MG TAB PO PRN (21:12)
[2017-09-18] MEDS: LIDOCAINE 2% JELLY 5 ML TUBE TP SCH ×4 (04:24→13:22)
[2017-09-18 04:37] LABS: PLATELET COUNT 221 10^3/uL (150-400)
[2017-09-18] MEDS: NYSTATIN POWDER 15 GM BTL TP SCH (07:55)
[2017-09-18] MEDS: guaiFENesin 600 MG TAB.ER PO SCH (07:56)
[2017-09-18] MEDS: FUROSEMIDE 20 MG/2 ML VIAL IVP SCH ×2 (07:57→16:27)
[2017-09-18] MEDS: GABAPENTIN 300 MG CAP PO SCH (07:57)
[2017-09-18] MEDS: PANTOPRAZOLE SODIUM 40 MG TAB PO SCH (07:57)
--- NOTE | 2017-09-18 08:28 | SOAPPROG ---
SOAP Progress Note Assessment/Plan: Assessment/Plan: 71 Y M metastatic carcinoma. Neutropenic. Colitis. Small bowel thickening on CT yesterday. Patient feeling better. WBCs normalized. Low grade fever overnight. Per Dr. 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 He suggests colectomy once more stable/better. S: I'm feeling "better" O: alert, nad abd softer, less tender 09/18/17 10:29 Objective: Vital Signs Temp Pulse Resp BP Pulse Ox 36.7 C 86 16 125/71 H 99 09/18/17 08:00 09/18/17 08:00 09/18/17 08:00 09/18/17 08:00 09/18/17 08:00 Laboratory Results 09/18/17 04:15 09/18/17 04:15 09/17/17 09/18/17 09/19/17 05:59 05:59 05:59 Intake Total 2286 2418 Output Total 1170 350 Balance 1116 2068 PT 20.4 SEC (12.0-15.0) H 09/13/17 04:50 INR 1.73 (0.83-1.16) H 09/13/17 04:50 ICD10 Worksheet Patient Problems: Problems Problem Status Onset Fever Acute Metastatic colon cancer to liver Acute Hip arthritis Acute Hip dislocation, left Acute Hypoxia Acute Pneumonia Acute Pulmonary embolism Acute
--- NOTE | 2017-09-18 09:23 | SOAPPROG ---
SOAP Progress Note Assessment/Plan: Assessment: 1) Metastatic colon cancer 2) Liver metastasis secondary to #1 3) Neutropenic enterocolitis 4) Chronic abdominal pain secondary to #1 Plan: Overall he is improving. Neutropenia resolved. He is tolerating a full diet. His bowel inflammation appeared worse on his CT yesterday, but he is clinically improved. The appearance likely represents increased inflammation due to increased Neutrophils. Will use Fentanyl patch with oxycodone for breakthrough pain. I think that he is ok for d/c once he is comfortable with his pain control on oral meds. (Likely later today or tomorrow) Plan outpatient follow up. Dr. Ring will determine timing of chemotherapy re- initiation. Recent CT demonstrates a response to therapy thus far. 09/18/17 09:18 Subjective: Overall feels better. Less abdominal pain. Transitioning to oral pain meds. Tolerating regular diet. Objective: Vital Signs Temp Pulse Resp BP Pulse Ox 36.7 C 86 16 125/71 H 99 09/18/17 08:00 09/18/17 08:00 09/18/17 08:00 09/18/17 08:00 09/18/17 08:00 Laboratory Results 09/18/17 04:15 09/18/17 04:15 09/17/17 09/18/17 09/19/17 05:59 05:59 05:59 Intake Total 2286 2418 Output Total 1170 350 Balance 1116 2068 PT 20.4 SEC (12.0-15.0) H 09/13/17 04:50 INR 1.73 (0.83-1.16) H 09/13/17 04:50 - Time Spent With Patient Time Spent With Patient: 25 minutes Physical Exam - Physical Exam General Appearance: alert, no apparent distress EENT: PERRL/EOMI Respiratory: lungs clear Abdomen: normal bowel sounds, soft, other (Minimal Right upper quadrant tenderness without gaurding or rebound) Neuro/Psych: alert, normal mood/affect ICD10 Worksheet Patient Problems: Problems Problem Status Onset Fever Acute Metastatic colon cancer to liver Acute Hip arthritis Acute Hip dislocation, left Acute Hypoxia Acute Pneumonia Acute Pulmonary embolism Acute
--- NOTE | 2017-09-18 09:52 | SOAPPROG ---
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 Been having significant watery diarrhea for several days His total WBC has responded and recovered up to 4000 but is ANC is still very low. No blood in his diarrhea. No free air on any of his abdominal x-rays or CT HEENT nonicteric without adenopathy Chest clear Cor regular tachycardia Abdomen soft, mildly distended, diffusely tender along the course of the colon but no real peritoneal signs except possibly in the right lower quadrant/no hernias Extremities full pulses Impression neutropenic colitis without surgical indications at this time Plan: Continue observation/consider microbiology studies if they have not been done and I have not seen them in the chart so for 09/10/17 17:18 09/15/17 20:14 MARKEDLY IMPROVED, ABD SOFT, MILDLY TENDER RLQ, MILDLY BLOATED/ AFEBRILE/ EATING EVENTUALLY WILL NEED COLECTOMY MAJOR PROBLEM IS SUDDEN DIAPHRAGM SPASMS PREVENTING A FULL BREATH, VERY SCARY TO PT--? DIAPHRAGM IRRITAION FROM LIVER METS 09/18/17 09:50 FEELING BETTER/ AFEBRILE/ WBC6K/ DIARHEA RESOLVING/ CT STILL SHOWS ILEAL THICKENING/ PROBABLY NEEDS RT HEMICOLECTOMY WHEN STABLE WILL DISCUSS WITH ONC Objective: Vital Signs Temp Pulse Resp BP Pulse Ox 36.7 C 86 16 125/71 H 99 09/18/17 08:00 09/18/17 08:00 09/18/17 08:00 09/18/17 08:00 09/18/17 08:00 Laboratory Results 09/18/17 04:15 09/18/17 04:15 09/17/17 09/18/17 09/19/17 05:59 05:59 05:59 Intake Total 2286 2418 Output Total 1170 350 Balance 1116 2068 PT 20.4 SEC (12.0-15.0) H 09/13/17 04:50 INR 1.73 (0.83-1.16) H 09/13/17 04:50 ICD10 Worksheet Patient Problems: Problems Problem Status Onset Fever Acute Metastatic colon cancer to liver Acute Hip arthritis Acute Hip dislocation, left Acute Hypoxia Acute Pneumonia Acute Pulmonary embolism Acute
[2017-09-18] MEDS: FLUTICASONE NASAL 120 SPRAYS/16 GM MDI EACHNARE SCH (10:07)
[2017-09-18 14:28] VITALS: BP 117/60
--- NOTE | 2017-09-18 14:52 | PDIAF ---
- Diagnosis Diagnosis: Suspected chemo-induced enteritis Code Status: Full Code - Medication Management Discharge Medications: Medications to Continue on Transfer Budesonide/Formoterol 160/4.5 [Symbicort 160-4.5 Mcg Inh (*)] 2 puffs IH BID [Last Taken 07/31/17 AM] Cholecalciferol Vit D3 [Vitamin D3 (*)] 1,000 units PO DAILY 07/19/17 [Last Taken 07/30/17] Cyanocobalamin [Vitamin B12 (*)] 1,000 mcg PO DAILY 07/19/17 [Last Taken ] Cyclobenzaprine [Flexeril 10 MG (*)] 10 mg PO HS 07/19/17 [Last Taken 07/30/17] Mometasone Furoate 1 spray EACHNARE DAILY 07/19/17 [Last Taken 07/30/17] Diphenoxylate HCl/Atropine [Diphenoxylate-Atrop 2.5-0.025] 1 tab PO DAILY PRN [Last Taken Unknown] Prochlorperazine Maleate [Compazine 5mg (*)] 5 mg PO TID PRN 07/31/17 [Last Taken Unknown] traZODone [traZODONE 50MG (*)] 50 mg PO HS PRN 07/31/17 [Last Taken Unknown] Albuterol [Proventil Inhaler HFA (*)] 2 puffs IH Q4HRS PRN #1 mdi 08/08/17 [ Last Taken Unknown] Gabapentin 600 mg PO BID #60 tablet 08/08/17 [Last Taken Unknown] guaiFENesin [Mucinex 600 MG (*)] 600 mg PO BID #60 tab.er 08/08/17 [Last Taken Unknown] Herbals/Supplements -Info Only 1 ea PO DAILY 09/05/17 [Last Taken Unknown] Rivaroxaban [Xarelto] 20 mg PO DAILY18 09/05/17 [Last Taken Unknown] Acetaminophen [Tylenol 325mg (*)] 650 mg PO Q4HRS PRN tab 09/18/17 [Last Taken Unknown] Furosemide [Lasix 20 MG (*)] 20 mg PO DAILY #10 tab 09/18/17 [Last Taken Unknown ] Lidocaine 2% Jelly [Lidocaine 2% Jelly (*)] 1 devi TP Q6H PRN #40 dose 09/18/17 [ Last Taken Unknown] Nystatin Powder [Mycostatin Powder] 1 devi TP TID #30 dose 09/18/17 [Last Taken Unknown] Pantoprazole Sodium [Protonix 40mg (*)] 40 mg PO BID #60 tab 09/18/17 [Last Taken Unknown] Sennosides/Docusate Sodium [Senokot-S] 1 tab PO BID PRN #60 tab 09/18/17 [Last Taken Unknown] chlorproMAZINE HCL [Thorazine (*)] 25 mg PO QID PRN #30 tab 09/18/17 [Last Taken Unknown] fentaNYL [Duragesic 12 MCG Patch (*)] 12 mcg TD Q72H #10 patch 09/18/17 [Last Taken Unknown] oxyCODONE IR [Oxycodone Ir (*)] 2.5 - 10 mg PO Q3 PRN #60 tab 09/18/17 [Last Taken Unknown] 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 PICC Care - Routine: Yes - Orders Services needed: Home Care, Registered Nurse, Physical Therapy Home Care Face to Face: I certify that this patient was under my care and that I had the required [id number] encounter meeting the encounter requirements on the discharge day. My findings support the fact that the patient is homebound as defined in Home Care Face to Face Continued: CMS Chapter 7 Medicare Benefits Manual 30.1.1 , The condition of the patient is such that there exists a normal inability to leave home and consequently, leaving home would require a considerable and taxing effort. Isolation Type: None Oxygen: NA Diet Texture: Regular Texture Diet, Thin Liquids, Meds Whole w/Liquids, Meds Whole in Puree, Meds Crushed in Puree Weigh Patient: weekly Lowery: Not applicable Activity/Weight Bearing Restrictions: as tolerated - Labs/Radiology BMP Date: 09/22/17 Call or Fax Lab and Imaging Results to: Dr. Ring and Johan - Follow Up Care Current Providers and Referrals: An Prado MD [Primary Care Provider] - As per Instructions Astrid Ring MD [Medical Doctor] - 3-5 days Donovan Miller MD [Medical Doctor] - follow up in 1 week
--- NOTE | 2017-09-18 15:07 | PDDCSUM ---
Discharge Summary Discharge Summary: DISCHARGE SUMMARY FOLLOW-UP ITEMS: 1. Determine whether to pursue outpatient port 2. Determine whether to continue with current chemotherapy regimen or switch 3. Repeat chemistry this week and determine whether to continue dosing Lasix DATE OF ADMISSION: 09/05/2017 DATE OF DISCHARGE: 09/18/2017 DISCHARGE DIAGNOSES: 1. Acute neutropenic enterocolitis 2. Metastatic colon cancer to liver 3. Acute on chronic hiccups 4. Acute diastolic congestive heart failure exacerbation 5. Acute neutropenic fever 6. Painful penile lesions 7. Acute hypokalemia and hypophosphatemia CONSULTATIONS: General surgery, Oncology PROCEDURES / IMAGING: CT of the abdomen on 09/05 demonstrated some bowel distension but minimal inflammation, repeat abdominal CT with oral and IV contrast on 09/17 demonstrated increased inflammation in the small bowel without any focal abscess CHIEF COMPLAINT: Acute abdominal pain and fever SUBJECTIVE: Patient is feeling well at time of discharge, reports that his pain is currently well controlled and he is tolerating oral intake PHYSICAL EXAM ON DISCHARGE: Systolic blood pressure is 110-140, heart rate 90, afebrile overnight, satting 95% on room air, alert awake oriented x3, mild anxiety and intermittent distress , legs have trace to 1+ bilateral edema LABS ON DISCHARGE: Potassium 4.2, creatinine 0.7, liver panel unremarkable, hemoglobin 10.3, white blood cell count 6500 HOSPITAL COURSE BY PROBLEM: 1. Acute neutropenic enterocolitis. Based on radiographic imaging, focal tenderness throughout the abdomen, occurring in the setting of neutropenia, most likely secondary to GI brenton translocation and requiring IV antibiotics. The patient received 10 total days of antibiotics including Levaquin and then subsequent meropenem. On reimaging, the small bowel demonstrated increased inflammation, most likely secondary to neutrophil recovery and resultant increased radiographic appearance of the affected area. After discussion with Oncology, it was not felt that the patient warranted additional antibiotics but does warrant close outpatient clinical monitoring. I advised the patient and his that the best indicator as to whether an infection is developing would be a fever which is persistent greater than 100.4, and they should contact the covering Oncology service if this does occur. The patient does have ongoing abdominal pain, this is most likely partially secondary to inflammation, and he was initiated on a fentanyl patch with oral oxycodone for breakthrough. He should maintain a bowel regimen while he is on opiates to avoid constipation. 2. Metastatic colon cancer. The patient is status post 2 cycles of chemotherapy and his 3rd cycle that was scheduled for 09/09/2017 has been temporarily put on hold. The patient will follow up with his primary oncologist determine the timing of resumption. The patient wants to consider whether he will continue on the current regimen verses switching regimens to FOLFOX. The patient also wants to consider possible port placement and he will continue to have a PICC line for IV access until he has made that decision. I anticipate that some of the patient's pain is secondary to his liver metastases , which have not significantly changed on radiographic imaging. Are therapy modalities did recommend assisted facility, but the patient and his decided that they would like to go home with home care. They also have some private duty supplement care. 3. Acute on chronic hiccups. Patient most likely has phrenic nerve irritation and a low threshold for developing hiccups, as the patient has had fairly serious episodes of intractable hiccups, even outside of his hospitalizations tied to his malignancy. The patient has trialed many medications and the most successful in seems to be Thorazine as needed. 4. Acute diastolic congestive heart failure exacerbation. Echocardiogram in June of 2017 demonstrated a preserved ejection fraction, and patient developed some shortness of breath and lower extremity edema in the setting of being net positive 13 kg. The patient was initiated on IV diuresis and this was adjusted to oral once daily Lasix at time of discharge. I recommended 10 subsequent days of diuretics, then reassess with his outpatient providers. 5. Acute hypokalemia and hypophosphatemia. These were repleted as necessary. 6. History of bilateral pulmonary emboli. Patient was continued on Xarelto. 7. Acute neutropenic fever. Patient presented with initial fever, and was treated with meropenem for likely bacterial translocation in the setting of neutropenia. As mentioned above, he received 10 total days of therapy. 8. Acute penile lesion. Patient has significant irritation on the penile head and his HSV is negative. Most likely cause of his irritation is moisture in the scrotum and intravenous areas, and we recommended drawing with nystatin powder. We also recommended as needed topical lidocaine. DISCHARGE MEDICATIONS: Please see official discharge medication reconciliation sheet in chart , continue home medications with addition of fentanyl patch 12 mcg Q 72 hr, as needed oxycodone immediate release 2.5-10 mg q.3 hours, Senokot S while on opiates, Thorazine 25 mg up to 3 times daily as needed, Lasix 20 mg daily. DISCHARGE INSTRUCTIONS: Please follow up with your primary oncologist this week, Dr. Miller thereafter. TIME SPENT: Greater than 30 minutes were spent on direct patient care, as well as discharge planning and preparation.
[2017-09-18] MEDS: oxyCODONE IR 5 MG TAB PO PRN ×2 (15:21→15:24)
== END 2017-09-18 16:25 | disposition home health service (06) | DRG 391 ==
LOC: F1N 21:04
PROVIDERS: ADMIT Hospitalist; ATTEND Internal Medicine
PROC: 02HV33Z Insertion of Infusion Device into Superior Vena Cava, Percutaneous Approach (ICD-10-PCS; principal; 2017-09-10)
PROC: 3E0336Z Introduction of Nutritional Substance into Peripheral Vein, Percutaneous Approach (ICD-10-PCS; 2017-09-10)
DX: K52.9 Noninfective gastroenteritis and colitis, unspecified (principal); D70.9 Neutropenia, unspecified; D61.811 Other drug-induced pancytopenia; T45.1X5A Adverse effect of antineoplastic and immunosuppressive drugs, initial encounter; C18.9 Malignant neoplasm of colon, unspecified; C78.7 Secondary malignant neoplasm of liver and intrahepatic bile duct; I50.31 Acute diastolic (congestive) heart failure; G89.29 Other chronic pain; F11.20 Opioid dependence, uncomplicated; E87.1 Hypo-osmolality and hyponatremia; E46 Unspecified protein-calorie malnutrition; R06.6 Hiccough; N48.89 Other specified disorders of penis; E87.6 Hypokalemia; E83.39 Other disorders of phosphorus metabolism; E78.5 Hyperlipidemia, unspecified; E86.1 Hypovolemia; Z86.711 Personal history of pulmonary embolism; Z79.01 Long term (current) use of anticoagulants
CPT/HCPCS: 87529-90; 92610-GN; 97110-GP; 97116-GP; 97161-GP; 97164-GP; 97530-GP; C1751; G8978-GP-CI; G8978-GP-CK; G8979-GP-CI; G8980-GP-CI; G8996-GN-CH; G8997-GN-CH; G8998-GN-CH; J1940; J1956; J2060; J2185; J2270; J2405; J3480; Q9967

== ENCOUNTER 2017-12-13 07:03 | Day surgery (SDC) | payer OTHER ==
[2017-12-13] MEDS ORDERED: LIDOCAINE 1% 2 ML INJ ID PRN (07:38)
[2017-12-13] MEDS ORDERED: ceFAZolin 2 GM/DEXTROSE 100 ML IV ONE (07:38)
[2017-12-13] MEDS ORDERED: LR 1,000 ML IV ONE (07:38)
[2017-12-13] MEDS ORDERED: BUPIVACAINE/EPI 0.5% 30 ML SDV ONE (08:30)
--- NOTE | 2017-12-13 08:30 | PDHPUP ---
History & Physical Update H&P update statement: This history and physical update is based on an assessment of the patient which was completed after admission or registration (within 24 hours), but prior to the surgery/procedure. H&P update: H&P reviewed & patient examined, no change in patient's condition since H&P completed
--- NOTE | 2017-12-13 08:43 | POSTOPPROG ---
Post Op Note Date of Operation: 12/13/17 Surgeon: Donovan Miller (') Anesthesiologist: Hugo Stephenson Anesthesia: GET(General Endotracheal) Pre-op Diagnosis: cancer, need for venous access Post-op Diagnosis: same Procedure: Power Port placement with flouroscopic guidance Findings: good position and flow Inf/Abcess present in the surg proc area at time of surgery?: No EBL: Minimal Complications: none
--- NOTE | 2017-12-13 08:47 | PDANEPAE ---
ANE History of Present Illness colon CA here for chemoport placement ANE Past Medical History - Cardiovascular History Hx Hypertension: No Hx Arrhythmias: No Hx Chest Pain: No Hx Coronary Artery / Peripheral Vascular Disease: No Hx CHF / Valvular Disease: No Hx Palpitations: No - Pulmonary History Hx COPD: No Hx Asthma/Reactive Airway Disease: No Hx Recent Upper Respiratory Infection: No Hx Oxygen in Use at Home: No Hx Sleep Apnea: No Sleep Apnea Screening Result - Last Documented: Negative Pulmonary History Comment: HX - PE - TAKING XARELTO - Neurologic History Hx Cerebrovascular Accident: No Hx Seizures: No Hx Dementia: No Neurologic History Comment: HEADACHES 4-5 DAYS WKLY - Endocrine History Hx Diabetes: No - Renal History Hx Renal Disorders: No - Liver History Hx Hepatic Disorders: No Hepatic History Comment: LIVER CA - Neurological & Psychiatric Hx Hx Neurological and Psychiatric Disorders: No - Cancer History Hx Cancer: No Cancer History Comment: ADENOMA STAGE IV. COLON CA. LIVER CA - Congenital Disorder History Hx Congenital Disorders: No - GI History Hx Gastrointestinal Disorders: No - Other Health History Other Health History: ADHD. INSOMNIA. OSTEOARTHRITIS - Chronic Pain History Chronic Pain: No - Surgical History Prior Surgeries: RT TOTAL HIP. L TOTAL HIP X2. L ELBOW REPAIR. TONSILLECTOMY ANE Review of Systems Review of Systems: - Exercise capacity METS (RN): 4 METS ANE Patient History - Allergies Allergies/Adverse Reactions: No Known Allergies Allergy (Verified 07/31/17 19:56) - Home Medications Home Medications: Budesonide/Formoterol 160/4.5 [Symbicort 160-4.5 Mcg Inh (*)] 2 puffs IH BID [Last Taken 2 Months Ago ~10/13/17] Cholecalciferol Vit D3 [Vitamin D3 (*)] 1,000 units PO DAILY 07/19/17 [Last Taken 12/10/17] Cyanocobalamin [Vitamin B12 (*)] 1,000 mcg PO DAILY 07/19/17 [Last Taken ] Cyclobenzaprine [Flexeril 10 MG (*)] 10 mg PO HS 07/19/17 [Last Taken 12/12/17 21:00] Mometasone Furoate 1 spray EACHNARE DAILY 07/19/17 [Last Taken 12/10/17] Diphenoxylate HCl/Atropine [Diphenoxylate-Atrop 2.5-0.025] 1 tab PO DAILY PRN [Last Taken 05/21/17] traZODone [traZODONE 50MG (*)] 50 mg PO HS PRN 07/31/17 [Last Taken 12/12/17 21: 00] Herbals/Supplements -Info Only 1 ea PO DAILY 09/05/17 [Last Taken 12/10/17] Rivaroxaban [Xarelto] 20 mg PO DAILY18 09/05/17 [Last Taken 12/09/17] Duloxetine HCl 12/10/17 [Last Taken 12/12/17 09:00] Vyvanse 12/10/17 [Last Taken 12/11/17] - NPO status NPO Status: no food or drink >8 hours NPO Since - Liquids (Date): 12/12/17 NPO Since - Liquids (Time): 23:00 NPO Since - Solids (Date): 12/12/17 NPO Since - Solids (Time): 19:00 - Anes Hx Anes Hx: no prior problems - Smoking Hx Smoking Status: Never smoked - Alcohol Use Alcohol Use: Occasionally - Family Anes Hx Family Anes Hx: none Family Hx Anesthesia Complications: NONE ANE Labs/Vital Signs - Vital Signs Blood Pressure: 155/96 Heart Rate: 83 Respiratory Rate: 16 O2 Sat (%): 98 Height: 181.61 cm Weight: 81.647 kg ANE Physical Exam - Airway Neck exam: FROM Mallampati Score: Class 2 Mouth exam: normal dental/mouth exam, díaz - Pulmonary Pulmonary: no respiratory distress, clear to auscultation - Cardiovascular Cardiovascular: regular rate and rhythym, no murmur, rub, or gallop - ASA Status ASA Status: III ANE Anesthesia Plan Anesthesia Plan: GA w LMA
[2017-12-13] MEDS ORDERED: MIDAZOLAM 2 MG/2 ML VIAL IVP ONE (08:50)
[2017-12-13] MEDS ORDERED: LIDOCAINE 2% 100 MG/5 ML SYR ONE (08:57)
[2017-12-13] MEDS ORDERED: PROPOFOL 200 MG/20 ML VIAL ONE (08:57)
[2017-12-13] MEDS ORDERED: fentaNYL 100 MCG/2 ML INJ ONE (08:57)
[2017-12-13] MEDS ORDERED: BACITRACIN ZINC 14.2 GM OINTTUBE TP ONE (09:54)
[2017-12-13] MEDS ORDERED: fentaNYL 100 MCG/2 ML INJ IVP PRN (10:05)
[2017-12-13] MEDS ORDERED: oxyCODONE IR 5 MG TAB PO PRN (10:05)
[2017-12-13] MEDS ORDERED: PROMETHAZINE HCL 25 MG/ML INJ IVP PRN (10:05)
[2017-12-13] MEDS ORDERED: NALOXONE HCL 0.4 MG/ML INJ IVP PRN (10:05)
[2017-12-13] MEDS ORDERED: ONDANSETRON 4 MG/2 ML VIAL IVP PRN (10:05)
[2017-12-13] MEDS ORDERED: ACETAMINOPHEN 500 MG TAB PO PRN (10:05)
--- NOTE | 2017-12-13 10:07 | POSTANESTH ---
Post Anesthetic Evaluation Cardiovascular Status: Normal, Stable, Similar to Pre-Op Cond Respiratory Status: Normal, Stable, Similar to Pre-op Cond. Level of Consciousness/Mental Status: Can Participate in Eval, Mildly Sleepy, Arousable Pain Control: Adequate, Prn Tx Ordered Nausea/Vomiting Control: Adequate, Prn Tx Ordered Complications Possibly Related to Anesthesia: None Noted
[2017-12-13 10:40] VITALS: BP 156/76
--- NOTE | 2017-12-13 10:46 | GOP ---
[f rep st] OPERATIVE REPORT DATE OF OPERATION: 12/13/2017 SURGEON: Donovan Miller MD PREOPERATIVE DIAGNOSIS: Metastatic colon cancer. POSTOPERATIVE DIAGNOSIS: Metastatic colon cancer. PROCEDURE PERFORMED: Port placement. FINDINGS: Patient was found to have good port position and good flow. DESCRIPTION OF PROCEDURE: Patient was taken to the operating room, where he received a satisfactory general laryngeal mask anesthesia by Dr. Stephenson. He was placed in supine position, prepped and draped in usual sterile fashion, then placed in Trendelenburg. A single stick was made in the left subclav leonidas vein using 0.5% Marcaine local infiltration. A guidewire was introduced. Position was confirmed with fluoroscopy. A subcu pocket was made in the 2nd intercostal space adjacent to the sternum. Po rt tubing was passed from that pocket to the subclavian insertion site. It was trimmed to the approp riate length using fluoroscopic guidance and introduced through the introducer sheath and dilator sys tem into the right atrium. Good backflow was achieved. The catheter was flushed with heparin saline . Port was secured to the fascia with 3-0 Vicryl and the pocket was closed with 3-0 Vicryl for subcu and 4-0 Prolene subcuticular stitch for the skin. The area was infiltrated with 0.5% Marcaine. The insertion site was also closed with Prolene mattress suture. Both wounds were dressed. He tolerate d the procedure well, taken to recovery room in good condition. There were no complications. /[id number]/MODL
[2017-12-13] MEDS: HYDROCODONE/APAP 5/325 TAB PO PRN ×2 (11:06→11:38)
[2017-12-13] MEDS ORDERED: HYDROCODONE/APAP 5/325 TAB ONE (11:35)
== END 2017-12-13 11:58 | disposition home or self-care (01) ==
LOC: FSGY 07:03
PROVIDERS: ATTEND Surgery
DX: Z45.2 Encounter for adjustment and management of vascular access device (principal); C18.9 Malignant neoplasm of colon, unspecified; C78.7 Secondary malignant neoplasm of liver and intrahepatic bile duct; Z86.711 Personal history of pulmonary embolism; Z79.01 Long term (current) use of anticoagulants; G47.00 Insomnia, unspecified
CPT/HCPCS: C1788; J0690; J1642; J2001; J2250; J2704; J3010

== ENCOUNTER 2018-01-13 09:25 | Day surgery (SDC) | payer OTHER ==
[2018-01-13] MEDS ORDERED: NS 1,000 ML IV ONE (09:34)
[2018-01-13] MEDS ORDERED: NALOXONE HCL 0.4 MG/ML INJ IVP PRN (09:34)
[2018-01-13] MEDS ORDERED: PROTAMINE SULFATE 50 MG/5 ML VIAL IVP PRN (09:34)
[2018-01-13] MEDS ORDERED: methylPREDNISolone SOD SUCC 125 MG/2 ML VIAL IVP ONE (09:34)
[2018-01-13] MEDS ORDERED: GLUCAGON HCL 1 MG VIAL IVP PRN (09:34)
[2018-01-13] MEDS ORDERED: FLUMAZENIL 0.5 MG/5 ML MDV IVP PRN (09:34)
[2018-01-13] MEDS ORDERED: fentaNYL 100 MCG/2 ML INJ IVP PRN (09:34)
[2018-01-13] MEDS ORDERED: PANTOPRAZOLE SODIUM 40 MG VIAL IVP ONE (09:34)
[2018-01-13] MEDS ORDERED: MIDAZOLAM 2 MG/2 ML VIAL IVP PRN (09:34)
[2018-01-13] MEDS ORDERED: NALOXONE HCL 0.4 MG/ML INJ ONE (09:44)
[2018-01-13] MEDS ORDERED: MIDAZOLAM 2 MG/2 ML VIAL ONE (09:44)
[2018-01-13] MEDS ORDERED: FLUMAZENIL 0.5 MG/5 ML MDV IVP ONE (09:44)
[2018-01-13] MEDS ORDERED: methylPREDNISolone SOD SUCC 125 MG/2 ML VIAL ONE (09:44)
[2018-01-13] MEDS ORDERED: fentaNYL 100 MCG/2 ML INJ ONE (09:45)
[2018-01-13 10:51] LABS: INR 0.95 (0.83-1.16); PROTIME(PATIENT) 12.9 SEC (12.0-15.0)
--- NOTE | 2018-01-13 11:35 | PDGENHP ---
History & Physical Chief Complaint: COLORECTAL CANCER History of Present Illness: INTERVAL INCREASE IN TUMOR MARKERS, NOW ON MAINTENANCE CHEMO. Pertinent Past, Social, Family History: COLORECTAL CA. RT TOTAL HIP; LT TOTAL HJIP X 2, LT ELBOW SURERY; TONSILLECTOMY. Relevant Physical Exam: IN NO DISTRESS. NO PAIN. Cardiorespiratory Assessment: RRR, CTA
--- NOTE | 2018-01-13 11:37 | PDPROPOC ---
Sedation Plan of Care Sedation Plan of Care: vital signs stable, mental status noted, patient educated of risks, benefits, alternatives, patient can tolerate sedation ASA Classification: ASA 2 Planned drugs: fentanyl, midazolam Mallampati Score: Class 2 Mallampati Reference Image: Patient passed 3-3-2 rule?: Yes
[2018-01-13] MEDS ORDERED: IOPAMIDOL (ISOVUE-300) 100 ML BTL ONE ×2 (13:07→13:31)
[2018-01-13 13:47] VITALS: BP 124/73
[2018-01-13] MEDS ORDERED: ONDANSETRON 4 MG/2 ML VIAL IVP PRN (14:12)
[2018-01-13] MEDS ORDERED: OXYCODONE/APAP 5/325 TAB PO PRN (14:12)
--- NOTE | 2018-01-13 14:17 | PDRADPN ---
Radiology Procedure Note Date of Procedure: 01/13/18 Radiologist: Meghan Houston Anesthesia: IV Sedation Pre-op Diagnosis: mCRC Post-op Diagnosis: same Indication: hepatic metastatsis. on chemo break Procedure: Y90 mapping angiogram Finding(s): see report Inf/Abcess present in the surg proc area at time of surgery?: No
== END 2018-01-13 17:47 | disposition home or self-care (01) ==
LOC: FIMAGING 09:25
PROVIDERS: ATTEND Radiology Diagnostic Radiology
PROC: 04L33ZZ Occlusion of Hepatic Artery, Percutaneous Approach (ICD-10-PCS; principal; 2018-01-13)
PROC: 04H Lower Arteries, Insertion (ICD-10-PCS; principal; 2018-01-13)
PROC: 04L23ZZ Occlusion of Gastric Artery, Percutaneous Approach (ICD-10-PCS; principal; 2018-01-13)
PROC: 04H333Z Insertion of Infusion Device into Hepatic Artery, Percutaneous Approach (ICD-10-PCS; principal; 2018-01-13)
DX: C78.7 Secondary malignant neoplasm of liver and intrahepatic bile duct (principal); C18.9 Malignant neoplasm of colon, unspecified
CPT/HCPCS: 36247; 36248; 37243; 75726; 78201; 78205; 99152; 99153; A9540; C1769; C1894; C1760; J1200; J1642; J1644; J2250; J2310; J2930; J3010; Q9967

== ENCOUNTER 2018-02-17 11:37 | Inpatient (IN) | payer OTHER ==
[2018-02-17] MEDS ORDERED: PROTAMINE SULFATE 50 MG/5 ML VIAL IVP PRN (11:52)
[2018-02-17] MEDS ORDERED: NALOXONE HCL 0.4 MG/ML INJ IVP PRN (11:52)
[2018-02-17] MEDS ORDERED: HEPARIN 10,000 UNIT/10 ML MDV (1,000 UNIT/ML) IVP PRN (11:52)
[2018-02-17] MEDS ORDERED: PANTOPRAZOLE SODIUM 40 MG VIAL IVP ONE (11:52)
[2018-02-17] MEDS ORDERED: methylPREDNISolone SOD SUCC 125 MG/2 ML VIAL IVP ONE (11:52)
[2018-02-17] MEDS ORDERED: fentaNYL 100 MCG/2 ML INJ IVP PRN (11:52)
[2018-02-17] MEDS ORDERED: FLUMAZENIL 0.5 MG/5 ML MDV IVP PRN (11:52)
[2018-02-17] MEDS ORDERED: MIDAZOLAM 2 MG/2 ML VIAL IVP PRN (11:52)
[2018-02-17] MEDS ORDERED: NS 1,000 ML IV ONE (11:52)
[2018-02-17] MEDS ORDERED: IOPAMIDOL (ISOVUE-300) 100 ML BTL ONE ×2 (12:25→15:33)
--- NOTE | 2018-02-17 13:10 | PDPROPOC ---
Sedation Plan of Care Sedation Plan of Care: vital signs stable, mental status noted, patient educated of risks, benefits, alternatives, patient can tolerate sedation ASA Classification: ASA 3 Planned drugs: fentanyl, midazolam Mallampati Score: Class 1 Mallampati Reference Image: Patient passed 3-3-2 rule?: Yes
--- NOTE | 2018-02-17 13:14 | PDGENHP ---
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 s/p partial colectomy. now here for LT treatment. Pertinent Past, Social, Family History: n/a Relevant Physical Exam: has lost some weight since last treatment. no appetite. food doesn't taste good. has been admitted 2x since RT Y90 for bowel resection, and MRSA. still recovering from all that. feels overall able to take on today's procedure. Cardiorespiratory Assessment: rrr, cta
[2018-02-17 13:26] LABS: PLATELET COUNT 221 10^3/uL (150-400)
[2018-02-17 13:38] LABS: INR 1.09 (0.83-1.16); PROTIME(PATIENT) 14.3 SEC (12.0-15.0)
[2018-02-17] MEDS ORDERED: ONDANSETRON 4 MG/2 ML VIAL IVP PRN ×2 (15:16→15:17)
[2018-02-17] MEDS ORDERED: ONDANSETRON DISINTEGRATING 4 MG TAB PO PRN (15:17)
[2018-02-17] MEDS ORDERED: HYDROmorphONE/DILAUDID 1 MG/ML INJ IVP PRN (15:17)
[2018-02-17] MEDS ORDERED: PROMETHAZINE HCL 25 MG/ML INJ IVP PRN (15:17)
[2018-02-17] MEDS ORDERED: METOCLOPRAMIDE 10 MG/2 ML VIAL IVP PRN (15:17)
--- NOTE | 2018-02-17 15:21 | PDRADPN ---
Radiology Procedure Note Date of Procedure: 02/17/18 Radiologist: Meghan Houston Anesthesia: IV Sedation Pre-op Diagnosis: METASTATIC COLORECTAL CANCER Post-op Diagnosis: SAME Indication: RADIOEMBOLIZATION OF LIVER METS Procedure: y90 TO LT LOBE Inf/Abcess present in the surg proc area at time of surgery?: No
[2018-02-17] MEDS ORDERED: LIDOCAINE 1% 300 MG/30 ML SDV ONE (15:33)
--- NOTE | 2018-02-17 18:09 | PDMN ---
Medical Necessity Medical necessity: Pt meets inpt criteria per MD order and Medical Oncology GRG. Est LOS>2MN, s/p radiology procedure: radioembolization of liver mets, admitted for management of pain, dehydration, weakness, and FTT, R groin hematoma per MD. Pt w/colorectal cancer w/mets to liver, recent hospitalization for colectomy and recent MRSA infected port, poor PO intake, hyponatremic (Na 130). IVF, IV pain meds as needed, ongoing med nec eval/treatment for above issues.
[2018-02-17] MEDS: NS 1,000 ML IV SCH (18:20)
[2018-02-17] MEDS ORDERED: traMADol 50 MG TAB PO PRN (18:59)
[2018-02-17] MEDS: CYCLOBENZAPRINE 10 MG TAB PO SCH (20:59)
[2018-02-17] MEDS: DULoxetine 20 MG CAP PO SCH (20:59)
[2018-02-17] MEDS: SULFAMETHOX/TMP 800/160 MG 1 TAB PO SCH (20:59)
[2018-02-17] MEDS: traZODone 50 MG TAB PO SCH (20:59)
[2018-02-17] MEDS: OXYCODONE/APAP 5/325 TAB PO PRN (21:00)
--- NOTE | 2018-02-17 23:21 | PDGENHP ---
History and Physical - Chief Complaint weight loss, abdominal pain s/p chemoembolization for liver mets - History of Present Illness Source - Patient provides history and appears reliable. EMR was reviewed and case discussed with accepting hospitalist. HPI - Pleasant 72 yo M with pmhx significant for colon cancer s/p recent R asc lap hemicolectomy with Dr. Miller and known liver mets who is admitted following second procedure for radioembolization with Dr. Houston this afternoon. She has requested hospitalist assistance with admission for pain control and failure to thrive. Patient reports this morning he had an appointment with Dr. Miller for dressing changes of right old port site (hx of MRSA) and post op follow up. He reports that he was feeling a little lightheaded and fatigued but this did improve with some sips of water. Patient notes that the last several weeks in particular have been more difficult to recover. Patient underwent Right hemicolectomy and port removal and replacement during his hospital stay from -02/12/18. He admits his appetite has been overall poor and his oral intake of fluids minimal. Patient notes a 45 lb weight loss since June 2017. He has had several hospitalizations related to infections while undergoing chemotherapy including e coli bacteremia and neutropenic related enterocolitis. Most recently pt with MRSA port infection as noted above. Currently, patient reports some increased RUQ abdominal pain post procedure and soreness right inguinal procedure site. He denies fevers/chills/nausea/ vomiting. History Information - Allergies/Home Medication List Allergies/Adverse Reactions: adhesive tape Allergy (Intermediate, Verified 01/28/18 10:55) Rash, red, itchy Tegaderm Allergy (Mild, Uncoded 02/16/18 17:37) Rash Home Medications: Cyclobenzaprine [Flexeril 10 MG (*)] 10 mg PO HS 07/19/17 [Last Taken 02/16/18 21:00] traZODone [traZODONE 50MG (*)] 50 mg PO HS 07/31/17 [Last Taken 02/14/18] Duloxetine HCl [Cymbalta] 20 mg PO HS 12/10/17 [Last Taken 02/16/18 21:00] Lisdexamfetamine Dimesylate [Vyvanse] 40 mg PO DAILY 12/10/17 [Last Taken 08:00] Carboxymethylcellulose 1% [Refresh Celluvisc (*)] 1 drop EACHEYE TID PRN [Last Taken 02/17/18] Herbals/Supplements -Info Only 1 ea PO DAILY 01/28/18 [Last Taken 02/16/18] Sulfamethox/Tmp 800/160 mg [Bactrim DS] 1 tab PO BID 01/28/18 [Last Taken 08:00] traMADol [Ultram 50 mg (*)] 50 mg PO Q4HRS PRN 01/28/18 [Last Taken 02/14/18] I have personally reviewed and updated: family history, medical history, social history, surgical history - Past Medical History Additional medical history: metastatic colon cancer actively receiving chemo ( XELOX + Avastin, last dose 07/28/17). mets to liver s/p 2 x radioembolization. s/p lap hemicolectomy with Dr. Miller. bilateral pulmonary emboli chronically on xarelto. E. coli UTI sepsis w/ influenza B 06/2017. chronic pain w/ continuous opiate dependency. hyperlipidemia - Surgical History Additional surgical history: L hip replacement on 11/23/2016. cataract repair. L elbow fracture repair. R asc Lap hemicolectomy 02/01/18. left port placement -removed. R portplacement. - Family History Additional family history: no colon cancer. 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 Review of Systems Review of Systems: ROS: 10pt was reviewed & negative except for what was stated in HPI & below Constitutional: Reports: malaise, weight loss, other (see HPI). Denies: chills , fever EENMT: Reports: mouth pain (resolved now x 1 week. hx of oral ulcers s/p chemotherapy.), other (wears glasses). Denies: blurred vision, mouth swelling, sore throat Cardiac: Reports: lightheadedness. Denies: chest pain, edema (resolved 2 weeks after hospitalization 08/2017 nothing recently.) Respiratory: Reports: shortness of breath (dyspnea on exertion. denies at rest.) . Denies: cough, orthopnea Gastrointestinal: Reports: abdominal pain (see HPI), constipation. Denies: black stools, nausea Genitourinary: Reports: no symptoms Muscolosketal: Reports: other (abdominal pain. resolved left chest/shoulder pain related to infected port now removed.) Skin: Reports: no symptoms, other (left chest wall bandaged and changed at Dr. Miller office.) Neurological: Reports: headache (persistent since initiating chemo per patient.) , numbness (bilateral finger tips and bottom of both feet following chemo persistnet.), weakness (generalized). Denies: tremors Hematologic/Lymphatic: Reports: blood clots. Denies: easy bruising Physical Exam Physical Exam: Selected Entries 02/17/18 13:54 Heart Rate 86 Respiratory 16 Rate O2 Sat (%) 95 Temperature (C) 36.9 C Blood Pressure 131/84 H Temp Pulse Resp BP Pulse Ox 36.4 C 97 16 144/87 H 96 02/17/18 20:02 02/17/18 20:02 02/17/18 20:02 02/17/18 20:02 02/17/18 20:02 Constitutional: no apparent distress, chronically ill appearing, other (NAD. pleasant adult male lays comfortably up in bed eating ice cream. Patient appears chronically ill. pleasant and cooperative.) Eyes: PERRL (lens reflex appreciated bilaterally.), anicteric sclera, EOMI, No scleral injection Ears, Nose, Mouth, Throat: moist mucous membranes, no oral mucosal ulcers, other (no nasal discharge. ), No oral thrush, No oral ulcer Cardiovascular: regular rate and rhythym, no murmur, rub, or gallop, No edema Peripheral Pulses: 1+: dorsalis-pedis (R), dorsalis-pedis (L) Respiratory: no respiratory distress, no rales or rhonchi, clear to auscultation , No expiratory wheeze, No respiratory distress Gastrointestinal: other (hypoactive bowel sounds diffusely. inimally distended but soft overall. well healed midline surgical and lower abdominal scars. no surrounding erythema/exudates. right groin bandaged. left chest wall bandaged. right with power port acessed.) Genitourinary: no bladder fullness, no bladder tenderness, No ceballos in urethra Skin: warm, no rashes or abrasions, other (pallor) Musculoskeletal: generalized weakness, other (patient moves all extremities. sits up with minimal assistance due to c/o abdominal discomfort with sitting up. ) Neurologic: AAOx3, sensation intact bilaterally, other (grossly nonfocal. moves all extremities. ), No facial droop Lab Data & Imaging Review 02/17/18 13:15 02/17/18 21:00 WBC 11.32 10^3/uL (3.80-9.50) H 02/17/18 13:15 RBC 3.16 10^6/uL (4.40-6.38) L 02/17/18 13:15 Hgb 10.0 g/dL (13.7-17.5) L 02/17/18 13:15 Hct 30.2 % (40.0-51.0) L 02/17/18 13:15 MCV 95.6 fL (81.5-99.8) 02/17/18 13:15 MCH 31.6 pg (27.9-34.1) 02/17/18 13:15 MCHC 33.1 g/dL (32.4-36.7) 02/17/18 13:15 RDW 19.2 % (11.5-15.2) H 02/17/18 13:15 Plt Count 221 10^3/uL (150-400) 02/17/18 13:15 MPV 9.3 fL (8.7-11.7) 02/17/18 13:15 Neut % (Auto) Not Reported 02/17/18 13:15 Lymph % (Auto) Not Reported 02/17/18 13:15 [place] % (Auto) Not Reported 02/17/18 13:15 Eos % (Auto) Not Reported 02/17/18 13:15 Baso % (Auto) Not Reported 02/17/18 13:15 Nucleat RBC Rel Count Not Reported 02/17/18 13:15 Absolute Neuts (auto) Not Reported 02/17/18 13:15 Absolute Lymphs (auto) Not Reported 02/17/18 13:15 Absolute Monos (auto) Not Reported 02/17/18 13:15 Absolute Eos (auto) Not Reported 02/17/18 13:15 Absolute Basos (auto) Not Reported 02/17/18 13:15 Absolute Nucleated RBC Not Reported 02/17/18 13:15 Immature Gran % Not Reported 02/17/18 13:15 Seg Neutrophils % 79.6 % 02/17/18 13:15 Band Neutrophils % 0.0 % 02/17/18 13:15 Lymphocytes % 6.1 % 02/17/18 13:15 Monocytes % 11.2 % 02/17/18 13:15 Eosinophils % 1.0 % 02/17/18 13:15 Basophils % 0.0 % 02/17/18 13:15 Metamyelocytes % 2.1 % 02/17/18 13:15 Myelocytes % 0.0 % 02/17/18 13:15 Promyelocytes % 0.0 % 02/17/18 13:15 Blast Cells % 0.0 % 02/17/18 13:15 Immature Gran # Not Reported 02/17/18 13:15 Absolute Seg Neuts 9.01 10^/uL (1.70-6.50) H 02/17/18 13:15 Absolute Band Neuts 0.00 10^3/uL (0.00-0.70) 02/17/18 13:15 Absolute Lymphocytes 0.69 10^3/uL (1.00-3.00) L 02/17/18 13:15 Absolute Monocytes 1.27 10^3/uL (0.30-0.80) H 02/17/18 13:15 Absolute Eosinophils 0.11 10^3/uL (0.03-0.40) 02/17/18 13:15 Absolute Basophils 0.00 10^3/uL (0.02-0.10) L 02/17/18 13:15 Absolute Metamyelocyte 0.24 10^3/mL (0.00-0.00) H 02/17/18 13:15 Absolute Myelocytes 0.00 10^3/mL (0.00-0.00) 02/17/18 13:15 Absolute Promyelocytes 0.00 10^3/uL (0.00-0.00) 02/17/18 13:15 Absolute Plasma Cells 0.00 10^3/uL (0.00-0.00) 02/17/18 13:15 Nucleated RBCs 0 /100 WBC (0-0) 02/17/18 13:15 Absolute Blast Cells 0.00 10^3/uL (0.00-0.00) 02/17/18 13:15 Plasma Cells % 0.0 % 02/17/18 13:15 Platelet Estimate ADEQUATE (ADEQ) 02/17/18 13:15 Hypochromasia 1+ H 02/17/18 13:15 Oval Macrocytes 2+ H 02/17/18 13:15 Schistocytes 1+ H 02/17/18 13:15 PT 14.3 SEC (12.0-15.0) 02/17/18 13:15 INR 1.09 (0.83-1.16) 02/17/18 13:15 APTT 29.3 SEC (23.0-38.0) 02/17/18 13:15 Creatinine 0.8 mg/dL (0.7-1.3) 02/17/18 21:00 Estimated GFR > 60 02/17/18 21:00 Assessment & Plan Assessment: Dc is a pleasant 72 yo M with history of colon cancer with mets to liver now s/p R asc lap hemicolectomy, and radioembolization x 2 for liver mets. Patient has had prolonged hospital stay from 02/01/18 - 02/12/18 and several admissions for infectious processes since his diagnosis earlier this year now with post procedural pain, generalized weakness, weight loss and failure to thrive. 1. Failure to thrive in adult - Patient with slow recovery and overall poor appetite. Dietary consultation to assist patient with nutritional status. check cmp and prealbumin. No evidence of active infectious process. continuing bactrim bid. encourage oral intake. 2. RUQ abdominal pain s/p radioembolization. prn medications ordered. 3. metastatic colon cancer - s/p hemicolectomy and radioembolization. Patient is followed by Dr. Miller and Dr. Ring. courtesy notification on admission in AM per day team. 4. lightheadedness - likely some component of dehydration or orthostasis. continue IVF tonight. resting BPs have been adequate. If patient symptoms persist in AM with ambulation then will further evaluate starting with orthostatic BPs. at this time pt reports feeling well. 5. hx MRSA line infection - s/p removal and replacement as noted in HPI. Notify Dr. Miller in AM and follow recommended wound care instructions. Bandage but just changed in office early this AM. continue bactrim ds. 6. hx of PE - no observed hypoxia. pt reports chronic dyspnea nothing acute and no other respiratory problems. resume xarelto when okay with IR. 7. anemia - likely component of chronic disease as well as recent surgeries. pt does report some dyspnea on exertion. will repeat CBC in the AM. 8. chronic pain on chronic opiate therapy - continue patient's home medication dosing. Patient reports last radioembolization he developed more severe symptoms post-op 2. 9. constipation - in setting of hemicolectomy and narcotics use - add po stool softener and bowel regimen. FEN - IVF NS overnight. diet as tolerated. electrolyte monitoring and replacement prn. PPX - SCDs. resume xarelto when okay with IR postprocedure. COR - FULL Dispo - Patient admitted to inpatient status on Med/Surg to PCU overflow. Anticipate > 2 midnight stay
[2018-02-18] MEDS: NS 1,000 ML IV SCH ×2 (05:19→15:26)
[2018-02-18 05:29] LABS: PLATELET COUNT 217 10^3/uL (150-400)
[2018-02-18] MEDS ORDERED: MAGNESIUM HYDROXIDE 30 ML UDCUP PO PRN (05:36)
[2018-02-18] MEDS ORDERED: POLYETHYLENE GLYCOL 3350 17 GM PKT PO PRN (05:36)
[2018-02-18] MEDS ORDERED: LACTULOSE 20 GM/30 ML UDCUP PO PRN (05:36)
[2018-02-18] MEDS ORDERED: BISACODYL 10 MG SUPP PR PRN (05:36)
[2018-02-18] MEDS: SENNOSIDES/DOCUSATE SODIUM TAB PO SCH ×2 (09:44→21:12)
[2018-02-18] MEDS: SULFAMETHOX/TMP 800/160 MG 1 TAB PO SCH ×2 (09:44→21:13)
[2018-02-18] MEDS: OXYCODONE/APAP 5/325 TAB PO PRN ×3 (09:45→21:13)
--- NOTE | 2018-02-18 10:29 | HOSPPROG ---
Hospitalist Progress Note Assessment/Plan: Dc is a pleasant 72 yo M with history of colon cancer with mets to liver now s/p R asc lap hemicolectomy, and radioembolization x 2 for liver mets. Patient has had prolonged hospital stay from 02/01/18 - 02/12/18 and several admissions for infectious processes since his diagnosis earlier this year now with post procedural pain, generalized weakness, weight loss and failure to thrive. 1. Failure to thrive in adult - Patient with slow recovery and overall poor appetite. Dietary consultation to assist patient with nutritional status. check cmp and prealbumin. No evidence of active infectious process. continuing bactrim bid. encourage oral intake. 2. RUQ abdominal pain s/p radioembolization. prn medications ordered. 3. metastatic colon cancer - s/p hemicolectomy and radioembolization. Patient is followed by Dr. Miller and Dr. Ring. courtesy notification on admission 4. lightheadedness - likely some component of dehydration or orthostasis. s/p IVF overnight. resting BPs have been adequate. If patient symptoms persist with ambulation then will further evaluate starting with orthostatic BPs. at this time pt reports feeling well. 5. hx MRSA line infection - s/p removal and replacement as noted in HPI. Notify Dr. Miller in AM and follow recommended wound care instructions. Bandage but just changed in office yesterday AM. continue bactrim ds. 6. hx of PE - no observed hypoxia. pt reports chronic dyspnea nothing acute and no other respiratory problems. resume xarelto when okay with IR. 7. anemia - likely component of chronic disease as well as recent surgeries. pt does report some dyspnea on exertion. Repeat CBC stable this AM 8. chronic pain on chronic opiate therapy - continue patient's home medication dosing. Patient reports last radioembolization he developed more severe symptoms post-op 2. 9. constipation - in setting of hemicolectomy and narcotics use - add po stool softener and bowel regimen. FEN - IVF NS overnight. diet as tolerated. electrolyte monitoring and replacement prn. PPX - SCDs. resume xarelto when okay with IR postprocedure. COR - FULL Dispo - Patient admitted to inpatient status on Med/Surg to PCU overflow. Anticipate discharge tomorrow. Subjective: Patient reports feeling better this morning. His current pain level is 4-6/10 Objective: Vital Signs Temp Pulse Resp BP Pulse Ox 36.8 C 70 14 135/74 H 96 02/18/18 08:00 02/18/18 08:00 02/18/18 08:00 02/18/18 08:00 02/18/18 08:00 Laboratory Results 02/18/18 05:20 02/18/18 05:20 02/17/18 02/18/18 02/19/18 05:59 05:59 05:59 Intake Total 1800 Output Total 250 Balance 1550 PT 14.3 SEC (12.0-15.0) 02/17/18 13:15 INR 1.09 (0.83-1.16) 02/17/18 13:15 - Physical Exam Constitutional: no apparent distress Eyes: PERRL Ears, Nose, Mouth, Throat: moist mucous membranes Cardiovascular: regular rate and rhythym Respiratory: no respiratory distress Gastrointestinal: soft, non-tender abdomen Genitourinary: No ceballos in urethra Skin: warm Musculoskeletal: normal joint ROM Neurologic: AAOx3 Psychiatric: interacting appropriately ICD10 Worksheet Patient Problems: Problems Problem Status Onset Fever Acute Hip arthritis Acute Hip dislocation, left Acute Hypoxia Acute Metastatic colon cancer to liver Acute Pneumonia Acute Pulmonary embolism Acute
--- NOTE | 2018-02-18 12:38 | ASMTCMCOM ---
CM Note CM Note Notes: 02/18/2018 Case Management Note Pt admitted s/p recent R asc lap hemicolectomy w/known liver mets for second procedure for radioembolization with Dr. Houston. Discussed pt in rounds this morning. Pt anticipating d/c tomorrow. Pt lives with his of 30+ years Christine [phone]. Pt is current with [facility]. Faxed updates to [facility]. Case Management d/c poc: home resuming [facility] RN and PT Case Management to follow. Date Signed: 02/18/2018 12:37 PM Electronically Signed By:Shari Harman RN
--- NOTE | 2018-02-18 13:18 | SOAPPROG ---
SOAP Progress Note Assessment/Plan: Assessment: s/p Y90 to LT hepatic lobe. Doing better today with hydration and resting. Still aki weak. Last time, worst pain and discomfort kicked in two days after procedure. Plan: 1. Encourage ambulation 2. Staying tonight. May d/c tomorrow if not worse constitutionally. 3. Appreciate hospitalist help in managing this patient. 02/18/18 13:15 Subjective: Feeling better today. tolerating po. no abd pain. Objective: Vital Signs Temp Pulse Resp BP Pulse Ox 36.6 C 70 14 150/81 H 96 02/18/18 12:19 02/18/18 08:00 02/18/18 08:00 02/18/18 12:19 02/18/18 08:00 Laboratory Results 02/18/18 05:20 02/18/18 05:20 02/17/18 02/18/18 02/19/18 05:59 05:59 05:59 Intake Total 1800 Output Total 250 Balance 1550 PT 14.3 SEC (12.0-15.0) 02/17/18 13:15 INR 1.09 (0.83-1.16) 02/17/18 13:15 rt groin without hematoma. abd soft. ICD10 Worksheet Patient Problems: Problems Problem Status Onset Fever Acute Hip arthritis Acute Hip dislocation, left Acute Hypoxia Acute Metastatic colon cancer to liver Acute Pneumonia Acute Pulmonary embolism Acute
[2018-02-18] MEDS: Lisdexamfetamine Dimesylate [Vyvanse] 40 MG PO SCH (15:27)
[2018-02-18] MEDS: traZODone 50 MG TAB PO SCH (21:12)
[2018-02-18] MEDS: DULoxetine 20 MG CAP PO SCH (21:13)
[2018-02-18] MEDS: CYCLOBENZAPRINE 10 MG TAB PO SCH (21:15)
[2018-02-18] MEDS ORDERED: PHENOL 177 ML THROAT SPRAY PO PRN (22:15)
[2018-02-19] MEDS: OXYCODONE/APAP 5/325 TAB PO PRN ×3 (09:10→19:50)
[2018-02-19] MEDS: SENNOSIDES/DOCUSATE SODIUM TAB PO SCH ×2 (11:17→21:05)
[2018-02-19] MEDS: Lisdexamfetamine Dimesylate [Vyvanse] 40 MG PO SCH (11:17)
[2018-02-19] MEDS: NS 1,000 ML IV SCH ×2 (11:18→19:50)
--- NOTE | 2018-02-19 12:40 | HOSPPROG ---
Hospitalist Progress Note Assessment/Plan: #Colon cancer with liver mets: s/p Y-90 radioembolization yesterday. Pain not controlled this morning -cont IV dilaudid, Percocet -agreeable for outpatient Palliative care #Metastatic cancer: s/p right hemicolectomy by Dr. Miller. #Prior right port infection: Bactrim #PE: Xarelto #Disp: inpatient admission for pain control Subjective: pain 8/10, pulsating RUQ Objective: Vital Signs Temp Pulse Resp BP Pulse Ox 36.8 C 78 14 148/92 H 96 02/19/18 08:00 02/19/18 08:00 02/19/18 08:00 02/19/18 08:00 02/19/18 08:00 Laboratory Results 02/18/18 05:20 02/18/18 05:20 02/18/18 02/19/18 02/20/18 05:59 05:59 05:59 Intake Total 1800 1532 Output Total 250 950 Balance 1550 582 PT 14.3 SEC (12.0-15.0) 02/17/18 13:15 INR 1.09 (0.83-1.16) 02/17/18 13:15 - Time Spent With Patient Time Spent with Patient: greater than 35 minutes Time Spent with Patient: Greater than 35 minutes spent on this patients care, greater than 50% of time spent counseling, educating, and coordinating care regarding the above mentioned plan. - Physical Exam Constitutional: no apparent distress Eyes: PERRL Ears, Nose, Mouth, Throat: moist mucous membranes Cardiovascular: regular rate and rhythym Respiratory: no respiratory distress Gastrointestinal: normoactive bowel sounds, tenderness (RUQ. Abd surgical scar healing.) Skin: other (port SHIRA chest. right upper port site, dressed) Musculoskeletal: full muscle strength Neurologic: AAOx3, CN II-XII Intact ICD10 Worksheet Patient Problems: Problems Problem Status Onset Fever Acute Hip arthritis Acute Hip dislocation, left Acute Hypoxia Acute Metastatic colon cancer to liver Acute Pneumonia Acute Pulmonary embolism Acute
[2018-02-19] MEDS: SULFAMETHOX/TMP 800/160 MG 1 TAB PO SCH ×2 (13:50→21:06)
--- NOTE | 2018-02-19 16:07 | ASMTCMCOM ---
CM Note CM Note Notes: 02/19/2018 Case Management Note Met w/pt at Dr. Todd's request to discuss outpatient palliative. Pt is unsure if he needs it at this time as he feels he is working towards a cure for his cancer. Pt agreed to referral and meeting with [facility] at home after discharge for a better understanding of what Palliative Care could offer him. 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 Faxed referral to [facility] for outpatient support. Notified [facility] of likely d/c tomorrow. Case Management d/c poc: [facility] RN PT Case Management to follow. Date Signed: 02/19/2018 04:06 PM Electronically Signed By:Shari Harman RN
[2018-02-19] MEDS: traZODone 50 MG TAB PO SCH (21:06)
[2018-02-19] MEDS: DULoxetine 20 MG CAP PO SCH (21:06)
[2018-02-19] MEDS: CYCLOBENZAPRINE 10 MG TAB PO SCH (21:07)
[2018-02-20] MEDS: SULFAMETHOX/TMP 800/160 MG 1 TAB PO SCH (09:39)
[2018-02-20 09:47] VITALS: BP 149/89
[2018-02-20] MEDS: SENNOSIDES/DOCUSATE SODIUM TAB PO SCH (09:55)
--- NOTE | 2018-02-20 12:23 | ASDISCHSUM ---
Discharge Information Plan Status:Home with Home Health Medically Cleared to Leave:02/20/2018 Discharge Date:02/20/2018 D/C Disposition:Home Health Service ADT D/C Disposition:Home, Routine, Self-Care Projected Discharge Date:02/20/2018 11:00 AM Transportation at D/C: Discharge Delay Reason: Follow-Up Date:02/20/2018 11:00 AM Discharge Slot: Final Diagnosis: Placement Information Referral Type:*Home Health Care Services Referral ID:[id number] Provider Name:[facility] Address 1:[address] [address] Address 2: City:[place] Selection Factors: State:[place] Referral Type:Palliative Care Referral ID:[id number] Provider Name:[facility] Address 1:[address] [facility] [facility] Phone Number: Address 2: Fax Number: [facility] Selection Factors: State:[place] Patient Contact Information Contact Name:ANT Relationship: Address:[address] Work Phone: City:[place] Alternate Phone: State/Zip Code:[place] [address] Email: Financial Information Financial Class:HMO and PPO Plans Primary Plan Desc:[facility] Primary Plan Number:[id number] Secondary Plan Desc: Secondary Plan Number: Assessment Information LACE LACE Length of stay for Answers: 2 days current admission Acuity / Level of Answers: Yes Care: Did the patient have an inpatient admission? Comorbidities - select Answers: Any tumor (including all that apply lymphoma or leukemia) Opioid dependence / Chronic pain Other Notes: HLD # of Emergency department Answers: 0 visits in the last 6 months Score: 12 Date Signed: 02/20/2018 12:22 PM Electronically Signed By:Shari Harman RN [facility] Progress Note CM Note CM Note Notes: 02/18/2018 Case Management Note Pt admitted s/p recent R asc lap hemicolectomy w/known liver mets for second procedure for radioembolization with Dr. Houston. Discussed pt in rounds this morning. Pt anticipating d/c tomorrow. Pt lives with his of 30+ years Christine [phone]. [facility] with [facility]. Faxed updates to [facility]. Case Management d/c poc: home resuming [facility] RN and PT Case Management to follow. Date Signed: 02/18/2018 12:37 PM Electronically Signed By:Shari Harman RN [facility] CM Progress Note CM Note CM Note Notes: 02/19/2018 Case Management Note Met w/pt at Dr. Todd's request to discuss outpatient palliative. Pt is unsure if he needs it at this time as he feels he is working towards a cure for his cancer. Pt agreed to referral and meeting with [facility] at home after discharge for a better understanding of what Palliative Care could offer him. 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 Faxed referral to [facility] for outpatient support. Notified [facility] of likely d/c tomorrow. Case Management d/c poc: [facility] RN PT Case Management to follow. Date Signed: 02/19/2018 04:06 PM Electronically Signed By:Shari Harman RN Case Management Discharge Plan Note Case Management Discharge Discharge Order Complete? Answers: Yes Transportation Arranged Answers: Family/Friends Faxed Final Orders Answers: Yes Agency/Facility Transfer Answers: Yes Report Printed & Faxed to Receiving Agency Discharge Comments Notes: 02/20/2018 Case Management Note Notified [facility] of discharge. faxed final orders. [facility] to follow up with patient at home. No further case management d/c needs identified. Date Signed: 02/20/2018 12:22 PM Electronically Signed By:Shari Harman RN Intervention Information
[2018-02-20] MEDS: Lisdexamfetamine Dimesylate [Vyvanse] 40 MG PO SCH (12:33)
[2018-02-20] MEDS: OXYCODONE/APAP 5/325 TAB PO PRN (12:33)
--- NOTE | 2018-02-20 13:30 | SOAPPROG ---
FABIENNE Progress Note Assessment/Plan: E&M colon cancer * Metastatic colon cancer with liver mets: Excellent response to Folfox and mets isolated to liver. Has completed right hemicolectomy to remove primary and y-90 x2. Plan is to let him recover and then go back on maintenance 5-FU. Cure is a long shot. I would like to see him next week to check his labs and see how he is doing. Subjective: Had Y-90 therapy on 02/17 with post-procedure pain through yesterday. Doing much better today and ready to go home. with patient. Objective: Vital Signs Temp Pulse Resp BP Pulse Ox 36.9 C 77 16 149/89 H 95 02/20/18 08:00 02/20/18 08:00 02/20/18 08:00 02/20/18 08:00 02/20/18 08:00 Laboratory Results 02/20/18 05:30 02/18/18 05:20 02/19/18 02/20/18 02/21/18 05:59 05:59 05:59 Intake Total 1532 1200 Output Total 950 1475 Balance 582 -275 PT 14.3 SEC (12.0-15.0) 02/17/18 13:15 INR 1.09 (0.83-1.16) 02/17/18 13:15 Physical Exam - Physical Exam General Appearance: no apparent distress Abdomen: normal bowel sounds, non-tender, soft ICD10 Worksheet Patient Problems: Problems Problem Status Onset Fever Acute Hip arthritis Acute Hip dislocation, left Acute Hypoxia Acute Metastatic colon cancer to liver Acute Pneumonia Acute Pulmonary embolism Acute
--- NOTE | 2018-02-20 15:28 | GDS ---
DISCHARGE DIAGNOSES: 1. Metastatic colon cancer with liver metastases, status post right hemicolectomy and y90 x2. 2. Acute on chronic abdominal pain secondary to procedure. 3. History of recent right port Methicillin resistant Staphylococcus aureus infection. 4. History of bilateral pulmonary embolism. 5. History of Escherichia coli, urinary tract infection sepsis. 6. Chronic pain with opioid dependency. 7. Hyperlipidemia. 8. Recent left port MRSA infection. HISTORY OF PRESENT ILLNESS: A pleasant 72-year-old male with history of colon cancer with metastases to liver, status post recent right hemicolectomy. He underwent elective radio-embolization with Dr. Houston on 02/17/2018. Hospitalist service was consulted for pain control. He reports increased right upper quadrant pain after the procedure. Denies fevers, chills, or sweats. No nausea , vomiting, diarrhea. HOSPITAL COURSE BY PROBLEM: 1. Acute on chronic right upper quadrant pain: Secondary to chemo- embolization. H and H remained stable. Pain much improved today after a short course of IV opioids. He is now controlled on Percocet, which I will provide a script at discharge. 2. History of bilateral pulmonary embolism. Resume Xarelto. 3. Metastatic colon cancer: Dr. Ring is his primary Oncologist. Status post right hemicolectomy and status post radio-embolization y90 x2. He has had excellent response to FOLFOX. Plan is to allow him to recover and go back on maintenance 5-FU. He will follow up with Dr. Ring next week. 4. Hyperlipidemia, not on medication. 5. Bilateral pulmonary embolism. Xarelto. 6. Depression. Cymbalta. 7. Left port MRSA infection: Bactrim, FU with Dr. Miller this week DISPOSITION: Patient is stable for discharge. NEW MEDICATIONS: 1. Percocet 1 to 2 tabs q.6 hours as needed. 2. Trazodone. FOLLOWUP: 1. Dr. Ring. 2. Dr. Miller. PHYSICAL EXAM: VITAL SIGNS: Today, temperature 36.9, blood pressure 149/89, heart rate 70s, respirations 16, 95% on room air. GENERAL: Well-appearing, smiling, no acute distress. HEENT: PERRLA. Moist mucous membranes. CV: Is regular rate and rhythm. LUNGS: Are clear. ABDOMEN: Minimal right upper quadrant tenderness. : No Lowery. MUSCULOSKELETAL: Left upper chest port site with drain, healing well. No purulence or erythema. NEURO: CN 2 through 12 intact. PSYCH: Alert and oriented x3. TIME SPENT ON DISCHARGE: Greater than 30 minutes, counseling patient on medications. /[id number]/MODL MTDD
== END 2018-02-20 13:44 | disposition home or self-care (01) | DRG 940 ==
LOC: FIMAGING 11:37 → F3N 15:17 → F2W 15:48
PROVIDERS: ADMIT Radiology Diagnostic Radiology; ATTEND Radiology Diagnostic Radiology
PROC: 04L33DZ Occlusion of Hepatic Artery with Intraluminal Device, Percutaneous Approach (ICD-10-PCS; principal; 2018-02-17)
DX: G89.18 Other acute postprocedural pain (principal); C78.7 Secondary malignant neoplasm of liver and intrahepatic bile duct; C18.9 Malignant neoplasm of colon, unspecified; F11.20 Opioid dependence, uncomplicated; G89.29 Other chronic pain; R62.7 Adult failure to thrive; E78.5 Hyperlipidemia, unspecified; E86.0 Dehydration; D63.8 Anemia in other chronic diseases classified elsewhere; K59.03 Drug induced constipation; Z86.711 Personal history of pulmonary embolism; Z86.14 Personal history of Methicillin resistant Staphylococcus aureus infection; Z90.49 Acquired absence of other specified parts of digestive tract
CPT/HCPCS: 84134-90; C1760; C1769; J1170; J1200; J1644; J2250; J2310; J2930; J3010; Q9967

== ENCOUNTER → 2018-02-28 | Outpatient (CLI) | payer OTHER | LOC: BMCIMAGING 16:59 | PROVIDERS: ATTEND Internal Medicine | DX: R07.9 Chest pain, unspecified (principal) ==

== ENCOUNTER → 2018-03-17 | Outpatient (CLI) | payer OTHER | LOC: FIMAGING 18:11 | PROVIDERS: ATTEND Internal Medicine | DX: M21.371 Foot drop, right foot (principal); M48.061 Spinal stenosis, lumbar region without neurogenic claudication; M51.26 Other intervertebral disc displacement, lumbar region ==

== ENCOUNTER → 2018-04-15 | Outpatient (CLI) | payer OTHER | LOC: FIMAGING 16:11 | PROVIDERS: ATTEND Internal Medicine Hematology & Oncology | DX: I82.4Z2 Acute embolism and thrombosis of unspecified deep veins of left distal lower extremity (principal); R22.42 Localized swelling, mass and lump, left lower limb ==

== ENCOUNTER 2018-05-21 14:32 | Emergency (ER) | payer OTHER ==
[2018-05-21] MEDS ORDERED: PROPARACAINE 0.5% 15 ML OPHT DROP ONE (16:30)
[2018-05-21] MEDS ORDERED: FLUORESCEIN SODIUM 1 MG STRIP OP ONE (16:30)
[2018-05-21 16:48] VITALS: BP 128/72
--- NOTE | 2018-05-21 16:56 | EDPHY ---
H & P Stated Complaint: head/face shingles, worried about shingles in L eye Time Seen by Provider: 05/21/18 16:38 HPI/ROS: CHIEF COMPLAINT: Left eye blurry vision HISTORY OF PRESENT ILLNESS: The patient is a 72-year-old man who was diagnosed Wednesday of this week with facial shingles involving is ophthalmic branch. He has been on valacyclovir for the last 5 days. No steroids. He also has a history of liver cancer stage IV with liver metastasis and previous PE. He is hesitant to take steroids for fear of further immunosuppression. Today he noticed some leg vision while he was working on the computer and became concerned that he had extension to his eye. No fevers. No intraoral lesions. No nasal lesions. Severity: Moderate Modifying factors: None REVIEW OF SYSTEMS: Constitutional: denies: chills, fever, recent illness, recent injury EENTM: See HPI Respiratory: denies: cough, shortness of breath Cardiac: denies: chest pain, irregular heart rate, lightheadedness, palpitations Gastrointestinal/Abdominal: denies: abdominal pain, diarrhea, nausea, vomiting, blood streaked stools Genitourinary: denies: dysuria, frequency, hematuria, pain Musculoskeletal: denies: joint pain, muscle pain Skin: denies: lesions, rash, jaundice, bruising Neurological: denies: headache, numbness, paresthesia, tingling, dizziness, weakness Hematologic/Lymphatic: denies: blood clots, easy bleeding, easy bruising Immunologic/allergic: denies: HIV/AIDS, transplant 10 systems reviewed and negative except as noted EXAM: GENERAL: Well-appearing, well-nourished and in no acute distress. HEAD: Atraumatic, normocephalic. EYES: Pupils equal round and reactive to light, extraocular movements intact, sclera anicteric, conjunctiva are normal. ENT: TMs normal, nares patent, oropharynx clear without exudates. Moist mucous membranes. NECK: Normal range of motion, supple without lymphadenopathy or JVD. LUNGS: Breath sounds clear to auscultation bilaterally and equal. No wheezes rales or rhonchi. HEART: Regular rate and rhythm without murmurs, rubs or gallops. ABDOMEN: Soft, nontender, normoactive bowel sounds. No guarding, no rebound. No masses appreciated. BACK: No CVA tenderness, no spinal tenderness, step-offs or deformities EXTREMITIES: Normal range of motion, no pitting or edema. No clubbing or cyanosis. NEUROLOGICAL: Cranial nerves II through XII grossly intact. Normal speech, normal gait. 5/5 strength, normal movement in all extremities, normal sensation , normal reflexes PSYCH: Normal mood, normal affect. SKIN: Warm, dry, normal turgor, no visible rashes or lesions. Source: Patient - Personal History Current Tetanus Diphtheria and Acellular Pertussis (TDAP): Yes - Medical/Surgical History Hx Asthma: No Hx Chronic Respiratory Disease: No Hx Diabetes: No Hx Cardiac Disease: No Hx Renal Disease: No Hx Cirrhosis: No Hx Alcoholism: No Hx HIV/AIDS: No Hx Splenectomy or Spleen Trauma: No Other PMH: high cholesterol, adhd, insomnia, R CELESTINE, L total hip replacement . colon ca w/mets to liver. UTI, FLU A, PULM EMB - Family History Significant Family History: No pertinent family hx - Social History Smoking Status: Never smoked Alcohol Use: Sober Drug Use: None Constitutional: Initial Vital Signs Temperature (C) 36.6 C 05/21/18 14:42 Heart Rate 87 05/21/18 14:42 Respiratory Rate 16 05/21/18 14:42 Blood Pressure 133/70 H 05/21/18 14:42 O2 Sat (%) 97 05/21/18 14:42 O2 Delivery Mode Room Air Allergies/Adverse Reactions: adhesive tape Allergy (Intermediate, Verified 05/21/18 14:47) Rash, red, itchy Tegaderm Allergy (Mild, Uncoded 02/16/18 17:37) Rash Home Medications: Medication Instructions Recorded Cyclobenzaprine [Flexeril 10 MG 10 mg PO HS 07/19/17 (*)] Duloxetine HCl [Cymbalta] 20 mg PO HS 12/10/17 Lisdexamfetamine Dimesylate 40 mg PO DAILY 12/10/17 [Vyvanse] Carboxymethylcellulose 1% [Refresh 1 drop EACHEYE TID PRN 01/28/18 Celluvisc (*)] Herbals/Supplements -Info Only 1 ea PO DAILY 01/28/18 Sulfamethox/Tmp 800/160 mg 1 tab PO BID 01/28/18 [Bactrim DS] traMADol [Ultram 50 mg (*)] 50 mg PO Q4HRS PRN 01/28/18 Acetaminophen [Tylenol 325mg (*)] 650 mg PO Q6H PRN tab 02/12/18 oxyCODONE/APAP 5/325 [Percocet 1 - 2 tab PO Q6 PRN #30 tab 02/20/18 5/325 (*)] traZODone [traZODONE 50MG (*)] 50 mg PO HS #30 tab 02/20/18 Medical Decision Making ED Course/Re-evaluation: 4:55 p.m. I discussed the case with Dr. Duffy who is on-call for Ophthalmology. He recommends Pred Forte eyedrops to the left eye three times daily and will follow up with the patient on Wednesday. Differential Diagnosis: Partial list of the Differential diagnosis considered include but were not limited to; herpes ophthalmicus, corneal abrasion, zoster and although unlikely based on the history and physical exam, I also considered the meningitis, the the foreign body. I discussed these differential diagnoses and the plan with the patient as well as the usual and expected course. The patient understands that the diagnosis is provisional and that in medicine we are not always correct and that further workup is often warranted. Usual and customary warnings were given. All of the patient's questions were answered. The patient was instructed to return to the emergency department should the symptoms at all worsen or return, otherwise to followup with the physician as we discussed. - Data Points Medications Given: Discontinued Medications Prednisolone Acetate (Pred Forte 1%) 1 drops LEFTEYE TID ONE Stop: 05/21/18 16:59 Last Admin: 05/21/18 17:16 Dose: 1 drop Departure - Departure Disposition: Home, Routine, Self-Care Clinical Impression: Herpes zoster ophthalmicus, left eye Condition: Fair Instructions: Shingles (ED) Additional Instructions: We spoke with Dr. Blair from Ophthalmology would like to see on Wednesday for follow-up. Use the Pred Forte eyedrops 3 times a day in your left eye. Referrals: Astrid Ring MD [Primary Care Provider] - As per Instructions Don Duffy MD [Medical Doctor] - 1-2 days without fail
[2018-05-21] MEDS ORDERED: prednisoLONE ACET 1% 5 ML OPHT.BTL LEFTEYE ONE (16:58)
== END 2018-05-21 17:19 | disposition home or self-care (01) ==
DX: B02.30 Zoster ocular disease, unspecified (principal)

== ENCOUNTER → 2018-12-14 | Outpatient (CLI) | payer OTHER | LOC: FIMAGING 09:02 ==